=== PATIENT | female | born 1960 | race Caucasian/White ===

== ENCOUNTER 2023-12-07 11:38 | Inpatient (IN) | payer OTHER ==
--- NOTE | 2023-12-07 12:53 | ED ---
General Adult HPI - General Chief complaint: Extremity Problem,Nontraumatic Stated complaint: L leg swelling Time Seen by Provider: 12/07/23 12:05 Source: patient, RN notes reviewed Mode of arrival: ambulatory Limitations: no limitations - History of Present Illness Initial comments: 63-year-old female presents to the emergency department for evaluation of left lower extremity swelling. Patient states that she woke up this morning with significant swelling to her left lower extremity. She states that it is not painful. She reports that she has been massaging her leg which is soothing. She does note discoloration to her left leg. Patient states that she has had fevers on and off for the last couple of months. She was recently started on outpatient antibiotics for pneumonia. She also was told recently that she has masses in the right lung with fluid on her lung. She is scheduled to see pulmonology tomorrow. - Related Data Allergies Allergy/AdvReac Type Severity Reaction Status Date / Time Penicillins Allergy Rash/Hives Verified 12/07/23 11:43 Review of Systems ROS Statement: Those systems with pertinent positive or pertinent negative responses have been documented in the HPI. ROS Other: All systems not noted in ROS Statement are negative. Past Medical History Past Medical History: Cancer, COPD Additional Past Medical History / Comment(s): lung mass Past Surgical History: Adenoidectomy, Appendectomy, Tonsillectomy, Tubal Ligation Smoking Status: Current every day smoker General Exam Limitations: no limitations General appearance: alert, in no apparent distress Head exam: Present: atraumatic, normocephalic, normal inspection Eye exam: Present: normal appearance, PERRL, EOMI. Absent: scleral icterus, conjunctival injection, periorbital swelling ENT exam: Present: normal exam, mucous membranes moist Neck exam: Present: normal inspection. Absent: tenderness, meningismus, lymphadenopathy Respiratory exam: Present: rales. Absent: respiratory distress, wheezes, rhonchi, stridor Cardiovascular Exam: Present: normal rhythm, tachycardia, normal heart sounds. Absent: systolic murmur, diastolic murmur, rubs, gallop, clicks Extremities exam: Present: pedal edema, other (Significant left lower extremity edema with pallor, DP and PT pulses intact and equal bilaterally) Back exam: Present: normal inspection Neurological exam: Present: alert, oriented X3 Psychiatric exam: Present: normal affect, normal mood Skin exam: Present: warm, dry, intact. Absent: normal color, rash Course Vital Signs 12/07/23 12/07/23 12/07/23 11:39 16:10 17:34 Temperature 97.9 F 98.0 F Pulse Rate 105 H 104 H Respiratory 20 18 Rate Blood Pressure 145/80 125/76 O2 Sat by Pulse 96 93 L Oximetry 12/07/23 12/07/23 12/07/23 19:32 20:44 21:55 Temperature Pulse Rate 103 H 103 H 98 Respiratory 23 22 18 Rate Blood Pressure 127/81 139/81 136/74 O2 Sat by Pulse 95 95 92 L Oximetry Medical Decision Making - Medical Decision Making Was pt. sent in by a medical professional or institution (, PA, SHOTBLAST EQUIPMENT OPERATOR, urgent care, hospital, or [place] health care facility...) When possible be specific @ -No Did you speak to anyone other than the patient for history (EMS, parent, family, police, friend...)? What history was obtained from this source @ -No Did you review nursing and triage notes (agree or disagree)? Why? @ -I reviewed and agree with nursing and triage notes Were old charts reviewed (outside hosp., previous admission, EMS record, old EKG, old radiological studies, urgent care reports/EKG's, [place] health care facility records)? Report findings @ -Records from [facility] reviewed her last visit Differential Diagnosis (chest pain, altered mental status, abdominal pain women, abdominal pain men, vaginal bleeding, weakness, fever, dyspnea, syncope, headache, dizziness, GI bleed, back pain, seizure, CVA, palpatations, mental health, musculoskeletal)? @ -Differential Musculoskeletal Muscular strain, contusion, ligament sprain, fracture, arthritis, septic arthritis, bursitis, cellulitis, muscle spasm, nerve compression, DVT, arterial occlusion, herpes zoster, electrolyte abnormality, tumor.... This is not meant to be in all inclusive list EKG interpreted by me (3pts min.). @ -EKG at 1650 shows sinus rhythm rate 95, IL 123, QRS 81, QTQTc 3 [id number] X-rays interpreted by me (1pt min.). @ -None done CT interpreted by me (1pt min.). @ -CT chest for PE shows no evidence of PE, moderate pleural effusion, mediast inal and right hilar adenopathy with associated multiple spiculated nodules in the right upper lung U/S interpreted by me (1pt. min.). @ -Ultrasound of the left lower extremity shows extensive DVT from the distal leg left external iliac to the proximal calf veins What testing was considered but not performed or refused? (CT, X-rays, U/S, labs)? Why? @ -None What meds were considered but not given or refused? Why? @ -None Did you discuss the management of the patient with other professionals ( professionals i.e. , PA, SHOTBLAST EQUIPMENT OPERATOR, lab, RT, psych nurse, social service assistant, cosmetic counselor, teacher, chief environmental commitment officer, child support case officer)? Give summary @ -Case discussed with sound physician, Dr. Mota who is accepting of the admission Was smoking cessation discussed for >3mins.? @ -No Was critical care preformed (if so, how long)? @ -No Were there social determinants of health that impacted care today? How? (Homeles sness, low income, unemployed, alcoholism, drug addiction, transportation, low edu. Level, literacy, decrease access to med. care, longterm, rehab)? @ -No Was there de-escalation of care discussed even if they declined (Discuss DNR or withdrawal of care, Hospice)? DNR status @ -No What co-morbidities impacted this encounter? (DM, HTN, Smoking, COPD, CAD, Cancer, CVA, ARF, Chemo, Hep., AIDS, mental health diagnosis, sleep apnea, morbid obesity)? @ -Smoking, undiagnosed lung cancer Was patient admitted / discharged? Hospital course, mention meds given and route, prescriptions, significant lab abnormalities, going to OR and other pertinent info. @ -Admitted. Patient presented to the emergency department for evaluation of left lower extremity swelling x 1 day. Patient is found to have extensive DVT from external iliac to proximal calf veins. Distal pulses intact. Laboratory studies were obtained and patient was started on high-dose heparin. CT chest for PE was obtained which shows no evidence of PE but there is a moderate pleural effusion with mediastinal and right hilar adenopathy this is affecting the vasculature and airway there is associated multiple spiculated nodules in the right upper lung likely malignancy. Laboratory studies obtained. Patient does have significant leukocytosis at 28.7 with a left shift. She was also found to have normocytic anemia; transaminitis; UA shows moderate blood, greater than 182 RBCs, no evidence of infectious process including negative nitrite, negative leukocyte esterase. Because of the patient's leukocytosis with left shift, patient treated with antibiotics with unknown source of infection, suspected pneumonia. Patient be admitted for extensive DVT, heparinized; moderate pleural effusion with pulmonology consult, leukocytosis. Case was discussed with Dr. Nakul sousa who is accepting of the admission. Patient stable at time of admission. Case discussed with Dr. Patel Undiagnosed new problem with uncertain prognosis? @ -No Drug Therapy requiring intensive monitoring for toxicity (Heparin, Nitro, Insulin, Cardizem)? @ -No Were any procedures done? @ -No Diagnosis/symptom? @ -DVT, pleural effusion, hilar adenopathy, transaminitis, leukocytosis Acute, or Chronic, or Acute on Chronic? @ -Acute Uncomplicated (without systemic symptoms) or Complicated (systemic symptoms)? @ -Complicated Side effects of treatment? @ -No Exacerbation, Progression, or Severe Exacerbation? @ -Progression Poses a threat to life or bodily function? How? (Chest pain, [place], [place], pneumonia, PE, COPD, DKA, ARF, appy, cholecystitis, CVA, Diverticulitis, Homicidal, Suicidal, threat to staff... and all critical care pts) @ -Yes, DVT, pleural effusion - Lab Data Result diagrams: 12/07/23 13:36 12/07/23 13:36 Lab Results 12/07/23 12/07/23 12/07/23 Range/Units 13:36 13:36 13:36 WBC 28.7 H (3.8-10.6) k/uL RBC 3.60 L (3.80-5.40) m/uL Hgb 9.5 L (11.4-16.0) gm/dL Hct 30.1 L (34.0-46.0) % MCV 83.5 (80.0-100.0) fL MCH 26.4 (25.0-35.0) pg MCHC 31.6 (31.0-37.0) g/dL RDW 15.5 (11.5-15.5) % Plt Count 475 H (150-450) k/uL MPV 7.1 Neutrophils % (Manual) 96 % Lymphocytes % (Manual) 2 % Monocytes % (Manual) 2 % Neutrophils # (Manual) 27.55 H (1.3-7.7) k/uL Lymphocytes # (Manual) 0.57 L (1.0-4.8) k/uL Monocytes # (Manual) 0.57 (0-1.0) k/uL Nucleated RBCs 0 (0-0) /100 WBC Manual Slide Review Performed RBC Morphology Normal Hypochromasia Slight PT (10.0-12.5) sec INR (<1.2) APTT (22.0-30.0) sec Sodium 134 L (137-145) mmol/L Potassium 4.6 (3.5-5.1) mmol/L Chloride 103 (98-107) mmol/L Carbon Dioxide 23 (22-30) mmol/L Anion Gap 8 mmol/L BUN 20 H (7-17) mg/dL Creatinine 0.43 L (0.52-1.04) mg/dL Est GFR (CKD-EPI)AfAm >90 (>60 ml/min/1.73 sqM) Est GFR (CKD-EPI)NonAf >90 (>60 ml/min/1.73 sqM) Glucose 108 H (74-99) mg/dL Plasma Lactic Acid Ramsey 1.1 (0.7-2.0) mmol/L Calcium 8.8 (8.4-10.2) mg/dL Total Bilirubin 0.5 (0.2-1.3) mg/dL AST 43 H (14-36) U/L ALT 68 H (4-34) U/L Alkaline Phosphatase 204 H (38-126) U/L Total Protein 5.9 L (6.3-8.2) g/dL Albumin 3.0 L (3.5-5.0) g/dL 12/06/ Range/Units 13:36 WBC (3.8-10.6) k/uL RBC (3.80-5.40) m/uL Hgb (11.4-16.0) gm/dL Hct (34.0-46.0) % MCV (80.0-100.0) fL MCH (25.0-35.0) pg MCHC (31.0-37.0) g/dL RDW (11.5-15.5) % Plt Count (150-450) k/uL MPV Neutrophils % (Manual) % Lymphocytes % (Manual) % Monocytes % (Manual) % Neutrophils # (Manual) (1.3-7.7) k/uL Lymphocytes # (Manual) (1.0-4.8) k/uL Monocytes # (Manual) (0-1.0) k/uL Nucleated RBCs (0-0) /100 WBC Manual Slide Review RBC Morphology Hypochromasia PT 13.5 H (10.0-12.5) sec INR 1.3 H (<1.2) APTT 27.9 (22.0-30.0) sec Sodium (137-145) mmol/L Potassium (3.5-5.1) mmol/L Chloride (98-107) mmol/L Carbon Dioxide (22-30) mmol/L Anion Gap mmol/L BUN (7-17) mg/dL Creatinine (0.52-1.04) mg/dL Est GFR (CKD-EPI)AfAm (>60 ml/min/1.73 sqM) Est GFR (CKD-EPI)NonAf (>60 ml/min/1.73 sqM) Glucose (74-99) mg/dL Plasma Lactic Acid Ramsey (0.7-2.0) mmol/L Calcium (8.4-10.2) mg/dL Total Bilirubin (0.2-1.3) mg/dL AST (14-36) U/L ALT (4-34) U/L Alkaline Phosphatase (38-126) U/L Total Protein (6.3-8.2) g/dL Albumin (3.5-5.0) g/dL Disposition Clinical Impression: Deep vein thrombosis (DVT) of lower extremity, Leukocytosis Disposition: ADMITTED IP TO THIS HOSP Condition: Stable Is patient prescribed a controlled substance at d/c from ED?: No
--- NOTE | 2023-12-07 13:03 | US ---
EXAMINATION TYPE: US venous doppler duplex LE LT DATE OF EXAM: 12/07/2023 12:34 PM COMPARISON: NONE CLINICAL INDICATION: Female, 63 years old with history of swelling to left leg; lt leg began swelling 3 hours ago, now discolored: pale, purple SIDE PERFORMED: Left TECHNIQUE: The lower extremity deep venous system is examined utilizing real time linear array sonog rafat with graded compression, doppler sonography and color-flow sonography. VESSELS IMAGED: Common Femoral Vein Deep Femoral Vein Greater Saphenous Vein * Femoral Vein Popliteal Vein Small Saphenous Vein * Proximal Calf Veins (* superficial vessels) The left lower extremity deep venous system from the distal external iliac vein through the proximal calf veins is noncompressible with no evidence of augmentable flow or normal venous waveforms. Hetero geneous echogenic clot is identified throughout. There is acute DVT from the distal external iliac vein through the PTVs and peroneal veins. Attempt t o visualize the proximal iliac veins was made but poorly visualized due to bowel gas. During this inv estigation it was noted that the liver has been displaced to the infraumbilical region, may be due to pleural effusion also noted. Pt. states she has a newly discovered lung mass adjacent to the trachea and has an appointment with a labeling specialist tomorrow IMPRESSION: Extensive DVT from the left distal external iliac veins to the proximal left calf veins
[2023-12-07 14:03] LABS: HCT 30.1 % (34.0-46.0); HGB 9.5 gm/dL (11.4-16.0); Hypochromasia Slight; MCH 26.4 pg (25.0-35.0); MCHC 31.6 g/dL (31.0-37.0); MCV 83.5 fL (80.0-100.0); Mean Platelet Volume 7.1; Platelet Count 475 k/uL (150-450); RDW 15.5 % (11.5-15.5)
[2023-12-07 14:09] LABS: WBC 28.7 k/uL (3.8-10.6)
[2023-12-07 14:20] LABS: INR 1.3 (<1.2); Partial Thromboplastin Time 27.9 sec (22.0-30.0); Prothrombin Time 13.5 sec (10.0-12.5)
[2023-12-07 14:28] LABS: ALT 68 U/L (4-34); African American GFR (CKD) >90 (>60 ml/min/1.73 sqM); Anion Gap 8 mmol/L; Blood Urea Nitrogen 20 mg/dL (7-17); Calcium 8.8 mg/dL (8.4-10.2); Carbon Dioxide 23 mmol/L (22-30); Chloride 103 mmol/L (98-107); Glucose 108 mg/dL (74-99); Non-African American GFR(CKD) >90 (>60 ml/min/1.73 sqM); Sodium 134 mmol/L (137-145); Total Bilirubin 0.5 mg/dL (0.2-1.3); Total Protein 5.9 g/dL (6.3-8.2)
[2023-12-07 14:31] LABS: AST 43 U/L (14-36); Alkaline Phosphatase 204 U/L (38-126); Potassium 4.6 mmol/L (3.5-5.1)
[2023-12-07] MEDS ORDERED: VANCOMYCIN IV PER PHARMACY 1 EACH MISC MISCELLANE PRN (15:10)
[2023-12-07 15:22] LABS: Lymphocytes # (M) 0.57 k/uL (1.0-4.8); Monocytes # (M) 0.57 k/uL (0-1.0); Neutrophils # (M) 27.55 k/uL (1.3-7.7); Neutrophils % (M) 96 %; Nucleated Red Blood Cells 0 /100 WBC (0-0); RBC Morphology Normal; Total Cells Counted 100
--- NOTE | 2023-12-07 15:56 | CT ---
EXAMINATION TYPE: CT chest angio for PE CT DLP: 209.7 mGycm, Automated exposure control for dose reduction was used. DATE OF EXAM: 12/07/2023 3:18 PM COMPARISON: None CLINICAL INDICATION:Female, 63 years old with history of pain, extensive dvt; Left thigh DVT, rule ou t PE TECHNIQUE/CONTRAST: CTA scan of the thorax is performed with IV Contrast, patient injected with 100 ml mL of Isovue 370, MIP images are created and reviewed these are created on a separate workstation.. FINDINGS: Pulmonary Artery: There is no evidence for a filling defect within the pulmonary vasculature to sugge st acute pulmonary embolism. The pulmonary artery is of normal size. Lungs/Pleura: Moderate right pleural effusion with associated atelectasis. There is conglomerate christian r adenopathy identified in the right creating mass effect upon the vasculature and airway/bronchi. Mu ltiple spiculated pulmonary nodules are identified extending into the lower aspect of the right upper lung. Airway: Large airways are patent. Heart: Heart is within normal limits for size. Vasculature: No evidence of aortic aneurysm. Mediastinum: Multiple enlarged subcarinal, pretracheal, and right hilar lymph nodes are present. The largest node measures 3.5 cm in the axial plane. Musculoskeletal: Mild degenerative disc disease changes are present throughout the thoracolumbar spin e. Soft Tissues: Unremarkable. Lower neck: No significant findings. Upper Abdomen: No significant findings. IMPRESSION: 1. No evidence of pulmonary embolism. 2. Large conglomerate mediastinal and right hilar adenopathy with associated multiple spiculated nodu les in the right upper lung. Findings are concerning for underlying malignancy. 3. Moderate right pleural effusion, likely sequela of impression #2.
[2023-12-07] MEDS: CEFEPIME 2 GM in SODIUM CHLORIDE 0.9% 100 ML IVPB STA (16:33)
[2023-12-07] MEDS: HEPARIN SODIUM 1,000 UN/ML (10ML VL) IV ONE (17:27)
[2023-12-07] MEDS: HEPARIN SOD,PORK IN 0.45% NACL 25,000 UNIT in 0.45% NACL 1 250ML.BAG IV SCH (17:28)
[2023-12-07] MEDS: VANCOMYCIN 1,000 MG in SODIUM CHLORIDE 0.9% 250 ML IVPB STA (17:33)
[2023-12-07 19:20] LABS: Appearance,Urine Clear (Clear); Bilirubin,Urine Negative (Negative); Blood,Urine Moderate (Negative); Color,Urine Light Yellow; Glucose,Urine (UA) Negative (Negative); Ketones,Urine Negative (Negative); Leukocyte Esterase,Urine Negative (Negative); Mucus,Urine Rare /hpf; Nitrite,Urine Negative (Negative); Protein,Urine Trace (Negative); RBC,Urine >182 /hpf (0-5); Urobilinogen,Urine <2.0 mg/dL (<2.0); WBC,Urine 1 /hpf (0-5)
[2023-12-07 19:58] LABS: Specific Gravity,Urine >1.050 (1.001-1.035)
[2023-12-07] MEDS: SODIUM CHLORIDE 0.9% 1,000 ML IV SCH (20:54)
[2023-12-07] MEDS: MORPHINE SULFATE 2 MG/ML SYRINGE IVP ONE (20:56)
[2023-12-07] MEDS ORDERED: NALOXONE 0.4 MG/ML 1 ML VIAL IV PRN (21:27)
--- NOTE | 2023-12-07 23:59 | P.HPIM ---
History of Present Illness H&P Date: 12/07/23 Patient is a 63-year-old female with a PMH of tobacco abuse who presents to the emergency room with complaints of left lower extremity swelling and shortness of breath. Patient noticed sudden onset of left leg swelling this morning which quickly worsened throughout the day. She denied recent travel, trauma, or any prior history of blood clots. She does report mild pain of the left leg. Reports being started on oral antibiotics 1 week ago for suspected pneumonia by her PCP, and being given a 10-day course for which she has 3 doses left. Does report however that she continues to have an productive cough and exertional dyspnea which has worsened over the past few days. Denies experiencing chest pain, nausea, vomiting, diaphoresis, or dizziness. She was also recently diagnosed with multiple lung nodules a few weeks ago for which she is scheduled to see pulmonary as an outpatient in [place]. Chest CTA in the emergency room revealed large mediastinal and right hilar adenopathy with multiple nodules in the right upper lung field concerning for malignancy as well as a moderate right-sided pleural effusion likely sequela of the malignancy. There was no evidence of pulmonary embolism. Venous Doppler of the lower extremities revealed an extensive DVT extending from the left distal external iliac to the proximal calf veins. Laboratory evaluation revealed leukocytosis of 28.7 with hemoglobin 9.5, lactic acid 1.1, troponin 0.012, AST 43, ALT 68, alk phos 204. The patient's SpO2 in the emergency room was 92% on room air. ED documentation reviewed and case discussed with ED provider. Review of systems: Pertinent positives and negatives as discussed in HPI, a complete review of systems was performed and all other systems are negative. Physical examination: Vital signs reviewed General: non toxic, no distress, appears at stated age, normal weight Derm: no unusual rashes/lesions, warm Head: atraumatic, normocephalic, symmetric Eyes: EOMI, no lid lag, anicteric sclera, pupils equal round reactive to light ENT: Nose and ears atraumatic Neck: No cervical lymphadenopathy, trachea midline, supple Mouth: no lip lesion, mucus membranes moist Cardiovascular: S1S2 reg, no murmur, positive dorsalis pedis pulse bilateral, 1+ left lower extremity edema with tenderness and warmth noted Lungs: Mild diffuse rhonchi's without wheezing, no accessory muscle use Abdominal: soft, nontender to palpation, no guarding Ext: muscle strength 5 out of 5 in all 4 extremities grossly, no gross muscle atrophy, no contractures, Neuro: CN II-XI grossly intact, no gross focal neuro deficits Psych: Alert, oriented, appropriate affect Assessment: Acute unprovoked left lower extremity DVT without PE Multiple pulmonary nodules and adenopathy with suspected malignant pleural effusion Acute hypoxic respiratory failure, secondary to underlying malignancy versus pneumonia Transaminitis Normocytic anemia Imaging: Chest CTA in the emergency room revealed large mediastinal and right hilar adenopathy with multiple nodules in the right upper lung field concerning for malignancy as well as a moderate right-sided pleural effusion likely sequela of the malignancy. There was no evidence of pulmonary embolism. Venous Doppler of the lower extremities revealed an extensive DVT extending from the left distal external iliac to the proximal calf veins. Data Review: Laboratory evaluation revealed leukocytosis of 28.7 with hemoglobin 9.5, lactic acid 1.1, troponin 0.012, AST 43, ALT 68, alk phos 204. The patient's SpO2 in the emergency room was 92% on room air. Plan: Continue patient on heparin infusion with plan to switch to NOAC in am pending insurance authorization Continue empiric antibiotics cefepime and vancomycin for now pending procalcitonin levels Supplemental oxygen Pulmonary consulted for diagnostic thoracentesis Monitor LFTs DVT prophylaxis: Heparin infusion The patient is admitted with an anticipated greater than 2 midnight stay for evaluation of DVT CODE STATUS: Full Code Discussed with: Patient Anticipated discharge place: Home Past Medical History Past Medical History: Cancer, COPD Additional Past Medical History / Comment(s): lung mass Past Surgical History: Adenoidectomy, Appendectomy, Tonsillectomy, Tubal Ligation Smoking Status: Current every day smoker Medications and Allergies Allergies Allergy/AdvReac Type Severity Reaction Status Date / Time Penicillins Allergy Rash/Hives Verified 12/07/23 11:43 Physical Exam Vitals: Vital Signs Temp Pulse Resp BP Pulse Ox 12/07/23 21:55 98 18 136/74 92 L 12/07/23 20:44 103 H 22 139/81 95 12/07/23 19:32 103 H 23 127/81 95 12/07/23 17:34 98.0 F 104 H 18 125/76 93 L 12/07/23 16:10 145/80 12/07/23 11:39 97.9 F 105 H 20 96 Intake and Output 03/24/24 03/24/24 03/25/24 14:59 22:59 06:59 Other: Weight 49.895 kg Results CBC & Chem 7: 12/07/23 13:36 12/07/23 13:36 Labs: Abnormal Lab Results - Last 24 Hours (Table) 12/07/23 12/07/23 12/07/23 Range/Units 13:36 13:36 13:36 WBC 28.7 H (3.8-10.6) k/uL RBC 3.60 L (3.80-5.40) m/uL Hgb 9.5 L (11.4-16.0) gm/dL Hct 30.1 L (34.0-46.0) % Plt Count 475 H (150-450) k/uL Neutrophils # (Manual) 27.55 H (1.3-7.7) k/uL Lymphocytes # (Manual) 0.57 L (1.0-4.8) k/uL PT 13.5 H (10.0-12.5) sec INR 1.3 H (<1.2) Sodium 134 L (137-145) mmol/L BUN 20 H (7-17) mg/dL Creatinine 0.43 L (0.52-1.04) mg/dL Glucose 108 H (74-99) mg/dL AST 43 H (14-36) U/L ALT 68 H (4-34) U/L Alkaline Phosphatase 204 H (38-126) U/L Total Protein 5.9 L (6.3-8.2) g/dL Albumin 3.0 L (3.5-5.0) g/dL Ur Specific [place] (1.001-1.035) Urine Protein (Negative) Urine Blood (Negative) Urine RBC (0-5) /hpf Urine Mucus (None) /hpf 12/07/23 Range/Units 18:51 WBC (3.8-10.6) k/uL RBC (3.80-5.40) m/uL Hgb (11.4-16.0) gm/dL Hct (34.0-46.0) % Plt Count (150-450) k/uL Neutrophils # (Manual) (1.3-7.7) k/uL Lymphocytes # (Manual) (1.0-4.8) k/uL PT (10.0-12.5) sec INR (<1.2) Sodium (137-145) mmol/L BUN (7-17) mg/dL Creatinine (0.52-1.04) mg/dL Glucose (74-99) mg/dL AST (14-36) U/L ALT (4-34) U/L Alkaline Phosphatase (38-126) U/L Total Protein (6.3-8.2) g/dL Albumin (3.5-5.0) g/dL Ur Specific [place] >1.050 H (1.001-1.035) Urine Protein Trace H (Negative) Urine Blood Moderate H (Negative) Urine RBC >182 H (0-5) /hpf Urine Mucus Rare H (None) /hpf
[2023-12-08] MEDS: HYDROmorphone 0.5 MG/0.5 ML SYRINGE IVP PRN (00:36)
[2023-12-08] MEDS: CEFEPIME 2 GM in SODIUM CHLORIDE 0.9% 100 ML IVPB SCH (01:18)
[2023-12-08] MEDS: HEPARIN SODIUM 1,000 UN/ML (10ML VL) IV PRN (02:42)
[2023-12-08] MEDS: ACETAMINOPHEN TAB 325 MG TAB PO PRN (02:45)
[2023-12-08] MEDS: HYDROmorphone 1 MG/ML 1 ML SYRINGE IVP PRN (03:34)
[2023-12-08] MEDS: VANCOMYCIN 1,000 MG in SODIUM CHLORIDE 0.9% 250 ML IVPB SCH (05:46)
[2023-12-08 08:22] LABS: Basophils % (A) 0 %; Eosinophils # (A) 0.1 k/uL (0-0.7); Eosinophils % (A) 0 %; HCT 24.6 % (34.0-46.0); Hypochromasia Moderate; Lymphocytes % (A) 8 %; MCH 27.3 pg (25.0-35.0); MCHC 32.6 g/dL (31.0-37.0); MCV 83.7 fL (80.0-100.0); Mean Platelet Volume 7.5; Monocytes # (A) 1.3 k/uL (0-1.0); Monocytes % (A) 5 %; Neutrophils # (A) 23.2 k/uL (1.3-7.7); Neutrophils % (A) 86 %; Platelet Count 366 k/uL (150-450); RBC 2.93 m/uL (3.80-5.40); RDW 15.7 % (11.5-15.5)
[2023-12-08 08:39] LABS: ALT 46 U/L (4-34); AST 36 U/L (14-36); African American GFR (CKD) >90 (>60 ml/min/1.73 sqM); Albumin 2.6 g/dL (3.5-5.0); Alkaline Phosphatase 168 U/L (38-126); Anion Gap 6 mmol/L; Blood Urea Nitrogen 32 mg/dL (7-17); Calcium 8.1 mg/dL (8.4-10.2); Carbon Dioxide 27 mmol/L (22-30); Chloride 101 mmol/L (98-107); Globulin 2.5 g/dL; Glucose 104 mg/dL (74-99); Non-African American GFR(CKD) >90 (>60 ml/min/1.73 sqM); Potassium 4.3 mmol/L (3.5-5.1); Sodium 134 mmol/L (137-145); Total Bilirubin 0.3 mg/dL (0.2-1.3); Total Protein 5.1 g/dL (6.3-8.2)
--- NOTE | 2023-12-08 10:53 | US ---
EXAMINATION TYPE: US chest DATE OF EXAM: 12/08/2023 COMPARISON: NONE CLINICAL INDICATION: Female, 63 years old with history of Markings for thoracentesis by pulmonary sta ff; Cough; denies SVETA TECHNIQUE: Targeted ultrasound of the posterior lower bilateral hemithoraces EXAM MEASUREMENTS: Right Pleural Effusion pocket size: 4.2 cm Right skin surface to fluid distance: 1.5 cm Left Pleural Effusion pocket size: 0 cm Left skin surface to fluid distance: 0 cm Right side marked for possible thoracentesis outside the dept. Pulmonologists are able to review the images in the patient?s EMR. IMPRESSIONS: Right pleural effusion
[2023-12-08] MEDS: IPRATROPIUM-ALBUTEROL 3 ML NEB INHALATION SCH (11:55)
--- NOTE | 2023-12-08 15:00 | P.CNPUL ---
History of Present Illness Consult date: 12/08/23 Requesting physician: Beth Mota Reason for consult: abnormal CXR/CT Chief complaint: Left lower extremity edema, pain History of present illness: This is a very pleasant 63-year-old female patient with a known history of chronic and ongoing tobacco dependence. For approximately 3 to 4 weeks she had been having increasing shortness of breath, cough and congestion. She was treated with albuterol, doxycycline and prednisone in the outpatient setting without much improvement. Chest x-ray had revealed a new right sided lung mass. She was scheduled to be seen in our office today for the same. However yesterday she developed increasing pain and edema of the left lower extremity and presented here to the emergency room. Dopplers revealed an extensive DVT from the left distal external iliac veins to the prominent left calf veins. CT angiogram revealed no evidence of pulmonary embolism however there is a large conglomerate mediastinal and right hilar adenopathy with associated multiple spiculated nodules of the right upper lung. There is also a moderate right pleural effusion. Findings are concerning for malignancy. Ultrasound of the right chest reveals a 4.2 cm pocket. White count 27.0. Hemoglobin 8.0. Platelets 366. Sodium 134. Potassium 4.3. Bicarb 27. BUN 32. Creatinine 0.53. Glucose 104. A ST 36. ALT 46. Procalcitonin 0.20. She is currently on a heparin drip. She is seen today in consultation in the emergency department. She is currently sitting up on a stretcher. Awake and alert in no acute distress. She denies any worsening shortness of breath, cough or congestion. No hemoptysis. Left lower extremity pain is subsiding but still present. She states she has lost approximately 22 pounds over the past year. She does have chronic and ongoing tobacco dependence of greater than 30 years. She remains quite active. Prior to this recent illness within the past month she had been feeling fine and no significant medical history. She has been initiated on vancomycin and cefepime. She is on bronchodilators. Normal saline at 75 MLS per hour. Review of Systems REVIEW OF SYSTEMS: CONSTITUTIONAL: Denies any recent significant weight loss or weight gain. EYES: Denies change in vision. EARS, NOSE, MOUTH, THROAT: Denies headaches, denies sore throat. CARDIOVASCULAR: Denies chest pain, palpitations or syncopal episodes. RESPIRATORY: Denies shortness of breath, cough, congestion or hemoptysis. GASTROINTESTINAL: Denies change in appetite, denies abdominal pain GENITOURINARY: Denies hematuria, denies infections. MUSKULOSKELETAL: Positive for pain and swelling of the left lower extremity. INTEGUMENTARY: Denies rash, denies eczema. NEUROLOGICAL: Denies recent memory loss, no recent seizure activity. PSYCHIATRIC: Denies anxiety, denies depression. HEMATOLOGIC/LYMPHATIC: Denies anemia, denies enlarged lymph nodes. Past Medical History Past Medical History: Cancer, COPD Additional Past Medical History / Comment(s): lung mass Past Surgical History: Adenoidectomy, Appendectomy, Tonsillectomy, Tubal Ligation Smoking Status: Current every day smoker Medications and Allergies Home Medications Medication Instructions Recorded Confirmed Type Albuterol Sulfate [Albuterol 2 puff PO RT-Q4H PRN 12/08/23 12/08/23 History Sulfate Hfa] Doxycycline [Vibramycin] 100 mg PO BID 12/08/23 12/08/23 History Ipratropium-Albuterol Nebulize 3 ml INHALATION RT-Q4H 12/08/23 12/08/23 History [Duoneb 0.5 mg-3 mg/3 ml Soln] predniSONE [Deltasone] 20 mg PO BID 12/08/23 12/08/23 History Allergies Allergy/AdvReac Type Severity Reaction Status Date / Time amoxicillin Allergy Rash/Hives Verified 12/08/23 09:29 Penicillins Allergy see comment Verified 12/08/23 09:29 Physical Exam Vitals: Vital Signs Temp Pulse Resp BP Pulse Ox 12/08/23 14:00 94 16 101/66 96 12/08/23 13:00 92 16 115/65 97 12/08/23 12:04 94 12/08/23 11:57 92 12/08/23 09:51 98 F 86 16 92/60 94 L 12/08/23 05:53 97.8 F 12/08/23 05:00 89 19 101/62 97 12/08/23 04:00 95 16 124/61 97 12/08/23 03:37 100 21 124/61 93 L 12/08/23 03:00 107 H 21 128/75 97 12/08/23 02:46 100.9 F H 12/08/23 02:00 109 H 12 122/71 94 L 12/08/23 01:00 105 H 22 140/86 95 12/08/23 00:00 105 H 22 138/69 90 L 12/07/23 23:00 111 H 20 144/76 91 L 12/07/23 22:00 108 H 18 136/74 93 L 12/07/23 21:55 113 H 19 136/74 92 L 12/07/23 20:44 103 H 22 139/81 95 12/07/23 19:32 103 H 23 127/81 95 12/07/23 17:34 98.0 F 104 H 18 125/76 93 L 12/07/23 16:10 145/80 Intake and Output 12/07/23 12/08/23 12/08/23 22:59 06:59 14:59 Intake Total 83.074 69.853 Balance 83.074 69.853 Intake: Intake, IV Titration 83.074 69.853 Amount Heparin Sod,Pork in 0.45% 83.074 69.853 NaCl 25,000 unit In 0.45 % NaCl 1 250ml.bag @ 18 UNITS/KG/HR 8.981 mls/hr IV .Q24H [facility] Rx#: [id number] GENERAL EXAM: Alert, pleasant 63-year-old female, on room air, comfortable in no apparent distress. HEAD: Normocephalic. EYES: Normal reaction of pupils, equal size. NOSE: Clear with pink turbinates. THROAT: No erythema or exudates. NECK: No masses, no JVD. CHEST: No chest wall deformity. LUNGS: Equal air entry with crackles and dullness of the right lung base. CVS: S1 and S2 normal with no audible murmur, regular rhythm. ABDOMEN: No hepatosplenomegaly, normal bowel sounds, no guarding or rigidity. SPINE: No scoliosis or deformity SKIN: No rashes CENTRAL NERVOUS SYSTEM: No focal deficits, tone is normal in all 4 extremities. EXTREMITIES: There is 1-2+ peripheral edema of the left lower extremity. No clubbing, no cyanosis. Peripheral pulses are intact. Results - Laboratory Findings CBC and BMP: 12/08/23 08:00 12/08/23 08:00 PT/INR, D-dimer PT 13.5 sec (10.0-12.5) H 12/07/23 13:36 INR 1.3 (<1.2) H 12/07/23 13:36 Abnormal lab findings: Abnormal Labs 12/07/23 12/07/23 12/07/23 13:36 13:36 13:36 WBC 28.7 H RBC 3.60 L Hgb 9.5 L Hct 30.1 L RDW Plt Count 475 H Neutrophils # Neutrophils # (Manual) 27.55 H Lymphocytes # (Manual) 0.57 L Monocytes # PT 13.5 H INR 1.3 H APTT Sodium 134 L BUN 20 H Creatinine 0.43 L Glucose 108 H Calcium AST 43 H ALT 68 H Alkaline Phosphatase 204 H Total Protein 5.9 L Albumin 3.0 L Procalcitonin Ur Specific [place] Urine Protein Urine Blood Urine RBC Urine Mucus 12/07/23 12/07/23 12/07/23 18:51 22:18 23:31 WBC RBC Hgb Hct RDW Plt Count Neutrophils # Neutrophils # (Manual) Lymphocytes # (Manual) Monocytes # PT INR APTT 37.0 H Sodium BUN Creatinine Glucose Calcium AST ALT Alkaline Phosphatase Total Protein Albumin Procalcitonin 0.20 H Ur Specific [place] >1.050 H Urine Protein Trace H Urine Blood Moderate H Urine RBC >182 H Urine Mucus Rare H 12/08/23 12/08/23 12/08/23 07:57 08:00 08:00 WBC 27.0 H RBC 2.93 L Hgb 8.0 L D Hct 24.6 L RDW 15.7 H Plt Count Neutrophils # 23.2 H Neutrophils # (Manual) Lymphocytes # (Manual) Monocytes # 1.3 H PT INR APTT 118.8 H* Sodium 134 L BUN 32 H Creatinine Glucose 104 H Calcium 8.1 L AST ALT 46 H Alkaline Phosphatase 168 H Total Protein 5.1 L Albumin 2.6 L Procalcitonin Ur Specific [place] Urine Protein Urine Blood Urine RBC Urine Mucus - Diagnostic Findings Chest x-ray: image reviewed CT scan - chest: image reviewed Assessment and Plan Assessment: Acute left lower extremity pain and swelling in a patient found to have an extensive left lower extremity DVT. Initiated on a heparin drip Recent diagnosis of lung mass with no follow-up thus far. CT angiogram ruled out pulmonary embolism. There is a large conglomerate mediastinal and right hilar adenopathy with associated multiple spiculated nodules in the right upper lung. Concerning for malignancy Moderate right-sided pleural effusion secondary to above Acute hypoxemic respiratory failure secondary to above and suspected p ostobstructive pneumonia, currently on vancomycin and cefepime Leukocytosis secondary to above Weight loss up to 22 pounds in the past year Chronic and ongoing tobacco dependence of greater than 30 years Anemia of unclear etiology, current hemoglobin 8.0 Plan: The patient was seen and evaluated CT angiogram, chest x-ray, venous Doppler, labs and medications reviewed Procalcitonin 0.20 Continue vancomycin and cefepime Continue bronchodilators Obtain an ultrasound of the right chest May require thoracentesis for diagnosis May require bronchoscopy with biopsies, if pleural fluid nondiagnostic Continue with heparin drip for another 24 hours We will continue to follow and make further recommendations based on her clinical status I have personally seen and examined the patient, performed the documentation and the assessment and plan as written. Number of minutes spent on the visit: 20.
--- NOTE | 2023-12-08 15:01 | P.PN ---
Subjective Progress Note Date: 12/08/23 Hospital Course: 63-year-old female with a PMH of tobacco abuse who presents to the emergency r oom with complaints of left lower extremity swelling and shortness of breath. Chest CTA in the emergency room revealed large mediastinal and right hilar adenopathy with multiple nodules in the right upper lung field concerning for malignancy as well as a moderate right-sided pleural effusion likely sequela of the malignancy. There was no evidence of pulmonary embolism. Venous Doppler of the lower extremities revealed an extensive DVT extending from the left distal external iliac to the proximal calf veins. Laboratory evaluation revealed leukocytosis of 28.7 with hemoglobin 9.5, lactic acid 1.1, troponin 0.012, AST 43, ALT 68, alk phos 204. The patient's SpO2 in the emergency room was 92% on room air. Patient started on heparin drip. Pulmonology also consulted. Subjective: Patient seen and examined at bedside. No acute events overnight. Pertinent positives and negatives as discussed above, a complete review of systems was performed and all other systems are negative. Vitals Signs Reviewed. General: Nontoxic, no distress, appears at stated age, chronically ill-appearing Derm: Warm, dry Head: Atraumatic, normocephalic, symmetric Eyes: EOMI, no lid lag, anicteric sclera Mouth: No lip lesion, mucus membranes moist Cardiovascular: S1S2 reg, no murmur Lungs: Right basilar rales, no accessory muscle use Abdominal: Soft, nontender to palpation, no guarding, no appreciable organomegaly Ext: No gross muscle atrophy, no edema, no contractures, 1+ edema on left lower extremity Neuro: CN II-XI grossly intact, no focal neuro deficits Psych: Alert, oriented, appropriate affect Data Reviewed Today: Pertinent Labs: WBC 27, hemoglobin 8, potassium 4.3, creatinine 0.53, AST 36, ALT 46, ALP 168, total bili 0.3, procalcitonin 0.2 Imaging: Chest ultrasound shows right pleural effusion Assessment and Plan: Active: Acute unprovoked left lower extremity DVT without PE Multiple pulmonary nodules and adenopathy with suspected malignant pleural effusion Acute hypoxic respiratory failure, secondary to underlying malignancy versus pneumonia Sepsis Severe leukocytosis Transaminitis Normocytic anemia Former smoker - Continue heparin drip, will transition to Eliquis once she gets her thoracentesis - Pulmonology consulted, pending recommendations - On IV cefepime 2 g every 8 hours, and IV vancomycin 1 g every 12 hours, monitor for renal toxicity - IV fluids discontinued - DuoNebs 4 times daily scheduled and as needed, - Pain control with oral Tylenol as needed, IV Dilaudid as needed, monitor for sedation - Continue to monitor CBC and CMP DVT ppx: Heparin drip Code status: Full code Anticipated discharge place: Pending clinical course Anticipated discharge time: Pending clinical course Objective - Vital Signs Vital signs: Vital Signs Temp 98 F 12/08/23 09:51 Pulse 94 12/08/23 14:00 Resp 16 12/08/23 14:00 BP 101/66 12/08/23 14:00 Pulse Ox 96 12/08/23 14:00 FiO2 Intake & Output 12/07/23 12/08/23 12/08/23 18:59 06:59 18:59 Intake Total 83.074 69.853 Balance 83.074 69.853 Weight 49.895 kg Intake: Intake, IV Titration 83.074 69.853 Amount Heparin Sod,Pork in 0.45% 83.074 69.853 NaCl 25,000 unit In 0.45 % NaCl 1 250ml.bag @ 18 UNITS/KG/HR 8.981 mls/hr IV .Q24H [facility] Rx#: [id number] - Labs CBC & Chem 7: 12/08/23 08:00 12/08/23 08:00 Labs: Abnormal Lab Results - Last 24 Hours (Table) 12/07/23 12/07/23 12/07/23 Range/Units 13:36 18:51 22:18 WBC (3.8-10.6) k/uL RBC (3.80-5.40) m/uL Hgb (11.4-16.0) gm/dL Hct (34.0-46.0) % RDW (11.5-15.5) % Neutrophils # (1.3-7.7) k/uL Neutrophils # (Manual) 27.55 H (1.3-7.7) k/uL Lymphocytes # (Manual) 0.57 L (1.0-4.8) k/uL Monocytes # (0-1.0) k/uL APTT (22.0-30.0) sec Sodium (137-145) mmol/L BUN (7-17) mg/dL Glucose (74-99) mg/dL Calcium (8.4-10.2) mg/dL ALT (4-34) U/L Alkaline Phosphatase (38-126) U/L Total Protein (6.3-8.2) g/dL Albumin (3.5-5.0) g/dL Procalcitonin 0.20 H (0.02-0.09) ng/mL Ur Specific [place] >1.050 H (1.001-1.035) Urine Protein Trace H (Negative) Urine Blood Moderate H (Negative) Urine RBC >182 H (0-5) /hpf Urine Mucus Rare H (None) /hpf 12/07/23 12/08/23 12/08/23 Range/Units 23:31 07:57 08:00 WBC 27.0 H (3.8-10.6) k/uL RBC 2.93 L (3.80-5.40) m/uL Hgb 8.0 L D (11.4-16.0) gm/dL Hct 24.6 L (34.0-46.0) % RDW 15.7 H (11.5-15.5) % Neutrophils # 23.2 H (1.3-7.7) k/uL Neutrophils # (Manual) (1.3-7.7) k/uL Lymphocytes # (Manual) (1.0-4.8) k/uL Monocytes # 1.3 H (0-1.0) k/uL APTT 37.0 H 118.8 H* (22.0-30.0) sec Sodium (137-145) mmol/L BUN (7-17) mg/dL Glucose (74-99) mg/dL Calcium (8.4-10.2) mg/dL ALT (4-34) U/L Alkaline Phosphatase (38-126) U/L Total Protein (6.3-8.2) g/dL Albumin (3.5-5.0) g/dL Procalcitonin (0.02-0.09) ng/mL Ur Specific [place] (1.001-1.035) Urine Protein (Negative) Urine Blood (Negative) Urine RBC (0-5) /hpf Urine Mucus (None) /hpf 03/25/24 Range/Units 08:00 WBC (3.8-10.6) k/uL RBC (3.80-5.40) m/uL Hgb (11.4-16.0) gm/dL Hct (34.0-46.0) % RDW (11.5-15.5) % Neutrophils # (1.3-7.7) k/uL Neutrophils # (Manual) (1.3-7.7) k/uL Lymphocytes # (Manual) (1.0-4.8) k/uL Monocytes # (0-1.0) k/uL APTT (22.0-30.0) sec Sodium 134 L (137-145) mmol/L BUN 32 H (7-17) mg/dL Glucose 104 H (74-99) mg/dL Calcium 8.1 L (8.4-10.2) mg/dL ALT 46 H (4-34) U/L Alkaline Phosphatase 168 H (38-126) U/L Total Protein 5.1 L (6.3-8.2) g/dL Albumin 2.6 L (3.5-5.0) g/dL Procalcitonin (0.02-0.09) ng/mL Ur Specific [place] (1.001-1.035) Urine Protein (Negative) Urine Blood (Negative) Urine RBC (0-5) /hpf Urine Mucus (None) /hpf
[2023-12-09] MEDS: VANCOMYCIN TROUGH DUE 1 EACH MISC MISCELLANE ONE (05:27)
[2023-12-09 07:53] LABS: African American GFR (CKD) >90 (>60 ml/min/1.73 sqM); Non-African American GFR(CKD) >90 (>60 ml/min/1.73 sqM)
[2023-12-09 09:28] LABS: Basophils % (A) 0 %; Eosinophils # (A) 0.1 k/uL (0-0.7); Eosinophils % (A) 1 %; HCT 22.9 % (34.0-46.0); HGB 7.2 gm/dL (11.4-16.0); Hypochromasia Slight; Lymphocytes # (A) 1.3 k/uL (1.0-4.8); Lymphocytes % (A) 8 %; MCHC 31.4 g/dL (31.0-37.0); MCV 82.7 fL (80.0-100.0); Mean Platelet Volume 7.1; Monocytes # (A) 0.7 k/uL (0-1.0); Monocytes % (A) 5 %; Neutrophils # (A) 14.3 k/uL (1.3-7.7); Neutrophils % (A) 86 %; Platelet Count 319 k/uL (150-450); RBC 2.76 m/uL (3.80-5.40); RDW 15.8 % (11.5-15.5); WBC 16.7 k/uL (3.8-10.6)
[2023-12-09 09:32] LABS: African American GFR (CKD) >90 (>60 ml/min/1.73 sqM); Anion Gap 4 mmol/L; Blood Urea Nitrogen 22 mg/dL (7-17); Calcium 7.8 mg/dL (8.4-10.2); Carbon Dioxide 25 mmol/L (22-30); Chloride 102 mmol/L (98-107); Glucose 104 mg/dL (74-99); Non-African American GFR(CKD) >90 (>60 ml/min/1.73 sqM); Potassium 3.8 mmol/L (3.5-5.1); Sodium 131 mmol/L (137-145)
--- NOTE | 2023-12-09 11:11 | XR ---
EXAMINATION TYPE: XR chest 1V portable DATE OF EXAM: 12/09/2023 COMPARISON: CT chest 12/07/2023 INDICATION: Postthoracentesis, pleural effusion TECHNIQUE: Single frontal view of the chest is obtained. FINDINGS: The heart size is normal. The pulmonary vasculature is normal. There is fullness in the right hilar region. There is a small right pleural effusion. No pneumothorax is evident. Left lung appears clear. IMPRESSION: 1. No pneumothorax postthoracentesis.
--- NOTE | 2023-12-09 13:48 | P.PN ---
Subjective Progress Note Date: 12/09/23 This is a very pleasant 63-year-old female patient with a known history of chronic and ongoing tobacco dependence. For approximately 3 to 4 weeks she had been having increasing shortness of breath, cough and congestion. She was treated with albuterol, doxycycline and prednisone in the outpatient setting without much improvement. Chest x-ray had revealed a new right sided lung mass. She was scheduled to be seen in our office today for the same. However yesterday she developed increasing pain and edema of the left lower extremity and presented here to the emergency room. Dopplers revealed an extensive DVT from the left distal external iliac veins to the prominent left calf veins. CT angiogram revealed no evidence of pulmonary embolism however there is a large conglomerate mediastinal and right hilar adenopathy with associated multiple spiculated nodules of the right upper lung. There is also a moderate right pleural effusion. Findings are concerning for malignancy. Ultrasound of the r ight chest reveals a 4.2 cm pocket. White count 27.0. Hemoglobin 8.0. Platelets 366. Sodium 134. Potassium 4.3. Bicarb 27. BUN 32. Creatinine 0.53. Glucose 104. A ST 36. ALT 46. Procalcitonin 0.20. She is currently on a heparin drip. She is seen today in consultation in the emergency department. She is currently sitting up on a stretcher. Awake and alert in no acute distress. She denies any worsening shortness of breath, cough or congestion. No hemoptysis. Left lower extremity pain is subsiding but still present. She states she has lost approximately 22 pounds over the past year. She does have chronic and ongoing tobacco dependence of greater than 30 years. She remains quite active. Prior to this recent illness within the past month she had been feeling fine and no significant medical history. She has been initiated on vancomycin and cefepime. She is on bronchodilators. Normal saline at 75 MLS per hour. The patient is seen today December 09, 2023 in follow-up on the regular medical floor. She is currently sitting up in bed. Awake and alert in no acute distre ss. She is maintaining good O2 saturation in the 90s on 2 L/min per nasal cannula. She has been afebrile. Hemodynamically stable. She did undergo a right-sided thoracentesis today with Dr. Otoole. 1.2 L of cloudy yellow fluid was removed. Fluid analysis and cytology pending. Her heparin had been on hold which has now been resumed. White count 16.7. Hemoglobin 7.2. Platelets 319. Sodium 131. Potassium 3.8. Bicarb 25. BUN 22. Creatinine 0.46. Glucose 104. Vancomycin trough 9.6. Remains on vancomycin and cefepime. Continued on bronchodilators. Follow-up chest x-ray revealed similar fullness in the right hilar region, residual right pleural effusion. No evidence of pneumothorax. Left lung is clear. Objective - Vital Signs Vital signs: Vital Signs Temp 98.3 F 12/09/23 12:33 Pulse 87 12/09/23 12:33 Resp 20 12/09/23 12:33 BP 98/65 12/09/23 12:33 Pulse Ox 97 12/09/23 12:33 FiO2 Intake & Output 12/08/23 12/09/23 12/09/23 18:59 06:59 18:59 Intake Total 120.604 Balance 120.604 Weight 49.895 kg Intake: Intake, IV Titration 120.604 Amount Heparin Sod,Pork in 0.45% 120.604 NaCl 25,000 unit In 0.45 % NaCl 1 250ml.bag @ 18 UNITS/KG/HR 8.981 mls/hr IV .Q24H [facility] Rx#: [id number] Other: Voiding Method Toilet Bedside Commode # Voids 1 1 - Exam GENERAL EXAM: Alert, 63-year-old female, appears older than stated age, on 2 L nasal cannula, comfortable in no apparent distress. HEAD: Normocephalic. EYES: Normal reaction of pupils, equal size. NOSE: Clear with pink turbinates. THROAT: No erythema or exudates. NECK: No masses, no JVD. CHEST: No chest wall deformity. LUNGS: Equal air entry with crackles and dullness of the right lung base. CVS: S1 and S2 normal with no audible murmur, regular rhythm. ABDOMEN: No hepatosplenomegaly, normal bowel sounds, no guarding or rigidity. SPINE: No scoliosis or deformity SKIN: No rashes CENTRAL NERVOUS SYSTEM: No focal deficits, tone is normal in all 4 extremities. EXTREMITIES: There is 1-2+ peripheral edema of the left lower extremity. No clubbing, no cyanosis. Peripheral pulses are intact. - Labs CBC & Chem 7: 12/09/23 08:56 12/09/23 08:56 Labs: Abnormal Lab Results - Last 24 Hours (Table) 12/08/23 12/09/23 12/09/23 Range/Units 16:55 05:27 05:27 WBC (3.8-10.6) k/uL RBC (3.80-5.40) m/uL Hgb (11.4-16.0) gm/dL Hct (34.0-46.0) % RDW (11.5-15.5) % Neutrophils # (1.3-7.7) k/uL APTT 47.2 H 50.6 H (22.0-30.0) sec Sodium (137-145) mmol/L BUN (7-17) mg/dL Creatinine 0.47 L (0.52-1.04) mg/dL Glucose (74-99) mg/dL Calcium (8.4-10.2) mg/dL 12/09/23 12/09/23 Range/Units 08:56 08:56 WBC 16.7 H (3.8-10.6) k/uL RBC 2.76 L (3.80-5.40) m/uL Hgb 7.2 L (11.4-16.0) gm/dL Hct 22.9 L (34.0-46.0) % RDW 15.8 H (11.5-15.5) % Neutrophils # 14.3 H (1.3-7.7) k/uL APTT (22.0-30.0) sec Sodium 131 L (137-145) mmol/L BUN 22 H (7-17) mg/dL Creatinine 0.46 L (0.52-1.04) mg/dL Glucose 104 H (74-99) mg/dL Calcium 7.8 L (8.4-10.2) mg/dL Microbiology - Last 24 Hours (Table) 12/07/23 15:55 Blood Culture - Preliminary Blood 12/07/23 16:10 Blood Culture - Preliminary Blood Assessment and Plan Assessment: Acute left lower extremity pain and swelling in a patient found to have an exten sive left lower extremity DVT. Initiated on a heparin drip Recent diagnosis of lung mass with no follow-up thus far. CT angiogram ruled out pulmonary embolism. There is a large conglomerate mediastinal and right hilar adenopathy with associated multiple spiculated nodules in the right upper lung. Concerning for malignancy Moderate right-sided pleural effusion secondary to above. Status post thoracentesis with 1.2 L of cloudy yellow fluid removed today December 09, 2023 Acute hypoxemic respiratory failure secondary to above and suspected postobstructive pneumonia, currently on vancomycin and cefepime Leukocytosis secondary to above Weight loss up to 22 pounds in the past year Chronic and ongoing tobacco dependence of greater than 30 years Anemia of unclear etiology, current hemoglobin 7.2 Plan: The patient was seen and evaluated Chest x-ray, labs and medications reviewed Continue vancomycin and cefepime Continue bronchodilators Right-sided thoracentesis performed today Fluid analysis and cytology pending May require bronchoscopy with biopsies, if pleural fluid nondiagnostic Continue with heparin drip We will continue to follow I have personally seen and examined the patient, performed the documentation and the assessment and plan as written. Number of minutes spent on the visit: 10.
[2023-12-09] MEDS: VANCOMYCIN 1,000 MG in SODIUM CHLORIDE 0.9% 250 ML IVPB SCH (13:57)
--- NOTE | 2023-12-09 15:43 | P.PN ---
Subjective Progress Note Date: 12/09/23 Hospital Course: 63-year-old female with a PMH of tobacco abuse who presents to the emergency r oom with complaints of left lower extremity swelling and shortness of breath. Chest CTA in the emergency room revealed large mediastinal and right hilar adenopathy with multiple nodules in the right upper lung field concerning for malignancy as well as a moderate right-sided pleural effusion likely sequela of the malignancy. There was no evidence of pulmonary embolism. Venous Doppler of the lower extremities revealed an extensive DVT extending from the left distal external iliac to the proximal calf veins. Laboratory evaluation revealed leukocytosis of 28.7 with hemoglobin 9.5, lactic acid 1.1, troponin 0.012, AST 43, ALT 68, alk phos 204. The patient's SpO2 in the emergency room was 92% on room air. Patient started on heparin drip. Pulmonology also consulted. Pending thoracentesis today. Subjective: Patient seen and examined at bedside. No acute events overnight. Pertinent positives and negatives as discussed above, a complete review of systems was performed and all other systems are negative. Vitals Signs Reviewed. General: Nontoxic, no distress, appears at stated age, chronically ill-appearing Derm: Warm, dry Head: Atraumatic, normocephalic, symmetric Eyes: EOMI, no lid lag, anicteric sclera Mouth: No lip lesion, mucus membranes moist Cardiovascular: S1S2 reg, no murmur Lungs: Right basilar rales, no accessory muscle use Abdominal: Soft, nontender to palpation, no guarding, no appreciable organomegaly Ext: No gross muscle atrophy, no edema, no contractures, 1+ edema on left lower extremity Neuro: CN II-XI grossly intact, no focal neuro deficits Psych: Alert, oriented, appropriate affect Data Reviewed Today: Pertinent Labs: WBC 16.7, hemoglobin 7.2, sodium 131, creatinine 0.46 Imaging: Chest ultrasound shows right pleural effusion Assessment and Plan: Active: Acute unprovoked left lower extremity DVT without PE Multiple pulmonary nodules and adenopathy with suspected malignant pleural effusion Acute hypoxic respiratory failure, secondary to underlying malignancy versus pneumonia Sepsis Severe leukocytosis Transaminitis Normocytic anemia Former smoker Mild hyponatremia - Continue heparin drip, will transition to Eliquis after thoracentesis - Pulmonology note reviewed, continue IV antibiotics Cultures pending - On IV cefepime 2 g every 8 hours, and IV vancomycin 1 g every 12 hours, monitor for renal toxicity -Currently patient appears euvolemic, continue to monitor sodium - DuoNebs 4 times daily scheduled and as needed, - Pain control with oral Tylenol as needed, IV Dilaudid as needed, monitor for sedation - Continue to monitor CBC and CMP DVT ppx: Heparin drip Code status: Full code Anticipated discharge place: Pending clinical course Anticipated discharge time: Pending clinical course Objective - Vital Signs Vital signs: Vital Signs Temp 98.3 F 12/09/23 12:33 Pulse 88 12/09/23 14:46 Resp 20 12/09/23 12:33 BP 98/65 12/09/23 12:33 Pulse Ox 97 12/09/23 12:33 FiO2 Intake & Output 12/08/23 12/09/23 12/09/23 18:59 06:59 18:59 Intake Total 120.604 Balance 120.604 Weight 49.895 kg Intake: Intake, IV Titration 120.604 Amount Heparin Sod,Pork in 0.45% 120.604 NaCl 25,000 unit In 0.45 % NaCl 1 250ml.bag @ 18 UNITS/KG/HR 8.981 mls/hr IV .Q24H [facility] Rx#: [id number] Other: Voiding Method Toilet Bedside Commode # Voids 1 1 - Labs CBC & Chem 7: 12/09/23 08:56 12/09/23 08:56 Labs: Abnormal Lab Results - Last 24 Hours (Table) 12/08/23 12/09/23 12/09/23 Range/Units 16:55 05:27 05:27 WBC (3.8-10.6) k/uL RBC (3.80-5.40) m/uL Hgb (11.4-16.0) gm/dL Hct (34.0-46.0) % RDW (11.5-15.5) % Neutrophils # (1.3-7.7) k/uL APTT 47.2 H 50.6 H (22.0-30.0) sec Sodium (137-145) mmol/L BUN (7-17) mg/dL Creatinine 0.47 L (0.52-1.04) mg/dL Glucose (74-99) mg/dL Calcium (8.4-10.2) mg/dL 12/09/23 12/09/23 Range/Units 08:56 08:56 WBC 16.7 H (3.8-10.6) k/uL RBC 2.76 L (3.80-5.40) m/uL Hgb 7.2 L (11.4-16.0) gm/dL Hct 22.9 L (34.0-46.0) % RDW 15.8 H (11.5-15.5) % Neutrophils # 14.3 H (1.3-7.7) k/uL APTT (22.0-30.0) sec Sodium 131 L (137-145) mmol/L BUN 22 H (7-17) mg/dL Creatinine 0.46 L (0.52-1.04) mg/dL Glucose 104 H (74-99) mg/dL Calcium 7.8 L (8.4-10.2) mg/dL Microbiology - Last 24 Hours (Table) 12/07/23 15:55 Blood Culture - Preliminary Blood 12/07/23 16:10 Blood Culture - Preliminary Blood
[2023-12-09 19:20] LABS: Appearance,BF Cloudy (Clear)
--- NOTE | 2023-12-09 19:21 | OP ---
OPERATIVE REPORT DATE OF SERVICE : PROCEDURE: Right-sided thoracentesis. PREOPERATIVE DIAGNOSIS: Large right pleural effusion. POSTOPERATIVE DIAGNOSIS: Large right pleural effusion. ANESTHESIA USED: 2 mL of 1% lidocaine. PROCEDURE IN DETAIL: The patient was placed in the sitting upright position, the area of the fluid was localized with ultrasound at bedside, and it correlated to the area of the tip of the scapula and 8th intercostal space. Then, the area was prepared in a sterile fashion and drapes were applied. The area was locally anesthetized with lidocaine, and then a standard 26-gauge needle was inserted into the pleural space until the fluid was obtained, and as the fluid was obtained, a small tiny incision was made at the same site. A standard thoracentesis catheter and needle were used, advanced into the same site into the pleural space, and as soon as the fluid was obtained, the catheter was advanced over the needle into the pleural space. Freely flowing fluid was removed, roughly 1200 mL of slightly yellow fluid removed from the right pleural space. Fluid was non-serosanguineous, fluid was free flowing, and the fluid was sent for different diagnostic studies. The procedure was well tolerated, no complications. No evidence of pneumothorax, and significant improvement noted. MMODL / IJN: [id number] /
[2023-12-10] MEDS: BENZONATATE 100 MG CAP PO PRN (02:28)
[2023-12-10] MEDS: IPRATROPIUM-ALBUTEROL 3 ML NEB INHALATION PRN (02:45)
[2023-12-10] MEDS: VANCOMYCIN TROUGH DUE 1 EACH MISC MISCELLANE ONE (06:35)
[2023-12-10 06:42] LABS: African American GFR (CKD) >90 (>60 ml/min/1.73 sqM); Anion Gap 4 mmol/L; Blood Urea Nitrogen 17 mg/dL (7-17); Calcium 7.6 mg/dL (8.4-10.2); Carbon Dioxide 22 mmol/L (22-30); Chloride 101 mmol/L (98-107); Glucose 107 mg/dL (74-99); Non-African American GFR(CKD) >90 (>60 ml/min/1.73 sqM); Potassium 3.6 mmol/L (3.5-5.1); Sodium 127 mmol/L (137-145)
[2023-12-10 09:25] LABS: Basophils # (A) 0.02 X 10*3/uL (0.00-0.10); Basophils % (A) 0.1 %; Eosinophils # (A) 0.09 X 10*3/uL (0.04-0.35); Eosinophils % (A) 0.6 %; HGB 6.3 g/dL (12.0-15.0); Lymphocytes # (A) 1.22 X 10*3/uL (0.90-5.00); Lymphocytes % (A) 7.7 %; MCH 26.3 pg (27.0-32.0); MCHC 31.5 g/dL (32.0-37.0); MCV 83.3 FL (80.0-97.0); Mean Platelet Volume 9.5 FL (9.5-12.2); Monocytes # (A) 1.31 X 10*3/uL (0.20-1.00); Monocytes % (A) 8.2 %; NRBC Per 100 WBC 0 X 10*3/uL (0.00-0.01); Neutrophils # (A) 13.05 X 10*3/uL (1.80-7.70); Neutrophils % (A) 81.8 %; Platelet Count 260 X 10*3/uL (140-440); RBC Morphology Normal (Normal); RDW 15.9 % (11.5-14.5); WBC 15.94 X 10*3/uL (4.50-10.00)
[2023-12-10 10:57] LABS: Total Protein 4.7 g/dL (6.3-8.2)
--- NOTE | 2023-12-10 13:23 | P.PN ---
Subjective Progress Note Date: 12/10/23 This is a very pleasant 63-year-old female patient with a known history of chronic and ongoing tobacco dependence. For approximately 3 to 4 weeks she had been having increasing shortness of breath, cough and congestion. She was treated with albuterol, doxycycline and prednisone in the outpatient setting without much improvement. Chest x-ray had revealed a new right sided lung mass. She was scheduled to be seen in our office today for the same. However yesterday she developed increasing pain and edema of the left lower extremity and presented here to the emergency room. Dopplers revealed an extensive DVT from the left distal external iliac veins to the prominent left calf veins. CT angiogram revealed no evidence of pulmonary embolism however there is a large conglomerate mediastinal and right hilar adenopathy with associated multiple spiculated nodules of the right upper lung. There is also a moderate right pleural effusion. Findings are concerning for malignancy. Ultrasound of the r ight chest reveals a 4.2 cm pocket. White count 27.0. Hemoglobin 8.0. Platelets 366. Sodium 134. Potassium 4.3. Bicarb 27. BUN 32. Creatinine 0.53. Glucose 104. A ST 36. ALT 46. Procalcitonin 0.20. She is currently on a heparin drip. She is seen today in consultation in the emergency department. She is currently sitting up on a stretcher. Awake and alert in no acute distress. She denies any worsening shortness of breath, cough or congestion. No hemoptysis. Left lower extremity pain is subsiding but still present. She states she has lost approximately 22 pounds over the past year. She does have chronic and ongoing tobacco dependence of greater than 30 years. She remains quite active. Prior to this recent illness within the past month she had been feeling fine and no significant medical history. She has been initiated on vancomycin and cefepime. She is on bronchodilators. Normal saline at 75 MLS per hour. The patient is seen today December 09, 2023 in follow-up on the regular medical floor. She is currently sitting up in bed. Awake and alert in no acute distre ss. She is maintaining good O2 saturation in the 90s on 2 L/min per nasal cannula. She has been afebrile. Hemodynamically stable. She did undergo a right-sided thoracentesis today with Dr. Otoole. 1.2 L of cloudy yellow fluid was removed. Fluid analysis and cytology pending. Her heparin had been on hold which has now been resumed. White count 16.7. Hemoglobin 7.2. Platelets 319. Sodium 131. Potassium 3.8. Bicarb 25. BUN 22. Creatinine 0.46. Glucose 104. Vancomycin trough 9.6. Remains on vancomycin and cefepime. Continued on bronchodilators. Follow-up chest x-ray revealed similar fullness in the right hilar region, residual right pleural effusion. No evidence of pneumothorax. Left lung is clear. The patient is seen today December 10, 2023 in follow-up on the regular medical floor. She is currently resting comfortably in bed. Awake and alert in no acute distress. Maintaining good O2 saturations in the 90s on 3 L/min per nasal cannula. Afebrile. Hemodynamically stable. She is receiving 1 unit of packed red blood cells today. Her hemoglobin dropped to 6.3. Platelets 260,000. White count 15.9. Sodium 127. Potassium 3.6. Bicarb 22. BUN 17. Creatinine 0.47. Glucose 107. Pleural fluid analysis exudate with an LDH of 639 and a total protein of 4.7 and cytology pending. She remains on DuoNeb ventilations. Antibiotics in the form of vancomycin and cefepime. She is continued on a heparin drip for her extensive left lower extremity DVT. Objective - Vital Signs Vital signs: Vital Signs Temp 98.3 F 12/10/23 02:00 Pulse 90 12/10/23 09:19 Resp 20 12/10/23 08:30 BP 95/56 12/10/23 02:00 Pulse Ox 100 12/10/23 08:55 FiO2 Intake & Output 12/09/23 12/10/23 12/10/23 18:59 06:59 18:59 Intake Total 230.569 590 Balance 230.569 590 Intake: Intake, IV Titration 230.569 Amount Heparin Sod,Pork in 0.45% 230.569 NaCl 25,000 unit In 0.45 % NaCl 1 250ml.bag @ 18 UNITS/KG/HR 8.981 mls/hr IV .Q24H [facility] Rx#: [id number] Oral 590 Other: Voiding Method Toilet Toilet Bedside Commode Bedside Commode # Voids 2 2 - Exam GENERAL EXAM: Alert, pleasant 63-year-old female, appears older than stated age, on 3 L nasal cannula, comfortable in no apparent distress. HEAD: Normocephalic. EYES: Normal reaction of pupils, equal size. NOSE: Clear with pink turbinates. THROAT: No erythema or exudates. NECK: No masses, no JVD. CHEST: No chest wall deformity. LUNGS: Equal air entry with crackles and dullness of the right lung base. CVS: S1 and S2 normal with no audible murmur, regular rhythm. ABDOMEN: No hepatosplenomegaly, normal bowel sounds, no guarding or rigidity. SPINE: No scoliosis or deformity SKIN: No rashes CENTRAL NERVOUS SYSTEM: No focal deficits, tone is normal in all 4 extremities. EXTREMITIES: There is 1-2+ peripheral edema of the left lower extremity. No clubbing, no cyanosis. Peripheral pulses are intact. - Labs CBC & Chem 7: 12/10/23 05:41 12/10/23 05:40 Labs: Abnormal Lab Results - Last 24 Hours (Table) 12/09/23 12/10/23 12/10/23 Range/Units 10:20 05:40 05:40 WBC (4.50-10.00) X 10*3/uL RBC (4.10-5.20) X 10*6/uL Hgb (12.0-15.0) g/dL Hct (37.2-46.3) % MCH (27.0-32.0) pg MCHC (32.0-37.0) g/dL RDW (11.5-14.5) % Immature Gran # (0.00-0.04) X 10*3/uL Neutrophils # (1.80-7.70) X 10*3/uL Monocytes # (0.20-1.00) X 10*3/uL APTT (22.0-30.0) sec Sodium 127 L (137-145) mmol/L Creatinine 0.47 L (0.52-1.04) mg/dL Glucose 107 H (74-99) mg/dL Calcium 7.6 L (8.4-10.2) mg/dL Lactate Dehydrogenase 639 H (120-246) U/L Total Protein 4.7 L (6.3-8.2) g/dL Fluid Appearance Cloudy A (Clear) Crossmatch 12/10/23 12/10/23 12/10/23 Range/Units 05:41 05:41 10:50 WBC 15.94 H (4.50-10.00) X 10*3/uL RBC 2.40 L (4.10-5.20) X 10*6/uL Hgb 6.3 A* (12.0-15.0) g/dL Hct 20.0 L (37.2-46.3) % MCH 26.3 L (27.0-32.0) pg MCHC 31.5 L (32.0-37.0) g/dL RDW 15.9 H (11.5-14.5) % Immature Gran # 0.25 H (0.00-0.04) X 10*3/uL Neutrophils # 13.05 H (1.80-7.70) X 10*3/uL Monocytes # 1.31 H (0.20-1.00) X 10*3/uL APTT 49.2 H (22.0-30.0) sec Sodium (137-145) mmol/L Creatinine (0.52-1.04) mg/dL Glucose (74-99) mg/dL Calcium (8.4-10.2) mg/dL Lactate Dehydrogenase (120-246) U/L Total Protein (6.3-8.2) g/dL Fluid Appearance (Clear) Crossmatch See Detail Microbiology - Last 24 Hours (Table) 12/09/23 10:20 Gram Stain - Preliminary Thoracic Fluid 12/07/23 15:55 Blood Culture - Preliminary Blood 12/07/23 16:10 Blood Culture - Preliminary Blood Assessment and Plan Assessment: Acute left lower extremity pain and swelling in a patient found to have an extensive left lower extremity DVT. Initiated on a heparin drip Recent diagnosis of lung mass with no follow-up thus far. CT angiogram ruled out pulmonary embolism. There is a large conglomerate mediastinal and right hilar adenopathy with associated multiple spiculated nodules in the right upper lung. Concerning for malignancy, possible small cell lung cancer Moderate right-sided pleural effusion secondary to above. Status post thoracentesis with 1.2 L of cloudy yellow fluid removed December 09, 2023. Cytology pending Acute hypoxemic respiratory failure secondary to above and suspected postobstructive pneumonia, currently on vancomycin and cefepime Leukocytosis secondary to above Weight loss up to 22 pounds in the past year Chronic and ongoing tobacco dependence of greater than 30 years Anemia of unclear etiology, current hemoglobin 6.3, receiving 1 unit of packed red blood cells Plan: The patient was seen and evaluated Labs and medications reviewed Receiving 1 unit of packed red blood cells Surgical services consulted Continue heparin drip for now If no anticoagulants recommended may need IVC filter placed Medical oncology consulted May require bronchoscopy with biopsies, if pleural fluid nondiagnostic We will continue to follow I have personally seen and examined the patient, performed the documentation and the assessment and plan as written. Number of minutes spent on the visit: 10.
--- NOTE | 2023-12-10 14:37 | P.PN ---
Subjective Progress Note Date: 12/10/23 Hospital Course: 63-year-old female with a PMH of tobacco abuse who presents to the emergency r oom with complaints of left lower extremity swelling and shortness of breath. Chest CTA in the emergency room revealed large mediastinal and right hilar adenopathy with multiple nodules in the right upper lung field concerning for malignancy as well as a moderate right-sided pleural effusion likely sequela of the malignancy. There was no evidence of pulmonary embolism. Venous Doppler of the lower extremities revealed an extensive DVT extending from the left distal external iliac to the proximal calf veins. Laboratory evaluation revealed leukocytosis of 28.7 with hemoglobin 9.5, lactic acid 1.1, troponin 0.012, AST 43, ALT 68, alk phos 204. The patient's SpO2 in the emergency room was 92% on room air. Patient started on heparin drip. Pulmonology also consulted. Thoracentesis shows exudative fluid. Cytology pending. General surgery and oncology consulted. Subjective: Patient seen and examined at bedside. No acute events overnight. Pertinent positives and negatives as discussed above, a complete review of systems was performed and all other systems are negative. Vitals Signs Reviewed. General: Nontoxic, no distress, appears at stated age, chronically ill-appearing Derm: Warm, dry Head: Atraumatic, normocephalic, symmetric Eyes: EOMI, no lid lag, anicteric sclera Mouth: No lip lesion, mucus membranes moist Cardiovascular: S1S2 reg, no murmur Lungs: Right basilar rales, no accessory muscle use Abdominal: Soft, nontender to palpation, no guarding, no appreciable o rganomegaly Ext: No gross muscle atrophy, no edema, no contractures, 1+ edema on left lower extremity Neuro: CN II-XI grossly intact, no focal neuro deficits Psych: Alert, oriented, appropriate affect Data Reviewed Today: Pertinent Labs: WBC 15.94, hemoglobin 6.3, platelet 260, sodium 127, creatinine 0.47 Imaging: No new imaging Assessment and Plan: Active: Acute unprovoked left lower extremity DVT without PE Multiple pulmonary nodules and adenopathy with suspected malignant pleural effusion Acute hypoxic respiratory failure, secondary to underlying malignancy versus pneumonia Sepsis Severe leukocytosis Transaminitis Normocytic anemia Former smoker Mild hyponatremia, euvolemic - Continue heparin drip, consider transitioning to Eliquis - Pulmonology note reviewed, continue IV antibiotics, oncology and surgery consulted Cultures pending - On IV cefepime 2 g every 8 hours, and IV vancomycin 1 g every 12 hours, monitor for renal toxicity -Currently patient appears euvolemic, continue to monitor sodium TSH ordered, urine sodium, osmolality, a.m. cortisol ordered - DuoNebs 4 times daily scheduled and as needed, - Pain control with oral Tylenol as needed, IV Dilaudid as needed, monitor for sedation - Continue to monitor CBC and CMP DVT ppx: Heparin drip Code status: Full code Anticipated discharge place: Pending clinical course Anticipated discharge time: Pending clinical course Objective - Vital Signs Vital signs: Vital Signs Temp 98.6 F 12/10/23 13:51 Pulse 84 12/10/23 13:51 Resp 20 12/10/23 13:51 BP 109/58 12/10/23 13:51 Pulse Ox 98 12/10/23 13:51 FiO2 Intake & Output 12/09/23 12/10/23 12/10/23 18:59 06:59 18:59 Intake Total 230.569 590 0 Balance 230.569 590 0 Intake: Intake, IV Titration 230.569 Amount Heparin Sod,Pork in 0.45% 230.569 NaCl 25,000 unit In 0.45 % NaCl 1 250ml.bag @ 18 UNITS/KG/HR 8.981 mls/hr IV .Q24H [facility] Rx#: [id number] Oral 590 Blood Product 0 Unit 0 Other: Voiding Method Toilet Toilet Bedside Commode Bedside Commode # Voids 2 2 - Labs CBC & Chem 7: 12/10/23 05:41 12/10/23 05:40 Labs: Abnormal Lab Results - Last 24 Hours (Table) 12/09/23 12/10/23 12/10/23 Range/Units 10:20 05:40 05:40 WBC (4.50-10.00) X 10*3/uL RBC (4.10-5.20) X 10*6/uL Hgb (12.0-15.0) g/dL Hct (37.2-46.3) % MCH (27.0-32.0) pg MCHC (32.0-37.0) g/dL RDW (11.5-14.5) % Immature Gran # (0.00-0.04) X 10*3/uL Neutrophils # (1.80-7.70) X 10*3/uL Monocytes # (0.20-1.00) X 10*3/uL APTT (22.0-30.0) sec Sodium 127 L (137-145) mmol/L Creatinine 0.47 L (0.52-1.04) mg/dL Glucose 107 H (74-99) mg/dL Calcium 7.6 L (8.4-10.2) mg/dL Lactate Dehydrogenase 639 H (120-246) U/L Total Protein 4.7 L (6.3-8.2) g/dL Fluid Appearance Cloudy A (Clear) Crossmatch 12/10/23 12/10/23 12/10/23 Range/Units 05:41 05:41 10:50 WBC 15.94 H (4.50-10.00) X 10*3/uL RBC 2.40 L (4.10-5.20) X 10*6/uL Hgb 6.3 A* (12.0-15.0) g/dL Hct 20.0 L (37.2-46.3) % MCH 26.3 L (27.0-32.0) pg MCHC 31.5 L (32.0-37.0) g/dL RDW 15.9 H (11.5-14.5) % Immature Gran # 0.25 H (0.00-0.04) X 10*3/uL Neutrophils # 13.05 H (1.80-7.70) X 10*3/uL Monocytes # 1.31 H (0.20-1.00) X 10*3/uL APTT 49.2 H (22.0-30.0) sec Sodium (137-145) mmol/L Creatinine (0.52-1.04) mg/dL Glucose (74-99) mg/dL Calcium (8.4-10.2) mg/dL Lactate Dehydrogenase (120-246) U/L Total Protein (6.3-8.2) g/dL Fluid Appearance (Clear) Crossmatch See Detail Microbiology - Last 24 Hours (Table) 12/09/23 10:20 Gram Stain - Preliminary Thoracic Fluid 12/07/23 15:55 Blood Culture - Preliminary Blood 12/07/23 16:10 Blood Culture - Preliminary Blood
[2023-12-10] MEDS: IOPAMIDOL CONTRAST (ORAL USE) VIAL PO PRN (16:07)
--- NOTE | 2023-12-10 16:32 | P.GSCN ---
History of Present Illness Consult date: 12/10/23 History of present illness: CHIEF COMPLAINT: Swelling of left leg HISTORY OF PRESENT ILLNESS: This is a 63-year-old female who presented with swelling in the left leg and evidence of new left lower extremity DVT. She is on IV heparin. Patient has a recent diagnosis of lung mass with concerns of malignancy. Patient is followed by pulmonary service she did have a th oracentesis for right pleural effusion during this admission as well. Patient's hemoglobin on admission was elevated at 9.5 and has been trending down to 6.3. Patient has had no active bleeding. She denies any blood in her stools or black stools. Has had no hematemesis. She denies any abdominal pain. She has never had a EGD or colonoscopy. She is a smoker. She is receiving 1 unit of blood. Patient is followed by oncology service as well. Patient has had a 22 pound weight loss over the last year. PAST MEDICAL HISTORY: See list. PAST SURGICAL HISTORY: See list. MEDICATIONS: See list. ALLERGIES: See list. SOCIAL HISTORY: No illicit drug use. REVIEW OF SYSTEMS: CONSTITUTIONAL: Denies fever or chills. HEENT: Denies blurred vision, vision changes, or eye pain. Denies hemoptysis ENDOCRINE: Denies heat or cold intolerance. CARDIOVASCULAR: Denies chest pain or pressure. RESPIRATORY: No shortness of breath. GASTROINTESTINAL: Denies abdominal pain. Denies nausea or vomiting. NEURO: Denies history of seizures. PSYCH: No depression or suicidal ideation HEMATOLOGIC: Denies bleeding disorders. LYMPHATIC: The patient denies any lumps and bumps around the neck. GENITOURINARY: Denies any blood in urine or increased urinary frequency. MUSCULOSKELETAL: Denies myalgias. Denies joint swelling. Denies decreased range of motion beyond patients baseline. SKIN: Denies pruitis. Denies rash. PHYSICAL EXAM: VITAL SIGNS: Reviewed GENERAL: Well-developed in no acute distress. HEENT: No sclera icterus. Extraocular movements grossly intact. Moist buccal mucosa. Head is atraumatic, normocephalic. Hears conversational speech. No nasal drainage. NECK: Supple without lymphadenopathy. CHEST: Non-labored respirations and equal bilateral excursions. CARDIOVASCULAR: Palpable 2+ radial pulses. ABDOMEN: Soft. Nondistended. Nontender MUSCULOSKELETAL: No clubbing or cyanosis. NEUROLOGIC: No focal or lateralizing signs. Cranial nerves II through XII grossly intact. PSYCH: Appropriate affect. Alert and oriented to person, place and time. SKIN: Well perfused. Good skin turgor. LABORATORY DATA: WBC is 15 Hgb 9.5 on admission trending down over the last couple days to 6.3 platelets 260 Sodium is 127 potassium 3.6 creatinine 0.47 IMAGING: ASSESSMENT: 1. Microcytic anemia with no active bleeding 2. Recent diagnosis of lung mass 3. Acute left lower extremity DVT 4. Unexplained weight loss 5. Right-sided pleural effusion status postthoracentesis PLAN: -No plans for endoscopy at this time -Okay to continue IV heparin for now -Continue to monitor for any signs or symptoms of bleeding -Check stool for occult blood -Further workup per oncology service -Agree with blood transfusion -Continue to monitor hemoglobin Physician Geoscientist note has been reviewed by physician. Signing provider agrees with the documented findings, assessment, and plan of care. Past Medical History Past Medical History: Cancer, COPD, Deep Vein Thrombosis (DVT), Pneumonia Additional Past Medical History / Comment(s): left lung mass- 11/28/23 diagnosed at [facility] MRI, DDD History of Any Multi-Drug Resistant Organisms: None Reported Past Surgical History: Adenoidectomy, Appendectomy, Tonsillectomy, Tubal Ligation Past Anesthesia/Blood Transfusion Reactions: Unable to Obtain Past Psychological History: No Psychological Hx Reported Smoking Status: Former smoker Past Alcohol Use History: Occasional Past Drug Use History: Marijuana - Past Family History Mother Family Medical History: Osteoarthritis (OA) Additional Family Medical History / Comment(s): alive and healthy at age 88 Father Family Medical History: Cancer Additional Family Medical History / Comment(s): of lung and brain CA at age 78 Sister(s) Family Medical History: Cancer Additional Family Medical History / Comment(s): liver CA Brother(s) Family Medical History: Cancer Additional Family Medical History / Comment(s): leukemia; another brother has lung CA Medications and Allergies Home Medications Medication Instructions Recorded Confirmed Type Albuterol Sulfate [Albuterol 2 puff PO RT-Q4H PRN 12/08/23 12/08/23 History Sulfate Hfa] Doxycycline [Vibramycin] 100 mg PO BID 12/08/23 12/08/23 History Ipratropium-Albuterol Nebulize 3 ml INHALATION RT-Q4H 12/08/23 12/08/23 History [Duoneb 0.5 mg-3 mg/3 ml Soln] predniSONE [Deltasone] 20 mg PO BID 12/08/23 12/08/23 History Allergies Allergy/AdvReac Type Severity Reaction Status Date / Time amoxicillin Allergy Rash/Hives Verified 12/08/23 09:29 Penicillins Allergy see comment Verified 12/08/23 09:29 Surgical - Exam Vital Signs Temp Pulse Resp Pulse Ox 97.9 F 105 H 20 96 12/07/23 11:39 12/07/23 11:39 12/07/23 11:39 12/07/23 11:39 Results - Labs 12/10/23 05:41 12/10/23 05:40 Abnormal Lab Results - Last 24 Hours (Table) 12/09/23 12/10/23 12/10/23 Range/Units 10:20 05:40 05:40 WBC (4.50-10.00) X 10*3/uL RBC (4.10-5.20) X 10*6/uL Hgb (12.0-15.0) g/dL Hct (37.2-46.3) % MCH (27.0-32.0) pg MCHC (32.0-37.0) g/dL RDW (11.5-14.5) % Immature Gran # (0.00-0.04) X 10*3/uL Neutrophils # (1.80-7.70) X 10*3/uL Monocytes # (0.20-1.00) X 10*3/uL APTT (22.0-30.0) sec Sodium 127 L (137-145) mmol/L Creatinine 0.47 L (0.52-1.04) mg/dL Glucose 107 H (74-99) mg/dL Calcium 7.6 L (8.4-10.2) mg/dL Lactate Dehydrogenase 639 H (120-246) U/L Total Protein 4.7 L (6.3-8.2) g/dL Fluid Appearance Cloudy A (Clear) 12/10/23 12/10/23 Range/Units 05:41 05:41 WBC 15.94 H (4.50-10.00) X 10*3/uL RBC 2.40 L (4.10-5.20) X 10*6/uL Hgb 6.3 A* (12.0-15.0) g/dL Hct 20.0 L (37.2-46.3) % MCH 26.3 L (27.0-32.0) pg MCHC 31.5 L (32.0-37.0) g/dL RDW 15.9 H (11.5-14.5) % Immature Gran # 0.25 H (0.00-0.04) X 10*3/uL Neutrophils # 13.05 H (1.80-7.70) X 10*3/uL Monocytes # 1.31 H (0.20-1.00) X 10*3/uL APTT 49.2 H (22.0-30.0) sec Sodium (137-145) mmol/L Creatinine (0.52-1.04) mg/dL Glucose (74-99) mg/dL Calcium (8.4-10.2) mg/dL Lactate Dehydrogenase (120-246) U/L Total Protein (6.3-8.2) g/dL Fluid Appearance (Clear) Microbiology - Last 24 Hours (Table) 12/09/23 10:20 Gram Stain - Preliminary Thoracic Fluid 12/07/23 15:55 Blood Culture - Preliminary Blood 12/07/23 16:10 Blood Culture - Preliminary Blood Diabetes panel 12/10/23 12/10/23 Range/Units 05:40 05:40 Sodium 127 L (137-145) mmol/L Potassium 3.6 (3.5-5.1) mmol/L Chloride 101 (98-107) mmol/L Carbon Dioxide 22 (22-30) mmol/L BUN 17 (7-17) mg/dL Creatinine 0.47 L (0.52-1.04) mg/dL Glucose 107 H (74-99) mg/dL Calcium 7.6 L (8.4-10.2) mg/dL Total Protein 4.7 L (6.3-8.2) g/dL Calcium panel 12/10/23 Range/Units 05:40 Calcium 7.6 L (8.4-10.2) mg/dL Pituitary panel 12/10/23 Range/Units 05:40 Sodium 127 L (137-145) mmol/L Potassium 3.6 (3.5-5.1) mmol/L Chloride 101 (98-107) mmol/L Carbon Dioxide 22 (22-30) mmol/L BUN 17 (7-17) mg/dL Creatinine 0.47 L (0.52-1.04) mg/dL Glucose 107 H (74-99) mg/dL Calcium 7.6 L (8.4-10.2) mg/dL Adrenal panel 12/10/23 12/10/23 Range/Units 05:40 05:40 Sodium 127 L (137-145) mmol/L Potassium 3.6 (3.5-5.1) mmol/L Chloride 101 (98-107) mmol/L Carbon Dioxide 22 (22-30) mmol/L BUN 17 (7-17) mg/dL Creatinine 0.47 L (0.52-1.04) mg/dL Glucose 107 H (74-99) mg/dL Calcium 7.6 L (8.4-10.2) mg/dL Total Protein 4.7 L (6.3-8.2) g/dL
[2023-12-10] MEDS: PANTOPRAZOLE 40 MG TABLET PO SCH (18:29)
[2023-12-10] MEDS: FUROSEMIDE 10 MG/ML 2 ML VIAL IV ONE (19:39)
--- NOTE | 2023-12-10 22:18 | P.CONS ---
History of Present Illness - Reason for Consult Consult date: 12/10/23 malignancy concern Requesting physician: Maira Rowan - Chief Complaint leg swelling, SOB - History of Present Illness Patient is a 63-year-old female with a significant history of COPD and nicotine abuse. Consult was placed for malignancy concern. Patient presented to the emergency room for left lower extremity edema. Patient was seen at [facility] last week and was diagnosed with possible pneumonia and was started on antibiotics, steroids and bronchodilator. She does report improvement in symptoms since, but began to notice left lower extremity edema which caused her to present for further evaluation. Upon presentation venous Doppler of left lower extremity revealed extensive DVT from the distal external iliac veins to the proximal left calf veins. Heparin drip started. CTA chest revealed no evidence of pulmonary embolism. Large conglomerate mediastinal and right hilar adenopathy with associated multi multiple spiculated nodules in the right upper lung. Moderate right pleural effusion. Chest ultrasound was subsequently ordered revealing right pleural effusion pocket size 4.2 cm. S/p right-sided thoracentesis on 12/08 with 1200 mL fluid removed. Pleural fluid has been sent for fluid analysis and cytology. LDH elevated at 639. CBC today revealed WBC 15.9, hemoglobin 6.3, platelets 260,000. 1 unit as PRBCs have been ordered. General surgery consulted. IV abx started. Blood culture and pleural fluid culture negative thus far Patient's reports intermittent low-grade fevers over the last 2 months in the 99-100 degree range as well as persistent night sweats up to 4 times weekly. Denies hemoptysis and any noted abnormal lymphadenopathy. She reports she previously was experiencing diminished appetite and since 2018 had noted weight loss but reports no recent weight loss and that appetite has improved. Denies blood in stool or melena. She states she is approximate [id number] smoker but has recently began to cut down but is still actively smoking. Review of Systems 10 point ROS is negative except as stated in the HPI Past Medical History Past Medical History: Cancer, COPD, Deep Vein Thrombosis (DVT), Pneumonia Additional Past Medical History / Comment(s): left lung mass- 11/28/23 diagnosed at [facility] MRI, DDD History of Any Multi-Drug Resistant Organisms: None Reported Past Surgical History: Adenoidectomy, Appendectomy, Tonsillectomy, Tubal Ligation Past Anesthesia/Blood Transfusion Reactions: Unable to Obtain Past Psychological History: No Psychological Hx Reported Smoking Status: Former smoker Past Alcohol Use History: Occasional Past Drug Use History: Marijuana - Past Family History Mother Family Medical History: Osteoarthritis (OA) Additional Family Medical History / Comment(s): alive and healthy at age 88 Father Family Medical History: Cancer Additional Family Medical History / Comment(s): of lung and brain CA at age 78 Sister(s) Family Medical History: Cancer Additional Family Medical History / Comment(s): liver CA Brother(s) Family Medical History: Cancer Additional Family Medical History / Comment(s): leukemia; another brother has lung CA Medications and Allergies Home Medications Medication Instructions Recorded Confirmed Type Albuterol Sulfate [Albuterol 2 puff PO RT-Q4H PRN 12/08/23 12/08/23 History Sulfate Hfa] Doxycycline [Vibramycin] 100 mg PO BID 12/08/23 12/08/23 History Ipratropium-Albuterol Nebulize 3 ml INHALATION RT-Q4H 12/08/23 12/08/23 History [Duoneb 0.5 mg-3 mg/3 ml Soln] predniSONE [Deltasone] 20 mg PO BID 12/08/23 12/08/23 History Allergies Allergy/AdvReac Type Severity Reaction Status Date / Time amoxicillin Allergy Rash/Hives Verified 12/08/23 09:29 Penicillins Allergy see comment Verified 12/08/23 09:29 Physical Exam Vitals: Vital Signs Temp Pulse Pulse Pulse Resp BP BP 12/10/23 15:14 103 H 12/10/23 14:26 98.2 F 89 18 99/51 12/10/23 13:51 98.6 F 84 20 109/58 12/10/23 13:31 98.7 F 93 20 104/57 12/10/23 13:26 98.7 F 84 20 107/58 12/10/23 13:21 93 14 107/48 12/10/23 09:19 90 12/10/23 09:10 97.7 F 94 22 110/55 12/10/23 08:55 93 12/10/23 08:30 92 87 20 12/10/23 03:03 82 12/10/23 02:47 80 12/10/23 02:00 98.3 F 87 20 95/56 12/09/23 20:47 80 12/09/23 20:36 76 12/09/23 19:43 93 99/61 12/09/23 19:00 98.3 F 63 16 91/55 Pulse Ox 12/10/23 15:14 12/10/23 14:26 100 12/10/23 13:51 98 12/10/23 13:31 12/10/23 13:26 100 12/10/23 13:21 100 12/10/23 09:19 12/10/23 09:10 12/10/23 08:55 100 12/10/23 08:30 12/10/23 03:03 12/10/23 02:47 12/10/23 02:00 98 12/09/23 20:47 12/09/23 20:36 12/09/23 19:43 12/09/23 19:00 98 Intake and Output 12/10/23 12/10/23 12/10/23 06:59 14:59 22:59 Intake Total 590 0 Balance 590 0 Intake: Oral 590 Blood Product 0 Unit 0 Other: Voiding Method Toilet Bedside Commode # Voids 2 - Constitutional General appearance: no acute distress, thin - EENT Eyes: anicteric sclerae, EOMI ENT: hearing grossly normal - Neck Neck: no lymphadenopathy - Respiratory Respiratory: bilateral: CTA - Cardiovascular Rhythm: regular Heart sounds: normal: S1, S2 - Gastrointestinal General gastrointestinal: no distended, no organomegaly, no tenderness - Integumentary Integumentary: no cyanotic, pale - Neurologic Neurologic: CNII-XII intact - Musculoskeletal Musculoskeletal: strength equal bilaterally - Psychiatric Psychiatric: A&O x's 3 Results CBC & Chem 7: 12/10/23 05:41 12/10/23 05:40 Labs: Abnormal Lab Results - Last 24 Hours (Table) 12/09/23 12/10/23 12/10/23 Range/Units 10:20 05:40 05:40 WBC (4.50-10.00) X 10*3/uL RBC (4.10-5.20) X 10*6/uL Hgb (12.0-15.0) g/dL Hct (37.2-46.3) % MCH (27.0-32.0) pg MCHC (32.0-37.0) g/dL RDW (11.5-14.5) % Immature Gran # (0.00-0.04) X 10*3/uL Neutrophils # (1.80-7.70) X 10*3/uL Monocytes # (0.20-1.00) X 10*3/uL APTT (22.0-30.0) sec Sodium 127 L (137-145) mmol/L Creatinine 0.47 L (0.52-1.04) mg/dL Glucose 107 H (74-99) mg/dL Calcium 7.6 L (8.4-10.2) mg/dL Lactate Dehydrogenase 639 H (120-246) U/L Total Protein 4.7 L (6.3-8.2) g/dL Fluid Appearance Cloudy A (Clear) Crossmatch 12/10/23 12/10/23 12/10/23 Range/Units 05:41 05:41 10:50 WBC 15.94 H (4.50-10.00) X 10*3/uL RBC 2.40 L (4.10-5.20) X 10*6/uL Hgb 6.3 A* (12.0-15.0) g/dL Hct 20.0 L (37.2-46.3) % MCH 26.3 L (27.0-32.0) pg MCHC 31.5 L (32.0-37.0) g/dL RDW 15.9 H (11.5-14.5) % Immature Gran # 0.25 H (0.00-0.04) X 10*3/uL Neutrophils # 13.05 H (1.80-7.70) X 10*3/uL Monocytes # 1.31 H (0.20-1.00) X 10*3/uL APTT 49.2 H (22.0-30.0) sec Sodium (137-145) mmol/L Creatinine (0.52-1.04) mg/dL Glucose (74-99) mg/dL Calcium (8.4-10.2) mg/dL Lactate Dehydrogenase (120-246) U/L Total Protein (6.3-8.2) g/dL Fluid Appearance (Clear) Crossmatch See Detail Microbiology - Last 24 Hours (Table) 12/09/23 10:20 Gram Stain - Preliminary Thoracic Fluid 12/07/23 15:55 Blood Culture - Preliminary Blood 12/07/23 16:10 Blood Culture - Preliminary Blood Chest x-ray: report reviewed CT scan - chest: report reviewed Venous US: report reviewed Assessment and Plan (1) Anemia Current Visit: Yes Status: Acute Priority: Medium Code(s): D64.9 - ANEMIA, UNSPECIFIED SNOMED Code(s): 347264572 (2) Deep vein thrombosis (DVT) of lower extremity Current Visit: Yes Status: Acute Priority: High Code(s): I82.409 - ACUTE EMBOLISM AND THOMBOS UNSP DEEP VN UNSP LOWER EXTREMITY SNOMED Code(s): 956488721 (3) Leukocytosis Current Visit: Yes Status: Acute Priority: High Code(s): D72.829 - ELEVATED WHITE BLOOD CELL COUNT, UNSPECIFIED SNOMED Code(s): 788361675 (4) Pleural effusion Current Visit: Yes Status: Acute Priority: High Code(s): J90 - PLEURAL EFFUSION, NOT ELSEWHERE CLASSIFIED SNOMED Code(s): 36980035 (5) Lymphadenopathy Current Visit: Yes Status: Acute Priority: High Code(s): R59.1 - GENERALIZED ENLARGED LYMPH NODES SNOMED Code(s): 18546873 Plan: Abnormal lymphadenopathy, lung nodules, pleural effusion: Significant history of COPD and nicotine abuse. Presented with complaints of left lower extremity edema. Of note Patient was seen at [facility] last week and was diagnosed with possible pneumonia and was started on antibiotics, steroids and bronchodilator. Patient's reports intermittent low-grade fevers over the last 2 months in the 99-100 degree range as well as persistent night sweats up to 4 times weekly. Denies hemoptysis and any noted abnormal lymphadenopathy. She reports she previously was experiencing diminished appetite and since 2019 had noted weight loss but reports no recent weight loss and that appetite has improved. Denies blood in stool or melena. She is a approx [id number] smoker but has recently began to cut down but is still actively smoking -Upon presentation venous Doppler of left lower extremity revealed extensive DVT from the distal external iliac veins to the proximal left calf veins. Heparin drip started. CTA chest revealed no evidence of pulmonary embolism. Large conglomerate mediastinal and right hilar adenopathy with associated multi multiple spiculated nodules in the right upper lung. Moderate right pleural effusion. Chest ultrasound was subsequently ordered revealing right pleural eff usion pocket size 4.2 cm. S/p right-sided thoracentesis on 12/08 with 1200 mL fluid removed. Pleural fluid has been sent for fluid analysis and cytology. Cytology pending -LDH elevated at 639 -Will obtain CT AP and MRI brain for further evaluation/staging -Pending cytology results, if negative will need to obtain tissue biopsy for diagnosis. Will f/u with results and provide further recommendations once resulted -Discussed above results and concerns for malignancy with patient. She verbalized understanding and was agreeable to proceed with further testing DVT: -Venous Doppler of left lower extremity revealed extensive DVT from the distal external iliac veins to the proximal left calf veins. Heparin drip started -Recommend continuing heparin drip, until any procedures and biopsies are c ompleted, at which time she can can be transitioned to DOAC Anemia: -Upon admission WBC 28.7, hemoglobin 9.5, MCV 83.5, platelets 475,000. Today, CBC showed WBC 15.9, hemoglobin 6.3, platelets 260,000. 1 unit as PRBCs have been ordered. -Denies any episodes of acute bleeding and melena. General surgery consulted. Don't feel anemia is r/t to acute GI bleed, anemia likely reactive to underlying malignancy -Anemia workup has been ordered -Will continue to closely monitor counts. Please transfuse for hgb <7 or if symptomatic attests: I have performed H&P and developed impression and plan of care for patient, discussed with dictator. I agree with dictated note, documented as a scribe
[2023-12-11 03:28] LABS: % Iron Saturation 6.45 (12.00-45.00); Iron 8 UG/DL (50-170); Total Iron Binding Capacity 124 UG/DL (228-460)
[2023-12-11 03:41] LABS: Vitamin B12 >3600.0 pg/mL (200.0-944.0)
--- NOTE | 2023-12-11 07:47 | CT ---
EXAMINATION TYPE: CT abdomen pelvis w con CT DLP: 888.8 mGycm, Automated exposure control for dose reduction was used. DATE OF EXAM: 12/10/2023 6:06 PM COMPARISON: CT chest angiogram 12/07/2023, remote CT abdomen and pelvis from 04/04/2012 CLINICAL INDICATION:Female, 63 years old with history of lung mass, abnormal lymphadenopathy, staging ; lymphadenopathy TECHNIQUE: Axial CT of the abdomen and pelvis. Sagittal and coronal reformats were created on a [employer] workstation. Contrast used:100 mL of Isovue 300 with IV Contrast, (none if empty) Oral contrast used: with Oral Contrast (none if empty) FINDINGS: LOWER CHEST: Malignant findings similar to recent CTA chest; please refer to that report for details. ABDOMEN LIVER: No parenchymal mass. Focal fat by the fissure for the ligamentum teres. Tiny hypodensity in th e left lobe likely benign. GALLBLADDER AND BILE DUCTS: The bladder is contracted partially. Biliary tree is mildly prominent. PANCREAS: Slightly heterogeneous without evidence of distinct mass. Pancreatic duct is visible but no t overtly dilated. SPLEEN: Unremarkable. ADRENAL GLANDS: Somewhat bilobed heterogeneous mass of the right adrenal, measures up to 3.9 x 2.2 cm . Left adrenal is generally thickened with small nodularity which might be due to background adenomat oid change. However heterogeneous mass measuring 2.2 x 2.1 cm is also present.. KIDNEYS AND URETERS: Kidneys concentrate and excrete contrast symmetrically. No evidence of renal mas s. No visible calculus or hydronephrosis. PELVIS BLADDER: Almost empty and not well assessed. REPRODUCTIVE: Not well assessed by CT. Uterus appears present and somewhat heterogeneous. Ovaries are not readily identified. ABDOMEN & PELVIS STOMACH AND BOWEL: Stomach and small bowel are nondistended, no evidence of obstruction. The append ix is not seen with certainty but there is no inflammatory process seen in the pericecal region. Makeda endix may be surgically absent. Moderate colonic stool. No clear evidence of a focal abnormality. PERITONEUM/RETROPERITONEUM: Lack of intraperitoneal fat limits assessment. Hazy appearance througho ut the mesentery could reflect mild edema but early metastatic disease is not excluded. VASCULATURE: Moderate atherosclerotic calcifications are present throughout the abdominal aorta and i ts branches. No evidence of aortic aneurysm. Portal vein, splenic vein are enhancing and appear rodriguez nt. SMV is more faintly seen, but this could be from phase of contrast. LYMPH NODES: No enlarged nodes by CT criteria. SOFT TISSUE/ABDOMINAL WALL: Moderate diffuse body wall edema suggesting anasarca. See other section b elow. MUSCULOSKELETAL: Mild/moderate degenerative changes throughout. No acute fracture. There are a few scattered sclerotic lesions, the largest 1.6 x 1 cm in the right iliac wing; nonspeci fic, could represent sclerotic metastases. However clearly destructive bone lesions are found with so me soft tissue extension outside the bone, in the left pubic bone close to the symphysis and involvin g the inferior ramus, measuring approximately 3.6 x 2.4 cm. Lytic lesion in the right pubic bone clos e to the superior pubic ramus and symphysis is 1.9 x 1.3 cm. A small lucency in the right sacrum, is judged more likely to be related to perineural cyst than sacral metastasis. Other: Enhancing nodule just inside the muscular wall of the upper abdomen on the right near the infe rior liver is 1.4 x 1.3 cm. Similar 1.1 x 1 cm nodule posterior to the left kidney just inside the le ft abdominal wall outside the perinephric fascia. A 1 cm nodule in the anterior pericardial fat on th e left. A 1.1 cm nodule in the subcutaneous fat of the upper right thigh posterolaterally. These all likely represent metastases. IMPRESSION: 1. Bilateral adrenal gland metastases. 2. 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 3. A couple of intraperitoneal nodules, adjacent to the liver and posterior to the left kidney. Small nodules in the subcutaneous fat of the right thigh and left anterior pericardial fat. All likel y metastatic. 4. No clear evidence of a primary tumor site. 5. Moderate body wall edema suggesting anasarca.
[2023-12-11 12:14] LABS: Basophils # (A) 0.04 X 10*3/uL (0.00-0.10); Basophils % (A) 0.2 %; Eosinophils # (A) 0.12 X 10*3/uL (0.04-0.35); Eosinophils % (A) 0.7 %; HCT 22.9 % (37.2-46.3); HGB 7.5 g/dL (12.0-15.0); Lymphocytes # (A) 0.69 X 10*3/uL (0.90-5.00); MCH 26.6 pg (27.0-32.0); MCHC 32.8 g/dL (32.0-37.0); MCV 81.2 FL (80.0-97.0); Mean Platelet Volume 9.8 FL (9.5-12.2); Monocytes # (A) 1.43 X 10*3/uL (0.20-1.00); Monocytes % (A) 8.3 %; NRBC Per 100 WBC 0 X 10*3/uL (0.00-0.01); Neutrophils # (A) 14.82 X 10*3/uL (1.80-7.70); Neutrophils % (A) 85.5 %; Platelet Count 305 X 10*3/uL (140-440); RBC 2.82 X 10*6/uL (4.10-5.20); RDW 15.7 % (11.5-14.5); WBC 17.32 X 10*3/uL (4.50-10.00)
[2023-12-11 13:40] LABS: Glucose, BF Source Thoracentesis Fluid; Glucose, Body Fluid 3 mg/dL; LDH, Body Fluid Source Thoracentesis Fluid; T. Protein, Body Fluid Source Thoracentesis Fluid; Total Protein, Body Fluid 2700 mg/dL
--- NOTE | 2023-12-11 14:32 | P.PN ---
Subjective Progress Note Date: 12/11/23 This is a very pleasant 63-year-old female patient with a known history of chronic and ongoing tobacco dependence. For approximately 3 to 4 weeks she had been having increasing shortness of breath, cough and congestion. She was treated with albuterol, doxycycline and prednisone in the outpatient setting without much improvement. Chest x-ray had revealed a new right sided lung mass. She was scheduled to be seen in our office today for the same. However yesterday she developed increasing pain and edema of the left lower extremity and presented here to the emergency room. Dopplers revealed an extensive DVT from the left distal external iliac veins to the prominent left calf veins. CT angiogram revealed no evidence of pulmonary embolism however there is a large conglomerate mediastinal and right hilar adenopathy with associated multiple spiculated nodules of the right upper lung. There is also a moderate right pleural effusion. Findings are concerning for malignancy. Ultrasound of the r ight chest reveals a 4.2 cm pocket. White count 27.0. Hemoglobin 8.0. Platelets 366. Sodium 134. Potassium 4.3. Bicarb 27. BUN 32. Creatinine 0.53. Glucose 104. A ST 36. ALT 46. Procalcitonin 0.20. She is currently on a heparin drip. She is seen today in consultation in the emergency department. She is currently sitting up on a stretcher. Awake and alert in no acute distress. She denies any worsening shortness of breath, cough or congestion. No hemoptysis. Left lower extremity pain is subsiding but still present. She states she has lost approximately 22 pounds over the past year. She does have chronic and ongoing tobacco dependence of greater than 30 years. She remains quite active. Prior to this recent illness within the past month she had been feeling fine and no significant medical history. She has been initiated on vancomycin and cefepime. She is on bronchodilators. Normal saline at 75 MLS per hour. The patient is seen today December 09, 2023 in follow-up on the regular medical floor. She is currently sitting up in bed. Awake and alert in no acute distre ss. She is maintaining good O2 saturation in the 90s on 2 L/min per nasal cannula. She has been afebrile. Hemodynamically stable. She did undergo a right-sided thoracentesis today with Dr. Otoole. 1.2 L of cloudy yellow fluid was removed. Fluid analysis and cytology pending. Her heparin had been on hold which has now been resumed. White count 16.7. Hemoglobin 7.2. Platelets 319. Sodium 131. Potassium 3.8. Bicarb 25. BUN 22. Creatinine 0.46. Glucose 104. Vancomycin trough 9.6. Remains on vancomycin and cefepime. Continued on bronchodilators. Follow-up chest x-ray revealed similar fullness in the right hilar region, residual right pleural effusion. No evidence of pneumothorax. Left lung is clear. The patient is seen today December 10, 2023 in follow-up on the regular medical floor. She is currently resting comfortably in bed. Awake and alert in no acute distress. Maintaining good O2 saturations in the 90s on 3 L/min per nasal cannula. Afebrile. Hemodynamically stable. She is receiving 1 unit of packed red blood cells today. Her hemoglobin dropped to 6.3. Platelets 260,000. White count 15.9. Sodium 127. Potassium 3.6. Bicarb 22. BUN 17. Creatinine 0.47. Glucose 107. Pleural fluid analysis exudate with an LDH of 639 and a total protein of 4.7 and cytology pending. She remains on DuoNeb ventilations. Antibiotics in the form of vancomycin and cefepime. She is continued on a heparin drip for her extensive left lower extremity DVT. The patient is seen today December 11, 2023 in follow-up on the regular medical floor. She is sitting up in bed. Awake and alert in no acute distress. She is maintaining good O2 saturations in the 90s on 2 L/min per nasal cannula. She is afebrile. Blood pressure stable. CT scan of the abdomen and pelvis revealed bilateral adrenal gland metastases. 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 A couple of IntraOp peritoneal nodules, adjacent to the liver and posterior to the left kidney. Small nodules in the subcutaneous fat of the right thigh and left anterior pericardial fat. All likely metastatic. Cytology from pleural fluid still pending. White count 17.3. Hemoglobin 7.5. Platelets 305. Status post 1 unit of packed red blood cells. She is continued on a heparin drip. Stool for occult blood is positive. She remains on bronchodilators. Antibiotics in the form of vancomycin and cefepime. Dilaudid for plane control. Objective - Vital Signs Vital signs: Vital Signs Temp 99.4 F 12/11/23 13:26 Pulse 131 H 12/11/23 13:26 Resp 22 12/11/23 13:26 BP 117/72 12/11/23 13:26 Pulse Ox 98 12/11/23 13:26 FiO2 Intake & Output 12/10/23 12/11/23 12/11/23 18:59 06:59 18:59 Intake Total 550 832.02 94.009 Output Total 600 Balance -50 832.02 94.009 Intake: Intake, IV Titration 242.02 94.009 Amount Heparin Sod,Pork in 0.45% 242.02 94.009 NaCl 25,000 unit In 0.45 % NaCl 1 250ml.bag @ 18 UNITS/KG/HR 8.981 mls/hr IV .Q24H [facility] Rx#: [id number] Oral 240 590 Blood Product 310 Rc As-1 Unit 310 [id number] Output: Urine 600 Other: Voiding Method Toilet Toilet Toilet Bedside Commode Bedside Commode Bedside Commode # Voids 2 1 # Bowel Movements 1 1 1 - Exam GENERAL EXAM: Alert, pale, frail 63-year-old female, appears older than stated age, on 2 L nasal cannula, in no apparent distress. HEAD: Normocephalic. EYES: Normal reaction of pupils, equal size. NOSE: Clear with pink turbinates. THROAT: No erythema or exudates. NECK: No masses, no JVD. CHEST: No chest wall deformity. LUNGS: Equal air entry with crackles and dullness of the right lung base. CVS: S1 and S2 normal with no audible murmur, regular rhythm. ABDOMEN: No hepatosplenomegaly, normal bowel sounds, no guarding or rigidity. SPINE: No scoliosis or deformity SKIN: No rashes CENTRAL NERVOUS SYSTEM: No focal deficits, tone is normal in all 4 extremities. EXTREMITIES: There is 1-2+ peripheral edema of the left lower extremity. No clubbing, no cyanosis. Peripheral pulses are intact. - Labs CBC & Chem 7: 12/11/23 06:51 12/10/23 05:40 Labs: Abnormal Lab Results - Last 24 Hours (Table) 12/10/23 12/10/23 12/10/23 Range/Units 05:40 05:40 10:50 WBC (4.50-10.00) X 10*3/uL RBC (4.10-5.20) X 10*6/uL Hgb (12.0-15.0) g/dL Hct (37.2-46.3) % MCH (27.0-32.0) pg RDW (11.5-14.5) % Immature Gran # (0.00-0.04) X 10*3/uL Neutrophils # (1.80-7.70) X 10*3/uL Lymphocytes # (0.90-5.00) X 10*3/uL Monocytes # (0.20-1.00) X 10*3/uL APTT (22.0-30.0) sec Osmolality 272 L (275-295) mOsm/kg Iron 8 L (50-170) UG/DL TIBC 124 L (228-460) UG/DL % Saturation 6.45 L (12.00-45.00) Transferrin 88.9 L (204.0-354.0) mg/dL Ferritin 1124.0 H (10.0-291.0) ng/mL Vitamin B12 >3600.0 H (200.0-944.0) pg/mL Stool Occult Blood (Negative) Crossmatch See Detail 12/11/23 12/11/23 12/11/23 Range/Units 06:51 06:51 09:36 WBC 17.32 H (4.50-10.00) X 10*3/uL RBC 2.82 L (4.10-5.20) X 10*6/uL Hgb 7.5 L (12.0-15.0) g/dL Hct 22.9 L (37.2-46.3) % MCH 26.6 L (27.0-32.0) pg RDW 15.7 H (11.5-14.5) % Immature Gran # 0.22 H (0.00-0.04) X 10*3/uL Neutrophils # 14.82 H (1.80-7.70) X 10*3/uL Lymphocytes # 0.69 L (0.90-5.00) X 10*3/uL Monocytes # 1.43 H (0.20-1.00) X 10*3/uL APTT 37.6 H (22.0-30.0) sec Osmolality (275-295) mOsm/kg Iron (50-170) UG/DL TIBC (228-460) UG/DL % Saturation (12.00-45.00) Transferrin (204.0-354.0) mg/dL Ferritin (10.0-291.0) ng/mL Vitamin B12 (200.0-944.0) pg/mL Stool Occult Blood Positive H (Negative) Crossmatch Microbiology - Last 24 Hours (Table) 12/07/23 15:55 Blood Culture - Preliminary Blood 12/07/23 16:10 Blood Culture - Preliminary Blood 12/09/23 10:20 Acid Fast Bacilli Smear - Preliminary Thoracentesis Fluid 12/09/23 10:20 Gram Stain - Preliminary Thoracic Fluid Body Fluid Culture - Preliminary Assessment and Plan Assessment: Acute left lower extremity pain and swelling in a patient found to have an extensive left lower extremity DVT. Initiated on a heparin drip Recent diagnosis of lung mass with no follow-up thus far. CT angiogram ruled out pulmonary embolism. There is a large conglomerate mediastinal and right hilar adenopathy with associated multiple spiculated nodules in the right upper lung. Concerning for malignancy, possible small cell lung cancer. CT scan of the abdomen and pelvis revealed bilateral adrenal gland metastases. 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 A couple of IntraOp peritoneal nodules, adjacent to the liver and posterior to the left kidney. Small nodules in the subcutaneous fat of the right thigh and left anterior pericardial fat. All likely metastatic. Moderate right-sided pleural effusion secondary to above. Status post thoracentesis with 1.2 L of cloudy yellow fluid removed December 09, 2023. Cytolo gy pending Acute hypoxemic respiratory failure secondary to above and suspected postobstructive pneumonia, currently on vancomycin and cefepime Leukocytosis secondary to above Weight loss up to 22 pounds in the past year Chronic and ongoing tobacco dependence of greater than 30 years Anemia, current hemoglobin 7.5, received 1 unit of packed red blood cells, stool for occult blood positive Plan: The patient was seen and evaluated CT scan of the abdomen pelvis, Labs and medications reviewed Evidence of metastatic disease Awaiting pleural fluid cytology Continue heparin drip for now Surgical services consulted for anemia If no anticoagulants recommended may need IVC filter placed Patient has requested DNR/DNI CODE STATUS We will continue to follow I have personally seen and examined the patient, performed the documentation and the assessment and plan as written. Number of minutes spent on the visit: 10.
--- NOTE | 2023-12-11 15:44 | P.PN ---
Subjective Progress Note Date: 12/11/23 Hospital Course: 63-year-old female with a PMH of tobacco abuse who presents to the emergency r oom with complaints of left lower extremity swelling and shortness of breath. Chest CTA in the emergency room revealed large mediastinal and right hilar adenopathy with multiple nodules in the right upper lung field concerning for malignancy as well as a moderate right-sided pleural effusion likely sequela of the malignancy. There was no evidence of pulmonary embolism. Venous Doppler of the lower extremities revealed an extensive DVT extending from the left distal external iliac to the proximal calf veins. Laboratory evaluation revealed leukocytosis of 28.7 with hemoglobin 9.5, lactic acid 1.1, troponin 0.012, AST 43, ALT 68, alk phos 204. The patient's SpO2 in the emergency room was 92% on room air. Patient started on heparin drip. Pulmonology also consulted. Thoracentesis shows exudative fluid. Cytology pending. She did drop her hemoglobin, concern for acute GI bleed, general surgery was consulted. Oncology also consulted. Abdomen pelvis CT shows numerous metastatic lesions including adrenal gland, destructive osseous metastasis to the pubic bones, intraperitoneal nodules adjacent to liver and posterior left kidney, metastatic disease to right thigh and left anterior pericardial fat. Subjective: Patient seen and examined at bedside. No acute events overnight. Patient would like to go home as soon as she can Pertinent positives and negatives as discussed above, a complete review of systems was performed and all other systems are negative. Vitals Signs Reviewed. General: Nontoxic, no distress, appears at stated age, chronically ill-appearing Derm: Warm, dry Head: Atraumatic, normocephalic, symmetric Eyes: EOMI, no lid lag, anicteric sclera Mouth: No lip lesion, mucus membranes moist Cardiovascular: S1S2 reg, no murmur Lungs: Right basilar rales, no accessory muscle use Abdominal: Soft, nontender to palpation, no guarding, no appreciable organome saloni Ext: No gross muscle atrophy, no edema, no contractures, 1+ edema on left lower extremity Neuro: CN II-XI grossly intact, no focal neuro deficits Psych: Alert, oriented, appropriate affect Data Reviewed Today: Pertinent Labs: WBC 17.32, hemoglobin 7.5, BMP pending, will be reviewed when available, cortisol within normal limits, TSH within normal limits Imaging: No new imaging Assessment and Plan: Active: Acute unprovoked left lower extremity DVT without PE Multiple pulmonary nodules and adenopathy with suspected malignant pleural effusion Acute hypoxic respiratory failure, secondary to underlying malignancy versus pneumonia Sepsis Severe leukocytosis Transaminitis Normocytic anemia, now stable Former smoker Mild hyponatremia, euvolemic - Continue heparin drip, general surgery did see patient for concern of GI bleed, unlikely, no interventions planned On pantoprazole 40 twice daily - Pulmonology note reviewed, cytology pending - Cultures pending - On IV cefepime 2 g every 8 hours, and IV vancomycin 1 g every 12 hours, monitor for renal toxicity -Currently patient appears euvolemic, continue to monitor sodium Today's BMP is pending - DuoNebs 4 times daily scheduled and as needed, - Pain control with oral Tylenol as needed, IV Dilaudid as needed, monitor for sedation - Continue to monitor CBC and CMP DVT ppx: Heparin drip Code status: Full code Anticipated discharge place: Pending clinical course Anticipated discharge time: Pending clinical course Objective - Vital Signs Vital signs: Vital Signs Temp 99.4 F 12/11/23 13:26 Pulse 131 H 12/11/23 13:26 Resp 22 12/11/23 13:26 BP 117/72 12/11/23 13:26 Pulse Ox 98 12/11/23 13:26 FiO2 Intake & Output 12/10/23 12/11/23 12/11/23 18:59 06:59 18:59 Intake Total 550 832.02 94.009 Output Total 600 Balance -50 832.02 94.009 Intake: Intake, IV Titration 242.02 94.009 Amount Heparin Sod,Pork in 0.45% 242.02 94.009 NaCl 25,000 unit In 0.45 % NaCl 1 250ml.bag @ 18 UNITS/KG/HR 8.981 mls/hr IV .Q24H [facility] Rx#: [id number] Oral 240 590 Blood Product 310 Rc As-1 Unit 310 [id number] Output: Urine 600 Other: Voiding Method Toilet Toilet Toilet Bedside Commode Bedside Commode Bedside Commode # Voids 2 1 # Bowel Movements 1 1 1 - Labs CBC & Chem 7: 12/11/23 06:51 12/10/23 05:40 Labs: Abnormal Lab Results - Last 24 Hours (Table) 12/10/23 12/10/2324 Range/Units 05:40 05:40 10:50 WBC (4.50-10.00) X 10*3/uL RBC (4.10-5.20) X 10*6/uL Hgb (12.0-15.0) g/dL Hct (37.2-46.3) % MCH (27.0-32.0) pg RDW (11.5-14.5) % Immature Gran # (0.00-0.04) X 10*3/uL Neutrophils # (1.80-7.70) X 10*3/uL Lymphocytes # (0.90-5.00) X 10*3/uL Monocytes # (0.20-1.00) X 10*3/uL APTT (22.0-30.0) sec Osmolality 272 L (275-295) mOsm/kg Iron 8 L (50-170) UG/DL TIBC 124 L (228-460) UG/DL % Saturation 6.45 L (12.00-45.00) Transferrin 88.9 L (204.0-354.0) mg/dL Ferritin 1124.0 H (10.0-291.0) ng/mL Vitamin B12 >3600.0 H (200.0-944.0) pg/mL Stool Occult Blood (Negative) Crossmatch See Detail 12/11/23 12/11/23 12/11/23 Range/Units 06:51 06:51 09:36 WBC 17.32 H (4.50-10.00) X 10*3/uL RBC 2.82 L (4.10-5.20) X 10*6/uL Hgb 7.5 L (12.0-15.0) g/dL Hct 22.9 L (37.2-46.3) % MCH 26.6 L (27.0-32.0) pg RDW 15.7 H (11.5-14.5) % Immature Gran # 0.22 H (0.00-0.04) X 10*3/uL Neutrophils # 14.82 H (1.80-7.70) X 10*3/uL Lymphocytes # 0.69 L (0.90-5.00) X 10*3/uL Monocytes # 1.43 H (0.20-1.00) X 10*3/uL APTT 37.6 H (22.0-30.0) sec Osmolality (275-295) mOsm/kg Iron (50-170) UG/DL TIBC (228-460) UG/DL % Saturation (12.00-45.00) Transferrin (204.0-354.0) mg/dL Ferritin (10.0-291.0) ng/mL Vitamin B12 (200.0-944.0) pg/mL Stool Occult Blood Positive H (Negative) Crossmatch Microbiology - Last 24 Hours (Table) 12/07/23 15:55 Blood Culture - Preliminary Blood 12/07/23 16:10 Blood Culture - Preliminary Blood 12/09/23 10:20 Acid Fast Bacilli Smear - Preliminary Thoracentesis Fluid 12/09/23 10:20 Gram Stain - Preliminary Thoracic Fluid Body Fluid Culture - Preliminary
[2023-12-11 16:49] LABS: African American GFR (CKD) >90 (>60 ml/min/1.73 sqM); Anion Gap 3 mmol/L; Blood Urea Nitrogen 14 mg/dL (7-17); Calcium 7.4 mg/dL (8.4-10.2); Carbon Dioxide 26 mmol/L (22-30); Chloride 100 mmol/L (98-107); Glucose 143 mg/dL (74-99); Non-African American GFR(CKD) >90 (>60 ml/min/1.73 sqM); Potassium 3.4 mmol/L (3.5-5.1); Sodium 129 mmol/L (137-145)
[2023-12-11] MEDS: POTASSIUM CHLORIDE ER 20 MEQ TAB.ER PO STA (18:06)
--- NOTE | 2023-12-11 20:29 | MR ---
EXAMINATION TYPE: MR brain wo/w con DATE OF EXAM: 12/11/2023 COMPARISON: None HISTORY: Lung mass, abnormal lymphadenopathy, staging CONTRAST: Performed utilizing 5 mL intravenous Gadavist gadolinium contrast. TECHNIQUE: Multiplanar, multiecho imaging on a 3.0 Ana magnet is performed through the brain. Stud y is performed within 24 hours of arrival to the hospital. The craniovertebral junction is normal. The pituitary is normal. Diffusion-weighted imaging is performed. No abnormal hyperintensity is present to suggest an acute i ntracranial infarct or acute ischemic change. There are scattered punctate areas of hyperintensity on T2 and Inversion Recovery weighted sequences which are non-specific but can be related to microvascular ischemic changes. There is a 0.4 cm ring lesion with surrounding edema in the right cerebellum. Series 901 image 23 rig ht A 0.4 cm focus of enhancement within the leptomeningeal vertex may be present, series 801 image 27r Ventricles and sulci are appropriate for the patient age. There is a slightly hyperintense subcortical area within the occipital region near the posterior dura l sinus. Finding is suspicious for a osseous metastasis. IMPRESSION: 1. There appear to be metastatic lesions within the right cerebellum, sulcus of the left vertex, and within the posterior occipital calvarium.
[2023-12-12 00:23] LABS: Blood Urea Nitrogen 10.6 mg/dL (9.0-27.0); Calcium 7.7 mg/dL (8.7-10.3); Carbon Dioxide 23.1 mmol/L (21.6-31.8); Chloride 98 mmol/L (96-109); Glucose 94 mg/dL (70-110); Potassium 3.8 mmol/L (3.5-5.5); Sodium 133 mmol/L (135-145)
[2023-12-12 04:27] LABS: Methylmalonic Acid 0.22 umol/L (<0.40)
[2023-12-12] MEDS: VANCOMYCIN TROUGH DUE 1 EACH MISC MISCELLANE ONE (07:04)
[2023-12-12 08:27] VITALS: BMI 20.1
[2023-12-12 08:54] LABS: African American GFR (CKD) >90 (>60 ml/min/1.73 sqM); Anion Gap 6 mmol/L; Blood Urea Nitrogen 12 mg/dL (7-17); Calcium 7.9 mg/dL (8.4-10.2); Carbon Dioxide 25 mmol/L (22-30); Chloride 100 mmol/L (98-107); Glucose 95 mg/dL (74-99); Magnesium 1.9 mg/dL (1.6-2.3); Non-African American GFR(CKD) >90 (>60 ml/min/1.73 sqM); Potassium 4.4 mmol/L (3.5-5.1); Sodium 131 mmol/L (137-145)
--- NOTE | 2023-12-12 08:59 | P.PN ---
Subjective Progress Note Date: 12/11/23 CHIEF COMPLAINT: Anemia HISTORY OF PRESENT ILLNESS: The patient is a 63-year-old female admitted with acute anemia, new neoplasm of the lung, DVT. Patient previously reported having possible blood in stools and urine yesterday however none today. She reports improvement of her bilateral lower abdominal pain. She did receive 1 unit of blood for hemoglobin 6.3 now 7.5. ROS: No reports of nausea and vomiting. No fevers or chills. PHYSICAL EXAM: VITAL SIGNS: Reviewed CONSTITUTIONAL: Well developed and in no acute distress. EYES: Conjuctivae without sclera icterus. Extraocular movements grossly intact. HEAD, EARS, NOSE, THROAT: Moist buccal mucosa. Head is atraumatic, normocephalic. Hears conversational speech. No nasal drainage. RESPIRATORY: Non-labored respirations and equal bilateral excursions. CARDIOVASCULAR: Palpable 2+ radial pulses. ABDOMEN: Peritonitis. Minimal lower abdominal pain. MUSCULOSKELETAL: No gross deformity of the lower extremities noted. No clubbing. No cyanosis. SKIN: Good skin turgor. Well perfused. NEUROLOGIC: Cranial nerves II through XII grossly intact. No focal or lateralizing signs. PSYCH: Appropriate affect. Alert and oriented to person, place and time. CLINICAL LABS: Reviewed. WBC improved from 27,000-17,000, leukocytosis. Anemia hemoglobin up 6.3-7.5 after 1 unit blood transfusion. STUDIES: CT of the abdomen and pelvis independently reviewed demonstrates large compressive pleural effusion of the right lung, no free air, no bowel obstruction, no acute bleed. This is my independent interpretation. REPORTS: Brain MRI demonstrates metastatic lesions involving the right cerebellum, posterior occipital calvarium, left vertex ASSESSMENT: 1. Anemia due to malignancy 2. 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 Deep venous thrombosis 4. Leukocytosis PLAN: 1. Given clinical course including metastatic disease, may benefit from hospice assessment 2. No acute surgical intervention at this time as patient denies active bleeding Objective - Vital Signs Vital signs: Vital Signs Temp 98.1 F 12/12/23 07:28 Pulse 100 12/12/23 08:32 Resp 18 12/12/23 07:28 BP 105/67 12/12/23 07:28 Pulse Ox 98 12/12/23 07:28 FiO2 Intake & Output 12/11/23 12/12/23 12/12/23 18:59 06:59 18:59 Intake Total 454.009 732.042 Output Total 1 Balance 454.009 731.042 Weight 49.895 kg Intake: Intake, IV Titration 94.009 142.042 Amount Heparin Sod,Pork in 0.45% 94.009 142.042 NaCl 25,000 unit In 0.45 % NaCl 1 250ml.bag @ 18 UNITS/KG/HR 8.981 mls/hr IV .Q24H [facility] Rx#: [id number] Oral 360 590 Output: Stool 1 Other: Voiding Method Toilet Toilet Bedside Commode Bedside Commode # Voids 3 2 # Bowel Movements 1 0 - Labs CBC & Chem 7: 12/11/23 06:51 12/11/23 16:05 Labs: Abnormal Lab Results - Last 24 Hours (Table) 12/11/23 12/11/23 12/11/23 Range/Units 06:51 06:51 09:36 WBC 17.32 H (4.50-10.00) X 10*3/uL RBC 2.82 L (4.10-5.20) X 10*6/uL Hgb 7.5 L (12.0-15.0) g/dL Hct 22.9 L (37.2-46.3) % MCH 26.6 L (27.0-32.0) pg RDW 15.7 H (11.5-14.5) % Immature Gran # 0.22 H (0.00-0.04) X 10*3/uL Neutrophils # 14.82 H (1.80-7.70) X 10*3/uL Lymphocytes # 0.69 L (0.90-5.00) X 10*3/uL Monocytes # 1.43 H (0.20-1.00) X 10*3/uL APTT (22.0-30.0) sec Sodium 133 L (135-145) mmol/L Potassium (3.5-5.1) mmol/L Creatinine 0.5 L (0.6-1.5) mg/dL BUN/Creatinine Ratio 21.20 H (12.00-20.00) Ratio Glucose (74-99) mg/dL Calcium 7.7 L (8.7-10.3) mg/dL Stool Occult Blood Positive H (Negative) 12/11/23 12/11/23 12/12/23 Range/Units 16:05 20:57 06:59 WBC (4.50-10.00) X 10*3/uL RBC (4.10-5.20) X 10*6/uL Hgb (12.0-15.0) g/dL Hct (37.2-46.3) % MCH (27.0-32.0) pg RDW (11.5-14.5) % Immature Gran # (0.00-0.04) X 10*3/uL Neutrophils # (1.80-7.70) X 10*3/uL Lymphocytes # (0.90-5.00) X 10*3/uL Monocytes # (0.20-1.00) X 10*3/uL APTT 55.3 H 82.5 H (22.0-30.0) sec Sodium 129 L (135-145) mmol/L Potassium 3.4 L (3.5-5.1) mmol/L Creatinine 0.50 L (0.6-1.5) mg/dL BUN/Creatinine Ratio (12.00-20.00) Ratio Glucose 143 H (74-99) mg/dL Calcium 7.4 L (8.7-10.3) mg/dL Stool Occult Blood (Negative)
[2023-12-12 11:08] LABS: Basophils # (A) 0.04 X 10*3/uL (0.00-0.10); Basophils % (A) 0.3 %; Eosinophils # (A) 0.24 X 10*3/uL (0.04-0.35); Eosinophils % (A) 1.8 %; HCT 24.4 % (37.2-46.3); HGB 7.8 g/dL (12.0-15.0); Lymphocytes # (A) 0.79 X 10*3/uL (0.90-5.00); Lymphocytes % (A) 6.1 %; MCH 26.3 pg (27.0-32.0); MCV 82.2 FL (80.0-97.0); Monocytes # (A) 1.38 X 10*3/uL (0.20-1.00); Monocytes % (A) 10.6 %; NRBC Per 100 WBC 0 X 10*3/uL (0.00-0.01); Neutrophils # (A) 10.43 X 10*3/uL (1.80-7.70); Platelet Count 371 X 10*3/uL (140-440); RBC 2.97 X 10*6/uL (4.10-5.20); RDW 16.1 % (11.5-14.5); WBC 13.04 X 10*3/uL (4.50-10.00)
--- NOTE | 2023-12-12 13:47 | P.PN ---
Subjective Progress Note Date: 12/12/23 CHIEF COMPLAINT: Anemia HISTORY OF PRESENT ILLNESS: The patient is a 63-year-old female admitted with acute anemia, new neoplasm of the lung, DVT. She reports feeling well. She is sitting up in chair. No reports of abdominal pain. No reports or signs of bleeding. She is status post thoracocentesis of right pleural effusion. ROS: No reports of nausea and vomiting. No fevers or chills. PHYSICAL EXAM: VITAL SIGNS: Reviewed CONSTITUTIONAL: Well developed and in no acute distress. EYES: Conjuctivae without sclera icterus. Extraocular movements grossly intact. HEAD, EARS, NOSE, THROAT: Moist buccal mucosa. Head is atraumatic, normocephalic. Hears conversational speech. No nasal drainage. RESPIRATORY: Non-labored respirations and equal bilateral excursions. CARDIOVASCULAR: Palpable 2+ radial pulses. ABDOMEN: Peritonitis. Minimal lower abdominal pain. MUSCULOSKELETAL: No gross deformity of the lower extremities noted. No clubbing. No cyanosis. SKIN: Good skin turgor. Well perfused. NEUROLOGIC: Cranial nerves II through XII grossly intact. No focal or lateralizing signs. PSYCH: Appropriate affect. Alert and oriented to person, place and time. CLINICAL LABS: Reviewed. Leukocytosis 13.0 but trending downward. Hemoglobin trending upward 7.5-7.9, anemia ASSESSMENT: 1. Anemia due to malignancy 2. 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 Deep venous thrombosis 4. Leukocytosis 5. Right pleural effusion PLAN: 1. Patient had many questions regarding results of her studies. She is advised to sign up for my [employer] for results. 2. Should she consider treatment options and/or chemotherapy, Mediport placement may be needed. Objective - Vital Signs Vital signs: Vital Signs Temp 97.6 F 12/12/23 12:32 Pulse 91 12/12/23 12:32 Resp 17 12/12/23 12:32 BP 110/69 12/12/23 12:32 Pulse Ox 96 12/12/23 12:32 FiO2 Intake & Output 12/11/23 12/12/23 12/12/23 18:59 06:59 18:59 Intake Total 454.009 732.042 Output Total 1 1 Balance 454.009 731.042 -1 Weight 49.895 kg Intake: Intake, IV Titration 94.009 142.042 Amount Heparin Sod,Pork in 0.45% 94.009 142.042 NaCl 25,000 unit In 0.45 % NaCl 1 250ml.bag @ 18 UNITS/KG/HR 8.981 mls/hr IV .Q24H [facility] Rx#: [id number] Oral 360 590 Output: Stool 1 1 Other: Voiding Method Toilet Toilet Toilet Bedside Commode Bedside Commode Bedside Commode # Voids 3 2 2 # Bowel Movements 1 0 2 - Labs CBC & Chem 7: 12/12/23 06:59 12/12/23 06:59 Labs: Abnormal Lab Results - Last 24 Hours (Table) 12/10/23 12/11/23 12/11/23 Range/Units 17:15 06:51 16:05 WBC (4.50-10.00) X 10*3/uL RBC (4.10-5.20) X 10*6/uL Hgb (12.0-15.0) g/dL Hct (37.2-46.3) % MCH (27.0-32.0) pg RDW (11.5-14.5) % Immature Gran # (0.00-0.04) X 10*3/uL Neutrophils # (1.80-7.70) X 10*3/uL Lymphocytes # (0.90-5.00) X 10*3/uL Monocytes # (0.20-1.00) X 10*3/uL APTT (22.0-30.0) sec Sodium 133 L 129 L (135-145) mmol/L Potassium 3.4 L (3.5-5.1) mmol/L Creatinine 0.5 L 0.50 L (0.6-1.5) mg/dL BUN/Creatinine Ratio 21.20 H (12.00-20.00) Ratio Glucose 143 H (74-99) mg/dL Calcium 7.7 L 7.4 L (8.7-10.3) mg/dL RBC Folate 1,008 H (280 - 791) ng/mL 12/11/23 12/12/23 12/12/23 Range/Units 20:57 06:59 06:59 WBC 13.04 H (4.50-10.00) X 10*3/uL RBC 2.97 L (4.10-5.20) X 10*6/uL Hgb 7.8 L (12.0-15.0) g/dL Hct 24.4 L (37.2-46.3) % MCH 26.3 L (27.0-32.0) pg RDW 16.1 H (11.5-14.5) % Immature Gran # 0.16 H (0.00-0.04) X 10*3/uL Neutrophils # 10.43 H (1.80-7.70) X 10*3/uL Lymphocytes # 0.79 L (0.90-5.00) X 10*3/uL Monocytes # 1.38 H (0.20-1.00) X 10*3/uL APTT 55.3 H (22.0-30.0) sec Sodium 131 L (135-145) mmol/L Potassium (3.5-5.1) mmol/L Creatinine (0.6-1.5) mg/dL BUN/Creatinine Ratio (12.00-20.00) Ratio Glucose (74-99) mg/dL Calcium 7.9 L (8.7-10.3) mg/dL RBC Folate (280 - 791) ng/mL 12/12/23 Range/Units 06:59 WBC (4.50-10.00) X 10*3/uL RBC (4.10-5.20) X 10*6/uL Hgb (12.0-15.0) g/dL Hct (37.2-46.3) % MCH (27.0-32.0) pg RDW (11.5-14.5) % Immature Gran # (0.00-0.04) X 10*3/uL Neutrophils # (1.80-7.70) X 10*3/uL Lymphocytes # (0.90-5.00) X 10*3/uL Monocytes # (0.20-1.00) X 10*3/uL APTT 82.5 H (22.0-30.0) sec Sodium (135-145) mmol/L Potassium (3.5-5.1) mmol/L Creatinine (0.6-1.5) mg/dL BUN/Creatinine Ratio (12.00-20.00) Ratio Glucose (74-99) mg/dL Calcium (8.7-10.3) mg/dL RBC Folate (280 - 791) ng/mL
--- NOTE | 2023-12-12 14:28 | P.PN ---
Subjective Progress Note Date: 12/12/23 This is a very pleasant 63-year-old female patient with a known history of chronic and ongoing tobacco dependence. For approximately 3 to 4 weeks she had been having increasing shortness of breath, cough and congestion. She was treated with albuterol, doxycycline and prednisone in the outpatient setting without much improvement. Chest x-ray had revealed a new right sided lung mass. She was scheduled to be seen in our office today for the same. However yesterday she developed increasing pain and edema of the left lower extremity and presented here to the emergency room. Dopplers revealed an extensive DVT from the left distal external iliac veins to the prominent left calf veins. CT angiogram revealed no evidence of pulmonary embolism however there is a large conglomerate mediastinal and right hilar adenopathy with associated multiple spiculated nodules of the right upper lung. There is also a moderate right pleural effusion. Findings are concerning for malignancy. Ultrasound of the r ight chest reveals a 4.2 cm pocket. White count 27.0. Hemoglobin 8.0. Platelets 366. Sodium 134. Potassium 4.3. Bicarb 27. BUN 32. Creatinine 0.53. Glucose 104. A ST 36. ALT 46. Procalcitonin 0.20. She is currently on a heparin drip. She is seen today in consultation in the emergency department. She is currently sitting up on a stretcher. Awake and alert in no acute distress. She denies any worsening shortness of breath, cough or congestion. No hemoptysis. Left lower extremity pain is subsiding but still present. She states she has lost approximately 22 pounds over the past year. She does have chronic and ongoing tobacco dependence of greater than 30 years. She remains quite active. Prior to this recent illness within the past month she had been feeling fine and no significant medical history. She has been initiated on vancomycin and cefepime. She is on bronchodilators. Normal saline at 75 MLS per hour. The patient is seen today December 09, 2023 in follow-up on the regular medical floor. She is currently sitting up in bed. Awake and alert in no acute distre ss. She is maintaining good O2 saturation in the 90s on 2 L/min per nasal cannula. She has been afebrile. Hemodynamically stable. She did undergo a right-sided thoracentesis today with Dr. Otoole. 1.2 L of cloudy yellow fluid was removed. Fluid analysis and cytology pending. Her heparin had been on hold which has now been resumed. White count 16.7. Hemoglobin 7.2. Platelets 319. Sodium 131. Potassium 3.8. Bicarb 25. BUN 22. Creatinine 0.46. Glucose 104. Vancomycin trough 9.6. Remains on vancomycin and cefepime. Continued on bronchodilators. Follow-up chest x-ray revealed similar fullness in the right hilar region, residual right pleural effusion. No evidence of pneumothorax. Left lung is clear. The patient is seen today December 10, 2023 in follow-up on the regular medical floor. She is currently resting comfortably in bed. Awake and alert in no acute distress. Maintaining good O2 saturations in the 90s on 3 L/min per nasal cannula. Afebrile. Hemodynamically stable. She is receiving 1 unit of packed red blood cells today. Her hemoglobin dropped to 6.3. Platelets 260,000. White count 15.9. Sodium 127. Potassium 3.6. Bicarb 22. BUN 17. Creatinine 0.47. Glucose 107. Pleural fluid analysis exudate with an LDH of 639 and a total protein of 4.7 and cytology pending. She remains on DuoNeb ventilations. Antibiotics in the form of vancomycin and cefepime. She is continued on a heparin drip for her extensive left lower extremity DVT. The patient is seen today December 11, 2023 in follow-up on the regular medical floor. She is sitting up in bed. Awake and alert in no acute distress. She is maintaining good O2 saturations in the 90s on 2 L/min per nasal cannula. She is afebrile. Blood pressure stable. CT scan of the abdomen and pelvis revealed bilateral adrenal gland metastases. 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 A couple of intraperitoneal nodules, adjacent to the liver and posterior to the left kidney. Small nodules in the subcutaneous fat of the right thigh and left anterior pericardial fat. All likely metastatic. Cytology from pleural fluid still pending. White count 17.3. Hemoglobin 7.5. Platelets 305. Status post 1 unit of packed red blood cells. She is continued on a heparin drip. Stool for occult blood is positive. She remains on bronchodilators. Antibiotics in the form of vancomycin and cefepime. Dilaudid for plane control. The patient is seen today December 12, 2023 in follow-up on the regular medical floor. She remains awake and alert in no acute distress. Sitting up at the bedside. Denies any worsening shortness of breath, cough or congestion. She is continued on bronchodilators and antibiotics in the form of vancomycin and cefepime. Continued on a heparin drip. MRI of the brain reveals metastatic lesions within the right cerebellum, sulcus and left vertex and within the posterior occipital calvarium. She is status post 1 unit of packed red blood cells this admission. Current hemoglobin 7.8. Platelets 371. White count 13.0. Sodium 131. Potassium 4.4. Bicarb 25. BUN 12. Creatinine 0.52. Vancomycin trough 18.4. Objective - Vital Signs Vital signs: Vital Signs Temp 97.6 F 12/12/23 12:32 Pulse 91 12/12/23 12:32 Resp 17 12/12/23 12:32 BP 110/69 12/12/23 12:32 Pulse Ox 96 12/12/23 12:32 FiO2 Intake & Output 12/11/23 12/12/23 12/12/23 18:59 06:59 18:59 Intake Total 454.009 732.042 Output Total 1 1 Balance 454.009 731.042 -1 Weight 49.895 kg Intake: Intake, IV Titration 94.009 142.042 Amount Heparin Sod,Pork in 0.45% 94.009 142.042 NaCl 25,000 unit In 0.45 % NaCl 1 250ml.bag @ 18 UNITS/KG/HR 8.981 mls/hr IV .Q24H [facility] Rx#: [id number] Oral 360 590 Output: Stool 1 1 Other: Voiding Method Toilet Toilet Toilet Bedside Commode Bedside Commode Bedside Commode # Voids 3 2 2 # Bowel Movements 1 0 2 - Exam GENERAL EXAM: Alert, pleasant 63-year-old female, appears older than stated age, on room air, in no apparent distress. HEAD: Normocephalic. EYES: Normal reaction of pupils, equal size. NOSE: Clear with pink turbinates. THROAT: No erythema or exudates. NECK: No masses, no JVD. CHEST: No chest wall deformity. LUNGS: Equal air entry with crackles and dullness of the right lung base. CVS: S1 and S2 normal with no audible murmur, regular rhythm. ABDOMEN: No hepatosplenomegaly, normal bowel sounds, no guarding or rigidity. SPINE: No scoliosis or deformity SKIN: No rashes CENTRAL NERVOUS SYSTEM: No focal deficits, tone is normal in all 4 extremities. EXTREMITIES: There is 1-2+ peripheral edema of the left lower extremity. No clubbing, no cyanosis. Peripheral pulses are intact. - Labs CBC & Chem 7: 12/12/23 06:59 12/12/23 06:59 Labs: Abnormal Lab Results - Last 24 Hours (Table) 12/10/23 12/11/23 12/11/23 Range/Units 17:15 06:51 16:05 WBC (4.50-10.00) X 10*3/uL RBC (4.10-5.20) X 10*6/uL Hgb (12.0-15.0) g/dL Hct (37.2-46.3) % MCH (27.0-32.0) pg RDW (11.5-14.5) % Immature Gran # (0.00-0.04) X 10*3/uL Neutrophils # (1.80-7.70) X 10*3/uL Lymphocytes # (0.90-5.00) X 10*3/uL Monocytes # (0.20-1.00) X 10*3/uL APTT (22.0-30.0) sec Sodium 133 L 129 L (135-145) mmol/L Potassium 3.4 L (3.5-5.1) mmol/L Creatinine 0.5 L 0.50 L (0.6-1.5) mg/dL BUN/Creatinine Ratio 21.20 H (12.00-20.00) Ratio Glucose 143 H (74-99) mg/dL Calcium 7.7 L 7.4 L (8.7-10.3) mg/dL RBC Folate 1,008 H (280 - 791) ng/mL 12/11/23 12/12/23 12/12/23 Range/Units 20:57 06:59 06:59 WBC 13.04 H (4.50-10.00) X 10*3/uL RBC 2.97 L (4.10-5.20) X 10*6/uL Hgb 7.8 L (12.0-15.0) g/dL Hct 24.4 L (37.2-46.3) % MCH 26.3 L (27.0-32.0) pg RDW 16.1 H (11.5-14.5) % Immature Gran # 0.16 H (0.00-0.04) X 10*3/uL Neutrophils # 10.43 H (1.80-7.70) X 10*3/uL Lymphocytes # 0.79 L (0.90-5.00) X 10*3/uL Monocytes # 1.38 H (0.20-1.00) X 10*3/uL APTT 55.3 H (22.0-30.0) sec Sodium 131 L (135-145) mmol/L Potassium (3.5-5.1) mmol/L Creatinine (0.6-1.5) mg/dL BUN/Creatinine Ratio (12.00-20.00) Ratio Glucose (74-99) mg/dL Calcium 7.9 L (8.7-10.3) mg/dL RBC Folate (280 - 791) ng/mL 12/12/23 Range/Units 06:59 WBC (4.50-10.00) X 10*3/uL RBC (4.10-5.20) X 10*6/uL Hgb (12.0-15.0) g/dL Hct (37.2-46.3) % MCH (27.0-32.0) pg RDW (11.5-14.5) % Immature Gran # (0.00-0.04) X 10*3/uL Neutrophils # (1.80-7.70) X 10*3/uL Lymphocytes # (0.90-5.00) X 10*3/uL Monocytes # (0.20-1.00) X 10*3/uL APTT 82.5 H (22.0-30.0) sec Sodium (135-145) mmol/L Potassium (3.5-5.1) mmol/L Creatinine (0.6-1.5) mg/dL BUN/Creatinine Ratio (12.00-20.00) Ratio Glucose (74-99) mg/dL Calcium (8.7-10.3) mg/dL RBC Folate (280 - 791) ng/mL Assessment and Plan Assessment: Acute left lower extremity pain and swelling in a patient found to have an extensive left lower extremity DVT. Initiated on a heparin drip Recent diagnosis of lung mass with no follow-up thus far. CT angiogram ruled out pulmonary embolism. There is a large conglomerate mediastinal and right hilar adenopathy with associated multiple spiculated nodules in the right upper lung. Concerning for malignancy, possible small cell lung cancer. CT scan of the abdomen and pelvis revealed bilateral adrenal gland metastases. 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 A couple of IntraOp peritoneal nodules, adjacent to the liver and posterior to the left kidney. Small nodules in the subcutaneous fat of the right thigh and left anterior pericardial fat. All likely metastatic. MRI of the brain reveals metastatic lesions within the right cerebellum, sulcus and left vertex and within the posterior occipital calvarium. Moderate right-sided pleural effusion secondary to above. Status post thoracentesis with 1.2 L of cloudy yellow fluid removed December 09, 2023. Cytology still pending Acute hypoxemic respiratory failure secondary to above and suspected postobstructive pneumonia, currently on vancomycin and cefepime. Covered and on room air Leukocytosis secondary to above, improved Weight loss up to 22 pounds in the past year Chronic and ongoing tobacco dependence of greater than 30 years Anemia, current hemoglobin 7.8, received 1 unit of packed red blood cells, stool for occult blood positive Plan: The patient was seen and evaluated MRI of the brain, labs and medications reviewed Radiation oncology consulted Medical oncology following Awaiting pleural fluid cytology Transitioned to [place] Overall prognosis is quite guarded DNR/DNI CODE STATUS Probable discharge in a.m. We will continue to follow I have personally seen and examined the patient, performed the documentation and the assessment and plan as written. Number of minutes spent on the visit: 10.
--- NOTE | 2023-12-12 15:01 | P.PN ---
Subjective Progress Note Date: 12/12/23 Hospital Course: 63-year-old female with a PMH of tobacco abuse who presents to the emergency r oom with complaints of left lower extremity swelling and shortness of breath. Chest CTA in the emergency room revealed large mediastinal and right hilar adenopathy with multiple nodules in the right upper lung field concerning for malignancy as well as a moderate right-sided pleural effusion likely sequela of the malignancy. There was no evidence of pulmonary embolism. Venous Doppler of the lower extremities revealed an extensive DVT extending from the left distal external iliac to the proximal calf veins. Laboratory evaluation revealed leukocytosis of 28.7 with hemoglobin 9.5, lactic acid 1.1, troponin 0.012, AST 43, ALT 68, alk phos 204. The patient's SpO2 in the emergency room was 92% on room air. Patient started on heparin drip. Pulmonology also consulted. Thoracentesis shows exudative fluid. Cytology pending. She did drop her hemoglobin, concern for acute GI bleed, general surgery was consulted. Oncology also consulted. Abdomen pelvis CT shows numerous metastatic lesions including adrenal gland, destructive osseous metastasis to the pubic bones, intraperitoneal nodules adjacent to liver and posterior left kidney, metastatic disease to right thigh and left anterior pericardial fat. MRI brain also shows multiple metastatic lesions. Subjective: Patient seen and examined at bedside. No acute events overnight. No bloody bowel movements. Was febrile last night. Pertinent positives and negatives as discussed above, a complete review of systems was performed and all other systems are negative. Vitals Signs Reviewed. General: Nontoxic, no distress, appears at stated age, chronically ill-appearing Derm: Warm, dry Head: Atraumatic, normocephalic, symmetric Eyes: EOMI, no lid lag, anicteric sclera Mouth: No lip lesion, mucus membranes moist Cardiovascular: S1S2 reg, no murmur Lungs: Right basilar rales, no accessory muscle use Abdominal: Soft, nontender to palpation, no guarding, no appreciable organomegaly Ext: No gross muscle atrophy, no edema, no contractures, 1+ edema on left lower extremity Neuro: CN II-XI grossly intact, no focal neuro deficits Psych: Alert, oriented, appropriate affect Data Reviewed Today: Pertinent Labs: WBC 13.04, hemoglobin 7.8, sodium 131, creatinine 0.52, magnesium 1.9 Imaging: MRI brain with multiple metastatic lesions Assessment and Plan: Active: Acute left lower extremity DVT without PE, provoked in the setting of malignancy Metastatic disease, malignant pleural effusion, unclear primary malignancy Acute hypoxic respiratory failure, secondary to pleural effusion, malignancy, or underlying i pneumonia Sepsis Severe leukocytosis, improving Transaminitis Normocytic anemia, now stable Former smoker Mild hyponatremia, euvolemic -Discussed management with pulmonology, transition to [facility] tonight, continue heparin drip till then General surgery note reviewed, no interventions Continue on pantoprazole 40 twice daily -Cytology still pending, likely discharge tomorrow - Cultures pending - On IV cefepime 2 g every 8 hours, and IV vancomycin 1 g every 12 hours, monitor for renal toxicity, will likely need oral antibiotics at time of discharge -Currently patient appears euvolemic, continue sodium improving - DuoNebs 4 times daily scheduled and as needed, - Pain control with oral Tylenol as needed, IV Dilaudid as needed, monitor for sedation - Continue to monitor CBC and CMP Oncology following, awaiting cytology, patient does have metastatic disease to the brain as well as multiple lesions in lungs and also noted on CT abdomen pelvis. DVT ppx: Heparin drip Code status: Full code Anticipated discharge place: Pending clinical course Anticipated discharge time: Pending clinical course Objective - Vital Signs Vital signs: Vital Signs Temp 97.6 F 12/12/23 12:32 Pulse 91 12/12/23 12:32 Resp 17 12/12/23 12:32 BP 110/69 12/12/23 12:32 Pulse Ox 96 12/12/23 12:32 FiO2 Intake & Output 12/11/23 12/12/23 12/12/23 18:59 06:59 18:59 Intake Total 454.009 732.042 Output Total 1 1 Balance 454.009 731.042 -1 Weight 49.895 kg Intake: Intake, IV Titration 94.009 142.042 Amount Heparin Sod,Pork in 0.45% 94.009 142.042 NaCl 25,000 unit In 0.45 % NaCl 1 250ml.bag @ 18 UNITS/KG/HR 8.981 mls/hr IV .Q24H [facility] Rx#: [id number] Oral 360 590 Output: Stool 1 1 Other: Voiding Method Toilet Toilet Toilet Bedside Commode Bedside Commode Bedside Commode # Voids 3 2 2 # Bowel Movements 1 0 2 - Labs CBC & Chem 7: 03/29/24 06:59 12/12/23 06:59 Labs: Abnormal Lab Results - Last 24 Hours (Table) 12/10/23 12/11/23 12/11/23 Range/Units 17:15 06:51 16:05 WBC (4.50-10.00) X 10*3/uL RBC (4.10-5.20) X 10*6/uL Hgb (12.0-15.0) g/dL Hct (37.2-46.3) % MCH (27.0-32.0) pg RDW (11.5-14.5) % Immature Gran # (0.00-0.04) X 10*3/uL Neutrophils # (1.80-7.70) X 10*3/uL Lymphocytes # (0.90-5.00) X 10*3/uL Monocytes # (0.20-1.00) X 10*3/uL APTT (22.0-30.0) sec Sodium 133 L 129 L (135-145) mmol/L Potassium 3.4 L (3.5-5.1) mmol/L Creatinine 0.5 L 0.50 L (0.6-1.5) mg/dL BUN/Creatinine Ratio 21.20 H (12.00-20.00) Ratio Glucose 143 H (74-99) mg/dL Calcium 7.7 L 7.4 L (8.7-10.3) mg/dL RBC Folate 1,008 H (280 - 791) ng/mL 12/11/23 12/12/23 12/12/23 Range/Units 20:57 06:59 06:59 WBC 13.04 H (4.50-10.00) X 10*3/uL RBC 2.97 L (4.10-5.20) X 10*6/uL Hgb 7.8 L (12.0-15.0) g/dL Hct 24.4 L (37.2-46.3) % MCH 26.3 L (27.0-32.0) pg RDW 16.1 H (11.5-14.5) % Immature Gran # 0.16 H (0.00-0.04) X 10*3/uL Neutrophils # 10.43 H (1.80-7.70) X 10*3/uL Lymphocytes # 0.79 L (0.90-5.00) X 10*3/uL Monocytes # 1.38 H (0.20-1.00) X 10*3/uL APTT 55.3 H (22.0-30.0) sec Sodium 131 L (135-145) mmol/L Potassium (3.5-5.1) mmol/L Creatinine (0.6-1.5) mg/dL BUN/Creatinine Ratio (12.00-20.00) Ratio Glucose (74-99) mg/dL Calcium 7.9 L (8.7-10.3) mg/dL RBC Folate (280 - 791) ng/mL 12/12/23 Range/Units 06:59 WBC (4.50-10.00) X 10*3/uL RBC (4.10-5.20) X 10*6/uL Hgb (12.0-15.0) g/dL Hct (37.2-46.3) % MCH (27.0-32.0) pg RDW (11.5-14.5) % Immature Gran # (0.00-0.04) X 10*3/uL Neutrophils # (1.80-7.70) X 10*3/uL Lymphocytes # (0.90-5.00) X 10*3/uL Monocytes # (0.20-1.00) X 10*3/uL APTT 82.5 H (22.0-30.0) sec Sodium (135-145) mmol/L Potassium (3.5-5.1) mmol/L Creatinine (0.6-1.5) mg/dL BUN/Creatinine Ratio (12.00-20.00) Ratio Glucose (74-99) mg/dL Calcium (8.7-10.3) mg/dL RBC Folate (280 - 791) ng/mL
--- NOTE | 2023-12-12 16:29 | P.CONS ---
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 She presented to the hospital secondary to left lower extremity swelling and was found to have DVT. The patient presented to the ER on December 06 secondary to an acute onset of left lower extremity swelling and pain. She was found to have an extensive left lower extremity DVT on ultrasound. A CTA of the chest on December 06 revealed no PE, but there was a moderate right pleural effusion, as well as conglomerate right hilar and mediastinal adenopathy. There are also several spiculated nodules in the right upper lung noted. The patient had a thoracentesis on December 08 and 1200 mL of fluid was drained. Although the pathology report is not been finalized, preliminary report shows malignant cells consistent with adenocarcinoma. The patient went on to have a computed tomography scan of the abdomen and pelvis on December 10. This revealed bilateral adrenal metastases, osseous metastasis involving the pubic bones, as well as a few abdominal nodules. She underwent MRI of the brain on December 10. This revealed 2 subcentimeter lesions with mild surrounding vasogenic edema. One was in the right cerebellum, and the other was in the left posterior superior frontal lobe. At this time, the patient has no complaints of headaches or nausea. She states that her left leg swelling has improved markedly since her admission. She has however been having increased dyspnea over the past few days. She does feel some chest tightness as well. Review of Systems Constitutional: Reports night sweats, Denies fever Cardiovascular: Reports dyspnea on exertion Respiratory: Reports cough, Reports dyspnea, Denies hemoptysis Gastrointestinal: Denies change in bowel habits Musculoskeletal: Denies gait dysfunction Integumentary: Denies rash Neurological: Denies aphasia, Denies ataxia, Denies confusion, Denies convulsions, Denies headaches, Denies numbness Psychiatric: Denies anxiety Past Medical History Past Medical History: Cancer, COPD, Deep Vein Thrombosis (DVT), Pneumonia Additional Past Medical History / Comment(s): right lung mass- 11/28/23 diagnosed at [facility], DDD History of Any Multi-Drug Resistant Organisms: None Reported Past Surgical History: Adenoidectomy, Appendectomy, Tonsillectomy, Tubal Ligation Past Anesthesia/Blood Transfusion Reactions: Unable to Obtain Past Psychological History: No Psychological Hx Reported Smoking Status: Former smoker Past Alcohol Use History: Occasional Past Drug Use History: Marijuana - Past Family History Mother Family Medical History: Osteoarthritis (OA) Additional Family Medical History / Comment(s): alive and healthy at age 88 Father Family Medical History: Cancer Additional Family Medical History / Comment(s): of lung and brain CA at age 78 Sister(s) Family Medical History: Cancer Additional Family Medical History / Comment(s): liver CA Brother(s) Family Medical History: Cancer Additional Family Medical History / Comment(s): leukemia; another brother has lung CA Medications and Allergies Home Medications Medication Instructions Recorded Confirmed Type Albuterol Sulfate [Albuterol 2 puff PO RT-Q4H PRN 12/08/23 12/08/23 History Sulfate Hfa] Doxycycline [Vibramycin] 100 mg PO BID 12/08/23 12/08/23 History Ipratropium-Albuterol Nebulize 3 ml INHALATION RT-Q4H 12/08/23 12/08/23 History [Duoneb 0.5 mg-3 mg/3 ml Soln] predniSONE [Deltasone] 20 mg PO BID 12/08/23 12/08/23 History Allergies Allergy/AdvReac Type Severity Reaction Status Date / Time amoxicillin Allergy Rash/Hives Verified 12/08/23 09:29 Penicillins Allergy see comment Verified 12/08/23 09:29 Physical Exam Vitals: Vital Signs Temp Pulse Pulse Pulse Resp BP Pulse Ox 12/12/23 15:34 92 12/12/23 15:17 91 12/12/23 12:32 97.6 F 91 17 110/69 96 12/12/23 11:44 96 12/12/23 11:30 88 12/12/23 08:32 100 12/12/23 08:18 96 12/12/23 08:00 92 91 17 12/12/23 07:28 98.1 F 88 18 105/67 98 12/12/23 02:00 98.0 F 83 16 108/63 12/11/23 21:26 108 H 03/28/24 21:19 104 H 12/11/23 20:00 20 12/11/23 19:08 100.9 F H 104 H 20 118/54 94 L Intake and Output 12/12/23 12/12/23 12/12/23 06:59 14:59 22:59 Intake Total 626.34 Output Total 1 1 Balance 625.34 -1 Intake: Intake, IV Titration 36.34 Amount Heparin Sod,Pork in 0.45% 36.34 NaCl 25,000 unit In 0.45 % NaCl 1 250ml.bag @ 18 UNITS/KG/HR 8.981 mls/hr IV .Q24H [facility] Rx#: [id number] Oral 590 Output: Stool 1 1 Other: Voiding Method Toilet Bedside Commode # Voids 2 2 # Bowel Movements 2 Weight 49.895 kg - Constitutional General appearance: no acute distress - EENT Eyes: EOMI, PERRLA ENT: hearing grossly normal - Neck Neck: no lymphadenopathy - Respiratory Respiratory: right: diminished (right lower lung diminshed breath sounds), left: wheezing - Cardiovascular Rhythm: regular - Gastrointestinal General gastrointestinal: no distended, no tenderness - Integumentary Integumentary: no cellulitis - Neurologic Neurologic: CNII-XII intact - Musculoskeletal Musculoskeletal: strength equal bilaterally - Psychiatric Psychiatric: A&O x's 3, appropriate affect Results CBC & Chem 7: 12/12/23 06:59 12/12/23 06:59 Labs: Abnormal Lab Results - Last 24 Hours (Table) 12/10/23 12/11/23 12/11/23 Range/Units 17:15 06:51 16:05 WBC (4.50-10.00) X 10*3/uL RBC (4.10-5.20) X 10*6/uL Hgb (12.0-15.0) g/dL Hct (37.2-46.3) % MCH (27.0-32.0) pg RDW (11.5-14.5) % Immature Gran # (0.00-0.04) X 10*3/uL Neutrophils # (1.80-7.70) X 10*3/uL Lymphocytes # (0.90-5.00) X 10*3/uL Monocytes # (0.20-1.00) X 10*3/uL APTT (22.0-30.0) sec Sodium 133 L 129 L (135-145) mmol/L Potassium 3.4 L (3.5-5.1) mmol/L Creatinine 0.5 L 0.50 L (0.6-1.5) mg/dL BUN/Creatinine Ratio 21.20 H (12.00-20.00) Ratio Glucose 143 H (74-99) mg/dL Calcium 7.7 L 7.4 L (8.7-10.3) mg/dL RBC Folate 1,008 H (280 - 791) ng/mL 12/11/23 12/12/23 12/12/23 Range/Units 20:57 06:59 06:59 WBC 13.04 H (4.50-10.00) X 10*3/uL RBC 2.97 L (4.10-5.20) X 10*6/uL Hgb 7.8 L (12.0-15.0) g/dL Hct 24.4 L (37.2-46.3) % MCH 26.3 L (27.0-32.0) pg RDW 16.1 H (11.5-14.5) % Immature Gran # 0.16 H (0.00-0.04) X 10*3/uL Neutrophils # 10.43 H (1.80-7.70) X 10*3/uL Lymphocytes # 0.79 L (0.90-5.00) X 10*3/uL Monocytes # 1.38 H (0.20-1.00) X 10*3/uL APTT 55.3 H (22.0-30.0) sec Sodium 131 L (135-145) mmol/L Potassium (3.5-5.1) mmol/L Creatinine (0.6-1.5) mg/dL BUN/Creatinine Ratio (12.00-20.00) Ratio Glucose (74-99) mg/dL Calcium 7.9 L (8.7-10.3) mg/dL RBC Folate (280 - 791) ng/mL 12/12/23 Range/Units 06:59 WBC (4.50-10.00) X 10*3/uL RBC (4.10-5.20) X 10*6/uL Hgb (12.0-15.0) g/dL Hct (37.2-46.3) % MCH (27.0-32.0) pg RDW (11.5-14.5) % Immature Gran # (0.00-0.04) X 10*3/uL Neutrophils # (1.80-7.70) X 10*3/uL Lymphocytes # (0.90-5.00) X 10*3/uL Monocytes # (0.20-1.00) X 10*3/uL APTT 82.5 H (22.0-30.0) sec Sodium (135-145) mmol/L Potassium (3.5-5.1) mmol/L Creatinine (0.6-1.5) mg/dL BUN/Creatinine Ratio (12.00-20.00) Ratio Glucose (74-99) mg/dL Calcium (8.7-10.3) mg/dL RBC Folate (280 - 791) ng/mL CT scan - abdomen: report reviewed, image reviewed CT scan - chest: report reviewed, image reviewed CT scan - pelvis: report reviewed, image reviewed MRI - head: report reviewed, image reviewed Assessment and Plan Assessment: The patient is a 63-year-old female with a history of a recently diagnosed cl inical stage IVB adenocarcinoma of the right upper lung with a malignant pleural effusion, and 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 She presented to the hospital secondary to left lower extremity swelling and was found to have DVT. Plan: 1. Brain metastases: As detailed above, the patient appears to have 2 small brain metastases with surrounding vasogenic edema. She is currently asymptomatic. I discussed with the patient that I felt these could be managed with radiosurgery on an outpatient basis. I did not feel the patient would require steroids at this time. We will look to schedule the patient for a follow-up this coming week to coordinate this treatment as well as her care. 2. Metastatic adenocarcinoma of the lung: As detailed above, the patient appears to have a malignant effusion, as well as elsewhere metastases involving the adrenal glands, bones and abdomen. I discussed with the patient that the mainstay of her treatment would be systemic therapy, and that she would require NGS testing. She has met with Dr. Rivera to discuss this. The patient states that she also has issues with insurance coverage, and we will set her up with outpatient social group worker consultation. Time with Patient: Greater than 30
--- NOTE | 2023-12-12 19:51 | XR ---
EXAM: XR chest 1V portable CLINICAL INDICATION:Female, 63 years old with history of SOB; [facility] COMPARISON: 12/09/2023 TECHNIQUE: Chest single view. FINDINGS: Lines/tubes/devices: None. Cardiomediastinum: Cardiac size is indeterminate. Increased obscuration of the right mediastinal margin. Trachea appears patent. There appears to be so me luminal tapering/narrowing of bronchi within the right hilar and left hilar regions, due to the ma sses/adenopathy better demonstrated on prior CT. Vasculature: No increased pulmonary vasculature. Lungs/pleura: Increased size and conspicuity of right hilar region mass/adenopathy, increasing opacity suggesting a telectasis or airspace disease in the right mid to lower lung zones. Enlarging moderate right pleural effusion. No visualized pneumothorax. The left lung appears stable, essentially clear. Bones/soft tissues: Bony thorax appears grossly intact as seen. Regional soft tissues appear unremarkable. IMPRESSION: 1. Increased opacities in the right chest, likely combination of right hilar region mass/adenopathy, and atelectasis or airspace disease in the mid to lower lung zones. 2. Moderate right pleural effusion, appears slightly increased.
[2023-12-12] MEDS: Apixaban Initiation Dose--VTE 5 MG TAB PO SCH (21:50)
[2023-12-13 02:41] LABS: Glucose,Whole Blood 180 mg/dL (70-110)
[2023-12-13] MEDS: methylPREDNISolone SOD SUCCI 125 MG/2 ML VIAL IV STA (02:48)
[2023-12-13] MEDS: MAGNESIUM SULFATE-D5W PMX 1 GM in DEXTROSE/WATER 1 100ML.BAG IVPB SCH (02:51)
[2023-12-13] MEDS: IPRATROPIUM-ALBUTEROL 3 ML NEB INHALATION STA (03:16)
[2023-12-13 03:19] LABS: ABG Base Excess -0.2 mmol/L; ABG HCO3 24 mmol/L (21-25); ABG PCO2 37 mmHg (35-45); ABG PH 7.43 (7.35-7.45); ABG PO2 83 mmHg (83-108); ABG TCO2 25 mmol/L (19-24); Allen Test Performed? Yes
--- NOTE | 2023-12-13 03:34 | XR ---
EXAM: XR Chest, 1 View CLINICAL HISTORY: ITS.REASON XR Reason: SOB TECHNIQUE: Frontal view of the chest. COMPARISON: No relevant prior studies available. IMPRESSION: Cardiomegaly. Increased opacity in the right lung. Likely right-sided pleural effusion.
--- NOTE | 2023-12-13 03:59 | P.EN ---
A- team: Indication: Shortness of breath Arrived on Scene to find: Patient in respiratory distress with audible wheezing, diaphoretic Vital signs reviewed: SpO2 93% on 5 L nasal cannula oxygen, BP 172/94, pulse 115, respiratory rate 30 Patient seen and examined at bedside. Patient reports that she had been feeling somewhat short of breath throughout the day and gotten out of bed to use the bedside commode and suddenly developed severe shortness of breath and wheezing. Denied experiencing chest discomfort or cough. Also denied nausea or dizziness. General: Patient diaphoretic and in respiratory distress, [appears at stated age] Derm: [warm], [dry] Head: [atraumatic], [normocephalic], [symmetric] Eyes: [EOMI], [no lid lag], [anicteric sclera] Mouth: [no lip lesion], [mucus membranes moist] Cardiovascular: [S1S2 reg], tachycardic, [no murmur], [positive posterior tibial pulse bilateral], Lungs: Diffuse wheezing with some coarse breath sounds, accessory muscle use no sharon Abdominal: [soft], [ nontender to palpation], [no guarding], [no appreciable organomegaly] Ext: [no gross muscle atrophy], [no edema], [no contractures] Neuro: [ CN II-XI grossly intact], [no focal neuro deficits] Psych: [Alert], [oriented], [appropriate affect] Assessment: Shortness of breath, suspect severe bronchospasm with underlying COPD Plan: CXR obtained showing increased R lung opacity. ABG unremarkable Duonebs and Solumedrol 125 mg ordered Patient's improved significantly following Solumedrol and Duonebs Continue with Prednisone 40 mg po qd for now with Duonebs A Total of 40 minutes of critical care time was spent on the complex care of this patient.
[2023-12-13 06:54] LABS: Anisocytosis Slight; Basophils % (A) 0 %; Eosinophils # (A) 0.1 k/uL (0-0.7); Eosinophils % (A) 0 %; HGB 8.2 gm/dL (11.4-16.0); Hypochromasia Moderate; Lymphocytes # (A) 0.4 k/uL (1.0-4.8); Lymphocytes % (A) 2 %; MCHC 32.7 g/dL (31.0-37.0); MCV 85.5 fL (80.0-100.0); Monocytes # (A) 0.2 k/uL (0-1.0); Monocytes % (A) 1 %; Neutrophils # (A) 16.7 k/uL (1.3-7.7); Neutrophils % (A) 96 %; Platelet Count 383 k/uL (150-450); RBC 2.93 m/uL (3.80-5.40); WBC 17.5 k/uL (3.8-10.6)
[2023-12-13 07:31] LABS: African American GFR (CKD) >90 (>60 ml/min/1.73 sqM); Anion Gap 6 mmol/L; Blood Urea Nitrogen 12 mg/dL (7-17); Calcium 7.9 mg/dL (8.4-10.2); Carbon Dioxide 22 mmol/L (22-30); Chloride 103 mmol/L (98-107); Glucose 135 mg/dL (74-99); Non-African American GFR(CKD) >90 (>60 ml/min/1.73 sqM); Potassium 3.6 mmol/L (3.5-5.1); Sodium 131 mmol/L (137-145)
--- NOTE | 2023-12-13 10:45 | P.PN ---
Subjective Progress Note Date: 12/12/23 At today's visit patient is resting comfortably in bed. No acute events. Patient's breathing is mildly labored but she does report improvement in shortness of breath since admission. CBC shows WBC 13.0, hemoglobin 7.8, platelets 371,000. Objective - Vital Signs Vital signs: Vital Signs Temp 97.6 F 12/12/23 12:32 Pulse 92 12/12/23 15:34 Resp 17 12/12/23 12:32 BP 110/69 12/12/23 12:32 Pulse Ox 96 12/12/23 12:32 FiO2 Intake & Output 12/11/23 12/12/23 12/12/23 18:59 06:59 18:59 Intake Total 454.009 732.042 Output Total 1 1 Balance 454.009 731.042 -1 Weight 49.895 kg Intake: Intake, IV Titration 94.009 142.042 Amount Heparin Sod,Pork in 0.45% 94.009 142.042 NaCl 25,000 unit In 0.45 % NaCl 1 250ml.bag @ 18 UNITS/KG/HR 8.981 mls/hr IV .Q24H [facility] Rx#: [id number] Oral 360 590 Output: Stool 1 1 Other: Voiding Method Toilet Toilet Toilet Bedside Commode Bedside Commode Bedside Commode # Voids 3 2 2 # Bowel Movements 1 0 2 - Constitutional General appearance: Present: no acute distress, thin - EENT Eyes: Present: anicteric sclerae, EOMI ENT: Present: hearing grossly normal - Respiratory Respiratory: bilateral: diminished, wheezing - Cardiovascular Rhythm: regular Heart sounds: normal: S1, S2 - Integumentary Integumentary: Absent: cyanotic - Neurologic Neurologic Comment(s): no focal deficits - Psychiatric Psychiatric: Present: A&O x's 3 - Labs CBC & Chem 7: 12/13/23 06:37 12/13/23 06:37 Labs: Abnormal Lab Results - Last 24 Hours (Table) 12/10/23 12/11/23 12/11/23 Range/Units 17:15 06:51 16:05 WBC (4.50-10.00) X 10*3/uL RBC (4.10-5.20) X 10*6/uL Hgb (12.0-15.0) g/dL Hct (37.2-46.3) % MCH (27.0-32.0) pg RDW (11.5-14.5) % Immature Gran # (0.00-0.04) X 10*3/uL Neutrophils # (1.80-7.70) X 10*3/uL Lymphocytes # (0.90-5.00) X 10*3/uL Monocytes # (0.20-1.00) X 10*3/uL APTT (22.0-30.0) sec Sodium 133 L 129 L (135-145) mmol/L Potassium 3.4 L (3.5-5.1) mmol/L Creatinine 0.5 L 0.50 L (0.6-1.5) mg/dL BUN/Creatinine Ratio 21.20 H (12.00-20.00) Ratio Glucose 143 H (74-99) mg/dL Calcium 7.7 L 7.4 L (8.7-10.3) mg/dL RBC Folate 1,008 H (280 - 791) ng/mL 12/11/23 12/12/23 12/12/23 Range/Units 20:57 06:59 06:59 WBC 13.04 H (4.50-10.00) X 10*3/uL RBC 2.97 L (4.10-5.20) X 10*6/uL Hgb 7.8 L (12.0-15.0) g/dL Hct 24.4 L (37.2-46.3) % MCH 26.3 L (27.0-32.0) pg RDW 16.1 H (11.5-14.5) % Immature Gran # 0.16 H (0.00-0.04) X 10*3/uL Neutrophils # 10.43 H (1.80-7.70) X 10*3/uL Lymphocytes # 0.79 L (0.90-5.00) X 10*3/uL Monocytes # 1.38 H (0.20-1.00) X 10*3/uL APTT 55.3 H (22.0-30.0) sec Sodium 131 L (135-145) mmol/L Potassium (3.5-5.1) mmol/L Creatinine (0.6-1.5) mg/dL BUN/Creatinine Ratio (12.00-20.00) Ratio Glucose (74-99) mg/dL Calcium 7.9 L (8.7-10.3) mg/dL RBC Folate (280 - 791) ng/mL 12/12/23 Range/Units 06:59 WBC (4.50-10.00) X 10*3/uL RBC (4.10-5.20) X 10*6/uL Hgb (12.0-15.0) g/dL Hct (37.2-46.3) % MCH (27.0-32.0) pg RDW (11.5-14.5) % Immature Gran # (0.00-0.04) X 10*3/uL Neutrophils # (1.80-7.70) X 10*3/uL Lymphocytes # (0.90-5.00) X 10*3/uL Monocytes # (0.20-1.00) X 10*3/uL APTT 82.5 H (22.0-30.0) sec Sodium (135-145) mmol/L Potassium (3.5-5.1) mmol/L Creatinine (0.6-1.5) mg/dL BUN/Creatinine Ratio (12.00-20.00) Ratio Glucose (74-99) mg/dL Calcium (8.7-10.3) mg/dL RBC Folate (280 - 791) ng/mL - Imaging and Cardiology CT scan - abdomen: report reviewed CT scan - pelvis: report reviewed MRI - head: report reviewed Assessment and Plan (1) Anemia Current Visit: Yes Status: Acute Priority: Medium Code(s): D64.9 - ANEMIA, UNSPECIFIED SNOMED Code(s): 440600286 (2) Deep vein thrombosis (DVT) of lower extremity Current Visit: Yes Status: Acute Priority: High Code(s): I82.409 - ACUTE EMBOLISM AND THOMBOS UNSP DEEP VN UNSP LOWER EXTREMITY SNOMED Code(s): 567183620 (3) Leukocytosis Current Visit: Yes Status: Acute Priority: High Code(s): D72.829 - ELEVATED WHITE BLOOD CELL COUNT, UNSPECIFIED SNOMED Code(s): 124277249 (4) Pleural effusion Current Visit: Yes Status: Acute Priority: High Code(s): J90 - PLEURAL E FFUSION, NOT ELSEWHERE CLASSIFIED SNOMED Code(s): 16151952 (5) Lymphadenopathy Current Visit: Yes Status: Acute Priority: High Code(s): R59.1 - GENER ALIZED ENLARGED LYMPH NODES SNOMED Code(s): 80178248 (6) Adenocarcinoma, lung Current Visit: Yes Status: Acute Priority: High Code(s): C34.90 - MALIG NANT NEOPLASM OF UNSP PART OF UNSP BRONCHUS OR LUNG SNOMED Code(s): 506236515 Plan: Metastatic adenocarcinoma of lung: Significant history of COPD and nicotine abuse. Presented with complaints of left lower extremity edema. Of note Patient was seen at [facility] last week and was diagnosed with possible pneumonia and was started on antibiotics, steroids and bronchodilator. Patient's reports intermittent low-grade fevers over the last 2 months in the 99-100 degree range as well as persistent night sweats up to 4 times weekly. Denies hemoptysis and any noted abnormal lymphadenopathy. She reports she previously was experiencing diminished appetite and since 2018 had noted weight loss but reports no recent weight loss and that appetite has improved. Denies blood in stool or melena. She is a approx 40-[id number] smoker but has recently began to cut down but is still actively smoking -CTA chest revealed no evidence of pulmonary embolism. Large conglomerate mediastinal and right hilar adenopathy with associated multi multiple spiculated nodules in the right upper lung. Moderate right pleural effusion. Chest ultrasound was subsequently ordered revealing right pleural effusion pocket size 4.2 cm. S/p right-sided thoracentesis on 12/08 with 1200 mL fluid removed. Pleural fluid has been sent for fluid analysis and cytology -LDH elevated at 639 -Pleural fluid cytology positive for metastatic adenocarcinoma consistent with primary lung origin -CT AP and MRI brain obtained for staging. CT abdomen pelvis showing bilateral adrenal gland metastases. 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 Intraperitoneal nodules, adjacent to the liver and posterior to the left kidney. Small nodules in the subcutaneous fat of the right thigh and left anterior pericardial fat and moderate body wall edema suggestive of anasarca. MRI brain revealing 0.4 cm renal lesion with surrounding edema in the right cerebellum, 0.4 cm focus of enhancement within the leptomeningeal vertex, and osseous lesion within the posterior occipital calvarium -Rad onc consulted. No neuro deficits noted. Spoke with Dr. Anguiano, will plan for simulation and RT next week -NGS and PDL1 will be requested on pathology and will plan for patient to have Guardant testing in clinic -Discussed above results and plan of care with patient in detail. All questions were answered. Clinic f/u will be scheduled upon discharge DVT: -Venous Doppler of left lower extremity revealed extensive DVT from the distal external iliac veins to the proximal left calf veins. Heparin drip started -Recommend continuing heparin drip, until any planned procedures or biopsies are completed, at which time she can can be transitioned to DOAC Anemia: -Upon admission WBC 28.7, hemoglobin 9.5, MCV 83.5, platelets 475,000. Today, CBC showed WBC 13.0, hemoglobin 7.8, platelets 371,000. S/p 1 unit PRBCs. -Denies any episodes of acute bleeding and melena. General surgery consulted. Don't feel anemia is r/t to acute GI bleed, anemia likely reactive to underlying malignancy -Anemia workup has been ordered. No Vit B12 or folate deficiency noted. Iron sat uration 6.4%, ferritin 1124. MCV 82.2, more consistent with anemia of inflammation. Will hold parenteral iron for now, and further evaluate/manage in the outpt setting -Continue to closely monitor counts. Please transfuse for hgb <7 or if symptomatic attests: I have performed H&P and developed impression and plan of care for patient, discussed with dictator. I agree with dictated note, documented as a scribe
--- NOTE | 2023-12-13 13:16 | P.PN ---
Subjective Progress Note Date: 12/13/23 This is a very pleasant 63-year-old female patient with a known history of chronic and ongoing tobacco dependence. For approximately 3 to 4 weeks she had been having increasing shortness of breath, cough and congestion. She was treated with albuterol, doxycycline and prednisone in the outpatient setting without much improvement. Chest x-ray had revealed a new right sided lung mass. She was scheduled to be seen in our office today for the same. However yesterday she developed increasing pain and edema of the left lower extremity and presented here to the emergency room. Dopplers revealed an extensive DVT from the left distal external iliac veins to the prominent left calf veins. CT angiogram revealed no evidence of pulmonary embolism however there is a large conglomerate mediastinal and right hilar adenopathy with associated multiple spiculated nodules of the right upper lung. There is also a moderate right pleural effusion. Findings are concerning for malignancy. Ultrasound of the r ight chest reveals a 4.2 cm pocket. White count 27.0. Hemoglobin 8.0. Platelets 366. Sodium 134. Potassium 4.3. Bicarb 27. BUN 32. Creatinine 0.53. Glucose 104. A ST 36. ALT 46. Procalcitonin 0.20. She is currently on a heparin drip. She is seen today in consultation in the emergency department. She is currently sitting up on a stretcher. Awake and alert in no acute distress. She denies any worsening shortness of breath, cough or congestion. No hemoptysis. Left lower extremity pain is subsiding but still present. She states she has lost approximately 22 pounds over the past year. She does have chronic and ongoing tobacco dependence of greater than 30 years. She remains quite active. Prior to this recent illness within the past month she had been feeling fine and no significant medical history. She has been initiated on vancomycin and cefepime. She is on bronchodilators. Normal saline at 75 MLS per hour. The patient is seen today December 09, 2023 in follow-up on the regular medical floor. She is currently sitting up in bed. Awake and alert in no acute distre ss. She is maintaining good O2 saturation in the 90s on 2 L/min per nasal cannula. She has been afebrile. Hemodynamically stable. She did undergo a right-sided thoracentesis today with Dr. Otoole. 1.2 L of cloudy yellow fluid was removed. Fluid analysis and cytology pending. Her heparin had been on hold which has now been resumed. White count 16.7. Hemoglobin 7.2. Platelets 319. Sodium 131. Potassium 3.8. Bicarb 25. BUN 22. Creatinine 0.46. Glucose 104. Vancomycin trough 9.6. Remains on vancomycin and cefepime. Continued on bronchodilators. Follow-up chest x-ray revealed similar fullness in the right hilar region, residual right pleural effusion. No evidence of pneumothorax. Left lung is clear. The patient is seen today December 10, 2023 in follow-up on the regular medical floor. She is currently resting comfortably in bed. Awake and alert in no acute distress. Maintaining good O2 saturations in the 90s on 3 L/min per nasal cannula. Afebrile. Hemodynamically stable. She is receiving 1 unit of packed red blood cells today. Her hemoglobin dropped to 6.3. Platelets 260,000. White count 15.9. Sodium 127. Potassium 3.6. Bicarb 22. BUN 17. Creatinine 0.47. Glucose 107. Pleural fluid analysis exudate with an LDH of 639 and a total protein of 4.7 and cytology pending. She remains on DuoNeb ventilations. Antibiotics in the form of vancomycin and cefepime. She is continued on a heparin drip for her extensive left lower extremity DVT. The patient is seen today December 11, 2023 in follow-up on the regular medical floor. She is sitting up in bed. Awake and alert in no acute distress. She is maintaining good O2 saturations in the 90s on 2 L/min per nasal cannula. She is afebrile. Blood pressure stable. CT scan of the abdomen and pelvis revealed bilateral adrenal gland metastases. 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 A couple of intraperitoneal nodules, adjacent to the liver and posterior to the left kidney. Small nodules in the subcutaneous fat of the right thigh and left anterior pericardial fat. All likely metastatic. Cytology from pleural fluid still pending. White count 17.3. Hemoglobin 7.5. Platelets 305. Status post 1 unit of packed red blood cells. She is continued on a heparin drip. Stool for occult blood is positive. She remains on bronchodilators. Antibiotics in the form of vancomycin and cefepime. Dilaudid for plane control. The patient is seen today December 12, 2023 in follow-up on the regular medical floor. She remains awake and alert in no acute distress. Sitting up at the bedside. Denies any worsening shortness of breath, cough or congestion. She is continued on bronchodilators and antibiotics in the form of vancomycin and cefepime. Continued on a heparin drip. MRI of the brain reveals metastatic lesions within the right cerebellum, sulcus and left vertex and within the posterior occipital calvarium. She is status post 1 unit of packed red blood cells this admission. Current hemoglobin 7.8. Platelets 371. White count 13.0. Sodium 131. Potassium 4.4. Bicarb 25. BUN 12. Creatinine 0.52. Vancomycin trough 18.4. The patient is seen today December 13, 2023 in follow-up on the regular medical floor. She is currently sitting up in bed. Family at the bedside. She is awake and alert in no acute distress. Maintaining good O2 saturations in the 90s on 2 L/min per nasal cannula. She did have a incident of acute shortness of breath and anxiety early this morning and treated with bronchodilators and steroids and recovered. X-ray is showing increasing opacity in the right lung recurrent pleural effusion. Arterial blood gases revealed a pO2 of 83, pCO2 of 37 and a pH of 7.43 on 50% FiO2. White count 17.5. Hemoglobin 8.2. Platelets 383. Sodium 131. Potassium 3.6. Bicarb 22. BUN 12. Creatinine 0.44. Glucose 155. She remains on vancomycin and cefepime. Continued on bronchodilators. Anticoagulated with Eliquis. Objective - Vital Signs Vital signs: Vital Signs Temp 98.4 F 12/13/23 07:50 Pulse 91 12/13/23 13:02 Resp 22 12/13/23 07:50 BP 139/76 12/13/23 07:50 Pulse Ox 93 L 12/13/23 07:50 FiO2 Intake & Output 12/12/23 12/13/23 12/13/23 18:59 06:59 18:59 Intake Total 143.78 42.66 Output Total 1 Balance 142.78 42.66 Weight 49.895 kg Intake: Intake, IV Titration 143.78 42.66 Amount Heparin Sod,Pork in 0.45% 143.78 42.66 NaCl 25,000 unit In 0.45 % NaCl 1 250ml.bag @ 18 UNITS/KG/HR 8.981 mls/hr IV .Q24H [facility] Rx#: [id number] Output: Stool 1 Other: Voiding Method Toilet Bedside Commode Bedside Commode External Catheter # Voids 2 1 1 # Bowel Movements 2 1 1 - Exam GENERAL EXAM: Alert, pleasant 63-year-old female, on 2 L nasal cannula, in no apparent distress. HEAD: Normocephalic. EYES: Normal reaction of pupils, equal size. NOSE: Clear with pink turbinates. THROAT: No erythema or exudates. NECK: No masses, no JVD. CHEST: No chest wall deformity. LUNGS: Equal air entry with crackles and dullness of the right lung base. CVS: S1 and S2 normal with no audible murmur, regular rhythm. ABDOMEN: No hepatosplenomegaly, normal bowel sounds, no guarding or rigidity. SPINE: No scoliosis or deformity SKIN: No rashes CENTRAL NERVOUS SYSTEM: No focal deficits, tone is normal in all 4 extremities. EXTREMITIES: There is 1+ peripheral edema of the left lower extremity. No clubbing, no cyanosis. Peripheral pulses are intact. - Labs CBC & Chem 7: 12/13/23 06:37 12/13/23 06:37 Labs: Abnormal Lab Results - Last 24 Hours (Table) 12/13/23 12/13/23 12/13/23 Range/Units 02:39 03:16 06:37 WBC 17.5 H (3.8-10.6) k/uL RBC 2.93 L (3.80-5.40) m/uL Hgb 8.2 L (11.4-16.0) gm/dL Hct 25.0 L (34.0-46.0) % RDW 16.0 H (11.5-15.5) % Neutrophils # 16.7 H (1.3-7.7) k/uL Lymphocytes # 0.4 L (1.0-4.8) k/uL ABG Total CO2 25 H (19-24) mmol/L Sodium (137-145) mmol/L Creatinine (0.52-1.04) mg/dL Glucose (74-99) mg/dL POC Glucose (mg/dL) 180 H (70-110) mg/dL Calcium (8.4-10.2) mg/dL 12/13/23 Range/Units 06:37 WBC (3.8-10.6) k/uL RBC (3.80-5.40) m/uL Hgb (11.4-16.0) gm/dL Hct (34.0-46.0) % RDW (11.5-15.5) % Neutrophils # (1.3-7.7) k/uL Lymphocytes # (1.0-4.8) k/uL ABG Total CO2 (19-24) mmol/L Sodium 131 L (137-145) mmol/L Creatinine 0.44 L (0.52-1.04) mg/dL Glucose 135 H (74-99) mg/dL POC Glucose (mg/dL) (70-110) mg/dL Calcium 7.9 L (8.4-10.2) mg/dL Microbiology - Last 24 Hours (Table) 12/07/23 15:55 Blood Culture - Final Blood 12/07/23 16:10 Blood Culture - Final Blood 12/09/23 10:20 Gram Stain - Preliminary Thoracic Fluid Body Fluid Culture - Preliminary Assessment and Plan Assessment: Acute left lower extremity pain and swelling in a patient found to have an extensive left lower extremity DVT. Initiated on a heparin drip and transitioned to Eliquis Recent diagnosis of lung mass with no follow-up thus far. CT angiogram ruled out pulmonary embolism. There is a large conglomerate mediastinal and right hilar adenopathy with associated multiple spiculated nodules in the right upper lung. Concerning for malignancy, possible small cell lung cancer. CT scan of the abdomen and pelvis revealed bilateral adrenal gland metastases. 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 A couple of IntraOp peritoneal nodules, adjacent to the liver and posterior to the left kidney. Small nodules in the subcutaneous fat of the right thigh and left anterior pericardial fat. All likely metastatic. MRI of the brain reveals metastatic lesions within the right cerebellum, sulcus and left vertex and within the posterior occipital calvarium. Moderate right-sided pleural effusion secondary to above. Status post thoracentesis with 1.2 L of cloudy yellow fluid removed December 09, 2023. 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 Leukocytosis secondary to above, improved Weight loss up to 22 pounds in the past year Chronic and ongoing tobacco dependence of greater than 30 years Anemia, current hemoglobin 8.2, received 1 unit of packed red blood cells, stool for occult blood positive Plan: The patient was seen and evaluated Chest x-ray, labs and medications reviewed Right pleural effusion recurring May need Pleurx catheter placement Patient considering radiation/chemotherapy versus home with hospice I have personally seen and examined the patient, performed the documentation and the assessment and plan as written. Number of minutes spent on the visit: 10.
--- NOTE | 2023-12-13 14:36 | P.PN ---
Subjective Progress Note Date: 12/13/23 Hospital Course: 63-year-old female with a PMH of tobacco abuse who presents to the emergency r oom with complaints of left lower extremity swelling and shortness of breath. Chest CTA in the emergency room revealed large mediastinal and right hilar adenopathy with multiple nodules in the right upper lung field concerning for malignancy as well as a moderate right-sided pleural effusion likely sequela of the malignancy. There was no evidence of pulmonary embolism. Venous Doppler of the lower extremities revealed an extensive DVT extending from the left distal external iliac to the proximal calf veins. Laboratory evaluation revealed leukocytosis of 28.7 with hemoglobin 9.5, lactic acid 1.1, troponin 0.012, AST 43, ALT 68, alk phos 204. The patient's SpO2 in the emergency room was 92% on room air. Patient started on heparin drip. Pulmonology also consulted. Thoracentesis shows exudative fluid. Cytology pending. She did drop her hemoglobin, concern for acute GI bleed, general surgery was consulted. Oncology also consulted. Abdomen pelvis CT shows numerous metastatic lesions including adrenal gland, destructive osseous metastasis to the pubic bones, intraperitoneal nodules adjacent to liver and posterior left kidney, metastatic disease to right thigh and left anterior pericardial fat. MRI brain also shows multiple metastatic lesions. Cytology positive for primary lung adenocarcinoma. Subjective: Patient seen and examined at bedside. Was having increased shortness of breath overnight, chest x-ray revealed worsening right-sided pleural effusion. No more bloody bowel movements. Pertinent positives and negatives as discussed above, a complete review of syste ms was performed and all other systems are negative. Vitals Signs Reviewed. General: Nontoxic, no distress, appears at stated age, chronically ill-appearing Derm: Warm, dry Head: Atraumatic, normocephalic, symmetric Eyes: EOMI, no lid lag, anicteric sclera Mouth: No lip lesion, mucus membranes moist Cardiovascular: S1S2 reg, no murmur Lungs: Right basilar rales, no accessory muscle use Abdominal: Soft, nontender to palpation, no guarding, no appreciable organomegaly Ext: No gross muscle atrophy, no edema, no contractures, 1+ edema on left lower extremity Neuro: CN II-XI grossly intact, no focal neuro deficits Psych: Alert, oriented, appropriate affect Data Reviewed Today: Pertinent Labs: WBC 17.5, hemoglobin 8.2, pH 7.43, pCO2 37, sodium 131, creatinine 0.44 Imaging: Chest x-ray independently interpreted, shows worsening right pleural effusion Assessment and Plan: Active: Acute left lower extremity DVT without PE, provoked in the setting of malignancy Primary lung adenocarcinoma Acute hypoxic respiratory failure, secondary to pleural effusion, malignancy Sepsis secondary to likely bacterial pneumonia Severe leukocytosis Transaminitis Normocytic anemia, now stable Former smoker Mild hyponatremia, euvolemic -Pulmonology note reviewed, may need a Pleurx catheter Patient is on Eliquis Patient not ready for hospice, wants to pursue further treatment options outpatient, if no definitive treatment available, patient will consider hospice General surgery recommended no interventions Continue on pantoprazole 40 twice daily - Cultures pending - On IV cefepime 2 g every 8 hours, IV vancomycin discontinued -Currently patient appears euvolemic, continue sodium improving - DuoNebs 4 times daily scheduled and as needed, - Pain control with oral Tylenol as needed, IV Dilaudid as needed, monitor for sedation - Continue to monitor CBC and CMP Oncology and radiation oncology also following DVT ppx: eliquis Code status: Full code Anticipated discharge place: Pending clinical course Anticipated discharge time: Pending clinical course Objective - Vital Signs Vital signs: Vital Signs Temp 98.7 F 12/13/23 13:30 Pulse 97 12/13/23 13:30 Resp 18 12/13/23 13:30 BP 126/68 12/13/23 13:30 Pulse Ox 97 12/13/23 13:30 FiO2 Intake & Output 12/12/23 12/13/23 12/13/23 18:59 06:59 18:59 Intake Total 143.78 42.66 Output Total 1 Balance 142.78 42.66 Weight 49.895 kg Intake: Intake, IV Titration 143.78 42.66 Amount Heparin Sod,Pork in 0.45% 143.78 42.66 NaCl 25,000 unit In 0.45 % NaCl 1 250ml.bag @ 18 UNITS/KG/HR 8.981 mls/hr IV .Q24H [facility] Rx#: [id number] Output: Stool 1 Other: Voiding Method Toilet Bedside Commode Bedside Commode Bedside Commode External Catheter External Catheter # Voids 2 1 1 # Bowel Movements 2 1 1 - Labs CBC & Chem 7: 12/13/23 06:37 12/13/23 06:37 Labs: Abnormal Lab Results - Last 24 Hours (Table) 12/13/23 12/13/23 12/13/23 Range/Units 02:39 03:16 06:37 WBC 17.5 H (3.8-10.6) k/uL RBC 2.93 L (3.80-5.40) m/uL Hgb 8.2 L (11.4-16.0) gm/dL Hct 25.0 L (34.0-46.0) % RDW 16.0 H (11.5-15.5) % Neutrophils # 16.7 H (1.3-7.7) k/uL Lymphocytes # 0.4 L (1.0-4.8) k/uL ABG Total CO2 25 H (19-24) mmol/L Sodium (137-145) mmol/L Creatinine (0.52-1.04) mg/dL Glucose (74-99) mg/dL POC Glucose (mg/dL) 180 H (70-110) mg/dL Calcium (8.4-10.2) mg/dL 12/13/23 Range/Units 06:37 WBC (3.8-10.6) k/uL RBC (3.80-5.40) m/uL Hgb (11.4-16.0) gm/dL Hct (34.0-46.0) % RDW (11.5-15.5) % Neutrophils # (1.3-7.7) k/uL Lymphocytes # (1.0-4.8) k/uL ABG Total CO2 (19-24) mmol/L Sodium 131 L (137-145) mmol/L Creatinine 0.44 L (0.52-1.04) mg/dL Glucose 135 H (74-99) mg/dL POC Glucose (mg/dL) (70-110) mg/dL Calcium 7.9 L (8.4-10.2) mg/dL Microbiology - Last 24 Hours (Table) 12/07/23 15:55 Blood Culture - Final Blood 12/07/23 16:10 Blood Culture - Final Blood 12/09/23 10:20 Gram Stain - Preliminary Thoracic Fluid Body Fluid Culture - Preliminary
[2023-12-13] MEDS: ALPRAZolam 0.5 MG TAB PO PRN (15:51)
[2023-12-14] MEDS: ZINC OXIDE PASTE (Z-GUARD) 1 APPLIC TOPICAL PRN (03:13)
[2023-12-14 06:39] LABS: African American GFR (CKD) >90 (>60 ml/min/1.73 sqM); Anion Gap 4 mmol/L; Blood Urea Nitrogen 16 mg/dL (7-17); Calcium 8.3 mg/dL (8.4-10.2); Carbon Dioxide 25 mmol/L (22-30); Chloride 103 mmol/L (98-107); Glucose 121 mg/dL (74-99); Non-African American GFR(CKD) >90 (>60 ml/min/1.73 sqM); Potassium 3.9 mmol/L (3.5-5.1); Sodium 132 mmol/L (137-145)
[2023-12-14 06:49] LABS: Anisocytosis Slight; Basophils % (A) 0 %; Eosinophils % (A) 0 %; HCT 26.3 % (34.0-46.0); HGB 8.2 gm/dL (11.4-16.0); Hypochromasia Marked; Lymphocytes # (A) 0.8 k/uL (1.0-4.8); Lymphocytes % (A) 3 %; MCHC 31.1 g/dL (31.0-37.0); Mean Platelet Volume 7.5; Monocytes # (A) 1.2 k/uL (0-1.0); Monocytes % (A) 4 %; Neutrophils # (A) 26.6 k/uL (1.3-7.7); Neutrophils % (A) 92 %; Platelet Count 510 k/uL (150-450); RBC 3.02 m/uL (3.80-5.40); RDW 16.2 % (11.5-15.5); WBC 28.9 k/uL (3.8-10.6)
[2023-12-14 07:20] LABS: Hypersegmented Neutrophils Present; Poikilocytosis (M) Present
--- NOTE | 2023-12-14 09:39 | P.GSCN ---
History of Present Illness Consult date: 12/14/23 Reason for Consult: Pleurx catheter placement Requesting physician: Umberto Norton History of present illness: This is a 63-year-old female who follows outpatient with Dr. Rosas for primary care. She has a previous medical history of recently diagnosed metastatic adenocarcinoma of the lung, current tobacco dependence, COPD, DVT on Eliquis for anticoagulation, marijuana use, and significant family history of lung and liver cancer. She presented to [facility] emergency room on December 06 with complaints of left lower extremity swelling, shortness of breath, and productive cough. At that time she also admitted to on and off low-grade fevers as well as unintentional weight loss. In the emergency room she was found to have extensive left lower extremity DVT. CT of the chest demonstrated no pulmonary embolism but there was a moderate right-sided pleural effusion. She underwent a thoracentesis by Dr. Otoole with removal of 1.2 L fluid which was sent for cytology and culture. The pleural fluid was positive for metastatic adenocarcinoma primary lung. She also had a MRI of the brain. 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 Oncology was consulted. Unfortunately her right-sided pleural effusion has reaccumulated quickly and consultation was placed to cardiothoracic surgery for placement of Pleurx catheter. Review of Systems Review of systems was completed and was negative except as noted - Constitutional Reports fatigue, Reports fever, Reports sweats, Reports weight loss - Cardiovascular Reports leg edema - Respiratory Reports cough with sputum, Reports dyspnea Past Medical History Past Medical History: Cancer, COPD, Deep Vein Thrombosis (DVT), Pneumonia Additional Past Medical History / Comment(s): right lung mass- 11/28/23 diagnosed at [facility], [facility] History of Any Multi-Drug Resistant Organisms: None Reported Past Surgical History: Adenoidectomy, Appendectomy, Tonsillectomy, Tubal Ligation Past Anesthesia/Blood Transfusion Reactions: Unable to Obtain Past Psychological History: No Psychological Hx Reported Smoking Status: Former smoker Past Alcohol Use History: Occasional Past Drug Use History: Marijuana - Past Family History Mother Family Medical History: Osteoarthritis (OA) Additional Family Medical History / Comment(s): alive and healthy at age 88 Father Family Medical History: Cancer Additional Family Medical History / Comment(s): of lung and brain CA at age 78 Sister(s) Family Medical History: Cancer Additional Family Medical History / Comment(s): liver CA Brother(s) Family Medical History: Cancer Additional Family Medical History / Comment(s): leukemia; another brother has l [place] CA Medications and Allergies Home Medications Medication Instructions Recorded Confirmed Type Albuterol Sulfate [Albuterol 2 puff PO RT-Q4H PRN 12/08/23 12/08/23 History Sulfate Hfa] Doxycycline [Vibramycin] 100 mg PO BID 12/08/23 12/08/23 History Ipratropium-Albuterol Nebulize 3 ml INHALATION RT-Q4H 12/08/23 12/08/23 History [Duoneb 0.5 mg-3 mg/3 ml Soln] predniSONE [Deltasone] 20 mg PO BID 12/08/23 12/08/23 History Allergies Allergy/AdvReac Type Severity Reaction Status Date / Time amoxicillin Allergy Rash/Hives Verified 12/08/23 09:29 Penicillins Allergy see comment Verified 12/08/23 09:29 Surgical - Exam Vital Signs Temp Pulse Resp Pulse Ox 97.9 F 105 H 20 96 12/07/23 11:39 12/07/23 11:39 12/07/23 11:39 12/07/23 11:39 CONSTITUTIONAL: Awake and alert, appears short of breath, cooperative, no pain EYES: Pupils equal, round, reactive to light, normal ocular movement ENT: Moist mucous membranes without oral lesions present NECK: No masses, no bruits, trachea midline RESPIRATORY: Lungs sounds diminished bilaterally, right greater than left, faint expiratory wheeze heard in the bases. Respirations even, slightly tachypneic. Currently on 3 L with oxygen saturation 96%. Strong cough CARDIOVASCULAR: S1, S2 present. Regular rate and rhythm. Palpable peripheral pulses bilaterally. Left lower extremity edema present. No calf pain or tenderness noted GASTROINTESTINAL: Abdomen soft, nontender, nondistended without masses or organomegaly noted. There is no rebound or guarding present. Active bowel sounds present 4 quadrants. GENITOURINARY: Deferred INTEGUMENTARY: Skin is warm and dry NEUROLOGIC: Cranial nerves II through XII intact, normal coordination, no obvious motor or sensory deficits, speech is normal MUSKULOSKELETAL: Able to move all extremities, strength equal bilaterally, normal posture PSYCHIATRIC: Alert and oriented to person place and time, appropriate affect, intact judgment and insight Results - Labs 12/14/23 06:07 12/14/23 06:07 Abnormal Lab Results - Last 24 Hours (Table) 12/14/23 12/14/23 Range/Units 06:07 06:07 WBC 28.9 H (3.8-10.6) k/uL RBC 3.02 L (3.80-5.40) m/uL Hgb 8.2 L (11.4-16.0) gm/dL Hct 26.3 L (34.0-46.0) % RDW 16.2 H (11.5-15.5) % Plt Count 510 H (150-450) k/uL Neutrophils # 26.6 H (1.3-7.7) k/uL Lymphocytes # 0.8 L (1.0-4.8) k/uL Monocytes # 1.2 H (0-1.0) k/uL Sodium 132 L (137-145) mmol/L Glucose 121 H (74-99) mg/dL Calcium 8.3 L (8.4-10.2) mg/dL Microbiology - Last 24 Hours (Table) 12/09/23 10:20 Gram Stain - Final Thoracic Fluid Body Fluid Culture - Final Diabetes panel 12/14/23 Range/Units 06:07 Sodium 132 L (137-145) mmol/L Potassium 3.9 (3.5-5.1) mmol/L Chloride 103 (98-107) mmol/L Carbon Dioxide 25 (22-30) mmol/L BUN 16 (7-17) mg/dL Creatinine 0.57 (0.52-1.04) mg/dL Glucose 121 H (74-99) mg/dL Calcium 8.3 L (8.4-10.2) mg/dL Calcium panel 12/14/23 Range/Units 06:07 Calcium 8.3 L (8.4-10.2) mg/dL Pituitary panel 12/14/23 Range/Units 06:07 Sodium 132 L (137-145) mmol/L Potassium 3.9 (3.5-5.1) mmol/L Chloride 103 (98-107) mmol/L Carbon Dioxide 25 (22-30) mmol/L BUN 16 (7-17) mg/dL Creatinine 0.57 (0.52-1.04) mg/dL Glucose 121 H (74-99) mg/dL Calcium 8.3 L (8.4-10.2) mg/dL Adrenal panel 12/14/23 Range/Units 06:07 Sodium 132 L (137-145) mmol/L Potassium 3.9 (3.5-5.1) mmol/L Chloride 103 (98-107) mmol/L Carbon Dioxide 25 (22-30) mmol/L BUN 16 (7-17) mg/dL Creatinine 0.57 (0.52-1.04) mg/dL Glucose 121 H (74-99) mg/dL Calcium 8.3 L (8.4-10.2) mg/dL - Imaging Chest x-ray: report reviewed, image reviewed Assessment and Plan Assessment: Rapidly reaccumulating malignant right-sided pleural effusion Shortness of breath secondary to above DVT on Eliquis for anticoagulation Recently diagnosed metastatic adenocarcinoma of the lung Current tobacco dependence COPD Marijuana use Significant family history of lung and liver cancer Plan: The patient was seen and examined with Dr. Ervin sitting up in bed feeling somewhat short of breath, waiting for a breathing treatment. Chart/diagnostics reviewed. We discussed with the patient placement of right-sided Pleurx catheter, she is agreeable to this plan. We will plan for right-sided Pleurx catheter placement by Dr. Ervin on December 15 at noon. From our standpoint she can be discharged to home after Pleurx catheter is placed. Will put Pleurx discharge instructions on her discharge plan. Home care will be ordered for Pleurx teaching and drainage. Cancer management per oncology versus palliative/hospice care. Medical management of other comorbidities per internal medicine, pulmonology. Thank you Dr. Otoole for this consult. Please call us with any further questions. I have personally seen and examined the patient, performed the documentation and the assessment and plan as written. Number of minutes spent on the visit: 30. Dannielle Cobb NP-C The patient was seen and examined, agree with [employer] assessment and plan. This is a 63 year old female with recently diagnosed metastatic lung adenocarcinoma with recurrent malignant pleural effusion. We will plan to place pleurx catheter 12/16/23. 35 min spent reviewing the case and seeing the patient. Reece Ervin MD
--- NOTE | 2023-12-14 12:32 | P.PN ---
Subjective Progress Note Date: 12/14/23 This is a very pleasant 63-year-old female patient with a known history of chronic and ongoing tobacco dependence. For approximately 3 to 4 weeks she had been having increasing shortness of breath, cough and congestion. She was treated with albuterol, doxycycline and prednisone in the outpatient setting without much improvement. Chest x-ray had revealed a new right sided lung mass. She was scheduled to be seen in our office today for the same. However yesterday she developed increasing pain and edema of the left lower extremity and presented here to the emergency room. Dopplers revealed an extensive DVT from the left distal external iliac veins to the prominent left calf veins. CT angiogram revealed no evidence of pulmonary embolism however there is a large conglomerate mediastinal and right hilar adenopathy with associated multiple spiculated nodules of the right upper lung. There is also a moderate right pleural effusion. Findings are concerning for malignancy. Ultrasound of the r ight chest reveals a 4.2 cm pocket. White count 27.0. Hemoglobin 8.0. Platelets 366. Sodium 134. Potassium 4.3. Bicarb 27. BUN 32. Creatinine 0.53. Glucose 104. A ST 36. ALT 46. Procalcitonin 0.20. She is currently on a heparin drip. She is seen today in consultation in the emergency department. She is currently sitting up on a stretcher. Awake and alert in no acute distress. She denies any worsening shortness of breath, cough or congestion. No hemoptysis. Left lower extremity pain is subsiding but still present. She states she has lost approximately 22 pounds over the past year. She does have chronic and ongoing tobacco dependence of greater than 30 years. She remains quite active. Prior to this recent illness within the past month she had been feeling fine and no significant medical history. She has been initiated on vancomycin and cefepime. She is on bronchodilators. Normal saline at 75 MLS per hour. The patient is seen today December 09, 2023 in follow-up on the regular medical floor. She is currently sitting up in bed. Awake and alert in no acute distre ss. She is maintaining good O2 saturation in the 90s on 2 L/min per nasal cannula. She has been afebrile. Hemodynamically stable. She did undergo a right-sided thoracentesis today with Dr. Otoole. 1.2 L of cloudy yellow fluid was removed. Fluid analysis and cytology pending. Her heparin had been on hold which has now been resumed. White count 16.7. Hemoglobin 7.2. Platelets 319. Sodium 131. Potassium 3.8. Bicarb 25. BUN 22. Creatinine 0.46. Glucose 104. Vancomycin trough 9.6. Remains on vancomycin and cefepime. Continued on bronchodilators. Follow-up chest x-ray revealed similar fullness in the right hilar region, residual right pleural effusion. No evidence of pneumothorax. Left lung is clear. The patient is seen today December 10, 2023 in follow-up on the regular medical floor. She is currently resting comfortably in bed. Awake and alert in no acute distress. Maintaining good O2 saturations in the 90s on 3 L/min per nasal cannula. Afebrile. Hemodynamically stable. She is receiving 1 unit of packed red blood cells today. Her hemoglobin dropped to 6.3. Platelets 260,000. White count 15.9. Sodium 127. Potassium 3.6. Bicarb 22. BUN 17. Creatinine 0.47. Glucose 107. Pleural fluid analysis exudate with an LDH of 639 and a total protein of 4.7 and cytology pending. She remains on DuoNeb ventilations. Antibiotics in the form of vancomycin and cefepime. She is continued on a heparin drip for her extensive left lower extremity DVT. The patient is seen today December 11, 2023 in follow-up on the regular medical floor. She is sitting up in bed. Awake and alert in no acute distress. She is maintaining good O2 saturations in the 90s on 2 L/min per nasal cannula. She is afebrile. Blood pressure stable. CT scan of the abdomen and pelvis revealed bilateral adrenal gland metastases. 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 A couple of intraperitoneal nodules, adjacent to the liver and posterior to the left kidney. Small nodules in the subcutaneous fat of the right thigh and left anterior pericardial fat. All likely metastatic. Cytology from pleural fluid still pending. White count 17.3. Hemoglobin 7.5. Platelets 305. Status post 1 unit of packed red blood cells. She is continued on a heparin drip. Stool for occult blood is positive. She remains on bronchodilators. Antibiotics in the form of vancomycin and cefepime. Dilaudid for plane control. The patient is seen today December 12, 2023 in follow-up on the regular medical floor. She remains awake and alert in no acute distress. Sitting up at the bedside. Denies any worsening shortness of breath, cough or congestion. She is continued on bronchodilators and antibiotics in the form of vancomycin and cefepime. Continued on a heparin drip. MRI of the brain reveals metastatic lesions within the right cerebellum, sulcus and left vertex and within the posterior occipital calvarium. She is status post 1 unit of packed red blood cells this admission. Current hemoglobin 7.8. Platelets 371. White count 13.0. Sodium 131. Potassium 4.4. Bicarb 25. BUN 12. Creatinine 0.52. Vancomycin trough 18.4. The patient is seen today December 13, 2023 in follow-up on the regular medical floor. She is currently sitting up in bed. Family at the bedside. She is awake and alert in no acute distress. Maintaining good O2 saturations in the 90s on 2 L/min per nasal cannula. She did have a incident of acute shortness of breath and anxiety early this morning and treated with bronchodilators and steroids and recovered. X-ray is showing increasing opacity in the right lung recurrent pleural effusion. Arterial blood gases revealed a pO2 of 83, pCO2 of 37 and a pH of 7.43 on 50% FiO2. White count 17.5. Hemoglobin 8.2. Platelets 383. Sodium 131. Potassium 3.6. Bicarb 22. BUN 12. Creatinine 0.44. Glucose 155. She remains on vancomycin and cefepime. Continued on bronchodilators. Anticoagulated with Eliquis. The patient is seen today December 14, 2023 in follow-up on the regular medical floor. She is resting comfortably in bed. Awake and alert in no acute distress. She is maintaining O2 saturations in the mid 90s on 3 L/min per nasal cannula. Blood cultures revealed no growth. Pleural fluid cultures revealed no growth. White count 28.9. Hemoglobin 8.2. Platelets 510. Sodium 132. Potassium 3.9. Bicarb 24. BUN 16. Creatinine 0.57. Glucose 121. She continues on bronchodilators, cefepime. Xanax for anxiety. Remains anticoagulated with Eliquis. Objective - Vital Signs Vital signs: Vital Signs Temp 98.1 F 12/14/23 07:10 Pulse 100 12/14/23 11:49 Resp 18 12/14/23 11:49 BP 103/47 12/14/23 07:10 Pulse Ox 95 12/14/23 09:10 FiO2 Intake & Output 12/13/23 12/14/23 12/14/23 18:59 06:59 18:59 Intake Total 118 Output Total 1 Balance 118 -1 Intake: Oral 118 Output: Stool 1 Other: Voiding Method Bedside Commode Bedpan Bedpan External Catheter Diaper Diaper External Catheter External Catheter # Voids 1 2 # Bowel Movements 1 - Exam GENERAL EXAM: Alert, pleasant, cachectic 63-year-old female, on 3 L nasal cannula, in no apparent distress. HEAD: Normocephalic. EYES: Normal reaction of pupils, equal size. NOSE: Clear with pink turbinates. THROAT: No erythema or exudates. NECK: No masses, no JVD. CHEST: No chest wall deformity. LUNGS: Equal air entry with crackles and dullness of the right lung base. CVS: S1 and S2 normal with no audible murmur, regular rhythm. ABDOMEN: No hepatosplenomegaly, normal bowel sounds, no guarding or rigidity. SPINE: No scoliosis or deformity SKIN: No rashes CENTRAL NERVOUS SYSTEM: No focal deficits, tone is normal in all 4 extremities. EXTREMITIES: There is 1+ peripheral edema of the left lower extremity. No clubbing, no cyanosis. Peripheral pulses are intact. - Labs CBC & Chem 7: 12/14/23 06:07 12/14/23 06:07 Labs: Abnormal Lab Results - Last 24 Hours (Table) 12/14/23 12/14/23 Range/Units 06:07 06:07 WBC 28.9 H (3.8-10.6) k/uL RBC 3.02 L (3.80-5.40) m/uL Hgb 8.2 L (11.4-16.0) gm/dL Hct 26.3 L (34.0-46.0) % RDW 16.2 H (11.5-15.5) % Plt Count 510 H (150-450) k/uL Neutrophils # 26.6 H (1.3-7.7) k/uL Lymphocytes # 0.8 L (1.0-4.8) k/uL Monocytes # 1.2 H (0-1.0) k/uL Sodium 132 L (137-145) mmol/L Glucose 121 H (74-99) mg/dL Calcium 8.3 L (8.4-10.2) mg/dL Microbiology - Last 24 Hours (Table) 12/09/23 10:20 Gram Stain - Final Thoracic Fluid Body Fluid Culture - Final Assessment and Plan Assessment: Acute left lower extremity pain and swelling in a patient found to have an extensive left lower extremity DVT. Initiated on a heparin drip and transitioned to Eliquis Recent diagnosis of lung mass with no follow-up thus far. CT angiogram ruled out pulmonary embolism. There is a large conglomerate mediastinal and right hilar adenopathy with associated multiple spiculated nodules in the right upper lung. Concerning for malignancy, possible small cell lung cancer. CT scan of the abdomen and pelvis revealed bilateral adrenal gland metastases. 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 A couple of IntraOp peritoneal nodules, adjacent to the liver and posterior to the left kidney. Small nodules in the subcutaneous fat of the right thigh and left anterior pericardial fat. All likely metastatic. MRI of the brain reveals metastatic lesions within the right cerebellum, sulcus and left vertex and within the poste rior occipital calvarium. Moderate right-sided pleural effusion secondary to above. Status post t horacentesis with 1.2 L of cloudy yellow fluid removed December 09, 2023. 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 Leukocytosis secondary to above, improved Weight loss up to 22 pounds in the past year Chronic and ongoing tobacco dependence of greater than 30 years Anemia, current hemoglobin 8.2, received 1 unit of packed red blood cells, stool for occult blood positive Plan: The patient was seen and evaluated Labs and medications reviewed Plan is for Pleurx catheter placement on 12/16/2023 Titrate the FiO2 as tolerated We will continue to follow I have personally seen and examined the patient, performed the documentation and the assessment and plan as written. Number of minutes spent on the visit: 10.
--- NOTE | 2023-12-14 12:53 | P.PN ---
Subjective Progress Note Date: 12/14/23 Hospital Course: 63-year-old female with a PMH of tobacco abuse who presents to the emergency r oom with complaints of left lower extremity swelling and shortness of breath. Chest CTA in the emergency room revealed large mediastinal and right hilar adenopathy with multiple nodules in the right upper lung field concerning for malignancy as well as a moderate right-sided pleural effusion likely sequela of the malignancy. There was no evidence of pulmonary embolism. Venous Doppler of the lower extremities revealed an extensive DVT extending from the left distal external iliac to the proximal calf veins. Laboratory evaluation revealed leukocytosis of 28.7 with hemoglobin 9.5, lactic acid 1.1, troponin 0.012, AST 43, ALT 68, alk phos 204. The patient's SpO2 in the emergency room was 92% on room air. Patient started on heparin drip. Pulmonology also consulted. Thoracentesis shows exudative fluid. Cytology pending. She did drop her hemoglobin, concern for acute GI bleed, general surgery was consulted. Oncology also consulted. Abdomen pelvis CT shows numerous metastatic lesions including adrenal gland, destructive osseous metastasis to the pubic bones, intraperitoneal nodules adjacent to liver and posterior left kidney, metastatic disease to right thigh and left anterior pericardial fat. MRI brain also shows multiple metastatic lesions. Cytology positive for primary lung adenocarcinoma. Has worsening right pleural effusion again, needs Pleurx catheter. CT surgery consulted. Subjective: Patient seen and examined at bedside. Continues to have shortness of breath. Pertinent positives and negatives as discussed above, a complete review of systems was performed and all other systems are negative. Vitals Signs Reviewed. General: Nontoxic, no distress, appears at stated age, chronically ill-appearing Derm: Warm, dry Head: Atraumatic, normocephalic, symmetric Eyes: EOMI, no lid lag, anicteric sclera Mouth: No lip lesion, mucus membranes moist Cardiovascular: S1S2 reg, no murmur Lungs: Right basilar rales, no accessory muscle use Abdominal: Soft, nontender to palpation, no guarding, no appreciable organomegaly Ext: No gross muscle atrophy, no edema, no contractures, 1+ edema on left lower extremity Neuro: CN II-XI grossly intact, no focal neuro deficits Psych: Alert, oriented, appropriate affect Data Reviewed Today: Pertinent Labs: WBC 28.9, hemoglobin 8.2, sodium 132, creatinine 0.57 Imaging: Chest x-ray independently interpreted, shows worsening right pleural effusion Assessment and Plan: Active: Acute left lower extremity DVT without PE, provoked in the setting of malignancy Primary lung adenocarcinoma Acute hypoxic respiratory failure, secondary to pleural effusion, malignancy Sepsis secondary to likely bacterial pneumonia Severe leukocytosis Transaminitis Normocytic anemia, now stable Former smoker Mild hyponatremia, euvolemic -Pulmonology note reviewed, Pleurx catheter - Discussed management with CT surgery, likely PleurX catheter placement on Friday - Patient is on Eliquis - Patient not ready for hospice, wants to pursue further treatment options outpatient, if no definitive treatment available, patient will consider hospice -General surgery recommended no interventions -Continue on pantoprazole 40 twice daily - Cultures pending - On IV cefepime 2 g every 8 hours - White count did worsen, possibly component of reactive and steroid use 2 days ago. If continues to worsen, will consider vancomycin again -Currently patient appears euvolemic, continue sodium improving - DuoNebs 4 times daily scheduled and as needed, - Pain control with oral Tylenol as needed, IV Dilaudid as needed, monitor for sedation - Continue to monitor CBC and CMP - Oncology and radiation oncology also following DVT ppx: eliquis Code status: Full code Anticipated discharge place: Pending clinical course Anticipated discharge time: Pending clinical course Objective - Vital Signs Vital signs: Vital Signs Temp 98.7 F 12/14/23 12:01 Pulse 97 12/14/23 12:01 Resp 16 12/14/23 12:01 BP 137/74 12/14/23 12:01 Pulse Ox 95 12/14/23 12:01 FiO2 Intake & Output 12/13/23 12/14/23 12/14/23 18:59 06:59 18:59 Intake Total 118 Output Total 1 Balance 118 -1 Intake: Oral 118 Output: Stool 1 Other: Voiding Method Bedside Commode Bedpan Bedpan External Catheter Diaper Diaper External Catheter External Catheter # Voids 1 2 # Bowel Movements 1 - Labs CBC & Chem 7: 12/14/23 06:07 12/14/23 06:07 Labs: Abnormal Lab Results - Last 24 Hours (Table) 12/14/23 12/14/23 Range/Units 06:07 06:07 WBC 28.9 H (3.8-10.6) k/uL RBC 3.02 L (3.80-5.40) m/uL Hgb 8.2 L (11.4-16.0) gm/dL Hct 26.3 L (34.0-46.0) % RDW 16.2 H (11.5-15.5) % Plt Count 510 H (150-450) k/uL Neutrophils # 26.6 H (1.3-7.7) k/uL Lymphocytes # 0.8 L (1.0-4.8) k/uL Monocytes # 1.2 H (0-1.0) k/uL Sodium 132 L (137-145) mmol/L Glucose 121 H (74-99) mg/dL Calcium 8.3 L (8.4-10.2) mg/dL Microbiology - Last 24 Hours (Table) 12/09/23 10:20 Gram Stain - Final Thoracic Fluid Body Fluid Culture - Final
[2023-12-14 15:51] LABS: Anisocytosis Slight; Basophils % (A) 0 %; Eosinophils # (A) 0.2 k/uL (0-0.7); Eosinophils % (A) 1 %; HCT 25.5 % (34.0-46.0); Hypochromasia Marked; Lymphocytes % (A) 4 %; MCH 27.3 pg (25.0-35.0); MCHC 31.5 g/dL (31.0-37.0); MCV 86.7 fL (80.0-100.0); Mean Platelet Volume 7.5; Monocytes # (A) 1.1 k/uL (0-1.0); Monocytes % (A) 4 %; Neutrophils # (A) 24.2 k/uL (1.3-7.7); Neutrophils % (A) 91 %; Platelet Count 496 k/uL (150-450); RBC 2.94 m/uL (3.80-5.40); RDW 16.4 % (11.5-15.5); WBC 26.7 k/uL (3.8-10.6)
[2023-12-14] MEDS: CEFEPIME 2 GM in SODIUM CHLORIDE 0.9% 100 ML IVPB SCH (16:58)
[2023-12-14 17:30] LABS: Appearance,Urine Turbid (Clear); Bacteria,Urine Few /hpf; Bilirubin,Urine Negative (Negative); Blood,Urine Large (Negative); Color,Urine Red; Glucose,Urine (UA) Negative (Negative); Ketones,Urine Negative (Negative); Leukocyte Esterase,Urine Small (Negative); Nitrite,Urine Negative (Negative); PH, Urine 5.5 (5.0-8.0); Protein,Urine 1+ (Negative); RBC,Urine >182 /hpf (0-5); Squamous Epithelial Cell,Urine 2 /hpf (0-4); Urobilinogen,Urine <2.0 mg/dL (<2.0); WBC,Urine 58 /hpf (0-5)
[2023-12-14] MEDS: methylPREDNISolone SOD SUCCI 125 MG/2 ML VIAL IV STA (21:16)
--- NOTE | 2023-12-14 22:00 | XR ---
EXAMINATION TYPE: XR chest 1V portable DATE OF EXAM: 12/14/2023 COMPARISON: 12/13/2023 INDICATION: Wheezing and hypoxia difficulty breathing TECHNIQUE: Single frontal view of the chest is obtained. FINDINGS: The heart size is normal. The pulmonary vasculature is normal. There is a moderate right pleural effusion. Some right perihilar infiltrate is present. Minimal left pleural fluid is present. IMPRESSION: 1. Increasing moderate right pleural effusion with right perihilar infiltrate 2. Developing minimal left pleural effusion
[2023-12-15] MEDS: methylPREDNISolone SOD SUCCI 125 MG/2 ML VIAL IV SCH (01:14)
[2023-12-15 03:26] LABS: Anisocytosis Slight; Basophils % (A) 0 %; Eosinophils % (A) 0 %; HCT 26.2 % (34.0-46.0); HGB 8.3 gm/dL (11.4-16.0); Hypochromasia Moderate; Lymphocytes # (A) 0.4 k/uL (1.0-4.8); Lymphocytes % (A) 2 %; MCH 27.4 pg (25.0-35.0); MCHC 31.8 g/dL (31.0-37.0); Mean Platelet Volume 7.6; Monocytes # (A) 0.2 k/uL (0-1.0); Monocytes % (A) 1 %; Neutrophils # (A) 18.4 k/uL (1.3-7.7); Neutrophils % (A) 96 %; Platelet Count 457 k/uL (150-450); RBC 3.04 m/uL (3.80-5.40); RDW 16.4 % (11.5-15.5); WBC 19.1 k/uL (3.8-10.6)
[2023-12-15 03:43] LABS: ALT 104 U/L (4-34); AST 87 U/L (14-36); African American GFR (CKD) >90 (>60 ml/min/1.73 sqM); Albumin 2.7 g/dL (3.5-5.0); Alkaline Phosphatase 310 U/L (38-126); Anion Gap 6 mmol/L; Blood Urea Nitrogen 16 mg/dL (7-17); Calcium 8.3 mg/dL (8.4-10.2); Carbon Dioxide 24 mmol/L (22-30); Chloride 101 mmol/L (98-107); Globulin 2.7 g/dL; Glucose 167 mg/dL (74-99); Non-African American GFR(CKD) >90 (>60 ml/min/1.73 sqM); Potassium 4.1 mmol/L (3.5-5.1); Sodium 131 mmol/L (137-145); Total Bilirubin 0.5 mg/dL (0.2-1.3); Total Protein 5.4 g/dL (6.3-8.2)
--- NOTE | 2023-12-15 12:40 | P.PN ---
Subjective Progress Note Date: 12/15/23 This is a very pleasant 63-year-old female patient with a known history of chronic and ongoing tobacco dependence. For approximately 3 to 4 weeks she had been having increasing shortness of breath, cough and congestion. She was treated with albuterol, doxycycline and prednisone in the outpatient setting without much improvement. Chest x-ray had revealed a new right sided lung mass. She was scheduled to be seen in our office today for the same. However yesterday she developed increasing pain and edema of the left lower extremity and presented here to the emergency room. Dopplers revealed an extensive DVT from the left distal external iliac veins to the prominent left calf veins. CT angiogram revealed no evidence of pulmonary embolism however there is a large conglomerate mediastinal and right hilar adenopathy with associated multiple spiculated nodules of the right upper lung. There is also a moderate right pleural effusion. Findings are concerning for malignancy. Ultrasound of the r ight chest reveals a 4.2 cm pocket. White count 27.0. Hemoglobin 8.0. Platelets 366. Sodium 134. Potassium 4.3. Bicarb 27. BUN 32. Creatinine 0.53. Glucose 104. A ST 36. ALT 46. Procalcitonin 0.20. She is currently on a heparin drip. She is seen today in consultation in the emergency department. She is currently sitting up on a stretcher. Awake and alert in no acute distress. She denies any worsening shortness of breath, cough or congestion. No hemoptysis. Left lower extremity pain is subsiding but still present. She states she has lost approximately 22 pounds over the past year. She does have chronic and ongoing tobacco dependence of greater than 30 years. She remains quite active. Prior to this recent illness within the past month she had been feeling fine and no significant medical history. She has been initiated on vancomycin and cefepime. She is on bronchodilators. Normal saline at 75 MLS per hour. The patient is seen today December 09, 2023 in follow-up on the regular medical floor. She is currently sitting up in bed. Awake and alert in no acute distre ss. She is maintaining good O2 saturation in the 90s on 2 L/min per nasal cannula. She has been afebrile. Hemodynamically stable. She did undergo a right-sided thoracentesis today with Dr. Otoole. 1.2 L of cloudy yellow fluid was removed. Fluid analysis and cytology pending. Her heparin had been on hold which has now been resumed. White count 16.7. Hemoglobin 7.2. Platelets 319. Sodium 131. Potassium 3.8. Bicarb 25. BUN 22. Creatinine 0.46. Glucose 104. Vancomycin trough 9.6. Remains on vancomycin and cefepime. Continued on bronchodilators. Follow-up chest x-ray revealed similar fullness in the right hilar region, residual right pleural effusion. No evidence of pneumothorax. Left lung is clear. The patient is seen today December 10, 2023 in follow-up on the regular medical floor. She is currently resting comfortably in bed. Awake and alert in no acute distress. Maintaining good O2 saturations in the 90s on 3 L/min per nasal cannula. Afebrile. Hemodynamically stable. She is receiving 1 unit of packed red blood cells today. Her hemoglobin dropped to 6.3. Platelets 260,000. White count 15.9. Sodium 127. Potassium 3.6. Bicarb 22. BUN 17. Creatinine 0.47. Glucose 107. Pleural fluid analysis exudate with an LDH of 639 and a total protein of 4.7 and cytology pending. She remains on DuoNeb ventilations. Antibiotics in the form of vancomycin and cefepime. She is continued on a heparin drip for her extensive left lower extremity DVT. The patient is seen today December 11, 2023 in follow-up on the regular medical floor. She is sitting up in bed. Awake and alert in no acute distress. She is maintaining good O2 saturations in the 90s on 2 L/min per nasal cannula. She is afebrile. Blood pressure stable. CT scan of the abdomen and pelvis revealed bilateral adrenal gland metastases. 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 A couple of intraperitoneal nodules, adjacent to the liver and posterior to the left kidney. Small nodules in the subcutaneous fat of the right thigh and left anterior pericardial fat. All likely metastatic. Cytology from pleural fluid still pending. White count 17.3. Hemoglobin 7.5. Platelets 305. Status post 1 unit of packed red blood cells. She is continued on a heparin drip. Stool for occult blood is positive. She remains on bronchodilators. Antibiotics in the form of vancomycin and cefepime. Dilaudid for plane control. The patient is seen today December 12, 2023 in follow-up on the regular medical floor. She remains awake and alert in no acute distress. Sitting up at the bedside. Denies any worsening shortness of breath, cough or congestion. She is continued on bronchodilators and antibiotics in the form of vancomycin and cefepime. Continued on a heparin drip. MRI of the brain reveals metastatic lesions within the right cerebellum, sulcus and left vertex and within the posterior occipital calvarium. She is status post 1 unit of packed red blood cells this admission. Current hemoglobin 7.8. Platelets 371. White count 13.0. Sodium 131. Potassium 4.4. Bicarb 25. BUN 12. Creatinine 0.52. Vancomycin trough 18.4. The patient is seen today December 13, 2023 in follow-up on the regular medical floor. She is currently sitting up in bed. Family at the bedside. She is awake and alert in no acute distress. Maintaining good O2 saturations in the 90s on 2 L/min per nasal cannula. She did have a incident of acute shortness of breath and anxiety early this morning and treated with bronchodilators and steroids and recovered. X-ray is showing increasing opacity in the right lung recurrent pleural effusion. Arterial blood gases revealed a pO2 of 83, pCO2 of 37 and a pH of 7.43 on 50% FiO2. White count 17.5. Hemoglobin 8.2. Platelets 383. Sodium 131. Potassium 3.6. Bicarb 22. BUN 12. Creatinine 0.44. Glucose 155. She remains on vancomycin and cefepime. Continued on bronchodilators. Anticoagulated with Eliquis. The patient is seen today December 14, 2023 in follow-up on the regular medical floor. She is resting comfortably in bed. Awake and alert in no acute distress. She is maintaining O2 saturations in the mid 90s on 3 L/min per nasal cannula. Blood cultures revealed no growth. Pleural fluid cultures revealed no growth. White count 28.9. Hemoglobin 8.2. Platelets 510. Sodium 132. Potassium 3.9. Bicarb 24. BUN 16. Creatinine 0.57. Glucose 121. She continues on bronchodilators, cefepime. Xanax for anxiety. Remains anticoagulated with Eliquis. The patient is seen today December 15, 2023 in follow-up on the regular medical floor. She is currently resting in bed. Continue O2 saturations in the mid 90s on 4 L/min per nasal cannula. She is afebrile. Hemodynamically stable. Rest x-ray continues to show increasing moderate right pleural effusion with right perihilar infiltrate. Developing minimal left pleural effusion. Plan is for right-sided Pleurx catheter to be placed tomorrow per CT services. She is status post 1 unit of packed red blood cells this admission. Current hemoglobin 8.3. Platelets 457. White count 19.1. Sodium 131. Potassium 4.1. Bicarb 24. BUN 16. Creatinine 0.48. Glucose 167. Pleural fluid cultures revealed no growth. She remains on DuoNeb inhalations, cefepime. Objective - Vital Signs Vital signs: Vital Signs Temp 97.9 F 12/15/23 11:55 Pulse 92 12/15/23 11:55 Resp 18 12/15/23 11:55 BP 123/67 12/15/23 11:55 Pulse Ox 95 12/15/23 11:55 FiO2 Intake & Output 12/14/23 12/15/23 12/15/23 18:59 06:59 18:59 Intake Total 360 Output Total 1 Balance 359 Intake: Oral 360 Output: Stool 1 Other: Voiding Method Bedpan Bedpan Diaper Diaper External Catheter External Catheter # Voids 3 2 # Bowel Movements 1 - Exam GENERAL EXAM: Alert, cachectic 63-year-old female, resting comfortably in bed, on 4 L nasal cannula, in no apparent distress. HEAD: Normocephalic. EYES: Normal reaction of pupils, equal size. NOSE: Clear with pink turbinates. THROAT: No erythema or exudates. NECK: No masses, no JVD. CHEST: No chest wall deformity. LUNGS: Equal air entry with crackles and dullness of the right lung base. CVS: S1 and S2 normal with no audible murmur, regular rhythm. ABDOMEN: No hepatosplenomegaly, normal bowel sounds, no guarding or rigidity. SPINE: No scoliosis or deformity SKIN: No rashes CENTRAL NERVOUS SYSTEM: No focal deficits, tone is normal in all 4 extremities. EXTREMITIES: There is 1+ peripheral edema of the left lower extremity. No clubbing, no cyanosis. Peripheral pulses are intact. - Labs CBC & Chem 7: 12/15/23 03:03 12/15/23 03:03 Labs: Abnormal Lab Results - Last 24 Hours (Table) 12/14/23 12/14/23 12/15/23 Range/Units 15:12 17:00 03:03 WBC 26.7 H 19.1 H (3.8-10.6) k/uL RBC 2.94 L 3.04 L (3.80-5.40) m/uL Hgb 8.0 L 8.3 L (11.4-16.0) gm/dL Hct 25.5 L 26.2 L (34.0-46.0) % RDW 16.4 H 16.4 H (11.5-15.5) % Plt Count 496 H 457 H (150-450) k/uL Neutrophils # 24.2 H 18.4 H (1.3-7.7) k/uL Lymphocytes # 0.4 L (1.0-4.8) k/uL Monocytes # 1.1 H (0-1.0) k/uL Sodium (137-145) mmol/L Creatinine (0.52-1.04) mg/dL Glucose (74-99) mg/dL Calcium (8.4-10.2) mg/dL AST (14-36) U/L ALT (4-34) U/L Alkaline Phosphatase (38-126) U/L Total Protein (6.3-8.2) g/dL Albumin (3.5-5.0) g/dL Urine Appearance Turbid H (Clear) Urine Protein 1+ H (Negative) Urine Blood Large H (Negative) Ur Leukocyte Esterase Small H (Negative) Urine RBC >182 H (0-5) /hpf Urine WBC 58 H (0-5) /hpf Urine Bacteria Few H (None) /hpf 12/15/23 Range/Units 03:03 WBC (3.8-10.6) k/uL RBC (3.80-5.40) m/uL Hgb (11.4-16.0) gm/dL Hct (34.0-46.0) % RDW (11.5-15.5) % Plt Count (150-450) k/uL Neutrophils # (1.3-7.7) k/uL Lymphocytes # (1.0-4.8) k/uL Monocytes # (0-1.0) k/uL Sodium 131 L (137-145) mmol/L Creatinine 0.48 L (0.52-1.04) mg/dL Glucose 167 H (74-99) mg/dL Calcium 8.3 L (8.4-10.2) mg/dL AST 87 H (14-36) U/L ALT 104 H (4-34) U/L Alkaline Phosphatase 310 H (38-126) U/L Total Protein 5.4 L (6.3-8.2) g/dL Albumin 2.7 L (3.5-5.0) g/dL Urine Appearance (Clear) Urine Protein (Negative) Urine Blood (Negative) Ur Leukocyte Esterase (Negative) Urine RBC (0-5) /hpf Urine WBC (0-5) /hpf Urine Bacteria (None) /hpf Assessment and Plan Assessment: Acute left lower extremity pain and swelling in a patient found to have an extensive left lower extremity DVT. Initiated on a heparin drip and transitioned to Eliquis Recent diagnosis of lung mass with no follow-up thus far. CT angiogram ruled out pulmonary embolism. There is a large conglomerate mediastinal and right hilar adenopathy with associated multiple spiculated nodules in the right upper lung. Concerning for malignancy, possible small cell lung cancer. CT scan of the abdomen and pelvis revealed bilateral adrenal gland metastases. 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 A couple of IntraOp peritoneal nodules, adjacent to the liver and posterior to the left kidney. Small nodules in the subcutaneous fat of the right thigh and left anterior pericardial fat. All likely metastatic. MRI of the brain reveals metastatic lesions within the right cerebellum, sulcus and left vertex and within the posterior occipital calvarium. Moderate right-sided pleural effusion secondary to above. Status post thoracentesis with 1.2 L of cloudy yellow fluid removed December 09, 2023. 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 Leukocytosis secondary to above, improved Weight loss up to 22 pounds in the past year Chronic and ongoing tobacco dependence of greater than 30 years Anemia, current hemoglobin 8.2, received 1 unit of packed red blood cells, stool for occult blood positive Plan: The patient was seen and evaluated Chest x-ray, labs and medications reviewed Continue the current treatment plan Plan is for Pleurx catheter placement on 12/16/2023 Titrate the FiO2 as tolerated We will continue to follow This patient was seen independently by the pulmonary nurse practitioner addressing pulmonary issues I have personally seen and examined the patient, performed the documentation and the assessment and plan as written. Number of minutes spent on the visit: 24.
--- NOTE | 2023-12-15 14:28 | P.PN ---
Subjective Progress Note Date: 12/15/23 Hospital Course: 63-year-old female with a PMH of tobacco abuse who presents to the emergency r oom with complaints of left lower extremity swelling and shortness of breath. Chest CTA in the emergency room revealed large mediastinal and right hilar adenopathy with multiple nodules in the right upper lung field concerning for malignancy as well as a moderate right-sided pleural effusion likely sequela of the malignancy. There was no evidence of pulmonary embolism. Venous Doppler of the lower extremities revealed an extensive DVT extending from the left distal external iliac to the proximal calf veins. Laboratory evaluation revealed leukocytosis of 28.7 with hemoglobin 9.5, lactic acid 1.1, troponin 0.012, AST 43, ALT 68, alk phos 204. The patient's SpO2 in the emergency room was 92% on room air. Patient started on heparin drip. Pulmonology also consulted. Thoracentesis shows exudative fluid. Cytology pending. She did drop her hemoglobin, concern for acute GI bleed, general surgery was consulted. Oncology also consulted. Abdomen pelvis CT shows numerous metastatic lesions including adrenal gland, destructive osseous metastasis to the pubic bones, intraperitoneal nodules adjacent to liver and posterior left kidney, metastatic disease to right thigh and left anterior pericardial fat. MRI brain also shows multiple metastatic lesions. Cytology positive for primary lung adenocarcinoma. Has worsening right pleural effusion again, needs Pleurx catheter. CT surgery consulted. Subjective: Patient seen and examined at bedside. Continues to have shortness of breath. Pertinent positives and negatives as discussed above, a complete review of systems was performed and all other systems are negative. Vitals Signs Reviewed. General: Nontoxic, no distress, appears at stated age, chronically ill-appearing Derm: Warm, dry Head: Atraumatic, normocephalic, symmetric Eyes: EOMI, no lid lag, anicteric sclera Mouth: No lip lesion, mucus membranes moist Cardiovascular: S1S2 reg, no murmur Lungs: Right basilar rales, no accessory muscle use Abdominal: Soft, nontender to palpation, no guarding, no appreciable organomegaly Ext: No gross muscle atrophy, no edema, no contractures, 1+ edema on left lower extremity Neuro: CN II-XI grossly intact, no focal neuro deficits Psych: Alert, oriented, appropriate affect Data Reviewed Today: Pertinent Labs: WBC 19.1, hemoglobin 8.3, platelet 457, sodium 131, creatinine 0.48, total bili 0.5, AST 87, ALT 104, ALP 310 Imaging: Chest x-ray independently interpreted, shows worsening right pleural effusion Assessment and Plan: Active: Acute left lower extremity DVT without PE, provoked in the setting of malignancy Primary lung adenocarcinoma Acute hypoxic respiratory failure, secondary to ligament pleural effusion Sepsis secondary to likely bacterial pneumonia Severe leukocytosis Transaminitis Normocytic anemia, now stable Hematuria Epistaxis Former smoker Mild hyponatremia, euvolemic Patient developed epistaxis as well as hematuria yesterday. Eliquis currently on hold. Once she gets her Pleurx catheter tomorrow, consider restarting Eliquis and monitoring her hemoglobin as well as bleeding. If unable to start on Eliquis, patient may benefit from IVC filter. -Pulmonology note reviewed, pending Pleurx catheter - Discussed management with CT surgery, likely PleurX catheter placement tomorrow - Patient not ready for hospice, wants to pursue further treatment options outpatient, if no definitive treatment available, patient will consider hospice -General surgery recommended no interventions -Continue on pantoprazole 40 twice daily - Cultures negative growth to date - On IV cefepime 2 g every 8 hours - White count now improving, possibly component of reactive and steroid use 2 days ago -Currently patient appears euvolemic, sodium improving and stable - DuoNebs 4 times daily scheduled and as needed, - Pain control with oral Tylenol as needed, IV Dilaudid as needed, monitor for sedation - Continue to monitor CBC and CMP - Oncology and radiation oncology also following DVT ppx: Eliquis on hold Code status: Full code Anticipated discharge place: Pending clinical course Anticipated discharge time: Pending clinical course Objective - Vital Signs Vital signs: Vital Signs Temp 97.9 F 12/15/23 11:55 Pulse 92 12/15/23 11:55 Resp 18 12/15/23 11:55 BP 123/67 12/15/23 11:55 Pulse Ox 95 12/15/23 11:55 FiO2 Intake & Output 12/14/23 12/15/23 12/15/23 18:59 06:59 18:59 Intake Total 360 Output Total 1 Balance 359 Intake: Oral 360 Output: Stool 1 Other: Voiding Method Bedpan Bedpan Diaper Diaper External Catheter External Catheter # Voids 3 2 # Bowel Movements 1 - Labs CBC & Chem 7: 12/15/23 03:03 12/15/23 03:03 Labs: Abnormal Lab Results - Last 24 Hours (Table) 12/14/23 12/14/23 12/15/23 Range/Units 15:12 17:00 03:03 WBC 26.7 H 19.1 H (3.8-10.6) k/uL RBC 2.94 L 3.04 L (3.80-5.40) m/uL Hgb 8.0 L 8.3 L (11.4-16.0) gm/dL Hct 25.5 L 26.2 L (34.0-46.0) % RDW 16.4 H 16.4 H (11.5-15.5) % Plt Count 496 H 457 H (150-450) k/uL Neutrophils # 24.2 H 18.4 H (1.3-7.7) k/uL Lymphocytes # 0.4 L (1.0-4.8) k/uL Monocytes # 1.1 H (0-1.0) k/uL Sodium (137-145) mmol/L Creatinine (0.52-1.04) mg/dL Glucose (74-99) mg/dL Calcium (8.4-10.2) mg/dL AST (14-36) U/L ALT (4-34) U/L Alkaline Phosphatase (38-126) U/L Total Protein (6.3-8.2) g/dL Albumin (3.5-5.0) g/dL Urine Appearance Turbid H (Clear) Urine Protein 1+ H (Negative) Urine Blood Large H (Negative) Ur Leukocyte Esterase Small H (Negative) Urine RBC >182 H (0-5) /hpf Urine WBC 58 H (0-5) /hpf Urine Bacteria Few H (None) /hpf 12/15/23 Range/Units 03:03 WBC (3.8-10.6) k/uL RBC (3.80-5.40) m/uL Hgb (11.4-16.0) gm/dL Hct (34.0-46.0) % RDW (11.5-15.5) % Plt Count (150-450) k/uL Neutrophils # (1.3-7.7) k/uL Lymphocytes # (1.0-4.8) k/uL Monocytes # (0-1.0) k/uL Sodium 131 L (137-145) mmol/L Creatinine 0.48 L (0.52-1.04) mg/dL Glucose 167 H (74-99) mg/dL Calcium 8.3 L (8.4-10.2) mg/dL AST 87 H (14-36) U/L ALT 104 H (4-34) U/L Alkaline Phosphatase 310 H (38-126) U/L Total Protein 5.4 L (6.3-8.2) g/dL Albumin 2.7 L (3.5-5.0) g/dL Urine Appearance (Clear) Urine Protein (Negative) Urine Blood (Negative) Ur Leukocyte Esterase (Negative) Urine RBC (0-5) /hpf Urine WBC (0-5) /hpf Urine Bacteria (None) /hpf
--- NOTE | 2023-12-15 16:48 | P.PN ---
Subjective Progress Note Date: 12/15/23 At today's visit patient is resting comfortably in bed. Patient's breathing is mildly labored, reporting SOB. SPO2 95% on 4L. Plan for placement of pleurx drain tomorrow. Continues on IV antibiotics, bronchodilators and steroids Objective - Vital Signs Vital signs: Vital Signs Temp 97.9 F 12/15/23 11:55 Pulse 92 12/15/23 11:55 Resp 18 12/15/23 11:55 BP 123/67 12/15/23 11:55 Pulse Ox 95 12/15/23 11:55 FiO2 Intake & Output 12/14/23 12/15/23 12/15/23 18:59 06:59 18:59 Intake Total 360 Output Total 1 Balance 359 Intake: Oral 360 Output: Stool 1 Other: Voiding Method Bedpan Bedpan Diaper Diaper External Catheter External Catheter # Voids 3 2 # Bowel Movements 1 - Constitutional General appearance: Present: no acute distress, thin - EENT Eyes: Present: anicteric sclerae, EOMI ENT: Present: hearing grossly normal - Respiratory Details: Breathing mildly labored Respiratory: right: diminished - Cardiovascular Details: Skin warm and dry - Gastrointestinal General gastrointestinal: Present: soft. Absent: tenderness - Integumentary Integumentary: Absent: cyanotic - Neurologic Neurologic Comment(s): No focal deficit - Musculoskeletal Musculoskeletal: Present: generalized weakness - Psychiatric Psychiatric: Present: A&O x's 3 - Labs CBC & Chem 7: 12/15/23 03:03 12/15/23 03:03 Labs: Abnormal Lab Results - Last 24 Hours (Table) 12/14/23 12/14/23 12/15/23 Range/Units 15:12 17:00 03:03 WBC 26.7 H 19.1 H (3.8-10.6) k/uL RBC 2.94 L 3.04 L (3.80-5.40) m/uL Hgb 8.0 L 8.3 L (11.4-16.0) gm/dL Hct 25.5 L 26.2 L (34.0-46.0) % RDW 16.4 H 16.4 H (11.5-15.5) % Plt Count 496 H 457 H (150-450) k/uL Neutrophils # 24.2 H 18.4 H (1.3-7.7) k/uL Lymphocytes # 0.4 L (1.0-4.8) k/uL Monocytes # 1.1 H (0-1.0) k/uL Sodium (137-145) mmol/L Creatinine (0.52-1.04) mg/dL Glucose (74-99) mg/dL Calcium (8.4-10.2) mg/dL AST (14-36) U/L ALT (4-34) U/L Alkaline Phosphatase (38-126) U/L Total Protein (6.3-8.2) g/dL Albumin (3.5-5.0) g/dL Urine Appearance Turbid H (Clear) Urine Protein 1+ H (Negative) Urine Blood Large H (Negative) Ur Leukocyte Esterase Small H (Negative) Urine RBC >182 H (0-5) /hpf Urine WBC 58 H (0-5) /hpf Urine Bacteria Few H (None) /hpf 12/15/23 Range/Units 03:03 WBC (3.8-10.6) k/uL RBC (3.80-5.40) m/uL Hgb (11.4-16.0) gm/dL Hct (34.0-46.0) % RDW (11.5-15.5) % Plt Count (150-450) k/uL Neutrophils # (1.3-7.7) k/uL Lymphocytes # (1.0-4.8) k/uL Monocytes # (0-1.0) k/uL Sodium 131 L (137-145) mmol/L Creatinine 0.48 L (0.52-1.04) mg/dL Glucose 167 H (74-99) mg/dL Calcium 8.3 L (8.4-10.2) mg/dL AST 87 H (14-36) U/L ALT 104 H (4-34) U/L Alkaline Phosphatase 310 H (38-126) U/L Total Protein 5.4 L (6.3-8.2) g/dL Albumin 2.7 L (3.5-5.0) g/dL Urine Appearance (Clear) Urine Protein (Negative) Urine Blood (Negative) Ur Leukocyte Esterase (Negative) Urine RBC (0-5) /hpf Urine WBC (0-5) /hpf Urine Bacteria (None) /hpf - Imaging and Cardiology Chest x-ray: report reviewed Assessment and Plan (1) Anemia Current Visit: Yes Status: Acute Priority: Medium Code(s): D64.9 - ANEMIA, UNSPECIFIED SNOMED Code(s): 346612016 (2) Deep vein thrombosis (DVT) of lower extremity Current Visit: Yes Status: Acute Priority: High Code(s): I82.409 - ACUTE EMBOLISM AND THOMBOS UNSP DEEP VN UNSP LOWER EXTREMITY SNOMED Code(s): 569682210 (3) Leukocytosis Current Visit: Yes Status: Acute Priority: High Code(s): D72.829 - ELEVATED WHITE BLOOD CELL COUNT, UNSPECIFIED SNOMED Code(s): 200671855 (4) Pleural effusion Current Visit: Yes Status: Acute Priority: High Code(s): J90 - PLEURAL EFFUSION, NOT ELSEWHERE CLASSIFIED SNOMED Code(s): 88379987 (5) Lymphadenopathy Current Visit: Yes Status: Acute Priority: High Code(s): R59.1 - GENERALIZED ENLARGED LYMPH NODES SNOMED Code(s): 75877788 (6) Adenocarcinoma, lung Current Visit: Yes Status: Acute Priority: High Code(s): C34.90 - MALIGNANT NEOPLASM OF UNSP PART OF UNSP BRONCHUS OR LUNG SNOMED Code(s): 472205679 Plan: Metastatic adenocarcinoma of lung: Significant history of COPD and nicotine abuse. Presented with complaints of left lower extremity edema. Of note Patient was seen at [facility] last week and was diagnosed with possible pneumonia and was started on antibiotics, steroids and bronchodilator. Patient's reports intermittent low-grade fevers over the last 2 months in the 99-100 degree range as well as persistent night sweats up to 4 times weekly. Denies hemoptysis and any noted abnormal lymphadenopathy. She reports she previously was experiencing diminished appetite and since 2019 had noted weight loss but reports no recent weight loss and that appetite has improved. Denies blood in stool or melena. She is a approx [id number] smoker but has recently began to cut down but is still actively smoking -CTA chest revealed no evidence of pulmonary embolism. Large conglomerate mediastinal and right hilar adenopathy with associated multi multiple spiculated nodules in the right upper lung. Moderate right pleural effusion. Chest ultrasound was subsequently ordered revealing right pleural effusion pocket size 4.2 cm. S/p right-sided thoracentesis on 3/26 with 1200 mL fluid removed. Pleural fluid sent for fluid analysis and cytology -Pleural fluid cytology positive for metastatic adenocarcinoma consistent with primary lung origin -CT AP and MRI brain obtained for staging. CT abdomen pelvis showing bilateral adrenal gland metastases. 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 Intraperitoneal nodules, adjacent to the liver and posterior to the left kidney. Small nodules in the subcutaneous fat of the right thigh and left anterior pericardial fat and moderate body wall edema suggestive of anasarca. MRI brain revealing 0.4 cm renal lesion with surrounding edema in the right cerebellum, 0.4 cm focus of enhancement within the leptomeningeal vertex, and osseous lesion within the posterior occipital calvarium. -No neuro deficits noted. Rad onc consulted. Spoke with Dr. Anguiano, will plan for simulation and RT this week -CXR showing increasing moderate right pleural effusion with right perihilar infiltrate. Continues on IV antibiotic and supportive medications. Cardiothoracic surgery consulted with plans for Pleurx placement tomorrow -NGS and PDL1 will be requested on pathology and will plan for patient to have Guardant testing in clinic -Discussed above results and plan of care with patient in detail. All questions were answered. Clinic f/u will be scheduled upon discharge DVT: -Venous Doppler of left lower extremity revealed extensive DVT from the distal external iliac veins to the proximal left calf veins. Heparin drip started -Has been transitioned to Eliquis -Patient had developed epistaxis and hematuria, eliquis has been held. Hgb stable at 8.3, plts 457,000. Once Pleurx catheter placed, and no reported episodes of acute bleeding, should reconsider restarting Eliquis, with close monitoring of hemoglobin and monitoring for acute bleeding. If unable to restart Eliquis, agree with placement of IVC filter Anemia: -Upon admission WBC 28.7, hemoglobin 9.5, MCV 83.5, platelets 475,000. Today, CBC showed WBC 13.0, hemoglobin 7.8, platelets 371,000. S/p 1 unit PRBCs. -Denied any episodes of acute bleeding and melena upon admission. General surgery consulted. No plan for endoscopic eval at this time, agree that anemia is r/t malignancy -Anemia workup has been ordered. No Vit B12 or folate deficiency noted. Iron saturation 6.4%, ferritin 1124. MCV 82.2, more consistent with anemia of inflammation. Will hold parenteral iron for now, and further evaluate/manage in the outpt setting -Had acute episode of epistaxis and hematuria, hgb stable at 8.3, plts 457,000. Eliquis has been held. No reported episodes of acute bleeding today. -Continue to closely monitor counts. Please transfuse for hgb <7 or if symptomatic
[2023-12-16] MEDS: predniSONE 10 MG TAB PO SCH (08:17)
--- NOTE | 2023-12-16 08:28 | P.PN ---
Subjective Progress Note Date: 12/15/23 CHIEF COMPLAINT: Anemia HISTORY OF PRESENT ILLNESS: The patient is a 63-year-old female admitted with acute anemia, new neoplasm of the lung, DVT. She has increased shortness of breath. Patient is pending placement of pleural vacs for the right lung. Patient understands she has metastatic stage IV non-small cell lung carcinoma. No signs of bleeding. ROS: No reports of nausea and vomiting. No fevers or chills. PHYSICAL EXAM: VITAL SIGNS: Reviewed CONSTITUTIONAL: Well developed and in no acute distress. EYES: Conjuctivae without sclera icterus. Extraocular movements grossly intact. HEAD, EARS, NOSE, THROAT: Moist buccal mucosa. Head is atraumatic, normocephalic. Hears conversational speech. No nasal drainage. RESPIRATORY: Labored breathing with tachypnea. CARDIOVASCULAR: Palpable 2+ radial pulses. ABDOMEN: Peritonitis. Minimal lower abdominal pain. MUSCULOSKELETAL: No gross deformity of the lower extremities noted. No clubbing. No cyanosis. SKIN: Good skin turgor. Well perfused. NEUROLOGIC: Cranial nerves II through XII grossly intact. No focal or lateralizing signs. PSYCH: Appropriate affect. Alert and oriented to person, place and time. CLINICAL LABS: Reviewed. Hemoglobin up 6.3-8.3. WBC elevated over 26,000. ASSESSMENT: 1. Anemia due to malignancy 2. Lung malignancy with metastases to the brain due to non-small cell carcinoma 3. Deep venous thrombosis 4. Leukocytosis 5. Right pleural effusion PLAN: 1. Patient's hemoglobin is improving. At this time, no further endoscopy needed. 2. Management per oncology. 3. General surgery will sign off at this time. Please reconsult if needed including for possible Port-A-Cath placement if needed Objective - Vital Signs Vital signs: Vital Signs Temp 97.5 F L 12/16/23 01:13 Pulse 88 12/16/23 08:07 Resp 19 12/16/23 01:13 BP 118/64 12/16/23 01:13 Pulse Ox 94 L 12/16/23 01:13 FiO2 Intake & Output 12/15/23 12/16/23 12/16/23 18:59 06:59 18:59 Intake Total 100 Balance 100 Intake: Oral 100 Other: Voiding Method Bedpan Diaper # Voids 1 2 # Bowel Movements 1 - Labs CBC & Chem 7: 12/15/23 03:03 12/15/23 03:03 Labs: Microbiology - Last 24 Hours (Table) 12/14/23 17:00 Urine Culture - Final Urine,Voided
[2023-12-16 09:04] LABS: Anisocytosis Slight; Basophils % (A) 0 %; Eosinophils % (A) 0 %; HCT 28.1 % (34.0-46.0); HGB 8.6 gm/dL (11.4-16.0); Hypochromasia Marked; Lymphocytes # (A) 0.7 k/uL (1.0-4.8); Lymphocytes % (A) 2 %; MCH 26.6 pg (25.0-35.0); MCHC 30.6 g/dL (31.0-37.0); MCV 86.9 fL (80.0-100.0); Mean Platelet Volume 7.7; Monocytes # (A) 0.7 k/uL (0-1.0); Monocytes % (A) 2 %; Neutrophils # (A) 31.3 k/uL (1.3-7.7); Neutrophils % (A) 95 %; Platelet Count 403 k/uL (150-450); RBC 3.23 m/uL (3.80-5.40); RDW 16.8 % (11.5-15.5); WBC 32.9 k/uL (3.8-10.6)
[2023-12-16 09:23] LABS: ALT 90 U/L (4-34); AST 37 U/L (14-36); African American GFR (CKD) >90 (>60 ml/min/1.73 sqM); Albumin 2.9 g/dL (3.5-5.0); Albumin/Globulin Ratio 1.1; Alkaline Phosphatase 260 U/L (38-126); Anion Gap 8 mmol/L; Blood Urea Nitrogen 24 mg/dL (7-17); Calcium 8.7 mg/dL (8.4-10.2); Carbon Dioxide 25 mmol/L (22-30); Chloride 103 mmol/L (98-107); Globulin 2.7 g/dL; Glucose 136 mg/dL (74-99); Magnesium 2.1 mg/dL (1.6-2.3); Non-African American GFR(CKD) >90 (>60 ml/min/1.73 sqM); Potassium 4.4 mmol/L (3.5-5.1); Sodium 136 mmol/L (137-145); Total Bilirubin 0.4 mg/dL (0.2-1.3); Total Protein 5.6 g/dL (6.3-8.2)
[2023-12-16 09:38] LABS: INR 1.2 (<1.2); Partial Thromboplastin Time 24.4 sec (22.0-30.0); Prothrombin Time 12.5 sec (10.0-12.5)
[2023-12-16 10:06] LABS: Poikilocytosis (M) Present
--- NOTE | 2023-12-16 12:30 | P.PN ---
Subjective Progress Note Date: 12/16/23 This is a very pleasant 63-year-old female patient with a known history of chronic and ongoing tobacco dependence. For approximately 3 to 4 weeks she had been having increasing shortness of breath, cough and congestion. She was treated with albuterol, doxycycline and prednisone in the outpatient setting without much improvement. Chest x-ray had revealed a new right sided lung mass. She was scheduled to be seen in our office today for the same. However yesterday she developed increasing pain and edema of the left lower extremity and presented here to the emergency room. Dopplers revealed an extensive DVT from the left distal external iliac veins to the prominent left calf veins. CT angiogram revealed no evidence of pulmonary embolism however there is a large conglomerate mediastinal and right hilar adenopathy with associated multiple spiculated nodules of the right upper lung. There is also a moderate right pleural effusion. Findings are concerning for malignancy. Ultrasound of the r ight chest reveals a 4.2 cm pocket. White count 27.0. Hemoglobin 8.0. Platelets 366. Sodium 134. Potassium 4.3. Bicarb 27. BUN 32. Creatinine 0.53. Glucose 104. A ST 36. ALT 46. Procalcitonin 0.20. She is currently on a heparin drip. She is seen today in consultation in the emergency department. She is currently sitting up on a stretcher. Awake and alert in no acute distress. She denies any worsening shortness of breath, cough or congestion. No hemoptysis. Left lower extremity pain is subsiding but still present. She states she has lost approximately 22 pounds over the past year. She does have chronic and ongoing tobacco dependence of greater than 30 years. She remains quite active. Prior to this recent illness within the past month she had been feeling fine and no significant medical history. She has been initiated on vancomycin and cefepime. She is on bronchodilators. Normal saline at 75 MLS per hour. The patient is seen today December 09, 2023 in follow-up on the regular medical floor. She is currently sitting up in bed. Awake and alert in no acute distre ss. She is maintaining good O2 saturation in the 90s on 2 L/min per nasal cannula. She has been afebrile. Hemodynamically stable. She did undergo a right-sided thoracentesis today with Dr. Otoole. 1.2 L of cloudy yellow fluid was removed. Fluid analysis and cytology pending. Her heparin had been on hold which has now been resumed. White count 16.7. Hemoglobin 7.2. Platelets 319. Sodium 131. Potassium 3.8. Bicarb 25. BUN 22. Creatinine 0.46. Glucose 104. Vancomycin trough 9.6. Remains on vancomycin and cefepime. Continued on bronchodilators. Follow-up chest x-ray revealed similar fullness in the right hilar region, residual right pleural effusion. No evidence of pneumothorax. Left lung is clear. The patient is seen today December 10, 2023 in follow-up on the regular medical floor. She is currently resting comfortably in bed. Awake and alert in no acute distress. Maintaining good O2 saturations in the 90s on 3 L/min per nasal cannula. Afebrile. Hemodynamically stable. She is receiving 1 unit of packed red blood cells today. Her hemoglobin dropped to 6.3. Platelets 260,000. White count 15.9. Sodium 127. Potassium 3.6. Bicarb 22. BUN 17. Creatinine 0.47. Glucose 107. Pleural fluid analysis exudate with an LDH of 639 and a total protein of 4.7 and cytology pending. She remains on DuoNeb ventilations. Antibiotics in the form of vancomycin and cefepime. She is continued on a heparin drip for her extensive left lower extremity DVT. The patient is seen today December 11, 2023 in follow-up on the regular medical floor. She is sitting up in bed. Awake and alert in no acute distress. She is maintaining good O2 saturations in the 90s on 2 L/min per nasal cannula. She is afebrile. Blood pressure stable. CT scan of the abdomen and pelvis revealed bilateral adrenal gland metastases. 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 A couple of intraperitoneal nodules, adjacent to the liver and posterior to the left kidney. Small nodules in the subcutaneous fat of the right thigh and left anterior pericardial fat. All likely metastatic. Cytology from pleural fluid still pending. White count 17.3. Hemoglobin 7.5. Platelets 305. Status post 1 unit of packed red blood cells. She is continued on a heparin drip. Stool for occult blood is positive. She remains on bronchodilators. Antibiotics in the form of vancomycin and cefepime. Dilaudid for plane control. The patient is seen today December 12, 2023 in follow-up on the regular medical floor. She remains awake and alert in no acute distress. Sitting up at the bedside. Denies any worsening shortness of breath, cough or congestion. She is continued on bronchodilators and antibiotics in the form of vancomycin and cefepime. Continued on a heparin drip. MRI of the brain reveals metastatic lesions within the right cerebellum, sulcus and left vertex and within the posterior occipital calvarium. She is status post 1 unit of packed red blood cells this admission. Current hemoglobin 7.8. Platelets 371. White count 13.0. Sodium 131. Potassium 4.4. Bicarb 25. BUN 12. Creatinine 0.52. Vancomycin trough 18.4. The patient is seen today December 13, 2023 in follow-up on the regular medical floor. She is currently sitting up in bed. Family at the bedside. She is awake and alert in no acute distress. Maintaining good O2 saturations in the 90s on 2 L/min per nasal cannula. She did have a incident of acute shortness of breath and anxiety early this morning and treated with bronchodilators and steroids and recovered. X-ray is showing increasing opacity in the right lung recurrent pleural effusion. Arterial blood gases revealed a pO2 of 83, pCO2 of 37 and a pH of 7.43 on 50% FiO2. White count 17.5. Hemoglobin 8.2. Platelets 383. Sodium 131. Potassium 3.6. Bicarb 22. BUN 12. Creatinine 0.44. Glucose 155. She remains on vancomycin and cefepime. Continued on bronchodilators. Anticoagulated with Eliquis. The patient is seen today December 14, 2023 in follow-up on the regular medical floor. She is resting comfortably in bed. Awake and alert in no acute distress. She is maintaining O2 saturations in the mid 90s on 3 L/min per nasal cannula. Blood cultures revealed no growth. Pleural fluid cultures revealed no growth. White count 28.9. Hemoglobin 8.2. Platelets 510. Sodium 132. Potassium 3.9. Bicarb 24. BUN 16. Creatinine 0.57. Glucose 121. She continues on bronchodilators, cefepime. Xanax for anxiety. Remains anticoagulated with Eliquis. The patient is seen today December 15, 2023 in follow-up on the regular medical floor. She is currently resting in bed. Continue O2 saturations in the mid 90s on 4 L/min per nasal cannula. She is afebrile. Hemodynamically stable. Rest x-ray continues to show increasing moderate right pleural effusion with right perihilar infiltrate. Developing minimal left pleural effusion. Plan is for right-sided Pleurx catheter to be placed tomorrow per CT services. She is status post 1 unit of packed red blood cells this admission. Current hemoglobin 8.3. Platelets 457. White count 19.1. Sodium 131. Potassium 4.1. Bicarb 24. BUN 16. Creatinine 0.48. Glucose 167. Pleural fluid cultures revealed no growth. She remains on DuoNeb inhalations, cefepime. The patient is seen today December 16, 2023 in follow-up on the regular medical floor. She is currently sitting up at the bedside. Awake and alert in no acute distress. Maintaining good O2 saturations in the 90s on 4 L/min per nasal cannula. She has been afebrile. Hemodynamically stable. Plan is for Pleurx catheter placement today to the right chest where there has been recurrent and increasing pleural effusion. She is status post 1 unit of packed red blood cells this admission. Current hemoglobin 8.6. Platelets 403. White count 32.9. Sodium 136. Potassium 4.4. Bicarb 24. BUN 24. Creatinine 0.54. Glucose 136. She completed a course of cefepime. She remains on bronchodilators and steroids. Objective - Vital Signs Vital signs: Vital Signs Temp 98.4 F 12/16/23 08:25 Pulse 90 12/16/23 11:38 Resp 18 12/16/23 08:25 BP 159/81 12/16/23 08:25 Pulse Ox 94 L 12/16/23 08:25 FiO2 Intake & Output 12/15/23 12/16/23 12/16/23 18:59 06:59 18:59 Intake Total 100 Balance 100 Intake: Oral 100 Other: Voiding Method Bedpan Toilet Diaper Diaper # Voids 1 2 # Bowel Movements 1 - Exam GENERAL EXAM: Alert, cachectic 63-year-old female, on 4 L nasal cannula, in no apparent distress. HEAD: Normocephalic. EYES: Normal reaction of pupils, equal size. NOSE: Clear with pink turbinates. THROAT: No erythema or exudates. NECK: No masses, no JVD. CHEST: No chest wall deformity. LUNGS: Equal air entry with crackles and dullness of the right lung base. CVS: S1 and S2 normal with no audible murmur, regular rhythm. ABDOMEN: No hepatosplenomegaly, normal bowel sounds, no guarding or rigidity. SPINE: No scoliosis or deformity SKIN: No rashes CENTRAL NERVOUS SYSTEM: No focal deficits, tone is normal in all 4 extremities. EXTREMITIES: There is 1+ peripheral edema of the left lower extremity. No clubbing, no cyanosis. Peripheral pulses are intact. - Labs CBC & Chem 7: 12/16/23 08:00 12/16/23 08:00 Labs: Abnormal Lab Results - Last 24 Hours (Table) 12/16/23 12/16/23 12/16/23 Range/Units 08:00 08:00 09:10 WBC 32.9 H (3.8-10.6) k/uL RBC 3.23 L (3.80-5.40) m/uL Hgb 8.6 L (11.4-16.0) gm/dL Hct 28.1 L (34.0-46.0) % MCHC 30.6 L (31.0-37.0) g/dL RDW 16.8 H (11.5-15.5) % Neutrophils # 31.3 H (1.3-7.7) k/uL Lymphocytes # 0.7 L (1.0-4.8) k/uL INR 1.2 H (<1.2) Sodium 136 L (137-145) mmol/L BUN 24 H (7-17) mg/dL Glucose 136 H (74-99) mg/dL AST 37 H (14-36) U/L ALT 90 H (4-34) U/L Alkaline Phosphatase 260 H (38-126) U/L Total Protein 5.6 L (6.3-8.2) g/dL Albumin 2.9 L (3.5-5.0) g/dL Microbiology - Last 24 Hours (Table) 12/14/23 17:00 Urine Culture - Final Urine,Voided Assessment and Plan Assessment: Acute left lower extremity pain and swelling in a patient found to have an extensive left lower extremity DVT. Initiated on a heparin drip and transitioned to Eliquis Recent diagnosis of lung mass with no follow-up thus far. CT angiogram ruled out pulmonary embolism. There is a large conglomerate mediastinal and right hilar adenopathy with associated multiple spiculated nodules in the right upper lung. Concerning for malignancy, possible small cell lung cancer. CT scan of the abdomen and pelvis revealed bilateral adrenal gland metastases. 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 A couple of IntraOp perito arlyn nodules, adjacent to the liver and posterior to the left kidney. Small nodules in the subcutaneous fat of the right thigh and left anterior pericardial fat. All likely metastatic. MRI of the brain reveals metastatic lesions within the right cerebellum, sulcus and left vertex and within the posterior occipital calvarium. Moderate right-sided pleural effusion secondary to above. Status post thoracentesis with 1.2 L of cloudy yellow fluid removed December 09, 2023. Cytology positive for metastatic adenocarcinoma consistent with lung primary Recurrent right-sided pleural effusion, plan is for Pleurx catheter placement today 12/16/2023 Acute hypoxemic respiratory failure secondary to above and suspected postobstructive pneumonia, currently on cefepime. Leukocytosis secondary to above, improved Weight loss up to 22 pounds in the past year Chronic and ongoing tobacco dependence of greater than 30 years Anemia, current hemoglobin 8.6, received 1 unit of packed red blood cells, stool for occult blood positive Plan: The patient was seen and evaluated Labs and medications reviewed Continue bronchodilators, steroids Completed a course of antibiotics Plan is for Pleurx catheter placement today This patient was seen independently by the pulmonary nurse practitioner addressing pulmonary issues I have personally seen and examined the patient, performed the documentation and the assessment and plan as written. Number of minutes spent on the visit: 23.
[2023-12-16] MEDS: LACTATED RINGERS 1,000 ML IV ONE (12:40)
[2023-12-16] MEDS ORDERED: ALBUTEROL HFA INHALER INHALATION ONE (13:41)
[2023-12-16] MEDS ORDERED: ceFAZolin 1 GM/50 ML BAG (PMX) ONE (13:41)
[2023-12-16] MEDS ORDERED: MIDAZOLAM 2 MG/2 ML VIAL ONE (13:41)
[2023-12-16] MEDS ORDERED: KETAMINE HCL IN 0.9 % NACL 50 MG/5 ML SYRINGE ONE (13:41)
[2023-12-16] MEDS: SODIUM CHLORIDE 0.9% 50 ML with ceFAZolin 1 GM IV ONE (13:45)
[2023-12-16] MEDS: LIDOCAINE 1% INJ 10MG/ML (20 ML MDV) SQ ONE (14:03)
--- NOTE | 2023-12-16 14:11 | P.OP ---
Date of Procedure: 12/16/23 Preoperative Diagnosis: Metastatic lung cancer Recurrent pleura effusion - right DVT Postoperative Diagnosis: Same Procedure(s) Performed: Insertion of R sided pleurX catheter using flouroscopy Implants: R PleurX Anesthesia: local Surgeon: Reece Ervin Estimated Blood Loss (ml): 5 Pathology: other (right pleural fluid for cytology) Condition: stable Disposition: PACU Indications for Procedure: This patient is a 63 year F who presented with DVT. Imaging revealed metastatic lung cancer and right sided effusion. She underwent thoracentesis and imaging revealed re-accumulation of the fluid. She now requires pleurx. Operative Findings: 2500cc of serous fluid drianed Description of Procedure: The patient was brought back to the operating room and sedated. Her right chest was bumped and her right chest was prepped and draped in the usual sterile fashion. Needle was inserted over the rib with good return of pleural fluid. Two areas were anesthetized in the skin anteriorly and posteriorly. Incision was made in both areas and the catheter was tunneled from anterior to posterior. Introducer needle was inserted and guidewire inserted into pleural cavity which was confirmed with flourosocpy. The peel away sheath was inserted over wire under vision and catheter inserted into chest. Posterior incision was closed with suture and glue. Sterile dressing was applied.
--- NOTE | 2023-12-16 14:18 | FL ---
EXAMINATION TYPE: FL fluoroscopy <1hr DATE OF EXAM: 12/16/2023 CLINICAL HISTORY: PLEUREX CATH INSERT RIGHT SIDE TECHNIQUE: Fluoroscopy. COMPARISON: None. FINDINGS: Pleurx catheter with Ervin. 10.5 sec fluoro time. .06210 DAP. 1 image saved. LC IMPRESSION: As Above.
--- NOTE | 2023-12-16 16:33 | P.PN ---
Subjective Progress Note Date: 12/16/23 At today's visit patient is resting comfortably in bed. Patient's breathing unlabored, reporting some improvement in breathing today. Pt is scheduled for pleurx drain today. No reported episodes of acute bleeding. Continues on IV antibiotics, bronchodilators and steroids Objective - Vital Signs Vital signs: Vital Signs Temp 98 F 12/16/23 14:14 Pulse 93 12/16/23 14:46 Resp 16 12/16/23 14:46 BP 141/79 12/16/23 14:46 Pulse Ox 94 L 12/16/23 14:46 FiO2 Intake & Output 12/15/23 12/16/23 12/16/23 18:59 06:59 18:59 Intake Total 100 350 Balance 100 350 Intake: IV 350 Oral 100 Other: Voiding Method Bedpan Toilet Diaper Diaper # Voids 1 2 # Bowel Movements 1 - Constitutional General appearance: Present: no acute distress, thin - EENT Eyes: Present: anicteric sclerae, EOMI ENT: Present: hearing grossly normal - Respiratory Details: Breathing even and unlabored - Cardiovascular Details: Skin warm and dry - Integumentary Integumentary: Absent: cyanotic, jaundiced - Neurologic Neurologic Comment(s): No focal deficit - Musculoskeletal Musculoskeletal: Present: strength equal bilaterally - Psychiatric Psychiatric: Present: A&O x's 3 - Labs CBC & Chem 7: 12/16/23 08:00 12/16/23 08:00 Labs: Abnormal Lab Results - Last 24 Hours (Table) 12/16/23 12/16/23 12/16/23 Range/Units 08:00 08:00 09:10 WBC 32.9 H (3.8-10.6) k/uL RBC 3.23 L (3.80-5.40) m/uL Hgb 8.6 L (11.4-16.0) gm/dL Hct 28.1 L (34.0-46.0) % MCHC 30.6 L (31.0-37.0) g/dL RDW 16.8 H (11.5-15.5) % Neutrophils # 31.3 H (1.3-7.7) k/uL Lymphocytes # 0.7 L (1.0-4.8) k/uL INR 1.2 H (<1.2) Sodium 136 L (137-145) mmol/L BUN 24 H (7-17) mg/dL Glucose 136 H (74-99) mg/dL AST 37 H (14-36) U/L ALT 90 H (4-34) U/L Alkaline Phosphatase 260 H (38-126) U/L Total Protein 5.6 L (6.3-8.2) g/dL Albumin 2.9 L (3.5-5.0) g/dL Microbiology - Last 24 Hours (Table) 12/14/23 17:00 Urine Culture - Final Urine,Voided Assessment and Plan (1) Anemia Current Visit: Yes Status: Acute Priority: Medium Code(s): D64.9 - ANEMIA, UNSPECIFIED SNOMED Code(s): 965830824 (2) Deep vein thrombosis (DVT) of lower extremity Current Visit: Yes Status: Acute Priority: High Code(s): I82.409 - ACUTE EMBOLISM AND THOMBOS UNSP DEEP VN UNSP LOWER EXTREMITY SNOMED Code(s): 581661934 (3) Leukocytosis Current Visit: Yes Status: Acute Priority: High Code(s): D72.829 - ELEVATED WHITE BLOOD CELL COUNT, UNSPECIFIED SNOMED Code(s): 178424856 (4) Pleural effusion Current Visit: Yes Status: Acute Priority: High Code(s): J90 - PLEURAL EFFUSION, NOT ELSEWHERE CLASSIFIED SNOMED Code(s): 36063123 (5) Lymphadenopathy Current Visit: Yes Status: Acute Priority: High Code(s): R59.1 - GENERALIZED ENLARGED LYMPH NODES SNOMED Code(s): 10513032 (6) Adenocarcinoma, lung Current Visit: Yes Status: Acute Priority: High Code(s): C34.90 - MALIGNANT NEOPLASM OF UNSP PART OF UNSP BRONCHUS OR LUNG SNOMED Code(s): 761472193 Plan: Metastatic adenocarcinoma of lung: -CTA chest revealed no evidence of pulmonary embolism. Large conglomerate mediastinal and right hilar adenopathy with associated multi multiple spiculated nodules in the right upper lung. Moderate right pleural effusion. Chest ultrasound was subsequently ordered revealing right pleural effusion pocket size 4.2 cm. S/p right-sided thoracentesis on 12/08 with 1200 mL fluid removed. Pleural fluid sent for fluid analysis and cytology -Pleural fluid cytology positive for metastatic adenocarcinoma consistent with primary lung origin -CT AP and MRI brain obtained for staging. CT abdomen pelvis showing bilateral adrenal gland metastases. 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 Intraperitoneal nodules, adjacent to the liver and posterior to the left kidney. Small nodules in the subcutaneous fat of the right thigh and left anterior pericardial fat and moderate body wall edema suggestive of anasarca. MRI brain revealing 0.4 cm renal lesion with surrounding edema in the right cerebellum, 0.4 cm focus of enhancement within the leptomeningeal vertex, and osseous lesion within the posterior occipital calvarium. -No neuro deficits noted. Rad onc consulted. Spoke with Dr. Anguiano, will plan for SRS -CXR showing increasing moderate right pleural effusion with right perihilar infiltrate. Continues on IV antibiotic and supportive medications. -Cardiothoracic surgery consulted with plans for Pleurx placement -NGS and PDL1 will be requested on pathology and will plan for patient to have Guardant testing in clinic -Discussed above results and plan of care with patient in detail. All questions were answered. Clinic f/u will be scheduled upon discharge DVT: -Venous Doppler of left lower extremity revealed extensive DVT from the distal external iliac veins to the proximal left calf veins. Heparin drip started -Has been transitioned to Eliquis -Patient had developed epistaxis and hematuria, eliquis has been held. Hgb stable at 8.6, platelets 403,000. No reported episodes of acute bleeding today. Have spoke with IM team, once Pleurx drain placed, will recheck UA for hematuria, and if stable/no bleeding issues s/p procedure, will plan to restart pt on heparin drip and monitor CBC and for acute bleeding. If tolerates well will transition back to Eliquis. If unable to continue anticoagulation will have to consider IVC filter -Also, there is concern for untreated brain mets, with use of anticoagulation. Spoke with patient about potential risks involved with and without anticoagulation. Discussed case further with rad onc today, and plan is for SRS of brain lesions, but this is typically not a covered procedure while inpt, and will need to be scheduled outpt. MRI was reviewed, and they feel that there is low concern for bleeding from noted brain lesions. Pending discharge, will plan to start SRS later this week. Anemia: -Upon admission WBC 28.7, hemoglobin 9.5, MCV 83.5, platelets 475,000. Today, CBC showed WBC 13.0, hemoglobin 7.8, platelets 371,000. S/p 1 unit PRBCs. -Denied any episodes of acute bleeding and melena upon admission. General surgery consulted. No plan for endoscopic eval at this time, agree that anemia is r/t malignancy -Anemia workup has been ordered. No Vit B12 or folate deficiency noted. Iron saturation 6.4%, ferritin 1124. MCV 82.2, more consistent with anemia of inflammation. Will hold parenteral iron for now, and further evaluate/manage in the outpt setting -Had acute episode of epistaxis and hematuria, sx have since resolved. Eliquis has been held. Hgb stable at 8.6, plts 403,000 -Continue to closely monitor counts. Please transfuse for hgb <7 or if symptomatic attests: I have performed H&P and developed impression and plan of care for patient, discussed with dictator. I agree with dictated note, documented as a scribe
[2023-12-16] MEDS ORDERED: HEPARIN SODIUM 1,000 UN/ML (10ML VL) IV PRN (17:23)
--- NOTE | 2023-12-16 17:43 | P.PN ---
Subjective Progress Note Date: 12/16/23 (delayed charting seen at 0830) Patient is a 63-year-old female with no prior known medical conditions and nicotine dependency who presented to the emergency room with complaints of left lower extremity swelling and shortness of breath. In the emergency department she undewent an extensive evaluation. Lower extremity venous Doppler showed extensive DVT in the left distal iliac veins to the proximal left calf veins. Unfortunately, Chest CTA in the emergency room revealed large mediastinal and right hilar adenopathy with multiple nodules in the right upper lung concerning for malignancy and moderate right-sided pleural effusion likely sequela of the malignancy, but was negative for pulmonary embolism. Laboratory evaluation was remarkable for leukocytosis of 28.7 and hemoglobin 9.5. He was subsequently started on heparin drip and arrangements were made for admission. Pulmonary was consulted and patient underwent thoracentesis which demonstrated exudative pleural effusion. Cytology came back with metastatic adenocarcinoma consistent with lung primary. Oncology was consulted. Additional malignancy workup included CT abdomen and pelvis which demonstrated bilateral adrenal gland metastasis, destructive metastasis in the pubic bone, intraperitoneal nodules adjacent to the liver and left kidneys, small nodules in the subcutaneous fat of the right thigh all likely metastatic, moderate body wall edema suggesting anasarca. MRI of the brain demonstrated metastatic lesions within the right cerebellum, sulcus of the left vertex, and posterior occipital calvarium. Radiation oncology was consulted and they felt that stereotactic radiosurgery was most appropriate and could be completed on outpatient basis. They did not feel steroids were required at this time. Patient developed worsening anemia and possible acute GI bleed. General Surgery was consulted who felt this was more consistent with malignancy than acute GI bleed. Patient's pleural effusion recurred quickly and CT surgery was consulted and patient underwent Pleurx catheter placement on 12/16/2023. Patient seen and examined at bedside. She is hopeful to go home. She denies any recurrent nasal bleeding or blood in her urine. She denies any significant GI bleeding. She denies any chest pain. She did get up and attempt to move around today and got lightheaded and very short of breath, but she is recovering with sitting down. Vital signs reviewed General: Nontoxic, no distress, appears at stated age Cardiovascular: S1S2 reg, no murmur Lungs: Coarse breath sounds bilateral, no rhonchi, no rales, no accessory muscle use Abdominal: Soft, nontender to palpation, no guarding Ext: No gross muscle atrophy, no edema b/l lower extremities, no contractures Neuro: CN II-XI grossly intact, no focal neuro deficits Psych: Alert, oriented, appropriate affect Assessment/Plan: Newly discovered adenocarcinoma of the lung with metastasis to the bone, adrenal land, brain, and multiple pelvic areas Recurrent right-sided malignant pleural effusion status post Pleurx catheter Left lower extremity extensive DVT, in the setting of malignancy Acute hypoxic respiratory failure secondary to malignant pleural effusion Probable postobstructive bacterial pneumonia with resultant sepsis-- completed treatment with cefepime and vanco Transaminitis Epistaxis, hematuria, and normocytic anemia -Case discussed with CT surgery. Cleared to restart heparin drip. -Continue with DuoNebs 4 times daily and as needed, prednisone 30 mg daily. -Oncology recommendations: Genetic testing pending. Outpatient follow-up. -Radiation oncology note reviewed: Radiosurgery on outpatient basis, no steroids indicated at this time. -Pulmonary note reviewed: Wean steroids -Surgery note reviewed: Hemoglobin improving, no further endoscopy needed, will sign off. Mild hyponatremia. resolved Social stressor: No insurance Imaging: None new Data Review: Labs reviewed from today include CBC and CMP which are remarkable for white blood cell count 32.9, hemoglobin 8.6, sodium 136, AST 37, ALT 90, alkaline phosphatase 260. DVT prophylaxis: Heparin gtt Anticipated discharge date: in 24-[address]: home This dictation was prepared using [employer] voice recognition software. Though every attempt is made to correct errors during dictation some may still exist. Objective - Vital Signs Vital signs: Vital Signs Temp 98 F 12/16/23 14:14 Pulse 93 12/16/23 14:46 Resp 16 12/16/23 14:46 BP 141/79 12/16/23 14:46 Pulse Ox 94 L 12/16/23 14:46 FiO2 Intake & Output 12/15/23 12/16/23 12/16/23 18:59 06:59 18:59 Intake Total 100 350 Balance 100 350 Intake: IV 350 Oral 100 Other: Voiding Method Bedpan Toilet Diaper Diaper # Voids 1 2 1 # Bowel Movements 1 - Labs CBC & Chem 7: 12/16/23 08:00 12/16/23 08:00 Labs: Abnormal Lab Results - Last 24 Hours (Table) 12/16/23 12/16/23 12/16/23 Range/Units 08:00 08:00 09:10 WBC 32.9 H (3.8-10.6) k/uL RBC 3.23 L (3.80-5.40) m/uL Hgb 8.6 L (11.4-16.0) gm/dL Hct 28.1 L (34.0-46.0) % MCHC 30.6 L (31.0-37.0) g/dL RDW 16.8 H (11.5-15.5) % Neutrophils # 31.3 H (1.3-7.7) k/uL Lymphocytes # 0.7 L (1.0-4.8) k/uL INR 1.2 H (<1.2) Sodium 136 L (137-145) mmol/L BUN 24 H (7-17) mg/dL Glucose 136 H (74-99) mg/dL AST 37 H (14-36) U/L ALT 90 H (4-34) U/L Alkaline Phosphatase 260 H (38-126) U/L Total Protein 5.6 L (6.3-8.2) g/dL Albumin 2.9 L (3.5-5.0) g/dL Microbiology - Last 24 Hours (Table) 12/14/23 17:00 Urine Culture - Final Urine,Voided
[2023-12-16] MEDS: HEPARIN SODIUM 1,000 UN/ML (10ML VL) IV ONE (17:59)
[2023-12-16] MEDS: HEPARIN SOD,PORK IN 0.45% NACL 25,000 UNIT in 0.45% NACL 1 250ML.BAG IV SCH (17:59)
[2023-12-16 18:04] LABS: INR 1.2 (<1.2); Partial Thromboplastin Time 24.2 sec (22.0-30.0); Prothrombin Time 12.8 sec (10.0-12.5)
[2023-12-17 07:23] LABS: Anisocytosis Slight; HCT 24.9 % (34.0-46.0); HGB 7.7 gm/dL (11.4-16.0); Hypochromasia Moderate; MCH 26.6 pg (25.0-35.0); MCHC 30.8 g/dL (31.0-37.0); MCV 86.3 fL (80.0-100.0); Mean Platelet Volume 7.1; Platelet Count 352 k/uL (150-450); RBC 2.89 m/uL (3.80-5.40); RDW 17.1 % (11.5-15.5)
[2023-12-17 08:06] LABS: ALT 74 U/L (4-34); AST 31 U/L (14-36); African American GFR (CKD) >90 (>60 ml/min/1.73 sqM); Albumin 2.3 g/dL (3.5-5.0); Albumin/Globulin Ratio 0.9; Alkaline Phosphatase 205 U/L (38-126); Anion Gap 2 mmol/L; Blood Urea Nitrogen 26 mg/dL (7-17); Calcium 8.1 mg/dL (8.4-10.2); Carbon Dioxide 28 mmol/L (22-30); Chloride 103 mmol/L (98-107); Globulin 2.5 g/dL; Glucose 90 mg/dL (74-99); Non-African American GFR(CKD) >90 (>60 ml/min/1.73 sqM); Potassium 3.8 mmol/L (3.5-5.1); Sodium 133 mmol/L (137-145); Total Bilirubin 0.2 mg/dL (0.2-1.3); Total Protein 4.8 g/dL (6.3-8.2)
[2023-12-17] MEDS ORDERED: Apixaban Initiation Dose--VTE 5 MG TAB PO SCH (09:00)
[2023-12-17] MEDS ORDERED: HEPARIN SODIUM 1,000 UN/ML (10ML VL) IV PRN (09:01)
[2023-12-17] MEDS: HEPARIN SOD,PORK IN 0.45% NACL 25,000 UNIT in 0.45% NACL 1 250ML.BAG IV SCH (09:31)
--- NOTE | 2023-12-17 11:08 | P.GSCN ---
History of Present Illness Consult date: 12/17/23 Reason for Consult: IVC filter placement Requesting physician: Ileana Quijano History of present illness: This is a pleasant 63-year-old female with metastatic lung cancer admitted for DVT and recurrent pleural effusion. Patient has a left lower extremity DVT, CT angiogram chest was negative for pulmonary embolism. She was started on anticoagulation and her hemoglobin has subsequently dropped with concerns of po ssible GI bleed. Patient is currently on a heparin drip hemoglobin 7.7 platelet count 352,000 INR 1.2. Due to not tolerating anticoagulation vascular surgery was consulted for IVC filter placement. Patient also underwent insertion of right-sided Pleurx catheter yesterday for recurrent right pleural effusion. She had 2500 cc of serous fluid drained. Patient states she does have some discomfort on the left lower extremity, she denies any shortness of breath or chest pain at this time. She is following with oncology Review of Systems A 14 point review systems was completed all pertinent positives and negatives as stated in the HPI. Past Medical History Past Medical History: Cancer, COPD, Deep Vein Thrombosis (DVT), Pneumonia Additional Past Medical History / Comment(s): right lung mass- 11/28/23 diagnosed at [facility], DDD History of Any Multi-Drug Resistant Organisms: None Reported Past Surgical History: Adenoidectomy, Appendectomy, Tonsillectomy, Tubal Ligation Past Anesthesia/Blood Transfusion Reactions: Unable to Obtain Past Psychological History: No Psychological Hx Reported Smoking Status: Former smoker Past Alcohol Use History: Occasional Past Drug Use History: Marijuana - Past Family History Mother Family Medical History: Osteoarthritis (OA) Additional Family Medical History / Comment(s): alive and healthy at age 88 Father Family Medical History: Cancer Additional Family Medical History / Comment(s): of lung and brain CA at age 78 Sister(s) Family Medical History: Cancer Additional Family Medical History / Comment(s): liver CA Brother(s) Family Medical History: Cancer Additional Family Medical History / Comment(s): leukemia; another brother has lung CA Medications and Allergies Home Medications Medication Instructions Recorded Confirmed Type Albuterol Sulfate [Albuterol 2 puff PO RT-Q4H PRN 12/08/23 12/08/23 History Sulfate Hfa] Doxycycline [Vibramycin] 100 mg PO BID 12/08/23 12/08/23 History Ipratropium-Albuterol Nebulize 3 ml INHALATION RT-Q4H 12/08/23 12/08/23 History [Duoneb 0.5 mg-3 mg/3 ml Soln] predniSONE [Deltasone] 20 mg PO BID 12/08/23 12/08/23 History Allergies Allergy/AdvReac Type Severity Reaction Status Date / Time amoxicillin Allergy Rash/Hives Verified 12/16/23 12:34 Penicillins Allergy see comment Verified 12/16/23 12:34 Surgical - Exam Vital Signs Temp Pulse Resp Pulse Ox 97.9 F 105 H 20 96 12/07/23 11:39 12/07/23 11:39 12/07/23 11:39 12/07/23 11:39 General appearance: The patient is alert, oriented, appears in no acute distress. HET: Head is normocephalic and atraumatic. Pupils are equal and reactive. Neck: Supple. Heart: Regular. Lungs: Equal expansion, normal respiratory effort. Abdomen: Soft, nontender, nondistended. Extremities: Normal skin color and turgor. Left lower extremity swelling. Bilateral DP pulses. Neurological: No focal deficits. Strength and sensation are grossly intact. Results - Labs 12/17/23 06:55 12/17/23 06:55 Abnormal Lab Results - Last 24 Hours (Table) 12/16/23 12/16/23 12/16/23 Range/Units 08:00 17:41 23:53 WBC (3.8-10.6) k/uL RBC (3.80-5.40) m/uL Hgb (11.4-16.0) gm/dL Hct (34.0-46.0) % MCHC (31.0-37.0) g/dL RDW (11.5-15.5) % Neutrophils # 31.3 H (1.3-7.7) k/uL Lymphocytes # 0.7 L (1.0-4.8) k/uL PT 12.8 H (10.0-12.5) sec INR 1.2 H (<1.2) APTT 60.0 H (22.0-30.0) sec Sodium (137-145) mmol/L BUN (7-17) mg/dL Calcium (8.4-10.2) mg/dL ALT (4-34) U/L Alkaline Phosphatase (38-126) U/L Total Protein (6.3-8.2) g/dL Albumin (3.5-5.0) g/dL 12/17/23 12/17/23 12/17/23 Range/Units 06:55 06:55 06:55 WBC 22.0 H (3.8-10.6) k/uL RBC 2.89 L (3.80-5.40) m/uL Hgb 7.7 L (11.4-16.0) gm/dL Hct 24.9 L (34.0-46.0) % MCHC 30.8 L (31.0-37.0) g/dL RDW 17.1 H (11.5-15.5) % Neutrophils # (1.3-7.7) k/uL Lymphocytes # (1.0-4.8) k/uL PT (10.0-12.5) sec INR (<1.2) APTT 64.9 H (22.0-30.0) sec Sodium 133 L (137-145) mmol/L BUN 26 H (7-17) mg/dL Calcium 8.1 L (8.4-10.2) mg/dL ALT 74 H (4-34) U/L Alkaline Phosphatase 205 H (38-126) U/L Total Protein 4.8 L (6.3-8.2) g/dL Albumin 2.3 L (3.5-5.0) g/dL Diabetes panel 12/17/23 Range/Units 06:55 Sodium 133 L (137-145) mmol/L Potassium 3.8 (3.5-5.1) mmol/L Chloride 103 (98-107) mmol/L Carbon Dioxide 28 (22-30) mmol/L BUN 26 H (7-17) mg/dL Creatinine 0.63 (0.52-1.04) mg/dL Glucose 90 (74-99) mg/dL Calcium 8.1 L (8.4-10.2) mg/dL AST 31 (14-36) U/L ALT 74 H (4-34) U/L Alkaline Phosphatase 205 H (38-126) U/L Total Protein 4.8 L (6.3-8.2) g/dL Albumin 2.3 L (3.5-5.0) g/dL Calcium panel 12/17/23 Range/Units 06:55 Calcium 8.1 L (8.4-10.2) mg/dL Albumin 2.3 L (3.5-5.0) g/dL Pituitary panel 12/17/23 Range/Units 06:55 Sodium 133 L (137-145) mmol/L Potassium 3.8 (3.5-5.1) mmol/L Chloride 103 (98-107) mmol/L Carbon Dioxide 28 (22-30) mmol/L BUN 26 H (7-17) mg/dL Creatinine 0.63 (0.52-1.04) mg/dL Glucose 90 (74-99) mg/dL Calcium 8.1 L (8.4-10.2) mg/dL Adrenal panel 12/17/23 Range/Units 06:55 Sodium 133 L (137-145) mmol/L Potassium 3.8 (3.5-5.1) mmol/L Chloride 103 (98-107) mmol/L Carbon Dioxide 28 (22-30) mmol/L BUN 26 H (7-17) mg/dL Creatinine 0.63 (0.52-1.04) mg/dL Glucose 90 (74-99) mg/dL Calcium 8.1 L (8.4-10.2) mg/dL Total Bilirubin 0.2 (0.2-1.3) mg/dL AST 31 (14-36) U/L ALT 74 H (4-34) U/L Alkaline Phosphatase 205 H (38-126) U/L Total Protein 4.8 L (6.3-8.2) g/dL Albumin 2.3 L (3.5-5.0) g/dL - Imaging Comments: Venous duplex: Extensive DVT from left distal external iliac veins to the proximal left calf veins Chest CT angiogram no evidence of pulmonary embolism. Large conglomerate mediastinal and right hilar adenopathy with associated multiple spiculated nodules in the right upper lung. Findings are concerning for underlying malignancy. Moderate right pleural effusion, likely sequela of impression #2 Assessment and Plan Assessment: 1. Left lower extremity DVT 2. Anemia, unable to tolerate anticoagulation 3. Metastatic lung cancer 4. Right pleural effusion status post right-sided Pleurx catheter insertion Plan: 1. Keep patient n.p.o. 2. Stop heparin drip at 12:00 today 3. Plan for IVC filter placement this afternoon. Procedure discussed with patient and she is agreeable to proceed 4. Continue with further recommendations from oncology and primary medical team Thank you for this consultation, we will continue to follow. The impression and plan of care has been dictated as directed. Dr. House I performed a history and examination of this patient, discussed the same with the dictator. I agree with the dictator's note ,documented as a scribe. Any additional findings or plans will be noted.
--- NOTE | 2023-12-17 11:41 | P.PN ---
Subjective Progress Note Date: 12/17/23 This is a very pleasant 63-year-old female patient with a known history of chronic and ongoing tobacco dependence. For approximately 3 to 4 weeks she had been having increasing shortness of breath, cough and congestion. She was treated with albuterol, doxycycline and prednisone in the outpatient setting without much improvement. Chest x-ray had revealed a new right sided lung mass. She was scheduled to be seen in our office today for the same. However yesterday she developed increasing pain and edema of the left lower extremity and presented here to the emergency room. Dopplers revealed an extensive DVT from the left distal external iliac veins to the prominent left calf veins. CT angiogram revealed no evidence of pulmonary embolism however there is a large conglomerate mediastinal and right hilar adenopathy with associated multiple spiculated nodules of the right upper lung. There is also a moderate right pleural effusion. Findings are concerning for malignancy. Ultrasound of the r ight chest reveals a 4.2 cm pocket. White count 27.0. Hemoglobin 8.0. Platelets 366. Sodium 134. Potassium 4.3. Bicarb 27. BUN 32. Creatinine 0.53. Glucose 104. A ST 36. ALT 46. Procalcitonin 0.20. She is currently on a heparin drip. She is seen today in consultation in the emergency department. She is currently sitting up on a stretcher. Awake and alert in no acute distress. She denies any worsening shortness of breath, cough or congestion. No hemoptysis. Left lower extremity pain is subsiding but still present. She states she has lost approximately 22 pounds over the past year. She does have chronic and ongoing tobacco dependence of greater than 30 years. She remains quite active. Prior to this recent illness within the past month she had been feeling fine and no significant medical history. She has been initiated on vancomycin and cefepime. She is on bronchodilators. Normal saline at 75 MLS per hour. The patient is seen today December 09, 2023 in follow-up on the regular medical floor. She is currently sitting up in bed. Awake and alert in no acute distre ss. She is maintaining good O2 saturation in the 90s on 2 L/min per nasal cannula. She has been afebrile. Hemodynamically stable. She did undergo a right-sided thoracentesis today with Dr. Otoole. 1.2 L of cloudy yellow fluid was removed. Fluid analysis and cytology pending. Her heparin had been on hold which has now been resumed. White count 16.7. Hemoglobin 7.2. Platelets 319. Sodium 131. Potassium 3.8. Bicarb 25. BUN 22. Creatinine 0.46. Glucose 104. Vancomycin trough 9.6. Remains on vancomycin and cefepime. Continued on bronchodilators. Follow-up chest x-ray revealed similar fullness in the right hilar region, residual right pleural effusion. No evidence of pneumothorax. Left lung is clear. The patient is seen today December 10, 2023 in follow-up on the regular medical floor. She is currently resting comfortably in bed. Awake and alert in no acute distress. Maintaining good O2 saturations in the 90s on 3 L/min per nasal cannula. Afebrile. Hemodynamically stable. She is receiving 1 unit of packed red blood cells today. Her hemoglobin dropped to 6.3. Platelets 260,000. White count 15.9. Sodium 127. Potassium 3.6. Bicarb 22. BUN 17. Creatinine 0.47. Glucose 107. Pleural fluid analysis exudate with an LDH of 639 and a total protein of 4.7 and cytology pending. She remains on DuoNeb ventilations. Antibiotics in the form of vancomycin and cefepime. She is continued on a heparin drip for her extensive left lower extremity DVT. The patient is seen today December 11, 2023 in follow-up on the regular medical floor. She is sitting up in bed. Awake and alert in no acute distress. She is maintaining good O2 saturations in the 90s on 2 L/min per nasal cannula. She is afebrile. Blood pressure stable. CT scan of the abdomen and pelvis revealed bilateral adrenal gland metastases. 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 A couple of intraperitoneal nodules, adjacent to the liver and posterior to the left kidney. Small nodules in the subcutaneous fat of the right thigh and left anterior pericardial fat. All likely metastatic. Cytology from pleural fluid still pending. White count 17.3. Hemoglobin 7.5. Platelets 305. Status post 1 unit of packed red blood cells. She is continued on a heparin drip. Stool for occult blood is positive. She remains on bronchodilators. Antibiotics in the form of vancomycin and cefepime. Dilaudid for plane control. The patient is seen today December 12, 2023 in follow-up on the regular medical floor. She remains awake and alert in no acute distress. Sitting up at the bedside. Denies any worsening shortness of breath, cough or congestion. She is continued on bronchodilators and antibiotics in the form of vancomycin and cefepime. Continued on a heparin drip. MRI of the brain reveals metastatic lesions within the right cerebellum, sulcus and left vertex and within the posterior occipital calvarium. She is status post 1 unit of packed red blood cells this admission. Current hemoglobin 7.8. Platelets 371. White count 13.0. Sodium 131. Potassium 4.4. Bicarb 25. BUN 12. Creatinine 0.52. Vancomycin trough 18.4. The patient is seen today December 13, 2023 in follow-up on the regular medical floor. She is currently sitting up in bed. Family at the bedside. She is awake and alert in no acute distress. Maintaining good O2 saturations in the 90s on 2 L/min per nasal cannula. She did have a incident of acute shortness of breath and anxiety early this morning and treated with bronchodilators and steroids and recovered. X-ray is showing increasing opacity in the right lung recurrent pleural effusion. Arterial blood gases revealed a pO2 of 83, pCO2 of 37 and a pH of 7.43 on 50% FiO2. White count 17.5. Hemoglobin 8.2. Platelets 383. Sodium 131. Potassium 3.6. Bicarb 22. BUN 12. Creatinine 0.44. Glucose 155. She remains on vancomycin and cefepime. Continued on bronchodilators. Anticoagulated with Eliquis. The patient is seen today December 14, 2023 in follow-up on the regular medical floor. She is resting comfortably in bed. Awake and alert in no acute distress. She is maintaining O2 saturations in the mid 90s on 3 L/min per nasal cannula. Blood cultures revealed no growth. Pleural fluid cultures revealed no growth. White count 28.9. Hemoglobin 8.2. Platelets 510. Sodium 132. Potassium 3.9. Bicarb 24. BUN 16. Creatinine 0.57. Glucose 121. She continues on bronchodilators, cefepime. Xanax for anxiety. Remains anticoagulated with Eliquis. The patient is seen today December 15, 2023 in follow-up on the regular medical floor. She is currently resting in bed. Continue O2 saturations in the mid 90s on 4 L/min per nasal cannula. She is afebrile. Hemodynamically stable. Rest x-ray continues to show increasing moderate right pleural effusion with right perihilar infiltrate. Developing minimal left pleural effusion. Plan is for right-sided Pleurx catheter to be placed tomorrow per CT services. She is status post 1 unit of packed red blood cells this admission. Current hemoglobin 8.3. Platelets 457. White count 19.1. Sodium 131. Potassium 4.1. Bicarb 24. BUN 16. Creatinine 0.48. Glucose 167. Pleural fluid cultures revealed no growth. She remains on DuoNeb inhalations, cefepime. The patient is seen today December 16, 2023 in follow-up on the regular medical floor. She is currently sitting up at the bedside. Awake and alert in no acute distress. Maintaining good O2 saturations in the 90s on 4 L/min per nasal cannula. She has been afebrile. Hemodynamically stable. Plan is for Pleurx catheter placement today to the right chest where there has been recurrent and increasing pleural effusion. She is status post 1 unit of packed red blood cells this admission. Current hemoglobin 8.6. Platelets 403. White count 32.9. Sodium 136. Potassium 4.4. Bicarb 24. BUN 24. Creatinine 0.54. Glucose 136. She completed a course of cefepime. She remains on bronchodilators and steroids. The patient is seen today December 17, 2023 in follow-up on the regular medical floor. She is awake and alert in no acute distress. Anxious to go home. She is maintaining good O2 saturations in the 90s on 3 L/min per nasal cannula. She states she does have home oxygen. She is currently on a heparin drip that will be transition to Eliquis. She is status post Pleurx catheter placement and is educated how to drain it at home. Blood and urine cultures revealed no growth. Pleural fluid cultures revealed no growth. White count 22.0. Hemoglobin 7.7. Platelets 352. Sodium 133. Potassium 3.8. Bicarb 28. BUN 26. Creatinine 0.63. Glucose 90. She remains on DuoNeb inhalations, prednisone taper. Objective - Vital Signs Vital signs: Vital Signs Temp 98.5 F 12/17/23 07:41 Pulse 83 12/17/23 08:50 Resp 19 12/17/23 08:50 BP 143/60 12/17/23 07:41 Pulse Ox 98 12/17/23 08:32 FiO2 Intake & Output 12/16/23 12/17/23 12/17/23 18:59 06:59 18:59 Intake Total 350 100 Output Total 1 Balance 350 100 -1 Intake: IV 350 Oral 100 Output: Stool 1 Other: Voiding Method Toilet Toilet Toilet Diaper Diaper Diaper # Voids 1 3 - Exam GENERAL EXAM: Alert, cachectic, very pleasant 63-year-old female, on 3 L nasal cannula, in no apparent distress. HEAD: Normocephalic. EYES: Normal reaction of pupils, equal size. NOSE: Clear with pink turbinates. THROAT: No erythema or exudates. NECK: No masses, no JVD. CHEST: No chest wall deformity. LUNGS: Equal air entry with crackles and dullness of the right lung base. CVS: S1 and S2 normal with no audible murmur, regular rhythm. ABDOMEN: No hepatosplenomegaly, normal bowel sounds, no guarding or rigidity. SPINE: No scoliosis or deformity SKIN: No rashes CENTRAL NERVOUS SYSTEM: No focal deficits, tone is normal in all 4 extremities. EXTREMITIES: There is 1+ peripheral edema of the left lower extremity. No clubbing, no cyanosis. Peripheral pulses are intact. - Labs CBC & Chem 7: 12/17/23 06:55 12/17/23 06:55 Labs: Abnormal Lab Results - Last 24 Hours (Table) 12/16/23 12/16/23 12/17/23 Range/Units 17:41 23:53 06:55 WBC 22.0 H (3.8-10.6) k/uL RBC 2.89 L (3.80-5.40) m/uL Hgb 7.7 L (11.4-16.0) gm/dL Hct 24.9 L (34.0-46.0) % MCHC 30.8 L (31.0-37.0) g/dL RDW 17.1 H (11.5-15.5) % PT 12.8 H (10.0-12.5) sec INR 1.2 H (<1.2) APTT 60.0 H (22.0-30.0) sec Sodium (137-145) mmol/L BUN (7-17) mg/dL Calcium (8.4-10.2) mg/dL ALT (4-34) U/L Alkaline Phosphatase (38-126) U/L Total Protein (6.3-8.2) g/dL Albumin (3.5-5.0) g/dL 12/17/23 12/17/23 Range/Units 06:55 06:55 WBC (3.8-10.6) k/uL RBC (3.80-5.40) m/uL Hgb (11.4-16.0) gm/dL Hct (34.0-46.0) % MCHC (31.0-37.0) g/dL RDW (11.5-15.5) % PT (10.0-12.5) sec INR (<1.2) APTT 64.9 H (22.0-30.0) sec Sodium 133 L (137-145) mmol/L BUN 26 H (7-17) mg/dL Calcium 8.1 L (8.4-10.2) mg/dL ALT 74 H (4-34) U/L Alkaline Phosphatase 205 H (38-126) U/L Total Protein 4.8 L (6.3-8.2) g/dL Albumin 2.3 L (3.5-5.0) g/dL Assessment and Plan Assessment: Acute left lower extremity pain and swelling in a patient found to have an extensive left lower extremity DVT. Initiated on a heparin drip and transitioned to Eliquis Recent diagnosis of lung mass with no follow-up thus far. CT angiogram ruled out pulmonary embolism. There is a large conglomerate mediastinal and right hilar adenopathy with associated multiple spiculated nodules in the right upper lung. Concerning for malignancy, possible small cell lung cancer. CT scan of the abdomen and pelvis revealed bilateral adrenal gland metastases. 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 A couple of IntraOp p eritoneal nodules, adjacent to the liver and posterior to the left kidney. Small nodules in the subcutaneous fat of the right thigh and left anterior pericardial fat. All likely metastatic. MRI of the brain reveals metastatic lesions within the right cerebellum, sulcus and left vertex and within the posterior occipital calvarium. Moderate right-sided pleural effusion secondary to above. Status post thoracentesis with 1.2 L of cloudy yellow fluid removed December 09, 2023. Cytology positive for metastatic adenocarcinoma consistent with lung primary Recurrent right-sided pleural effusion, Pleurx catheter placed12/16/2023 Acute hypoxemic respiratory failure secondary to above and suspected p ostobstructive pneumonia, currently on cefepime. Leukocytosis secondary to above, improved Weight loss up to 22 pounds in the past year Chronic and ongoing tobacco dependence of greater than 30 years Anemia, current hemoglobin 8.6, received 1 unit of packed red blood cells, stool for occult blood positive Plan: The patient was seen and evaluated Labs and medications reviewed Heparin discontinued Initiated on Eliquis Continued on bronchodilators, prednisone Completed antibiotics States she has home oxygen Cleared for discharge from the pulmonary standpoint Follow-up in our office in 1 week This patient was seen independently by the pulmonary nurse practitioner addressing pulmonary issues I have personally seen and examined the patient, performed the documentation and the assessment and plan as written. Number of minutes spent on the visit: 22.
[2023-12-17 13:12] LABS: Appearance,Urine Cloudy (Clear); Bacteria,Urine Occasional /hpf; Bilirubin,Urine Negative (Negative); Blood,Urine Moderate (Negative); Color,Urine Light Red; Glucose,Urine (UA) Negative (Negative); Hyaline Casts,Urine 18 /lpf (0-2); Ketones,Urine Negative (Negative); Leukocyte Esterase,Urine Small (Negative); Mucus,Urine Rare /hpf; Nitrite,Urine Negative (Negative); PH, Urine 5.5 (5.0-8.0); Protein,Urine 1+ (Negative); RBC,Urine >182 /hpf (0-5); Specific Gravity,Urine 1.019 (1.001-1.035); Urobilinogen,Urine <2.0 mg/dL (<2.0); WBC,Urine 27 /hpf (0-5)
[2023-12-17] MEDS ORDERED: LIDOCAINE 1% INJ 10MG/ML (20 ML MDV) ONE (13:53)
[2023-12-17] MEDS ORDERED: fentaNYL (PF) 50 MCG/ML 2 ML AMP ONE (13:53)
[2023-12-17] MEDS: fentaNYL (PF) 50 MCG/1 ML VIAL IVP ONE (14:18)
[2023-12-17] MEDS: MIDAZOLAM 2 MG/2 ML VIAL IVP ONE (14:18)
[2023-12-17] MEDS: LIDOCAINE 1% INJ 10MG/ML (20 ML MDV) SQ ONE (14:18)
[2023-12-17] MEDS: IOPAMIDOL-370 100ML BTL INTRATHECA ONE (14:30)
[2023-12-17] MEDS: SODIUM CHLORIDE 0.9% 500 ML 500 ML IV ONE (14:31)
--- NOTE | 2023-12-17 14:39 | P.OP ---
Date of Procedure: 12/17/23 Description of Procedure: Preoperative diagnosis: Left lower extremity DVT, inability to tolerate anticoagulation Postoperative diagnosis: Same Procedure: #1 ultrasound-guided right common femoral vein access 2. Right iliofemoral venogram 3. Venacavogram 4. Placement of IVC filter, Sheeba 5. Moderate conscious sedation x 9 minutes with personal monitoring of certified RN administration and hemodynamic monitoring Surgeon: Luz House D.O. EBL: Less than 5 cc IV fluids: See records Urine output: Not measured Drains: None Complications: None immediately apparent Condition: Stable to recovery Operative indication and findings: Patient is a 63-year-old female long metastatic adenocarcinoma of her lung as well as evidence of a DVT of the left lower extremity. She has been having significant issues with epistaxis and hematuria and inability to tolerate anticoagulation therefore recommendations were made for placement of IVC filter. Risks and benefits were discussed. He seems understand willing to proceed. Procedure in detail: Patient was taken to the special suite and placed in supine position. The bilateral groins were prepped and draped in usual sterile fashion. A preprocedural timeout was performed, all parties were in agreement. Using ultrasound, the right common femoral vein was identified. It was found to be patent and compressible without any visualized thrombus. A permanent image was stored. Using the ultrasound, the vein was accessed and Seldinger technique was used to place a 6 English sheath. An iliofemoral venous gram was performed. Catheters and wires were then used to access the inferior vena cava. The sheath was then exchanged out for a standard IVC filter placement sheath. A venacavogram was performed to identify the renal vessels. The vena cava filter was deployed in standard fashion. A repeat venogram was performed showing adequate positioning. Catheters and wires were then removed. The sheath was removed and manual pressure was held until hemostasis was adequate. The patient tolerated the procedure well was sent back to her room.
--- NOTE | 2023-12-17 15:57 | IR ---
Fluoroscopy INDICATION: Placement of an IVC filter FINDINGS: Fluoroscopy time: 36 seconds. Total dose area product (DAP) in uGy*m?, mGy*cm? (or similar): 9.36 Images obtained: 139. IMPRESSION: 1. Documentation of fluoroscopy.
--- NOTE | 2023-12-17 16:00 | US ---
EXAMINATION TYPE: US kidneys/renal and bladder DATE OF EXAM: 12/17/2023 COMPARISON: CT 11/20/23 CLINICAL INDICATION: Female, 63 years old with history of hematuria; EXAM MEASUREMENTS: Right Kidney: 10.8 x 5.5 x 4.7 cm Left Kidney: 11.1 x 4.9 x 4.9 cm *Patient voided just prior to exam Right Kidney: No hydronephrosis or masses seen Left Kidney: No hydronephrosis or masses seen Bladder: Non-distended Bilateral Jets seen: No There is no evidence for hydronephrosis at this point in time. No nephrolithiasis is seen. No balaji s are identified. The urinary bladder is anechoic. Bilateral ureteral jets are seen. INCIDENTAL FIND: bilateral plueral effusion noted. Patient just had port placed yesterday to drain plueral space fluid. IMPRESSION: 1. No suspicious ultrasound changes of the kidneys. 2. Bilateral pleural effusions
--- NOTE | 2023-12-17 16:35 | P.PN ---
Subjective Progress Note Date: 12/17/23 (delayed charting seen at 0830) Patient is a 63-year-old female with no prior known medical conditions and nicotine dependency who presented to the emergency room with complaints of left lower extremity swelling and shortness of breath. In the emergency department she undewent an extensive evaluation. Lower extremity venous Doppler showed extensive DVT in the left distal iliac veins to the proximal left calf veins. Unfortunately, Chest CTA in the emergency room revealed large mediastinal and right hilar adenopathy with multiple nodules in the right upper lung concerning for malignancy and moderate right-sided pleural effusion likely sequela of the malignancy, but was negative for pulmonary embolism. Laboratory evaluation was remarkable for leukocytosis of 28.7 and hemoglobin 9.5. He was subsequently started on heparin drip and arrangements were made for admission. Pulmonary was consulted and patient underwent thoracentesis which demonstrated exudative pleural effusion. Cytology came back with metastatic adenocarcinoma consistent with lung primary. Oncology was consulted. Additional malignancy workup included CT abdomen and pelvis which demonstrated bilateral adrenal gland metastasis, destructive metastasis in the pubic bone, intraperitoneal nodules adjacent to the liver and left kidneys, small nodules in the subcutaneous fat of the right thigh all likely metastatic, moderate body wall edema suggesting anasarca. MRI of the brain demonstrated metastatic lesions within the right cerebellum, sulcus of the left vertex, and posterior occipital calvarium. Radiation oncology was consulted and they felt that stereotactic radiosurgery was most appropriate and could be completed on outpatient basis. They did not feel steroids were required at this time. Patient developed worsening anemia and possible acute GI bleed. General Surgery was consulted who felt this was more consistent with malignancy than acute GI bleed. Patient's pleural effusion recurred quickly and CT surgery was consulted and patient underwent Pleurx catheter placement on 12/16/2023. Patient seen and examined at bedside. She reports that she feels slightly short of breath today and anxious. She has lots of questions about her care. She has specific questions about whether or not she should be pursuing treatment. I did extensively explain the difference to her between whole brain radiation and stereotactic radiosurgery. I explained that we often use this in palliation to prevent strokelike symptoms from developing with the patient given the severity of symptoms that can develop with significant brain mass especially with edema and that we would like to prevent these. We did discuss that she could have options for chemo, immunotherapy, or combination of both but that oncology is currently awaiting tumor markers/genetic testing to be able to present these symptoms to her. She is wondering why she would do this if she only has 15 months left. I explained to her that without treatment she likely has significantly less time especially without treatment of brain tumor. 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 Will proceed with IVC filter placement given that the patient is having recurrent blood in her brief as well as some epistaxis. Patient continues to have significant hematuria with greater than 182 white blood cells and moderate blood in the urine -Case discussed with vascular surgery nurse practitioner they will proceed with IVC filter today versus tomorrow. -Will continue Heparin drip as it is easy to turn off but once IVC filter is placed we will discontinue anticoagulation due to recurrent bleeding -Pulmonary consultation reviewed: They initially recommended discontinuing heparin and initiating patient on Eliquis. Follow-up in office in 1 week. -Continue with DuoNebs 4 times daily and as needed, prednisone 30 mg daily. -Awaiting tumor markers. Outpatient follow-up. -Radiation oncology note reviewed: Radiosurgery on outpatient basis, no steroids indicated at this time. -Surgery note reviewed: Hemoglobin improving, no further endoscopy needed, will sign off. -Repeat CBC in a.m. Mild hyponatremia. resolved Social stressor: No insurance Imaging: None new Data Review: Labs reviewed from today include CBC and CMP which are remarkable for white blood cell count 22, hemoglobin 7.7, platelets of 352, sodium 133 DVT prophylaxis: Heparin gtt Anticipated discharge date: in AM Anticipated discharge place: home This dictation was prepared using [employer] voice recognition software. Though every attempt is made to correct errors during dictation some may still exist. Objective - Vital Signs Vital signs: Vital Signs Temp 98.2 F 12/17/23 10:01 Pulse 86 12/17/23 11:59 Resp 20 12/17/23 10:01 BP 138/74 12/17/23 10:01 Pulse Ox 98 12/17/23 08:32 FiO2 Intake & Output 12/16/23 12/17/23 12/17/23 18:59 06:59 18:59 Intake Total 350 100 100 Output Total 1 Balance 350 100 99 Intake: IV 350 100 Oral 100 Output: Stool 1 Other: Voiding Method Toilet Toilet Toilet Diaper Diaper Diaper # Voids 1 3 - Labs CBC & Chem 7: 12/17/23 06:55 12/17/23 06:55 Labs: Abnormal Lab Results - Last 24 Hours (Table) 12/16/23 12/16/23 12/17/23 Range/Units 17:41 23:53 06:55 WBC 22.0 H (3.8-10.6) k/uL RBC 2.89 L (3.80-5.40) m/uL Hgb 7.7 L (11.4-16.0) gm/dL Hct 24.9 L (34.0-46.0) % MCHC 30.8 L (31.0-37.0) g/dL RDW 17.1 H (11.5-15.5) % PT 12.8 H (10.0-12.5) sec INR 1.2 H (<1.2) APTT 60.0 H (22.0-30.0) sec Sodium (137-145) mmol/L BUN (7-17) mg/dL Calcium (8.4-10.2) mg/dL ALT (4-34) U/L Alkaline Phosphatase (38-126) U/L Total Protein (6.3-8.2) g/dL Albumin (3.5-5.0) g/dL Urine Appearance (Clear) Urine Protein (Negative) Urine Blood (Negative) Ur Leukocyte Esterase (Negative) Urine RBC (0-5) /hpf Urine WBC (0-5) /hpf Urine Bacteria (None) /hpf Hyaline Casts (0-2) /lpf Urine Mucus (None) /hpf 12/17/23 12/17/23 12/17/23 Range/Units 06:55 06:55 11:05 WBC (3.8-10.6) k/uL RBC (3.80-5.40) m/uL Hgb (11.4-16.0) gm/dL Hct (34.0-46.0) % MCHC (31.0-37.0) g/dL RDW (11.5-15.5) % PT (10.0-12.5) sec INR (<1.2) APTT 64.9 H (22.0-30.0) sec Sodium 133 L (137-145) mmol/L BUN 26 H (7-17) mg/dL Calcium 8.1 L (8.4-10.2) mg/dL ALT 74 H (4-34) U/L Alkaline Phosphatase 205 H (38-126) U/L Total Protein 4.8 L (6.3-8.2) g/dL Albumin 2.3 L (3.5-5.0) g/dL Urine Appearance Cloudy H (Clear) Urine Protein 1+ H (Negative) Urine Blood Moderate H (Negative) Ur Leukocyte Esterase Small H (Negative) Urine RBC >182 H (0-5) /hpf Urine WBC 27 H (0-5) /hpf Urine Bacteria Occasional H (None) /hpf Hyaline Casts 18 H (0-2) /lpf Urine Mucus Rare H (None) /hpf
[2023-12-18 06:45] LABS: Anisocytosis Slight; HCT 26.5 % (34.0-46.0); Hypochromasia Slight; MCH 26.1 pg (25.0-35.0); MCHC 30.2 g/dL (31.0-37.0); MCV 86.2 fL (80.0-100.0); Mean Platelet Volume 7.2; Platelet Count 276 k/uL (150-450); RBC 3.07 m/uL (3.80-5.40); RDW 17.1 % (11.5-15.5); WBC 18.8 k/uL (3.8-10.6)
[2023-12-18 07:06] LABS: African American GFR (CKD) >90 (>60 ml/min/1.73 sqM); Anion Gap 3 mmol/L; Blood Urea Nitrogen 22 mg/dL (7-17); Calcium 7.9 mg/dL (8.4-10.2); Carbon Dioxide 30 mmol/L (22-30); Chloride 99 mmol/L (98-107); Glucose 95 mg/dL (74-99); Non-African American GFR(CKD) >90 (>60 ml/min/1.73 sqM); Potassium 3.6 mmol/L (3.5-5.1); Sodium 132 mmol/L (137-145)
[2023-12-18 08:17] VITALS: BP 114/67; RESP 19; TEMP 99
--- NOTE | 2023-12-18 11:00 | P.PN ---
Subjective Progress Note Date: 12/18/23 This is a very pleasant 63-year-old female patient with a known history of chronic and ongoing tobacco dependence. For approximately 3 to 4 weeks she had been having increasing shortness of breath, cough and congestion. She was treated with albuterol, doxycycline and prednisone in the outpatient setting without much improvement. Chest x-ray had revealed a new right sided lung mass. She was scheduled to be seen in our office today for the same. However yesterday she developed increasing pain and edema of the left lower extremity and presented here to the emergency room. Dopplers revealed an extensive DVT from the left distal external iliac veins to the prominent left calf veins. CT angiogram revealed no evidence of pulmonary embolism however there is a large conglomerate mediastinal and right hilar adenopathy with associated multiple spiculated nodules of the right upper lung. There is also a moderate right pleural effusion. Findings are concerning for malignancy. Ultrasound of the r ight chest reveals a 4.2 cm pocket. White count 27.0. Hemoglobin 8.0. Platelets 366. Sodium 134. Potassium 4.3. Bicarb 27. BUN 32. Creatinine 0.53. Glucose 104. A ST 36. ALT 46. Procalcitonin 0.20. She is currently on a heparin drip. She is seen today in consultation in the emergency department. She is currently sitting up on a stretcher. Awake and alert in no acute distress. She denies any worsening shortness of breath, cough or congestion. No hemoptysis. Left lower extremity pain is subsiding but still present. She states she has lost approximately 22 pounds over the past year. She does have chronic and ongoing tobacco dependence of greater than 30 years. She remains quite active. Prior to this recent illness within the past month she had been feeling fine and no significant medical history. She has been initiated on vancomycin and cefepime. She is on bronchodilators. Normal saline at 75 MLS per hour. The patient is seen today December 09, 2023 in follow-up on the regular medical floor. She is currently sitting up in bed. Awake and alert in no acute distre ss. She is maintaining good O2 saturation in the 90s on 2 L/min per nasal cannula. She has been afebrile. Hemodynamically stable. She did undergo a right-sided thoracentesis today with Dr. Otoole. 1.2 L of cloudy yellow fluid was removed. Fluid analysis and cytology pending. Her heparin had been on hold which has now been resumed. White count 16.7. Hemoglobin 7.2. Platelets 319. Sodium 131. Potassium 3.8. Bicarb 25. BUN 22. Creatinine 0.46. Glucose 104. Vancomycin trough 9.6. Remains on vancomycin and cefepime. Continued on bronchodilators. Follow-up chest x-ray revealed similar fullness in the right hilar region, residual right pleural effusion. No evidence of pneumothorax. Left lung is clear. The patient is seen today December 10, 2023 in follow-up on the regular medical floor. She is currently resting comfortably in bed. Awake and alert in no acute distress. Maintaining good O2 saturations in the 90s on 3 L/min per nasal cannula. Afebrile. Hemodynamically stable. She is receiving 1 unit of packed red blood cells today. Her hemoglobin dropped to 6.3. Platelets 260,000. White count 15.9. Sodium 127. Potassium 3.6. Bicarb 22. BUN 17. Creatinine 0.47. Glucose 107. Pleural fluid analysis exudate with an LDH of 639 and a total protein of 4.7 and cytology pending. She remains on DuoNeb ventilations. Antibiotics in the form of vancomycin and cefepime. She is continued on a heparin drip for her extensive left lower extremity DVT. The patient is seen today December 11, 2023 in follow-up on the regular medical floor. She is sitting up in bed. Awake and alert in no acute distress. She is maintaining good O2 saturations in the 90s on 2 L/min per nasal cannula. She is afebrile. Blood pressure stable. CT scan of the abdomen and pelvis revealed bilateral adrenal gland metastases. 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 A couple of intraperitoneal nodules, adjacent to the liver and posterior to the left kidney. Small nodules in the subcutaneous fat of the right thigh and left anterior pericardial fat. All likely metastatic. Cytology from pleural fluid still pending. White count 17.3. Hemoglobin 7.5. Platelets 305. Status post 1 unit of packed red blood cells. She is continued on a heparin drip. Stool for occult blood is positive. She remains on bronchodilators. Antibiotics in the form of vancomycin and cefepime. Dilaudid for plane control. The patient is seen today December 12, 2023 in follow-up on the regular medical floor. She remains awake and alert in no acute distress. Sitting up at the bedside. Denies any worsening shortness of breath, cough or congestion. She is continued on bronchodilators and antibiotics in the form of vancomycin and cefepime. Continued on a heparin drip. MRI of the brain reveals metastatic lesions within the right cerebellum, sulcus and left vertex and within the posterior occipital calvarium. She is status post 1 unit of packed red blood cells this admission. Current hemoglobin 7.8. Platelets 371. White count 13.0. Sodium 131. Potassium 4.4. Bicarb 25. BUN 12. Creatinine 0.52. Vancomycin trough 18.4. The patient is seen today December 13, 2023 in follow-up on the regular medical floor. She is currently sitting up in bed. Family at the bedside. She is awake and alert in no acute distress. Maintaining good O2 saturations in the 90s on 2 L/min per nasal cannula. She did have a incident of acute shortness of breath and anxiety early this morning and treated with bronchodilators and steroids and recovered. X-ray is showing increasing opacity in the right lung recurrent pleural effusion. Arterial blood gases revealed a pO2 of 83, pCO2 of 37 and a pH of 7.43 on 50% FiO2. White count 17.5. Hemoglobin 8.2. Platelets 383. Sodium 131. Potassium 3.6. Bicarb 22. BUN 12. Creatinine 0.44. Glucose 155. She remains on vancomycin and cefepime. Continued on bronchodilators. Anticoagulated with Eliquis. The patient is seen today December 14, 2023 in follow-up on the regular medical floor. She is resting comfortably in bed. Awake and alert in no acute distress. She is maintaining O2 saturations in the mid 90s on 3 L/min per nasal cannula. Blood cultures revealed no growth. Pleural fluid cultures revealed no growth. White count 28.9. Hemoglobin 8.2. Platelets 510. Sodium 132. Potassium 3.9. Bicarb 24. BUN 16. Creatinine 0.57. Glucose 121. She continues on bronchodilators, cefepime. Xanax for anxiety. Remains anticoagulated with Eliquis. The patient is seen today December 15, 2023 in follow-up on the regular medical floor. She is currently resting in bed. Continue O2 saturations in the mid 90s on 4 L/min per nasal cannula. She is afebrile. Hemodynamically stable. Rest x-ray continues to show increasing moderate right pleural effusion with right perihilar infiltrate. Developing minimal left pleural effusion. Plan is for right-sided Pleurx catheter to be placed tomorrow per CT services. She is status post 1 unit of packed red blood cells this admission. Current hemoglobin 8.3. Platelets 457. White count 19.1. Sodium 131. Potassium 4.1. Bicarb 24. BUN 16. Creatinine 0.48. Glucose 167. Pleural fluid cultures revealed no growth. She remains on DuoNeb inhalations, cefepime. The patient is seen today December 16, 2023 in follow-up on the regular medical floor. She is currently sitting up at the bedside. Awake and alert in no acute distress. Maintaining good O2 saturations in the 90s on 4 L/min per nasal cannula. She has been afebrile. Hemodynamically stable. Plan is for Pleurx catheter placement today to the right chest where there has been recurrent and increasing pleural effusion. She is status post 1 unit of packed red blood cells this admission. Current hemoglobin 8.6. Platelets 403. White count 32.9. Sodium 136. Potassium 4.4. Bicarb 24. BUN 24. Creatinine 0.54. Glucose 136. She completed a course of cefepime. She remains on bronchodilators and steroids. The patient is seen today December 17, 2023 in follow-up on the regular medical floor. She is awake and alert in no acute distress. Anxious to go home. She is maintaining good O2 saturations in the 90s on 3 L/min per nasal cannula. She states she does have home oxygen. She is currently on a heparin drip that will be transition to Eliquis. She is status post Pleurx catheter placement and is educated how to drain it at home. Blood and urine cultures revealed no growth. Pleural fluid cultures revealed no growth. White count 22.0. Hemoglobin 7.7. Platelets 352. Sodium 133. Potassium 3.8. Bicarb 28. BUN 26. Creatinine 0.63. Glucose 90. She remains on DuoNeb inhalations, prednisone taper. The patient is seen today December 18, 2023 in follow-up on the regular medical floor. She is currently sitting up in bed. Awake and alert in no acute distress. She had been having issues with epistaxis and hematuria and in that regard it was decided for the patient to go for IVC filter placement yesterday versus anticoagulation. She currently denies any worsening shortness of breath, cough or congestion. Her Pleurx catheter remains in position. Blood cultures revealed no growth. Initial urine culture revealed no growth. Pleural fluid revealed no growth. White count 18.8. Hemoglobin 8.0. Platelets 276. Sodium 132. Potassium 3.6. Bicarb 30. BUN 22. Creatinine 0.61. She remains on bronchodilators, Tessalon Perles and prednisone taper. Objective - Vital Signs Vital signs: Vital Signs Temp 99 F 12/18/23 07:43 Pulse 90 12/18/23 08:36 Resp 19 12/18/23 07:43 BP 114/67 12/18/23 07:43 Pulse Ox 97 12/18/23 08:20 FiO2 Intake & Output 12/17/23 12/18/23 12/18/23 18:59 06:59 18:59 Intake Total 340 200 Output Total 1 1 Balance 339 -1 200 Intake: IV 100 Oral 240 200 Output: Stool 1 1 Other: Voiding Method Toilet Toilet Toilet Diaper Diaper Diaper # Voids 3 3 - Exam GENERAL EXAM: Alert, cachectic, 63-year-old female, on 2 L nasal cannula, in no apparent distress. HEAD: Normocephalic. EYES: Normal reaction of pupils, equal size. NOSE: Clear with pink turbinates. THROAT: No erythema or exudates. NECK: No masses, no JVD. CHEST: No chest wall deformity. Right-sided Pleurx catheter in place. LUNGS: Equal air entry with crackles and dullness of the right lung base. CVS: S1 and S2 normal with no audible murmur, regular rhythm. ABDOMEN: No hepatosplenomegaly, normal bowel sounds, no guarding or rigidity. SPINE: No scoliosis or deformity SKIN: No rashes CENTRAL NERVOUS SYSTEM: No focal deficits, tone is normal in all 4 extremities. EXTREMITIES: There is 1+ peripheral edema of the left lower extremity. No clubbing, no cyanosis. Peripheral pulses are intact. - Labs CBC & Chem 7: 12/18/23 06:26 12/18/23 06:26 Labs: Abnormal Lab Results - Last 24 Hours (Table) 04/03/24 04/04/24 04/04/24 Range/Units 11:05 06:26 06:26 WBC 18.8 H (3.8-10.6) k/uL RBC 3.07 L (3.80-5.40) m/uL Hgb 8.0 L (11.4-16.0) gm/dL Hct 26.5 L (34.0-46.0) % MCHC 30.2 L (31.0-37.0) g/dL RDW 17.1 H (11.5-15.5) % Sodium 132 L (137-145) mmol/L BUN 22 H (7-17) mg/dL Calcium 7.9 L (8.4-10.2) mg/dL Urine Appearance Cloudy H (Clear) Urine Protein 1+ H (Negative) Urine Blood Moderate H (Negative) Ur Leukocyte Esterase Small H (Negative) Urine RBC >182 H (0-5) /hpf Urine WBC 27 H (0-5) /hpf Urine Bacteria Occasional H (None) /hpf Hyaline Casts 18 H (0-2) /lpf Urine Mucus Rare H (None) /hpf Assessment and Plan Assessment: Acute left lower extremity pain and swelling in a patient found to have an extensive left lower extremity DVT. Initiated on a heparin drip with subsequent epistaxis and hematuria. IVC filter placed 12/17/2023 Recent diagnosis of lung mass with no follow-up thus far. CT angiogram ruled out pulmonary embolism. There is a large conglomerate mediastinal and right hilar adenopathy with associated multiple spiculated nodules in the right upper lung. Concerning for malignancy, possible small cell lung cancer. CT scan of the abdomen and pelvis revealed bilateral adrenal gland metastases. 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 A couple of IntraOp peritoneal nodules, adjacent to the liver and posterior to the left kidney. Small nodules in the subcutaneous fat of the right thigh and left anterior pe ricardial fat. All likely metastatic. MRI of the brain reveals metastatic lesions within the right cerebellum, sulcus and left vertex and within the posterior occipital calvarium. Moderate right-sided pleural effusion secondary to above. Status post thoracentesis with 1.2 L of cloudy yellow fluid removed December 09, 2023. Cytology positive for metastatic adenocarcinoma consistent with lung primary Recurrent right-sided pleural effusion, Pleurx catheter placed 12/16/2023 Acute hypoxemic respiratory failure secondary to above and suspected postobstructive pneumonia, currently on cefepime. Leukocytosis secondary to above, improved Weight loss up to 22 pounds in the past year Chronic and ongoing tobacco dependence of greater than 30 years Anemia, current hemoglobin 8.6, received 1 unit of packed red blood cells, stool for occult blood positive Plan: The patient was seen and evaluated Labs and medications reviewed IVC filter placed yesterday Pleurx catheter remains in place Education provided by CT services Plan is for home with home care at discharge This patient was seen independently by the pulmonary nurse practitioner addressing pulmonary issues I have personally seen and examined the patient, performed the documentation and the assessment and plan as written. Number of minutes spent on the visit: 24.
[2023-12-18 12:21] VITALS: PULSE 92
--- NOTE | 2023-12-18 12:54 | P.PN ---
Progress Note - Text Progress Note Date: 12/18/23 Pleurx catheter teaching was completed with the patient and her daughter and sister present. The patient was drained for 1 L of pleural fluid which was cloudy jordy color. The patient's daughter completed the drainage of the right Pleurx catheter with bedside instruction. Patient tolerated well, questions answered to the best my ability.
--- NOTE | 2023-12-18 13:02 | P.DS ---
Providers Date of admission: 12/07/23 15:08 Expected date of discharge: 12/18/23 Attending physician: Beth Mota MD Consults: 12/07/23 21:27 Consult Physician Routine Consulting Provider: Betsy Romero Consult Reason/Comments: lung nodules, pleural effusion Do you want consulting provider notified?: Yes, Notify in am 12/10/23 08:31 Consult Physician Routine Consulting Provider: Tyler Rivera Consult Reason/Comments: ? SCLC Do you want consulting provider notified?: Yes 12/12/23 13:41 Consult Physician Routine Consulting Provider: Ariel Anguiano Consult Reason/Comments: brain mets Do you want consulting provider notified?: Already Contacted 12/13/23 11:13 Consult Physician Routine Consulting Provider: Reece Ervin Consult Reason/Comments: Pleurx catheter Do you want consulting provider notified?: Yes 12/17/23 08:59 Consult Physician Routine Consulting Provider: Addy Turcios Consult Reason/Comments: IVC filter Do you want consulting provider notified?: Yes Primary care physician: James Rosas Hospital Course: Discharge Diagnosis: Newly discovered adenocarcinoma of the lung with metastasis to the bone, adrenal land, brain, and multiple pelvic areas Recurrent right-sided malignant pleural effusion status post Pleurx catheter Left lower extremity extensive DVT, in the setting of malignancy Acute hypoxic respiratory failure secondary to malignant pleural effusion Probable postobstructive bacterial pneumonia with resultant sepsis-- completed treatment with cefepime and vanco Transaminitis Epistaxis & hematuria, recurrent with heparin gtt Acute blood loss anemia Mild hyponatremia Hospital Course: Patient is a 63-year-old female with no prior known medical conditions and nicotine dependency who presented to the emergency room with complaints of left lower extremity swelling and shortness of breath. In the emergency department she undewent an extensive evaluation. Lower extremity venous Doppler showed extensive DVT in the left distal iliac veins to the proximal left calf veins. Unfortunately, Chest CTA in the emergency room revealed large mediastinal and right hilar adenopathy with multiple nodules in the right upper lung concerning for malignancy and moderate right-sided pleural effusion likely sequela of the malignancy, but was negative for pulmonary embolism. Laboratory evaluation was remarkable for leukocytosis of 28.7 and hemoglobin 9.5. He was subsequently started on heparin drip and arrangements were made for admission. Pulmonary was consulted and patient underwent thoracentesis which demonstrated exudative pleural effusion. Cytology came back with metastatic adenocarcinoma consistent with lung primary. Oncology was consulted. Additional malignancy workup included CT abdomen and pelvis which demonstrated bilateral adrenal gland metastasis, destructive metastasis in the pubic bone, intraperitoneal nodules adjacent to the liver and left kidneys, small nodules in the subcutaneous fat of the right thigh all likely metastatic, moderate body wall edema suggesting anasarca. MRI of the brain demonstrated metastatic lesions within the right cerebellum, sulcus of the left vertex, and posterior occipital calvarium. Radiation oncology was consulted and they felt that stereotactic radiosurgery was most appropriate and could be completed on outpatient basis. They did not feel steroids were required at this time. Patient developed worsening anemia and possible acute GI bleed. General Surgery was consulted who felt this was more consistent with malignancy than acute GI bleed. Patient's pleural effusion recurred quickly and CT surgery was consulted and patient underwent Pleurx catheter placement on 12/16/2023. Heparin was restarted, patient developed hematuria and epistaxis. Anticoagulation discontinued. IVC filter placed. Patient to follow-up with pulmonology, oncology. Patient seen and examined at bedside. Vital signs reviewed and stable. General: Nontoxic, no distress, appears at stated age, weak appearing Cardiovascular: S1S2 reg, no murmur Lungs: Coarse breath sounds bilateral, no rhonchi, no rales, no accessory muscle use, supplemental oxygen Abdominal: Soft, nontender to palpation, no guarding Ext: No gross muscle atrophy, no edema b/l lower extremities, no contractures Neuro: CN II-XI grossly intact, no focal neuro deficits Psych: Alert, oriented, appropriate affect A total of 33 minutes of time were spent preparing this complex discharge summary. Patient was discharged on 12/18/23 at 1043. Patient Condition at Discharge: Stable Plan - Discharge Summary Discharge Rx Participant: Yes New Discharge Prescriptions: New Benzonatate [Tessalon Perles] 100 mg PO TID PRN #30 cap PRN Reason: Cough predniSONE 30 mg PO DAILY #30 tab Pantoprazole [Protonix] 40 mg PO AC-BID #90 tab Acetaminophen Tab [Tylenol] 650 mg PO Q6HR PRN #60 tab PRN Reason: Mild To Moderate Pain (1 - 6) ALPRAZolam [Xanax] 0.5 mg PO TID PRN #9 tab PRN Reason: Anxiety oxyCODONE HCL/ACETAMINOPHEN [Percocet 10-325 mg] 1 tab PO Q4HR PRN 3 Days #18 tab PRN Reason: Severe Breakthrough Pain Continue Ipratropium-Albuterol Nebulize [Duoneb 0.5 mg-3 mg/3 ml Soln] 3 ml INHALATION RT-Q4H Albuterol Sulfate [Albuterol Sulfate Hfa] 2 puff PO RT-Q4H PRN PRN Reason: Wheezing Discontinued predniSONE [Deltasone] 20 mg PO BID Doxycycline [Vibramycin] 100 mg PO BID Discharge Medication List Albuterol Sulfate [Albuterol Sulfate Hfa] 2 puff PO RT-Q4H PRN 12/08/23 [History] Ipratropium-Albuterol Nebulize [Duoneb 0.5 mg-3 mg/3 ml Soln] 3 ml INHALATION RT-Q4H 12/08/23 [History] ALPRAZolam [Xanax] 0.5 mg PO TID PRN #9 tab 12/18/23 [Rx] Acetaminophen Tab [Tylenol] 650 mg PO Q6HR PRN #60 tab 12/18/23 [Rx] Benzonatate [Tessalon Perles] 100 mg PO TID PRN #30 cap 12/18/23 [Rx] Pantoprazole [Protonix] 40 mg PO AC-BID #90 tab 12/18/23 [Rx] oxyCODONE HCL/ACETAMINOPHEN [Percocet 10-325 mg] 1 tab PO Q4HR PRN 3 Days #18 tab 12/18/23 [Rx] predniSONE 30 mg PO DAILY #30 tab 12/18/23 [Rx] Follow up Appointment(s)/Referral(s): Umberto Norton MD [STAFF PHYSICIAN] - 12/25/23 9:30 am Gerardo Muller [STAFF PHYSICIAN] - 01/07/24 3:30 pm (On Friday 2:15 pm please go to [place] office for a blood draw. Follow up appointment will be in the [place] office. [id number] [place] [address]. ) Luz House DO [STAFF PHYSICIAN] - As Needed (For IVC filter removal when needed) [facility], [NON-STAFF] - As Needed (COUPLE VISITS AT NO COST - $280 A VISIT AFTER EDUCATION ONLY - NO SUPPLIES) James Rosas DO [Primary Care Provider] - 12/24/23 8:20 am Reece Ervin MD [STAFF PHYSICIAN] - As Needed Patient Instructions/Handouts: Lung Cancer (DC), Deep Vein Thrombosis (DC), Pleural Effusion (DC), Inferior Vena Cava (IVC) Filter Placement (DC) Activity/Diet/Wound Care/Special Instructions: PLEURX DISCHARGE INSTRUCTIONS: 1. Home Care is ordered (New Bottles will need to be purchased by patient) 2. May shower after 24 hours, no tub baths/hot tubs. 3. Do not drain more than 1 liter or 1000 mL in 24 hours. 4. New drainage bottle needed with each drainage. 5. Drainage frequency dictated by patient symptoms, may be every day, every other day, weekly, or however often the patient is symptomatic. 6. Please notify [facility] or office if temperature >101F, excessive pain at insertion site, drainage consistency changes to cloudy or smells bad, catheter falls out, or anything else that concerns you. 7. Contact surgery office with weekly drainage amounts. May fax the amounts. 8. Once drainage is less than 50 mL three times in a row, notify the surgery office for possible removal. Surgery office: , fax Discharge/Stand Alone Forms: Who Do I Call?, Community Resources, Help In The Home Discharge Disposition: HOME WITH HOME HEALTH SERVICES
--- NOTE | 2023-12-18 13:39 | P.PN ---
Subjective Progress Note Date: 12/18/23 Principal diagnosis: Lower extremity DVT, anemia Patient is seen and examined today as a follow-up. Yesterday she underwent IVC filter placement. She denies any pain or discomfort. No bleeding from her access site. Patient is planning on discharge home today. Objective - Vital Signs Vital signs: Vital Signs Temp 99 F 12/18/23 07:43 Pulse 92 12/18/23 12:04 Resp 19 12/18/23 07:43 BP 114/67 12/18/23 07:43 Pulse Ox 91 L 12/18/23 11:30 FiO2 Intake & Output 12/17/23 12/18/23 12/18/23 18:59 06:59 18:59 Intake Total 340 200 Output Total 1 1 Balance 339 -1 200 Intake: IV 100 Oral 240 200 Output: Stool 1 1 Other: Voiding Method Toilet Toilet Toilet Diaper Diaper Diaper # Voids 3 3 - Exam General appearance: The patient is alert, oriented, appears in no acute distress. HET: Head is normocephalic and atraumatic. Pupils are equal and reactive. Neck: Supple. Abdomen: Soft, nontender, nondistended. Extremities: Normal skin color and turgor. Right groin access site without any bleeding, no hematoma or ecchymosis. Left lower extremity swelling. Possible DP pulses. Neurological: No focal deficits. Strength and sensation are grossly intact. - Labs CBC & Chem 7: 12/18/23 06:26 12/18/23 06:26 Labs: Abnormal Lab Results - Last 24 Hours (Table) 12/18/23 12/18/23 Range/Units 06:26 06:26 WBC 18.8 H (3.8-10.6) k/uL RBC 3.07 L (3.80-5.40) m/uL Hgb 8.0 L (11.4-16.0) gm/dL Hct 26.5 L (34.0-46.0) % MCHC 30.2 L (31.0-37.0) g/dL RDW 17.1 H (11.5-15.5) % Sodium 132 L (137-145) mmol/L BUN 22 H (7-17) mg/dL Calcium 7.9 L (8.4-10.2) mg/dL Assessment and Plan Assessment: 1. Left lower extremity DVT status post IVC filter placement 2. Anemia, unable to tolerate anticoagulation 3. Metastatic lung cancer 4. Right pleural effusion status post right-sided Pleurx catheter insertion Plan: Patient instructed to monitor right groin site for any active bleeding. Instructed no tub bathing, shower only for the next 3 days. No further restrictions from a vascular surgical standpoint. No further interventions indicated. Patient is cleared from vascular surgery for discharge. Patient instructed to follow-up when needed for filter removal based on recommendations from oncology. The impression and plan of care has been dictated as directed. Dr. Alva I performed a history and examination of this patient, discussed the same with the dictator. I agree with the dictator's note ,documented as a scribe. Any additional findings or plans will be noted.
--- NOTE | 2023-12-18 17:37 | P.PN ---
Subjective Progress Note Date: 12/17/23 At today's visit patient is resting comfortably in bed. S/p pleurx drain placement. Breathing unlabored, reporting some improvement in SOB. Patient has been started heparin drip. Pt has noted hematuria, and epistaxis again today. Hgb 7.7, from 8.6 yesterday. Spoke with IM team, since pt is unable to tolerate anticoagulation will need to placed IVC filter. Consult to vascular surgery placed Objective - Vital Signs Vital signs: Vital Signs Temp 98.2 F 12/17/23 10:01 Pulse 73 12/17/23 16:18 Resp 20 12/17/23 10:01 BP 119/70 12/17/23 16:18 Pulse Ox 96 12/17/23 16:18 FiO2 Intake & Output 12/17/23 12/17/23 12/18/23 06:59 18:59 06:59 Intake Total 100 340 Output Total 1 Balance 100 339 Intake: IV 100 Oral 100 240 Output: Stool 1 Other: Voiding Method Toilet Toilet Diaper Diaper # Voids 3 3 - Constitutional General appearance: Present: average body habitus, no acute distress - EENT EENT Comment(s): dried blood in nostrils - Respiratory Details: breathing is even and unlabored - Cardiovascular Details: skin warm and dry - Integumentary Integumentary: Present: cyanotic - Neurologic Neurologic Comment(s): no focal deficits - Musculoskeletal Musculoskeletal: Present: strength equal bilaterally - Psychiatric Psychiatric: Present: A&O x's 3 - Labs CBC & Chem 7: 12/18/23 06:26 12/18/23 06:26 Labs: Abnormal Lab Results - Last 24 Hours (Table) 12/16/23 12/17/23 12/17/23 Range/Units 23:53 06:55 06:55 WBC 22.0 H (3.8-10.6) k/uL RBC 2.89 L (3.80-5.40) m/uL Hgb 7.7 L (11.4-16.0) gm/dL Hct 24.9 L (34.0-46.0) % MCHC 30.8 L (31.0-37.0) g/dL RDW 17.1 H (11.5-15.5) % APTT 60.0 H (22.0-30.0) sec Sodium 133 L (137-145) mmol/L BUN 26 H (7-17) mg/dL Calcium 8.1 L (8.4-10.2) mg/dL ALT 74 H (4-34) U/L Alkaline Phosphatase 205 H (38-126) U/L Total Protein 4.8 L (6.3-8.2) g/dL Albumin 2.3 L (3.5-5.0) g/dL Urine Appearance (Clear) Urine Protein (Negative) Urine Blood (Negative) Ur Leukocyte Esterase (Negative) Urine RBC (0-5) /hpf Urine WBC (0-5) /hpf Urine Bacteria (None) /hpf Hyaline Casts (0-2) /lpf Urine Mucus (None) /hpf 12/17/23 12/17/23 Range/Units 06:55 11:05 WBC (3.8-10.6) k/uL RBC (3.80-5.40) m/uL Hgb (11.4-16.0) gm/dL Hct (34.0-46.0) % MCHC (31.0-37.0) g/dL RDW (11.5-15.5) % APTT 64.9 H (22.0-30.0) sec Sodium (137-145) mmol/L BUN (7-17) mg/dL Calcium (8.4-10.2) mg/dL ALT (4-34) U/L Alkaline Phosphatase (38-126) U/L Total Protein (6.3-8.2) g/dL Albumin (3.5-5.0) g/dL Urine Appearance Cloudy H (Clear) Urine Protein 1+ H (Negative) Urine Blood Moderate H (Negative) Ur Leukocyte Esterase Small H (Negative) Urine RBC >182 H (0-5) /hpf Urine WBC 27 H (0-5) /hpf Urine Bacteria Occasional H (None) /hpf Hyaline Casts 18 H (0-2) /lpf Urine Mucus Rare H (None) /hpf Assessment and Plan (1) Anemia Status: Acute Priority: Medium Code(s): D64.9 - ANEMIA, UNSPECIFIED SNOMED Code(s): 198957137 (2) Deep vein thrombosis (DVT) of lower extremity Status: Acute Priority: High Code(s): I82.409 - ACUTE EMBOLISM AND THOMBOS UNSP DEEP VN UNSP LOWER EXTREMITY SNOMED Code(s): 369085222 (3) Leukocytosis Status: Acute Priority: High Code(s): D72.829 - ELEVATED WHITE BLOOD CELL COUNT, UNSPECIFIED SNOMED Code(s): 485733274 (4) Pleural effusion Status: Acute Priority: High Code(s): J90 - PLEURAL EFFUSION, NOT ELSEWHERE CLASSIFIED SNOMED Code(s): 98398902 (5) Lymphadenopathy Status: Acute Priority: High Code(s): R59.1 - GENERALIZED ENLARGED LYMPH NODES SNOMED Code(s): 99841117 (6) Adenocarcinoma, lung Status: Acute Priority: High Code(s): C34.90 - MALIGNANT NEOPLASM OF UNSP PART OF UNSP BRONCHUS OR LUNG SNOMED Code(s): 382024283 Plan: Metastatic adenocarcinoma of lung: -CTA chest revealed no evidence of pulmonary embolism. Large conglomerate mediastinal and right hilar adenopathy with associated multi multiple spiculated nodules in the right upper lung. Moderate right pleural effusion. Chest ultrasound was subsequently ordered revealing right pleural effusion pocket size 4.2 cm. S/p right-sided thoracentesis on 12/08 with 1200 mL fluid removed. Pleural fluid sent for fluid analysis and cytology -Pleural fluid cytology positive for metastatic adenocarcinoma consistent with primary lung origin -CT AP and MRI brain obtained for staging. CT abdomen pelvis showing bilateral adrenal gland metastases. 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 Intraperitoneal nodules, adjacent to the liver and posterior to the left kidney. Small nodules in the subcutaneous fat of the right thigh and left anterior pericardial fat and moderate body wall edema suggestive of anasarca. MRI brain revealing 0.4 cm renal lesion with surrounding edema in the right cerebellum, 0.4 cm focus of enhancement within the leptomeningeal vertex, and osseous lesion within the posterior occipital calvarium. -No neuro deficits noted. Rad onc consulted. Spoke with Dr. Anguiano, will plan for SRS -CXR showing increasing moderate right pleural effusion with right perihilar infiltrate. Continues on IV antibiotic and supportive medications. -S/p right sided Pleurx placement -NGS and PDL1 will be requested on pathology and will plan for patient to have Guardant testing in clinic -Discussed above results and plan of care with patient in detail. All questions were answered. Clinic f/u will be scheduled upon discharge DVT: -Venous Doppler of left lower extremity revealed extensive DVT from the distal external iliac veins to the proximal left calf veins. Heparin drip started -Has been transitioned to Eliquis -Patient had developed epistaxis and hematuria, eliquis has been held. Have spoke with IM team, once Pleurx drain placed, will recheck UA for hematuria, and if stable/no bleeding issues s/p procedure, will plan to restart pt on heparin drip and monitor CBC and for acute bleeding. If tolerates well will transition back to Eliquis. If unable to continue anticoagulation will have to consider IVC filter -Also, there is concern for untreated brain mets, with use of anticoagulation. Spoke with patient about potential risks involved with and without anticoagulation. Discussed case further with rad onc, and plan is for SRS of brain lesions, but this is typically not a covered procedure while inpt, and will need to be scheduled outpt. MRI was reviewed, and they feel that there is low concern for bleeding from noted brain lesions. Pending discharge, will plan to start SRS as soon as possible -S/p pleurx drain placement, heparin drip was started. Pt has noted hematuria, and epistaxis again today. Hgb 7.7, from 8.6 yesterday. Spoke with IM team, since pt is unable to tolerate anticoagulation will proceed with IVC filter. Consult to vascular surgery placed Anemia: -Upon admission WBC 28.7, hemoglobin 9.5, MCV 83.5, platelets 475,000. S/p 1 unit PRBCs since admission -Denied any episodes of acute bleeding and melena upon admission. General surgery consulted. No plan for endoscopic eval at this time, agree that anemia is r/t malignancy -Anemia workup has been ordered. No Vit B12 or folate deficiency noted. Iron saturation 6.4%, ferritin 1124. MCV 82.2, more consistent with anemia of inflammation. Will hold parenteral iron for now, and further evaluate/manage in the outpt setting -Continue to closely monitor counts. Please transfuse for hgb <7 or if symptomatic attests: I have performed H&P and developed impression and plan of care for patient, discussed with dictator. I agree with dictated note, documented as a scribe
== END 2023-12-18 14:55 | disposition home health service (06) | DRG 871 ==
LOC: EC 11:38 → 5NMEDONC 15:08
PROVIDERS: ADMIT Internal Medicine; ATTEND Internal Medicine
PROC: 0W993ZZ Drainage of Right Pleural Cavity, Percutaneous Approach (ICD-10-PCS; principal; 2023-12-09)
PROC: 30233N1 Transfusion of Nonautologous Red Blood Cells into Peripheral Vein, Percutaneous Approach (ICD-10-PCS; 2023-12-10)
PROC: 0W9930Z Drainage of Right Pleural Cavity with Drainage Device, Percutaneous Approach (ICD-10-PCS; 2023-12-16)
PROC: 06H03DZ Insertion of Intraluminal Device into Inferior Vena Cava, Percutaneous Approach (ICD-10-PCS; 2023-12-17)
PROC: B5191ZZ Fluoroscopy of Inferior Vena Cava using Low Osmolar Contrast (ICD-10-PCS; 2023-12-17)
PROC: B51F1ZZ Fluoroscopy of Right Pelvic (Iliac) Veins using Low Osmolar Contrast (ICD-10-PCS; 2023-12-17)
PROC: B54BZZA Ultrasonography of Right Lower Extremity Veins, Guidance (ICD-10-PCS; 2023-12-17)
DX: A41.9 Sepsis, unspecified organism (principal); G93.6 Cerebral edema; J15.9 Unspecified bacterial pneumonia; J96.01 Acute respiratory failure with hypoxia; I82.402 Acute embolism and thrombosis of unspecified deep veins of left lower extremity; J44.0 Chronic obstructive pulmonary disease with (acute) lower respiratory infection; C34.90 Malignant neoplasm of unspecified part of unspecified bronchus or lung; C78.00 Secondary malignant neoplasm of unspecified lung; C78.7 Secondary malignant neoplasm of liver and intrahepatic bile duct; C79.31 Secondary malignant neoplasm of brain; C79.51 Secondary malignant neoplasm of bone; C79.71 Secondary malignant neoplasm of right adrenal gland; C79.72 Secondary malignant neoplasm of left adrenal gland; D62 Acute posthemorrhagic anemia; E87.1 Hypo-osmolality and hyponatremia; E22.2 Syndrome of inappropriate secretion of antidiuretic hormone; J91.0 Malignant pleural effusion; K92.1 Melena; I82.422 Acute embolism and thrombosis of left iliac vein; I82.4Z2 Acute embolism and thrombosis of unspecified deep veins of left distal lower extremity; D64.9 Anemia, unspecified; R74.01 Elevation of levels of liver transaminase levels; F17.210 Nicotine dependence, cigarettes, uncomplicated; R61 Generalized hyperhidrosis; R04.0 Epistaxis; R31.9 Hematuria, unspecified; D50.9 Iron deficiency anemia, unspecified; D63.0 Anemia in neoplastic disease; F41.9 Anxiety disorder, unspecified; I10 Essential (primary) hypertension; Z79.01 Long term (current) use of anticoagulants; Z79.899 Other long term (current) drug therapy; Z85.118 Personal history of other malignant neoplasm of bronchus and lung; M19.90 Unspecified osteoarthritis, unspecified site; Z88.1 Allergy status to other antibiotic agents; Z88.0 Allergy status to penicillin; Z98.51 Tubal ligation status
CPT/HCPCS: 36415; 36600; 37191; 70553; 71045; 71275; 74177; 76000; 76604; 76770; 80048; 80053; 80202; 81001; 82272; 82533; 82565; 82607; 82728; 82747; 82805; 82945; 83540; 83550; 83605; 83615; 83735; 83921; 83930; 83935; 84145; 84155; 84157; 84300; 84443; 84484; 85025; 85027; 85610; 85730; 86850; 86900; 86901; 86920; 87040; 87070; 87086; 87102; 87116; 87205; 87206; 87496; 87498; 87502; 87529; 87634; 87635; 87798; 88108; 88305; 88341; 88342; 89050; 93005; 94640; 94760; 96365; 96366; 96367; 96368; 96375; 96376; 99285

== ENCOUNTER 2024-01-07 10:56 | Inpatient (IN) | payer OTHER ==
--- NOTE | 2024-01-07 11:40 | ED ---
General Adult HPI - General Chief complaint: Recheck/Abnormal Lab/Rx Stated complaint: Blood in urine,failure to thrive Time Seen by Provider: 01/07/24 11:38 Source: patient, family, RN notes reviewed Mode of arrival: wheelchair Limitations: no limitations - History of Present Illness Initial comments: 63-year-old female presenting to the ER with a chief complaint of hematuria. Family is aiding in HPI. Patient has stage IV lung cancer and is following up with Dr. Rivera. For the past 2 weeks she has been having increase in peripheral edema. She does report a history of a DVT in the left leg. Patient also has an IVC filter and is on blood thinner. Family state for the past 2 to 3 days she has been having pink urine which they believed to be blood. They stopped Eliquis yesterday as for hematuria. Patient endorsing abdominal pain. Patient is normally on 3 L oxygen at home. She does report she sleeps on 3 pillows and feels more short of breath than normal. Family report they drained fluid off her lungs every other day normally getting about 750-1000ml. Last night family state they got 900 mL of yellow/white frothy fluid. They states she has been coughing more than normal as well. She denies any fevers, chills, chest pain/palpitations, constipation/diarrhea. Family are concerned as she is having difficulty swallowing her prescribed Percocet and difficulty ambulating as she is weak. This is all been exacerbated in the past 2 to 3 days. - Related Data Home Medications Medication Instructions Recorded Confirmed Albuterol Sulfate [Albuterol 2 puff PO RT-Q4H PRN 12/08/23 01/07/24 Sulfate Hfa] Ipratropium-Albuterol Nebulize 3 ml INHALATION RT-Q4H 12/08/23 01/07/24 [Duoneb 0.5 mg-3 mg/3 ml Soln] Acetaminophen Tab [Tylenol] 650 mg INHALATION RT-Q6H PRN 01/07/24 01/07/24 Previous Rx's Medication Instructions Recorded ALPRAZolam [Xanax] 0.5 mg PO TID PRN #9 tab 12/18/23 Benzonatate [Tessalon Perles] 100 mg PO TID PRN #30 cap 12/18/23 Pantoprazole [Protonix] 40 mg PO AC-BID #90 tab 12/18/23 oxyCODONE HCL/ACETAMINOPHEN 1 tab PO Q4HR PRN 3 Days #18 tab 12/18/23 [Percocet 10-325 mg] Allergies Allergy/AdvReac Type Severity Reaction Status Date / Time amoxicillin Allergy Rash/Hives Verified 01/07/24 14:01 Penicillins Allergy see comment Verified 01/07/24 14:01 Review of Systems ROS Statement: Those systems with pertinent positive or pertinent negative responses have been documented in the HPI. ROS Other: All systems not noted in ROS Statement are negative. Past Medical History Past Medical History: Cancer, COPD, Deep Vein Thrombosis (DVT), Pneumonia Additional Past Medical History / Comment(s): left lung mass- 11/28/23 diagnosed at [facility], [facility] History of Any Multi-Drug Resistant Organisms: None Reported Past Surgical History: Adenoidectomy, Appendectomy, Tonsillectomy, Tubal Ligation Past Anesthesia/Blood Transfusion Reactions: Unable to Obtain Past Psychological History: No Psychological Hx Reported Smoking Status: Current some day smoker Past Alcohol Use History: Occasional Past Drug Use History: Marijuana - Past Family History Mother Family Medical History: Osteoarthritis (OA) Additional Family Medical History / Comment(s): alive and healthy at age 88 Father Family Medical History: Cancer Additional Family Medical History / Comment(s): of lung and brain CA at age 78 Sister(s) Family Medical History: Cancer Additional Family Medical History / Comment(s): liver CA Brother(s) Family Medical History: Cancer Additional Family Medical History / Comment(s): leukemia; another brother has lung CA General Exam Limitations: no limitations General appearance: alert (Appears weak) Head exam: Present: atraumatic, normocephalic, normal inspection Eye exam: Present: normal appearance, PERRL, EOMI. Absent: scleral icterus, conjunctival injection, periorbital swelling Respiratory exam: Present: rhonchi (Coarse breath sounds bilaterally. Active cough on exam.) Cardiovascular Exam: Present: regular rate, normal rhythm, normal heart sounds. Absent: systolic murmur, diastolic murmur, rubs, gallop, clicks GI/Abdominal exam: Present: soft, normal bowel sounds. Absent: distended, tenderness, guarding, rebound, rigid Extremities exam: Present: other (2+ pitting edema bilaterally. Proximally spreading edema to the left sevilla.) Neurological exam: Present: alert, oriented X3, CN II-XII intact Skin exam: Present: warm, dry, intact, normal color, other (Red lesion under left axilla tender to touch.). Absent: rash Course Vital Signs 01/07/24 01/07/24 01/07/24 11:02 11:05 12:05 Temperature 98.6 F 97.5 F L Pulse Rate 93 140 H 145 H Respiratory 24 16 20 Rate Blood Pressure 95/61 96/56 O2 Sat by Pulse 96 100 100 Oximetry 01/07/24 01/07/24 01/07/24 12:43 12:50 13:00 Temperature Pulse Rate 156 H 170 H 158 H Respiratory 26 H 24 26 H Rate Blood Pressure 100/68 97/62 89/69 O2 Sat by Pulse 98 100 98 Oximetry 01/07/24 01/07/24 01/07/24 13:10 13:20 13:30 Temperature Pulse Rate 141 H 160 H 137 H Respiratory 22 24 22 Rate Blood Pressure 89/69 95/65 93/64 O2 Sat by Pulse 99 100 100 Oximetry 01/07/24 01/07/24 01/07/24 13:40 13:54 14:00 Temperature Pulse Rate 152 H 165 H 163 H Respiratory 22 22 22 Rate Blood Pressure 103/52 98/56 108/64 O2 Sat by Pulse 99 99 100 Oximetry 01/07/24 01/07/24 01/07/24 15:00 15:57 16:18 Temperature Pulse Rate 154 H 158 H 109 H Respiratory 20 16 16 Rate Blood Pressure 116/68 88/57 96/60 O2 Sat by Pulse 98 98 99 Oximetry - Reevaluation(s) Reevaluation #1: 01/07/24 14:44 Case discussed with Mauricio Palacio, who accepts medical admission. Medical Decision Making - Medical Decision Making Was pt. sent in by a medical professional or institution (, PA, SCHOOL CURRICULUM DEVELOPER, urgent care, hospital, or [place] health care facility...) When possible be specific @ -No Did you speak to anyone other than the patient for history (EMS, parent, family, police, friend...)? What history was obtained from this source @ -Family aiding in HPI. Did you review nursing and triage notes (agree or disagree)? Why? @ -I reviewed and agree with nursing and triage notes Were old charts reviewed (outside hosp., previous admission, EMS record, old EKG, old radiological studies, urgent care reports/EKG's, [place] health care facility records)? Report findings @ -Yes, chart from hospital stay on 12/07/23. Patient admitted for DVT and pneumonia. IVC filter placed. Differential Diagnosis (chest pain, altered mental status, abdominal pain women, abdominal pain men, vaginal bleeding, weakness, fever, dyspnea, syncope, headache, dizziness, GI bleed, back pain, seizure, CVA, palpatations, mental health, musculoskeletal)? @ -Differential Dyspnea:Coronary syndrome, arrhythmia, tamponade, asthma, COPD, pulmonary embolism, pneumonia, pneumothorax, pulmonary effusion, anaphylaxis, diabetic ketoacidosis, flailed chest, pulmonary contusion, diaphragmatic rupture, anemia, neuromuscular, this is not meant to be an all-inclusive list. EKG interpreted by me (3pts min.). @ -As above X-rays interpreted by me (1pt min.). @ -Chest x-ray interpreted by me significant for a right hilar mass infiltrate. Increased density of the left medial lung. CT interpreted by me (1pt min.). @ -None done U/S interpreted by me (1pt. min.). @ -None done What testing was considered but not performed or refused? (CT, X-rays, U/S, labs)? Why? @ -None What meds were considered but not given or refused? Why? @ -None Did you discuss the management of the patient with other professionals (professionals i.e. , PA, SCHOOL CURRICULUM DEVELOPER, lab, RT, psych nurse, social services counselor, entertainment production professional, teacher, community service patrol officer, caseworker intake)? Give summary @ -Yes, Case discussed with Mauricio Palacio, who accepts medical admission. Was smoking cessation discussed for >3mins.? @ -No Was critical care preformed (if so, how long)? @ -No Were there social determinants of health that impacted care today? How? (Homelessness, low income, unemployed, alcoholism, drug addiction, transportation, low edu. Level, literacy, decrease access to med. care, detention, rehab)? @ -No Was there de-escalation of care discussed even if they declined (Discuss DNR or withdrawal of care, Hospice)? DNR status @ -No What co-morbidities impacted this encounter? (DM, HTN, Smoking, COPD, CAD, Cancer, CVA, ARF, Chemo, Hep., AIDS, mental health diagnosis, sleep apnea, morbid obesity)? @ -Lung cancer Was patient admitted / discharged? Hospital course, mention meds given and route, prescriptions, significant lab abnormalities, going to OR and other pertinent info. @ -Admitted. 63 year old female presenting to the ER with a chief complaint of shortness or breath and peripheral edema. History and physical exam completed. Vitals upon arrival significant for blood pressure 95/65, heart rate 160, 100% oxygen saturation on 3 L nasal cannula. Patient no signs of acute distress and ill-appearing. Coarse breath sounds bilaterally. 2+ pitting edema bilaterally. Labs obtained significant for hemoglobin 8.1 (12-18-2023 hemoglobin 8), white blood cell 10.7, troponin 0.217, BNP 660. UA hemorrhagic with moderate blood and more than 182 red blood cells. COVID, influenza, RSV negative. Chest x-ray significant for right hilar masslike infiltrate. Increased density of the left medial lung. Results discussed with patient, all questions answered. Patient started on IV 5mg bolus and 5 mg/hour Cardizem for rate control without improvem ent of heart rate. Cardizem increased to 10 mg per hour with improvement of tachycardia to 108bpm. Admission considered for new onset atrial fibrillation cardiology consult. Case discussed with Mauricio Palacio, who accepts medical admission. Cardiology on consult. Patient agreeable for admission. Case discussed with ED attending, Dr. Patel. Undiagnosed new problem with uncertain prognosis? @ -Yes Drug Therapy requiring intensive monitoring for toxicity (Heparin, Nitro, Insulin, Cardizem)? @ -Yes Were any procedures done? @ -No Diagnosis/symptom? @ -New onset A-fib with RVR/lung cancer Acute, or Chronic, or Acute on Chronic? @ -Acute Uncomplicated (without systemic symptoms) or Complicated (systemic symptoms)? @ -Complicated Side effects of treatment? @ -No Exacerbation, Progression, or Severe Exacerbation? @ -No Poses a threat to life or bodily function? How? (Chest pain, [place], [place], pneumonia, PE, COPD, DKA, ARF, appy, cholecystitis, CVA, Diverticulitis, Homicidal, Suic idal, threat to staff... and all critical care pts) @ -Yes cancer - Lab Data Result diagrams: 01/07/24 12:15 01/07/24 12:15 Lab Results 01/07/24 01/07/24 01/07/24 Range/Units 12:15 12:15 12:15 WBC 10.7 H (3.8-10.6) k/uL RBC 3.05 L (3.80-5.40) m/uL Hgb 8.1 L (11.4-16.0) gm/dL Hct 25.3 L (34.0-46.0) % MCV 82.9 (80.0-100.0) fL MCH 26.4 (25.0-35.0) pg MCHC 31.8 (31.0-37.0) g/dL RDW 15.8 H (11.5-15.5) % Plt Count 532 H (150-450) k/uL MPV 7.5 Neutrophils % 81 % Lymphocytes % 9 % Monocytes % 7 % Eosinophils % 1 % Basophils % 0 % Neutrophils # 8.7 H (1.3-7.7) k/uL Lymphocytes # 1.0 (1.0-4.8) k/uL Monocytes # 0.8 (0-1.0) k/uL Eosinophils # 0.1 (0-0.7) k/uL Basophils # 0.0 (0-0.2) k/uL Hypochromasia Moderate PT 13.1 H (10.0-12.5) sec INR 1.2 H (<1.2) APTT 32.8 H (22.0-30.0) sec Sodium 133 L (137-145) mmol/L Potassium 4.3 (3.5-5.1) mmol/L Chloride 96 L (98-107) mmol/L Carbon Dioxide 32 H (22-30) mmol/L Anion Gap 5 mmol/L BUN 22 H (7-17) mg/dL Creatinine 0.64 (0.52-1.04) mg/dL Est GFR (CKD-EPI)AfAm >90 (>60 ml/min/1.73 sqM) Est GFR (CKD-EPI)NonAf >90 (>60 ml/min/1.73 sqM) Glucose 112 H (74-99) mg/dL Plasma Lactic Acid Ramsey (0.7-2.0) mmol/L Calcium 8.2 L (8.4-10.2) mg/dL Magnesium 1.7 (1.6-2.3) mg/dL Total Bilirubin 0.3 (0.2-1.3) mg/dL AST 21 (14-36) U/L ALT 21 (4-34) U/L Alkaline Phosphatase 189 H (38-126) U/L Troponin I (0.000-0.034) ng/mL NT-Pro-B Natriuret Pep 660 pg/mL Total Protein 5.0 L (6.3-8.2) g/dL Albumin 2.5 L (3.5-5.0) g/dL Urine Color Urine Appearance (Clear) Urine pH (5.0-8.0) Ur Specific [place] (1.001-1.035) Urine Protein (Negative) Urine Glucose (UA) (Negative) Urine Ketones (Negative) Urine Blood (Negative) Urine Nitrite (Negative) Urine Bilirubin (Negative) Urine Urobilinogen (<2.0) mg/dL Ur Leukocyte Esterase (Negative) Urine RBC (0-5) /hpf Urine WBC (0-5) /hpf Ur Squamous Epith Cells (0-4) /hpf Amorphous Sediment (None) /hpf Urine Bacteria (None) /hpf Urine Mucus (None) /hpf Influenza Type A (PCR) (Not Detectd) Influenza Type B (PCR) (Not Detectd) RSV (PCR) (Not Detectd) SARS-CoV-2 (PCR) (Not Detectd) 01/07/24 01/07/24 01/07/24 Range/Units 12:15 12:15 12:48 WBC (3.8-10.6) k/uL RBC (3.80-5.40) m/uL Hgb (11.4-16.0) gm/dL Hct (34.0-46.0) % MCV (80.0-100.0) fL MCH (25.0-35.0) pg MCHC (31.0-37.0) g/dL RDW (11.5-15.5) % Plt Count (150-450) k/uL MPV Neutrophils % % Lymphocytes % % Monocytes % % Eosinophils % % Basophils % % Neutrophils # (1.3-7.7) k/uL Lymphocytes # (1.0-4.8) k/uL Monocytes # (0-1.0) k/uL Eosinophils # (0-0.7) k/uL Basophils # (0-0.2) k/uL Hypochromasia PT (10.0-12.5) sec INR (<1.2) APTT (22.0-30.0) sec Sodium (137-145) mmol/L Potassium (3.5-5.1) mmol/L Chloride (98-107) mmol/L Carbon Dioxide (22-30) mmol/L Anion Gap mmol/L BUN (7-17) mg/dL Creatinine (0.52-1.04) mg/dL Est GFR (CKD-EPI)AfAm (>60 ml/min/1.73 sqM) Est GFR (CKD-EPI)NonAf (>60 ml/min/1.73 sqM) Glucose (74-99) mg/dL Plasma Lactic Acid Ramsey 1.0 (0.7-2.0) mmol/L Calcium (8.4-10.2) mg/dL Magnesium (1.6-2.3) mg/dL Total Bilirubin (0.2-1.3) mg/dL AST (14-36) U/L ALT (4-34) U/L Alkaline Phosphatase (38-126) U/L Troponin I 0.217 H* (0.000-0.034) ng/mL NT-Pro-B Natriuret Pep pg/mL Total Protein (6.3-8.2) g/dL Albumin (3.5-5.0) g/dL Urine Color Yellow Urine Appearance Cloudy H (Clear) Urine pH 5.5 (5.0-8.0) Ur Specific [place] 1.028 (1.001-1.035) Urine Protein 1+ H (Negative) Urine Glucose (UA) Negative (Negative) Urine Ketones Negative (Negative) Urine Blood Moderate H (Negative) Urine Nitrite Negative (Negative) Urine Bilirubin Negative (Negative) Urine Urobilinogen <2.0 (<2.0) mg/dL Ur Leukocyte Esterase Small H (Negative) Urine RBC >182 H (0-5) /hpf Urine WBC 12 H (0-5) /hpf Ur Squamous Epith Cells <1 (0-4) /hpf Amorphous Sediment Rare H (None) /hpf Urine Bacteria Rare H (None) /hpf Urine Mucus Moderate H (None) /hpf Influenza Type A (PCR) (Not Detectd) Influenza Type B (PCR) (Not Detectd) RSV (PCR) (Not Detectd) SARS-CoV-2 (PCR) (Not Detectd) 01/07/24 Range/Units 12:48 WBC (3.8-10.6) k/uL RBC (3.80-5.40) m/uL Hgb (11.4-16.0) gm/dL Hct (34.0-46.0) % MCV (80.0-100.0) fL MCH (25.0-35.0) pg MCHC (31.0-37.0) g/dL RDW (11.5-15.5) % Plt Count (150-450) k/uL MPV Neutrophils % % Lymphocytes % % Monocytes % % Eosinophils % % Basophils % % Neutrophils # (1.3-7.7) k/uL Lymphocytes # (1.0-4.8) k/uL Monocytes # (0-1.0) k/uL Eosinophils # (0-0.7) k/uL Basophils # (0-0.2) k/uL Hypochromasia PT (10.0-12.5) sec INR (<1.2) APTT (22.0-30.0) sec Sodium (137-145) mmol/L Potassium (3.5-5.1) mmol/L Chloride (98-107) mmol/L Carbon Dioxide (22-30) mmol/L Anion Gap mmol/L BUN (7-17) mg/dL Creatinine (0.52-1.04) mg/dL Est GFR (CKD-EPI)AfAm (>60 ml/min/1.73 sqM) Est GFR (CKD-EPI)NonAf (>60 ml/min/1.73 sqM) Glucose (74-99) mg/dL Plasma Lactic Acid Ramsey (0.7-2.0) mmol/L Calcium (8.4-10.2) mg/dL Magnesium (1.6-2.3) mg/dL Total Bilirubin (0.2-1.3) mg/dL AST (14-36) U/L ALT (4-34) U/L Alkaline Phosphatase (38-126) U/L Troponin I (0.000-0.034) ng/mL NT-Pro-B Natriuret Pep pg/mL Total Protein (6.3-8.2) g/dL Albumin (3.5-5.0) g/dL Urine Color Urine Appearance (Clear) Urine pH (5.0-8.0) Ur Specific [place] (1.001-1.035) Urine Protein (Negative) Urine Glucose (UA) (Negative) Urine Ketones (Negative) Urine Blood (Negative) Urine Nitrite (Negative) Urine Bilirubin (Negative) Urine Urobilinogen (<2.0) mg/dL Ur Leukocyte Esterase (Negative) Urine RBC (0-5) /hpf Urine WBC (0-5) /hpf Ur Squamous Epith Cells (0-4) /hpf Amorphous Sediment (None) /hpf Urine Bacteria (None) /hpf Urine Mucus (None) /hpf Influenza Type A (PCR) Not Detected (Not Detectd) Influenza Type B (PCR) Not Detected (Not Detectd) RSV (PCR) Not Detected (Not Detectd) SARS-CoV-2 (PCR) Not Detected (Not Detectd) - EKG Data -: EKG Interpreted by Me EKG Comments: EKG taken 11: 54 showing atrial fibrillation with RVR. Ventricular rate 145, QRS duration 82, QT/QTc 283/367. - Radiology Data Radiology results: report reviewed, image reviewed Disposition Clinical Impression: New onset atrial fibrillation, Lung cancer Disposition: ADMITTED IP TO THIS HOSP Condition: Fair Time of Disposition: 14:27
[2024-01-07 13:04] LABS: Basophils % (A) 0 %; Eosinophils # (A) 0.1 k/uL (0-0.7); Eosinophils % (A) 1 %; HCT 25.3 % (34.0-46.0); HGB 8.1 gm/dL (11.4-16.0); Hypochromasia Moderate; Lymphocytes % (A) 9 %; MCH 26.4 pg (25.0-35.0); MCHC 31.8 g/dL (31.0-37.0); MCV 82.9 fL (80.0-100.0); Mean Platelet Volume 7.5; Monocytes # (A) 0.8 k/uL (0-1.0); Monocytes % (A) 7 %; Neutrophils # (A) 8.7 k/uL (1.3-7.7); Neutrophils % (A) 81 %; Platelet Count 532 k/uL (150-450); RBC 3.05 m/uL (3.80-5.40); RDW 15.8 % (11.5-15.5); WBC 10.7 k/uL (3.8-10.6)
[2024-01-07] MEDS: DILTIAZEM DRIP BOLUS FROM BAG 1 MG SOLN IV ONE ×2 (13:06→18:06)
[2024-01-07] MEDS: DILTIAZEM 125 MG in SODIUM CHLORIDE 0.9% 100 ML IV SCH ×2 (13:07→14:50)
[2024-01-07 13:11] LABS: INR 1.2 (<1.2); Partial Thromboplastin Time 32.8 sec (22.0-30.0); Prothrombin Time 13.1 sec (10.0-12.5)
[2024-01-07 13:14] LABS: ALT 21 U/L (4-34); AST 21 U/L (14-36); African American GFR (CKD) >90 (>60 ml/min/1.73 sqM); Albumin 2.5 g/dL (3.5-5.0); Alkaline Phosphatase 189 U/L (38-126); Anion Gap 5 mmol/L; Blood Urea Nitrogen 22 mg/dL (7-17); Calcium 8.2 mg/dL (8.4-10.2); Carbon Dioxide 32 mmol/L (22-30); Chloride 96 mmol/L (98-107); Glucose 112 mg/dL (74-99); Magnesium 1.7 mg/dL (1.6-2.3); Non-African American GFR(CKD) >90 (>60 ml/min/1.73 sqM); Potassium 4.3 mmol/L (3.5-5.1); Sodium 133 mmol/L (137-145); Total Bilirubin 0.3 mg/dL (0.2-1.3)
[2024-01-07 13:20] LABS: NT-Pro-B-Type Natriuretic Pept 660 pg/mL
[2024-01-07 13:27] LABS: Amorphous Sediment,Urine Rare /hpf; Appearance,Urine Cloudy (Clear); Bacteria,Urine Rare /hpf; Bilirubin,Urine Negative (Negative); Blood,Urine Moderate (Negative); Color,Urine Yellow; Glucose,Urine (UA) Negative (Negative); Ketones,Urine Negative (Negative); Leukocyte Esterase,Urine Small (Negative); Mucus,Urine Moderate /hpf; Nitrite,Urine Negative (Negative); PH, Urine 5.5 (5.0-8.0); Protein,Urine 1+ (Negative); RBC,Urine >182 /hpf (0-5); Specific Gravity,Urine 1.028 (1.001-1.035); Squamous Epithelial Cell,Urine <1 /hpf (0-4); Urobilinogen,Urine <2.0 mg/dL (<2.0); WBC,Urine 12 /hpf (0-5)
[2024-01-07] MEDS: SODIUM CHLORIDE 0.9% 500 ML 500 ML IV ONE ×2 (14:06→16:16)
--- NOTE | 2024-01-07 14:06 | XR ---
EXAMINATION TYPE: XR chest 2V DATE OF EXAM: 01/07/2024 COMPARISON: 12/14/2023 HISTORY: Shortness of breath TECHNIQUE: Frontal and lateral views of the chest are obtained. FINDINGS: Right-sided chest tube is in place with the distal tip near the lung apex medially. Diminution in rig ht-sided pleural effusion. No pneumothorax present. Right hilar mass like infiltrate present. Increas ed density left medial lung base. Heart size is stable. Mediastinal structures are stable and grossly unremarkable. No evidence for hilar prominence. Degenerative changes dorsal spine. IMPRESSION: 1. Right-sided chest tube is in place with the distal tip near the lung apex medially. Diminution in right-sided pleural effusion. No pneumothorax present. Right hilar mass like infiltrate present. Incr eased density left medial lung base.
[2024-01-07] MEDS: HYDROmorphone 0.5 MG/0.5 ML SYRINGE IVP STA (14:22)
[2024-01-07] MEDS ORDERED: ONDANSETRON 4 MG/2 ML VIAL IVP PRN (14:39)
[2024-01-07] MEDS ORDERED: NALOXONE 0.4 MG/ML 1 ML VIAL IV PRN (14:39)
[2024-01-07] MEDS ORDERED: ALBUTEROL NEBULIZED 2.5 MG/3 ML INHALATION PRN (17:15)
[2024-01-07] MEDS ORDERED: oxyCODONE-APAP 10-325MG 1 EACH TAB PO PRN (17:15)
[2024-01-07] MEDS ORDERED: ACETAMINOPHEN TAB 325 MG TAB PO PRN (17:15)
--- NOTE | 2024-01-07 17:37 | P.HPIM ---
History of Present Illness H&P Date: 01/07/24 Patient is a 63-year-old female with recently diagnosed metastatic lung adenocarcinoma, with recurrent right-sided malignant pleural effusion status post Pleurx catheter, left lower extremity extensive DVT, IVC filter placement, presenting with increased shortness of breath and difficulty eating. She claims that over the last few weeks, she has been feeling more SOB. She claims that she saw Oncology, but is unsure if they talked about prognosis. Plan is to get radiation, likely palliative. She denies any CP, palpitations, abdominal pain, N/V, urinary or bowel complaints. In the ED, temperature was 97.5, pulse 140, respiratory rate 16, blood pressure 196/56, saturating at 100% on 3 L. She WBC 10.7, hemoglobin 8.1, at baseline, platelet 532, INR 1.2, APTT 32.8, sodium 133, bicarb 32, BUN 22, creatinine 0.64, magnesium 1.7, troponin 0.217, now down trended to 0.180, urinalysis showed negative nitrites, small leukocyte esterase, greater than 182 RBCs, respiratory viral panel negative. Chest x-ray independently interpreted, shows opacity on the right hilum. EKG independently interpreted, shows atrial fibrillation with RVR. Patient started on IV Cardizem drip. Cardiology consulted. Pertinent positives and negatives as discussed in HPI, a complete review of systems was performed and all other systems are negative. Patient seen and examined at bedside. Vital signs reviewed General: nontoxic, no distress, appears at stated age, cachetic Derm: warm, dry Head: atraumatic, normocephalic, symmetric Eyes: EOMI, no lid lag, anicteric sclera, pupils equal round reactive to light ENT: Nose and ears atraumatic Neck: No thyromegaly, supple Mouth: no lip lesion, mucus membranes moist Cardiovascular: S1S2 reg, systolic murmur, no edema Lungs: clear to auscultation bilateral, no rhonchi, no rales, no wheeze, no accessory muscle use, supplemental oxygen Abdominal: soft, nontender to palpation, no guarding, no appreciable organomegaly Ext: LLE edema Neuro: CN II-XII grossly intact Psych: Alert, oriented, appropriate affect Assessment/Plan: Prognosis is poor. Patient wants to speak with hospice for further information. Active: Atrial fibrillation with RVR, new onset - continue cardizem gtt, monitor on tele - cardiology consulted Chronic: Metastatic lung adenocarcinoma recurrent pleural effusion LLE DVT s/p IVC filter The patient is admitted with an anticipated greater than 2 midnight stay as inpatient status for evaluation of A-fib RVR. Surrogate decision-maker: CODE STATUS: DNR/DNI DVT prophylaxis: IVC filter in place Anticipated discharge date: pending clinical course Anticipated discharge place: pending clinical course A total of 55 minutes was spent on the care of this complex patient more than 50% of the time was spent in counseling and care coordination. Past Medical History Past Medical History: Cancer, COPD, Deep Vein Thrombosis (DVT), Pneumonia Additional Past Medical History / Comment(s): left lung mass- 11/28/23 diagnosed at [facility], [facility] History of Any Multi-Drug Resistant Organisms: None Reported Past Surgical History: Adenoidectomy, Appendectomy, Tonsillectomy, Tubal Ligation Past Anesthesia/Blood Transfusion Reactions: Unable to Obtain Past Psychological History: No Psychological Hx Reported Smoking Status: Current some day smoker Past Alcohol Use History: Occasional Past Drug Use History: Marijuana - Past Family History Mother Family Medical History: Osteoarthritis (OA) Additional Family Medical History / Comment(s): alive and healthy at age 88 Father Family Medical History: Cancer Additional Family Medical History / Comment(s): of lung and brain CA at age 78 Sister(s) Family Medical History: Cancer Additional Family Medical History / Comment(s): liver CA Brother(s) Family Medical History: Cancer Additional Family Medical History / Comment(s): leukemia; another brother has lung CA Medications and Allergies Home Medications Medication Instructions Recorded Confirmed Type Albuterol Sulfate [Albuterol 2 puff PO RT-Q4H PRN 12/08/23 01/07/24 History Sulfate Hfa] Ipratropium-Albuterol Nebulize 3 ml INHALATION RT-Q4H 12/08/23 01/07/24 History [Duoneb 0.5 mg-3 mg/3 ml Soln] ALPRAZolam [Xanax] 0.5 mg PO TID PRN #9 tab 12/18/23 01/07/24 Rx Benzonatate [Tessalon Perles] 100 mg PO TID PRN #30 cap 12/18/23 01/07/24 Rx Pantoprazole [Protonix] 40 mg PO AC-BID #90 tab 12/18/23 01/07/24 Rx oxyCODONE HCL/ACETAMINOPHEN 1 tab PO Q4HR PRN 3 Days #18 tab 12/18/23 01/07/24 Rx [Percocet 10-325 mg] Acetaminophen Tab [Tylenol] 650 mg INHALATION RT-Q6H PRN 01/07/24 01/07/24 History Allergies Allergy/AdvReac Type Severity Reaction Status Date / Time amoxicillin Allergy Rash/Hives Verified 01/07/24 14:01 Penicillins Allergy see comment Verified 01/07/24 14:01 Physical Exam Vitals: Vital Signs Temp Pulse Resp BP Pulse Ox 01/07/24 16:18 109 H 16 96/60 99 01/07/24 15:57 158 H 16 88/57 98 01/07/24 15:00 154 H 20 116/68 98 01/07/24 14:00 163 H 22 108/64 100 01/07/24 13:54 165 H 22 98/56 99 01/07/24 13:40 152 H 22 103/52 99 01/07/24 13:30 137 H 22 93/64 100 01/07/24 13:20 160 H 24 95/65 100 01/07/24 13:10 141 H 22 89/69 99 01/07/24 13:00 158 H 26 H 89/69 98 01/07/24 12:50 170 H 24 97/62 100 01/07/24 12:43 156 H 26 H 100/68 98 01/07/24 12:05 145 H 20 100 01/07/24 11:05 97.5 F L 140 H 16 96/56 100 01/07/24 11:02 98.6 F 93 24 95/61 96 Intake and Output 01/07/24 01/07/24 01/07/24 06:59 14:59 22:59 Other: Weight 54.431 kg Results CBC & Chem 7: 01/07/24 12:15 01/07/24 12:15 Labs: Abnormal Lab Results - Last 24 Hours (Table) 01/07/24 01/07/24 01/07/24 Range/Units 12:15 12:15 12:15 WBC 10.7 H (3.8-10.6) k/uL RBC 3.05 L (3.80-5.40) m/uL Hgb 8.1 L (11.4-16.0) gm/dL Hct 25.3 L (34.0-46.0) % RDW 15.8 H (11.5-15.5) % Plt Count 532 H (150-450) k/uL Neutrophils # 8.7 H (1.3-7.7) k/uL PT 13.1 H (10.0-12.5) sec INR 1.2 H (<1.2) APTT 32.8 H (22.0-30.0) sec Sodium 133 L (137-145) mmol/L Chloride 96 L (98-107) mmol/L Carbon Dioxide 32 H (22-30) mmol/L BUN 22 H (7-17) mg/dL Glucose 112 H (74-99) mg/dL Calcium 8.2 L (8.4-10.2) mg/dL Alkaline Phosphatase 189 H (38-126) U/L Troponin I (0.000-0.034) ng/mL Total Protein 5.0 L (6.3-8.2) g/dL Albumin 2.5 L (3.5-5.0) g/dL Urine Appearance (Clear) Urine Protein (Negative) Urine Blood (Negative) Ur Leukocyte Esterase (Negative) Urine RBC (0-5) /hpf Urine WBC (0-5) /hpf Amorphous Sediment (None) /hpf Urine Bacteria (None) /hpf Urine Mucus (None) /hpf 01/07/24 01/07/24 01/07/24 Range/Units 12:15 12:48 15:41 WBC (3.8-10.6) k/uL RBC (3.80-5.40) m/uL Hgb (11.4-16.0) gm/dL Hct (34.0-46.0) % RDW (11.5-15.5) % Plt Count (150-450) k/uL Neutrophils # (1.3-7.7) k/uL PT (10.0-12.5) sec INR (<1.2) APTT (22.0-30.0) sec Sodium (137-145) mmol/L Chloride (98-107) mmol/L Carbon Dioxide (22-30) mmol/L BUN (7-17) mg/dL Glucose (74-99) mg/dL Calcium (8.4-10.2) mg/dL Alkaline Phosphatase (38-126) U/L Troponin I 0.217 H* 0.180 H* (0.000-0.034) ng/mL Total Protein (6.3-8.2) g/dL Albumin (3.5-5.0) g/dL Urine Appearance Cloudy H (Clear) Urine Protein 1+ H (Negative) Urine Blood Moderate H (Negative) Ur Leukocyte Esterase Small H (Negative) Urine RBC >182 H (0-5) /hpf Urine WBC 12 H (0-5) /hpf Amorphous Sediment Rare H (None) /hpf Urine Bacteria Rare H (None) /hpf Urine Mucus Moderate H (None) /hpf
[2024-01-07] MEDS: PANTOPRAZOLE 40 MG TABLET PO SCH (19:25)
[2024-01-07] MEDS: IPRATROPIUM-ALBUTEROL 3 ML NEB INHALATION SCH (21:31)
[2024-01-07] MEDS: HYDROmorphone 0.5 MG/0.5 ML SYRINGE IVP PRN (22:40)
[2024-01-08 09:25] LABS: Anisocytosis Slight; Basophils % (A) 0 %; Eosinophils # (A) 0.1 k/uL (0-0.7); Eosinophils % (A) 0 %; HCT 24.1 % (34.0-46.0); HGB 7.1 gm/dL (11.4-16.0); Hypochromasia Moderate; Lymphocytes # (A) 1.2 k/uL (1.0-4.8); Lymphocytes % (A) 8 %; MCH 24.8 pg (25.0-35.0); MCHC 29.6 g/dL (31.0-37.0); MCV 83.9 fL (80.0-100.0); Mean Platelet Volume 7.2; Monocytes # (A) 0.8 k/uL (0-1.0); Monocytes % (A) 6 %; Neutrophils # (A) 11.8 k/uL (1.3-7.7); Neutrophils % (A) 84 %; Platelet Count 540 k/uL (150-450); RBC 2.87 m/uL (3.80-5.40); RDW 16.1 % (11.5-15.5)
[2024-01-08 09:40] LABS: ALT 17 U/L (4-34); AST 18 U/L (14-36); African American GFR (CKD) >90 (>60 ml/min/1.73 sqM); Albumin 2.2 g/dL (3.5-5.0); Alkaline Phosphatase 175 U/L (38-126); Anion Gap 6 mmol/L; Blood Urea Nitrogen 20 mg/dL (7-17); Carbon Dioxide 26 mmol/L (22-30); Chloride 100 mmol/L (98-107); Glucose 105 mg/dL (74-99); Magnesium 1.6 mg/dL (1.6-2.3); Non-African American GFR(CKD) >90 (>60 ml/min/1.73 sqM); Potassium 3.9 mmol/L (3.5-5.1); Sodium 132 mmol/L (137-145); Total Bilirubin 0.3 mg/dL (0.2-1.3); Total Protein 4.5 g/dL (6.3-8.2)
--- NOTE | 2024-01-08 10:50 | P.CRDCN ---
History of Present Illness History of present illness: HISTORY OF PRESENTING ILLNESS Patient is a pleasant 63-year-old female with history of metastatic lung adenocarcinoma with right-sided malignant pleural effusion status post Pleurx catheter, DVT with GI bleeding, anemia status post IVC filter placement, chronic shortness breath who presents secondary to worsening shortness breath as well as some problems swallowing and confusion. Patient had prolonged hospitalization with some anemia and DVT and eventually underwent IVC filter placement. She was at home and had not been feeling well and family concerned with her speech and somewhat more confused as well as short of breath and therefore came to emergency department. Patient was found to be in A. fib with RVR and placed on Cardizem drip with conversion to normal sinus rhythm. She denied feeling any actual palpitations however did feel short of breath. She has struggle with s hortness breath for some time and no dramatic changes. She denies any current chest pain however does get atypical chest pain over the last few months not clearly associated with exertion. She was found to have non-STEMI with troponin 0.2, 0.18, 0.2. EKG while in sinus rhythm shows normal sinus rhythm, normal axis, no significant ST-T wave abnormalities. Hemoglobin 8.0, 8.1, 7.1 this morning. Chest x-ray shows right-sided chest tube in place with small right- sided pleural effusion and right hilar mass. REVIEW OF SYSTEMS At the time of my exam: CONSTITUTIONAL: Denies fever or chills. CARDIOVASCULAR: +atypical chest pain, +shortness of breath, no orthopnea, PND or palpitations. RESPIRATORY: +mild cough. GASTROINTESTINAL: Denies abdominal pain, diarrhea, constipation, nausea or vomiting. MUSCULOSKELETAL: Denies myalgias. NEUROLOGIC: Denies numbness, tingling or weakness. ENDOCRINE: Denies fatigue, weight change, polydipsia or polyurina. GENITOURINARY: Denies burning, hematuria or urgency with micturation. HEMATOLOGIC: Denies history of anemia or bleeding. PHYSICAL EXAMINATION Vital signs reviewed. CONSTITUTIONAL: No apparent distress. HEENT: Head is normocephalic. Pupils are equal, round. Sclerae anicteric. Mucous membranes of the mouth are moist. No JVD. No carotid bruit. CHEST EXAMINATION: Lungs are clear to auscultation. No chest wall tenderness is noted on palpation or with deep breathing. HEART EXAMINATION: Regular rate and rhythm. S1, S2 heard. No murmurs, gallops or rub. ABDOMEN: Soft, nontender. Positive bowel sounds. EXTREMITIES: 2+ peripheral pulses, no lower extremity edema and no calf tenderness. NEUROLOGIC EXAMINATION: Patient is awake, alert and oriented x3. ASSESSMENT new-onset atrial fibrillation Non-STEMI likely 2 related to A. fib, anemia, respiratory failure without obvious angina-type symptoms Metastatic lung adenocarcinoma with malignant effusion history of DVT status post IVC filter Anemia worsened on anticoagulation Chronic respiratory failure likely mainly related to effusion, lung cancer Altered mental status Recent issues with difficulty swallowing PLAN patient with new onset A. fib and may be causing some of her shortness breath. Discussed wearing an event monitor home to evaluate if she is having intermittent episodes of A. fib. Continue to monitor on telemetry. Given borderline blood pressures we will not start any new medications at this time. If monitor does show more significant A. fib episodes consider antiarrhythmics. CHADS VASC score of 0 with no diabetes, CAD or PAD or heart failure. She does however have some confusion and if any concern of stroke or TIA that she would warrant anticoagulation. At this point however given significant anemia and inability to tolerate anicteric regulation of the past hold on anticoagulation. Check 2-D echo to evaluate left ventricular function. Monitor for 24 hours and if relatively stable possible discharge home in next 24-48 hours. Past Medical History Past Medical History: Cancer, COPD, Deep Vein Thrombosis (DVT), Pneumonia Additional Past Medical History / Comment(s): left lung mass- 11/28/23 diagnosed at [facility], [facility] History of Any Multi-Drug Resistant Organisms: None Reported Past Surgical History: Adenoidectomy, Appendectomy, Tonsillectomy, Tubal Ligation Past Anesthesia/Blood Transfusion Reactions: Unable to Obtain Past Psychological History: No Psychological Hx Reported Smoking Status: Current some day smoker Past Alcohol Use History: Occasional Past Drug Use History: Marijuana - Past Family History Mother Family Medical History: Osteoarthritis (OA) Additional Family Medical History / Comment(s): alive and healthy at age 88 Father Family Medical History: Cancer Additional Family Medical History / Comment(s): of lung and brain CA at age 78 Sister(s) Family Medical History: Cancer Additional Family Medical History / Comment(s): liver CA Brother(s) Family Medical History: Cancer Additional Family Medical History / Comment(s): leukemia; another brother has lung CA Medications and Allergies Home Medications Medication Instructions Recorded Confirmed Type Albuterol Sulfate [Albuterol 2 puff PO RT-Q4H PRN 12/08/23 01/07/24 History Sulfate Hfa] Ipratropium-Albuterol Nebulize 3 ml INHALATION RT-Q4H 12/08/23 01/07/24 History [Duoneb 0.5 mg-3 mg/3 ml Soln] ALPRAZolam [Xanax] 0.5 mg PO TID PRN #9 tab 12/18/23 01/07/24 Rx Benzonatate [Tessalon Perles] 100 mg PO TID PRN #30 cap 12/18/23 01/07/24 Rx Pantoprazole [Protonix] 40 mg PO AC-BID #90 tab 12/18/23 01/07/24 Rx oxyCODONE HCL/ACETAMINOPHEN 1 tab PO Q4HR PRN 3 Days #18 tab 12/18/23 01/07/24 Rx [Percocet 10-325 mg] Acetaminophen Tab [Tylenol] 650 mg INHALATION RT-Q6H PRN 01/07/24 01/07/24 History Allergies Allergy/AdvReac Type Severity Reaction Status Date / Time amoxicillin Allergy Rash/Hives Verified 01/07/24 14:01 Penicillins Allergy see comment Verified 01/07/24 14:01 Physical Exam Vitals: Vital Signs Temp Pulse Resp BP Pulse Ox 01/08/24 09:41 91 18 96 01/08/24 08:37 97 01/08/24 08:32 93 01/08/24 08:30 94 L 01/08/24 08:20 98.0 F 93 20 107/53 95 01/08/24 06:00 96 101/55 100 01/08/24 05:00 94 104/54 100 01/08/24 04:00 92 100/54 100 01/08/24 03:29 101 H 01/08/24 03:19 93 01/08/24 03:00 91 99/52 100 01/08/24 02:00 92 100/53 99 01/08/24 01:11 89 18 100/53 98 01/08/24 01:00 92 94/64 01/08/24 00:03 93 01/08/24 00:00 91 95/53 100 24 23:54 94 01/07/24 23:00 92 102/55 01/07/24 22:37 98 18 102/55 98 01/07/24 22:00 96 148/72 99 01/07/24 21:39 98 01/07/24 21:34 97 01/07/24 21:33 97 01/07/24 21:00 102 H 132/71 98 01/07/24 20:30 99 132/71 94 L 01/07/24 20:00 104 H 18 119/54 97 01/07/24 19:00 100 22 116/58 100 01/07/24 18:30 96 22 111/57 99 01/07/24 18:00 101 H 20 116/54 99 01/07/24 17:30 103 H 22 107/50 98 01/07/24 17:00 104 H 22 101/55 98 01/07/24 16:30 107 H 20 96/60 98 01/07/24 16:18 109 H 16 96/60 99 01/07/24 16:00 105 H 88/57 99 24 15:57 158 H 16 88/57 98 01/07/24 15:30 161 H 114/69 01/07/24 15:00 160 H 20 103/62 98 01/07/24 14:30 152 H 108/64 99 01/07/24 14:00 172 H 22 108/64 99 01/07/24 13:54 165 H 22 98/56 99 01/07/24 13:40 152 H 22 103/52 99 01/07/24 13:30 137 H 22 93/64 100 01/07/24 13:20 160 H 24 95/65 100 24 13:10 141 H 22 89/69 99 24 13:00 158 H 26 H 89/69 98 01/07/24 12:50 170 H 24 97/62 100 01/07/24 12:43 156 H 26 H 100/68 98 01/07/24 12:05 145 H 20 100 01/07/24 11:05 97.5 F L 140 H 16 96/56 100 01/07/24 11:02 98.6 F 93 24 95/61 96 Intake and Output 01/07/2424 01/08/24 22:59 06:59 14:59 Intake Total 105.084 Balance 105.084 Intake: Intake, IV Titration 105.084 Amount Diltiazem 125 mg In 105.084 Sodium Chloride 0.9% 100 ml @ 10 MG/HR 10 mls/hr IV .[id number] [facility] Rx#: [id number] Results 01/08/24 08:40 01/08/24 08:40 Cardiac Enzymes 01/07/24 01/07/24 01/07/24 Range/Units 12:15 12:15 15:41 AST 21 (14-36) U/L Troponin I 0.217 H* 0.180 H* (0.000-0.034) ng/mL 01/07/24 01/08/24 Range/Units 19:56 08:40 AST 18 (14-36) U/L Troponin I 0.204 H* (0.000-0.034) ng/mL Coagulation 01/07/24 Range/Units 12:15 PT 13.1 H (10.0-12.5) sec APTT 32.8 H (22.0-30.0) sec CBC 01/07/24 01/08/24 Range/Units 12:15 08:40 WBC 10.7 H 14.0 H (3.8-10.6) k/uL RBC 3.05 L 2.87 L (3.80-5.40) m/uL Hgb 8.1 L 7.1 L (11.4-16.0) gm/dL Hct 25.3 L 24.1 L (34.0-46.0) % Plt Count 532 H 540 H (150-450) k/uL Comprehensive Metabolic Panel 01/07/24 01/08/24 Range/Units 12:15 08:40 Sodium 133 L 132 L (137-145) mmol/L Potassium 4.3 3.9 (3.5-5.1) mmol/L Chloride 96 L 100 (98-107) mmol/L Carbon Dioxide 32 H 26 (22-30) mmol/L BUN 22 H 20 H (7-17) mg/dL Creatinine 0.64 0.53 (0.52-1.04) mg/dL Glucose 112 H 105 H (74-99) mg/dL Calcium 8.2 L 8.0 L (8.4-10.2) mg/dL AST 21 18 (14-36) U/L ALT 21 17 (4-34) U/L Alkaline Phosphatase 189 H 175 H (38-126) U/L Total Protein 5.0 L 4.5 L (6.3-8.2) g/dL Albumin 2.5 L 2.2 L (3.5-5.0) g/dL Current Medications Generic Name Dose Route Start Last Admin Trade Name Freq PRN Reason Stop Dose Admin Acetaminophen 650 mg 01/07/24 17:15 Acetaminophen Tab 325 Mg Tab PO Q6H PRN Mild to Moderate Pain (1 - 6) Albuterol Sulfate 2.5 mg 01/07/24 17:15 Albuterol Nebulized 2.5 Mg/3 Ml INHALATION RT-Q4H PRN Wheezing Albuterol/Ipratropium 3 ml 01/07/24 20:00 01/08/24 08:28 Ipratropium-Albuterol 3 Ml Neb INHALATION 3 ml RT-Q4H [facility] Administration Alprazolam 0.5 mg 01/07/24 17:15 Alprazolam 0.5 Mg Tab PO TID PRN Anxiety Hydromorphone HCl 0.5 mg 01/07/24 14:39 01/08/24 08:30 Hydromorphone 0.5 Mg/0.5 Ml Syringe IVP 0.5 mg Q3HR PRN Administration Moderate Pain (Scale 4 to 6) Diltiazem HCl 125 mg/ Sodium 125 mls @ 10 mls/hr 01/07/24 14:45 01/08/24 02:43 Chloride IV Not Given .[id number] [facility]I 10 MG/HR Naloxone HCl 0.2 mg 01/07/24 14:39 Naloxone 0.4 Mg/Ml 1 Ml Vial IV Q2M PRN Opioid Reversal Ondansetron HCl 4 mg 01/07/24 14:39 Ondansetron 4 Mg/2 Ml Vial IVP Q8HR PRN Nausea And Vomiting Oxycodone/Acetaminophen 1 each 01/07/24 17:15 Oxycodone-Apap 10-325mg 1 Each Tab PO Q4HR PRN Severe Breakthrough Pain Pantoprazole Sodium 40 mg 01/07/24 17:30 01/08/24 08:26 Pantoprazole 40 Mg Tablet PO 40 mg AC-BID ARTI Administration Intake and Output 01/07/24 01/08/24 01/08/24 22:59 06:59 14:59 Intake Total 105.084 Balance 105.084 Intake: Intake, IV Titration 105.084 Amount Diltiazem 125 mg In 105.084 Sodium Chloride 0.9% 100 ml @ 10 MG/HR 10 mls/hr IV .[id number] [facility] Rx#: [id number] 01/08/24 08:40 01/08/24 08:40
--- NOTE | 2024-01-08 15:11 | P.PN ---
Subjective Progress Note Date: 01/08/24 Hospital Course: 63-year-old female with recently diagnosed metastatic lung adenocarcinoma, with recurrent right-sided malignant pleural effusion status post Pleurx catheter, left lower extremity extensive DVT, IVC filter placement, presenting with increased shortness of breath and difficulty eating. In the ED, temperature was 97.5, pulse 140, respiratory rate 16, blood pressure 196/56, saturating at 100% on 3 L. She WBC 10.7, hemoglobin 8.1, at baseline, platelet 532, INR 1.2, APTT 32.8, sodium 133, bicarb 32, BUN 22, creatinine 0.64, magnesium 1.7, troponin 0.217, now down trended to 0.180, urinalysis showed negative nitrites, small leukocyte esterase, greater than 182 RBCs, respiratory viral panel negative. Chest x-ray independently interpreted, shows opacity on the right hilum. EKG independently interpreted, shows atrial fibrillation with RVR. Patient started on IV Cardizem drip. Cardiology consulted. Due to significant anemia as well as and inability to tolerate anticoagulation, currently on hold. Echocardiogram pending. Subjective: Patient seen and examined at bedside. No acute events overnight. Pertinent positives and negatives as discussed above, a complete review of systems was performed and all other systems are negative. Vitals Signs Reviewed. General: nontoxic, no distress, appears at stated age, cachetic Derm: warm, dry Head: atraumatic, normocephalic, symmetric Eyes: EOMI, no lid lag, anicteric sclera, pupils equal round reactive to light ENT: Nose and ears atraumatic Neck: No thyromegaly, supple Mouth: no lip lesion, mucus membranes moist Cardiovascular: S1S2 reg, systolic murmur, no edema Lungs: clear to auscultation bilateral, no rhonchi, no rales, no wheeze, no accessory muscle use, supplemental oxygen Abdominal: soft, nontender to palpation, no guarding, no appreciable organomegaly Ext: LLE edema Neuro: CN II-XII grossly intact Psych: Alert, oriented, appropriate affect Data Reviewed Today: Pertinent Labs: WBC 14, hemoglobin 7.1, platelet 540, sodium 132, potassium 3.9, magnesium 1.6, creatinine 0.53 Imaging: EKG independently interpreted from this morning, shows sinus rhythm. Assessment and Plan: Active: Atrial fibrillation with RVR, new onset Elevated troponin, nonischemic -Off of Cardizem drip, continue to monitor on telemetry - Cardiology note reviewed, patient unable to tolerate anticoagulation, and is anemic, continue to hold - Echocardiogram pending - No active chest pain. Chronic: Metastatic lung adenocarcinoma recurrent pleural effusion LLE DVT s/p IVC filter Chronic anemia DVT ppx: IVC filter in place Code status: DNR/DNI Anticipated discharge place: Pending clinical course Anticipated discharge time: Pending clinical course Objective - Vital Signs Vital signs: Vital Signs Temp 98.0 F 01/08/24 08:20 Pulse 94 01/08/24 14:26 Resp 20 01/08/24 14:26 BP 107/59 01/08/24 14:26 Pulse Ox 99 01/08/24 14:26 FiO2 Intake & Output 01/07/24 01/08/24 01/08/24 18:59 06:59 18:59 Intake Total 105.084 Balance 105.084 Weight 54.431 kg Intake: Intake, IV Titration 105.084 Amount Diltiazem 125 mg In 105.084 Sodium Chloride 0.9% 100 ml @ 10 MG/HR 10 mls/hr IV .[id number] [facility] Rx#: [id number] - Labs CBC & Chem 7: 01/08/24 08:40 01/08/24 08:40 Labs: Abnormal Lab Results - Last 24 Hours (Table) 01/07/24 01/07/24 01/08/24 Range/Units 15:41 19:56 08:40 WBC 14.0 H (3.8-10.6) k/uL RBC 2.87 L (3.80-5.40) m/uL Hgb 7.1 L (11.4-16.0) gm/dL Hct 24.1 L (34.0-46.0) % MCH 24.8 L (25.0-35.0) pg MCHC 29.6 L (31.0-37.0) g/dL RDW 16.1 H (11.5-15.5) % Plt Count 540 H (150-450) k/uL Neutrophils # 11.8 H (1.3-7.7) k/uL Sodium (137-145) mmol/L BUN (7-17) mg/dL Glucose (74-99) mg/dL Calcium (8.4-10.2) mg/dL Alkaline Phosphatase (38-126) U/L Troponin I 0.180 H* 0.204 H* (0.000-0.034) ng/mL Total Protein (6.3-8.2) g/dL Albumin (3.5-5.0) g/dL 01/08/24 Range/Units 08:40 WBC (3.8-10.6) k/uL RBC (3.80-5.40) m/uL Hgb (11.4-16.0) gm/dL Hct (34.0-46.0) % MCH (25.0-35.0) pg MCHC (31.0-37.0) g/dL RDW (11.5-15.5) % Plt Count (150-450) k/uL Neutrophils # (1.3-7.7) k/uL Sodium 132 L (137-145) mmol/L BUN 20 H (7-17) mg/dL Glucose 105 H (74-99) mg/dL Calcium 8.0 L (8.4-10.2) mg/dL Alkaline Phosphatase 175 H (38-126) U/L Troponin I (0.000-0.034) ng/mL Total Protein 4.5 L (6.3-8.2) g/dL Albumin 2.2 L (3.5-5.0) g/dL
--- NOTE | 2024-01-08 15:20 | P.PN ---
Progress Note - Text Progress Note Date: 01/08/24 Advanced Care Planning: Diagnoses: Metastatic lung adenocarcinoma Discussion: Person(s) present and participating in discussion: Patient, , daughter Summary: Increased dyspnea and difficulty eating due to debility as well as progressive metastatic lung adenocarcinoma Patient feels extremely weak. Would like to pursue hospice care. Hospice consulted. A total of 20 minutes of face to face time was spent discussing advanced care planning.
[2024-01-08] MEDS: ALPRAZolam 0.5 MG TAB PO PRN (23:42)
[2024-01-09] MEDS: guaiFENesin-DM 100-10MG/5ML 10 ML CUP PO ONE (01:57)
--- NOTE | 2024-01-09 07:25 | CA ---
Transthoracic Echo Report Name: Jesica Banegas Age: 63 Gender: F : 1960 Exam Date: 01/08/2024 13:32 Exam Location: [facility] Ht (in): 61 Wt (lb): 120 Ordering Physician: Soy Levin DO ([email or web address]) Attending/Referring Phys: Mixer Runner Amy Carter RDCS Procedure CPT: Indications: re: NSTEMI Cardiac Hx: Technical Quality: Good Contrast 1: Total Dose (mL): Contrast 2: Total Dose (mL): MEASUREMENTS (Male / Female) Normal Values 2D ECHO LV Diastolic Diameter PLAX 4.1 cm 4.2 - 5.9 / 3.9 - 5.3 cm LV Systolic Diameter PLAX 2.8 cm IVS Diastolic Thickness 1.0 cm 0.6 - 1.0 / 0.6 - 0.9 cm LVPW Diastolic Thickness 1.0 cm 0.6 - 1.0 / 0.6 - 0.9 cm LV Relative Wall Thickness 0.5 RV Internal Dim ED PLAX 3.4 cm LA Systolic Diameter LX 3.4 cm 3.0 - 4.0 / 2.7 - 3.8 cm LA Volume 47.3 cm??? 18 - 58 / 22 - 52 cm??? LA Volume Index 30.8 cm???/m??? 16 - 28 cm???/m??? M-MODE Aortic Root Diameter MM 2.7 cm MV E Point Septal Separation 0.3 cm AV Cusp Separation MM 1.7 cm DOPPLER AV Peak Velocity 181.4 cm/s AV Peak Gradient 13.2 mmHg MV Area PHT 3.9 cm??? Mitral E Point Velocity 116.0 cm/s Mitral A Point Velocity 126.2 cm/s Mitral E to A Ratio 0.9 MV Deceleration Time 194.8 ms TR Peak Velocity 279.4 cm/s TR Peak Gradient 31.2 mmHg Right Ventricular Systolic Press 35.9 mmHg FINDINGS Left Ventricle Left ventricular ejection fraction is estimated at 55-60 %. Left ventricular cavity size normal. Left ventricular wall thickness normal. No obvious regional wall motion abnormalities. Right Ventricle Mild right ventricular dilatation. Mild pulmonary hypertension. Right Atrium Normal right atrial size. Left Atrium Mildly increased left atrial volume. Mildly increased left atrial area. Mitral Valve Structurally normal mitral valve. Aortic Valve Trileaflet aortic valve. Mild aortic regurgitation. Tricuspid Valve Structurally normal tricuspid valve. Mild tricuspid regurgitation. Pulmonic Valve Structurally normal pulmonic valve. No pulmonic regurgitation. Pericardium No pericardial effusion. Aorta Normal size aortic root and proximal ascending aorta. CONCLUSIONS LVH with preserved systolic function Mild RV enlargement Previewed by: Dr. Valeriano Edouard MD (Electronically Signed) Final Date: 09 January 2024 07:24
[2024-01-09] MEDS ORDERED: AMIODARONE 360 MG in DEXTROSE 5% IN WATER 200 ML IV ONE ×2 (09:50→11:45)
[2024-01-09] MEDS ORDERED: DEXTROSE 5% IN WATER 100 ML with AMIODARONE 150 MG IV ONE ×2 (09:50→11:45)
[2024-01-09 09:59] LABS: Glucose,Whole Blood 126 mg/dL (70-110)
[2024-01-09] MEDS ORDERED: AMIODARONE 450 MG in DEXTROSE 5% IN WATER 250 ML IV SCH ×2 (10:00→11:45)
[2024-01-09] MEDS: METOPROLOL TARTRATE 5 MG/5 ML VIAL IVP STA (10:12)
--- NOTE | 2024-01-09 10:57 | P.PN ---
Subjective HISTORY OF PRESENT ILLNESS: Patient is a pleasant 63-year-old female with history of metastatic lung adenocarcinoma with right-sided malignant pleural effusion status post Pleurx catheter, DVT with GI bleeding, anemia status post IVC filter placement, chronic shortness breath who presents secondary to worsening shortness breath as well as some problems swallowing and confusion. Patient had prolonged hospitalization with some anemia and DVT and eventually underwent IVC filter placement. She was at home and had not been feeling well and family concerned with her speech and somewhat more confused as well as short of breath and therefore came to emergency department. Patient was found to be in A. fib with RVR and placed on Cardizem drip with conversion to normal sinus rhythm. She denied feeling any actual palpitations however did feel short of breath. She has struggle with shortness breath for some time and no dramatic changes. She denies any current chest pain however does get atypical chest pain over the last few months not cl early associated with exertion. She was found to have non-STEMI with troponin 0.2, 0.18, 0.2. EKG while in sinus rhythm shows normal sinus rhythm, normal axis, no significant ST-T wave abnormalities. Hemoglobin 8.0, 8.1, 7.1 this morning. Chest x-ray shows right-sided chest tube in place with small right- sided pleural effusion and right hilar mass. 01/09/2024 Patient examined this morning at the bedside. Patient reports mild shortness of breath. She denies chest pain or pressure. At the time of examination, patient is maintaining sinus mechanism with a heart rate around 100. Patient's blood pressures are low with a systolic in the 90s. She is not on any rate controlling medications due to hypotension. After cardiology rounds this morning, cardiology CUSTOMER CARE TEAM COACH was notified that patient is back in A-fib with heart rate in the 160s. PHYSICAL EXAM: VITAL SIGNS: Reviewed. GENERAL: Well-developed in no acute distress. NECK: Supple. No JVD or thyromegaly LUNGS: Respirations even and unlabored. Lungs essentially clear to auscultation bilaterally. HEART: Regular rate and rhythm. S1 and S2 heard. EXTREMITIES: Normal range of motion. No clubbing or cyanosis. Peripheral pulses intact. No lower extremity edema ASSESSMENT: New-onset atrial fibrillation Non-STEMI likely 2 related to A. fib, anemia, respiratory failure without obvious angina-type symptoms Metastatic lung adenocarcinoma with malignant effusion history of DVT status post IVC filter Anemia worsened on anticoagulation Chronic respiratory failure likely mainly related to effusion, lung cancer Altered mental status Recent issues with difficulty swallowing PLAN: After cardiology rounds this morning, cardiology CUSTOMER CARE TEAM COACH was notified that patient is back in A-fib with heart rate in the 160s. Cardiology team recommends IV amiodarone due to hypotension and transfer to 3 S. with continue telemetry monitoring However patient's primary care physician ordered IV metoprolol and oral metoprolol to be given instead of IV amiodarone. Concern of giving metoprolol due to borderline hypotension. However we will defer this to primary medicine. Will defer further management to primary medicine. We will sign off. Please reconsult if needed. Nurse practitioner note has been reviewed by physician. Signing provider agrees with the documented findings, assessment, and plan of care documented by CUSTOMER CARE TEAM COACH as a scribe. Objective - Vital Signs Vital signs: Vital Signs Temp 98.8 F 01/09/24 07:02 Pulse 96 01/09/24 08:47 Resp 17 01/09/24 07:02 BP 96/59 01/09/24 07:02 Pulse Ox 95 01/09/24 08:40 FiO2 Intake & Output 01/08/24 01/09/24 01/09/24 18:59 06:59 18:59 Weight 54.431 kg Other: # Voids 1 - Labs CBC & Chem 7: 01/08/24 08:40 01/08/24 08:40 Labs: Abnormal Lab Results - Last 24 Hours (Table) 01/09/24 Range/Units 09:58 POC Glucose (mg/dL) 126 H (70-110) mg/dL Microbiology - Last 24 Hours (Table) 01/07/24 12:48 Urine Culture - Preliminary Urine,Voided Gram Neg Bacilli
[2024-01-09] MEDS ORDERED: ZINC OXIDE PASTE (Z-GUARD) 1 APPLIC TOPICAL PRN (14:53)
[2024-01-09 14:58] VITALS: BP 96/62; PULSE 61; RESP 18; TEMP 97.5
[2024-01-09 14:59] VITALS: BMI 22.6
--- NOTE | 2024-01-09 15:01 | P.DS ---
Providers Date of admission: 01/07/24 14:01 Expected date of discharge: 01/09/24 Attending physician: Ileana Quijano DO Primary care physician: James Rosas Hospital Course: Discharge Diagnosis: Atrial fibrillation with RVR, new onset Elevated troponin, nonischemic Metastatic lung adenocarcinoma recurrent pleural effusion LLE DVT s/p IVC filter Chronic anemia Hospital Course: 63-year-old female with recently diagnosed metastatic lung adenocarcinoma, with recurrent right-sided malignant pleural effusion status post Pleurx catheter, left lower extremity extensive DVT, IVC filter placement, presenting with increased shortness of breath and difficulty eating. In the ED, temperature was 97.5, pulse 140, respiratory rate 16, blood pressure 196/56, saturating at 100% on 3 L. She WBC 10.7, hemoglobin 8.1, at baseline, platelet 532, INR 1.2, APTT 32.8, sodium 133, bicarb 32, BUN 22, creatinine 0.64, magnesium 1.7, troponin 0.217, now down trended to 0.180, urinalysis showed negative nitrites, small leukocyte esterase, greater than 182 RBCs, respiratory viral panel negative. Chest x-ray independently interpreted, shows opacity on the right hilum. EKG independently interpreted, shows atrial fibrillation with RVR. Patient started on IV Cardizem drip. Cardiology consulted. Due to significant anemia as well as and inability to tolerate anticoagulation, currently on hold. Echocardiogram showed preserved systolic function, mild RV enlargement. Continue to remain in A-fib RVR. Started on metoprolol oral. Cardiology recommended IV amiodarone due to borderline blood pressure, however patient and family has decided for hospice care. Will be discharged home with hospice. Patient seen and examined at bedside. Vital signs reviewed and stable. General: nontoxic, no distress, appears at stated age, cachetic Derm: warm, dry Head: atraumatic, normocephalic, symmetric Eyes: EOMI, no lid lag, anicteric sclera, pupils equal round reactive to light ENT: Nose and ears atraumatic Neck: No thyromegaly, supple Mouth: no lip lesion, mucus membranes moist Cardiovascular: S1S2 irregular, tachycardic, systolic murmur, no edema Lungs: clear to auscultation bilateral, no rhonchi, no rales, no wheeze, no accessory muscle use, supplemental oxygen Abdominal: soft, nontender to palpation, no guarding, no appreciable organomegaly Ext: LLE edema Neuro: CN II-XII grossly intact Psych: Alert, oriented, appropriate affect A total of 33 minutes of time were spent preparing this complex discharge summary. Patient was discharged on 01/09/2024 at 1457. Patient Condition at Discharge: Fair Plan - Discharge Summary Discharge Rx Participant: No New Discharge Prescriptions: New Metoprolol Tartrate [Lopressor] 50 mg PO TID #0 tab Continue Ipratropium-Albuterol Nebulize [Duoneb 0.5 mg-3 mg/3 ml Soln] 3 ml INHALATION RT-Q4H Benzonatate [Tessalon Perles] 100 mg PO TID PRN #30 cap PRN Reason: Cough Albuterol Sulfate [Albuterol Sulfate Hfa] 2 puff PO RT-Q4H PRN PRN Reason: Wheezing Pantoprazole [Protonix] 40 mg PO AC-BID #90 tab ALPRAZolam [Xanax] 0.5 mg PO TID PRN #9 tab PRN Reason: Anxiety oxyCODONE HCL/ACETAMINOPHEN [Percocet 10-325 mg] 1 tab PO Q4HR PRN 3 Days #18 tab PRN Reason: Severe Breakthrough Pain Acetaminophen Tab [Tylenol] 650 mg INHALATION RT-Q6H PRN PRN Reason: Mild To Moderate Pain (1 - 6) Discharge Medication List Albuterol Sulfate [Albuterol Sulfate Hfa] 2 puff PO RT-Q4H PRN 12/08/23 [Hist ory] Ipratropium-Albuterol Nebulize [Duoneb 0.5 mg-3 mg/3 ml Soln] 3 ml INHALATION RT-Q4H 12/08/23 [History] ALPRAZolam [Xanax] 0.5 mg PO TID PRN #9 tab 12/18/23 [Rx] Benzonatate [Tessalon Perles] 100 mg PO TID PRN #30 cap 12/18/23 [Rx] Pantoprazole [Protonix] 40 mg PO AC-BID #90 tab 12/18/23 [Rx] oxyCODONE HCL/ACETAMINOPHEN [Percocet 10-325 mg] 1 tab PO Q4HR PRN 3 Days #18 tab 12/18/23 [Rx] Acetaminophen Tab [Tylenol] 650 mg INHALATION RT-Q6H PRN 01/07/24 [History] Metoprolol Tartrate [Lopressor] 50 mg PO TID #0 tab 01/09/24 [Rx] Follow up Appointment(s)/Referral(s): [facility] [[facility]FF] - As Needed James Rosas DO [Primary Care Provider] - 1-2 days Patient Instructions/Handouts: Lung Cancer (DC) Discharge Disposition: HOME WITH HOSPICE
[2024-01-09] MEDS ORDERED: METOPROLOL TARTRATE 50 MG TAB PO SCH (16:00)
[2024-01-09] MEDS ORDERED: BENZONATATE 100 MG CAP PO SCH (16:00)
== END 2024-01-09 16:38 | disposition hospice, home (50) | DRG 281 ==
LOC: EC 10:56 → 3SCARD 14:01 → 4SSUR 01-08 18:06
PROVIDERS: ADMIT Internal Medicine; ATTEND Internal Medicine
DX: I48.91 Unspecified atrial fibrillation (principal); C34.90 Malignant neoplasm of unspecified part of unspecified bronchus or lung; I21.A1 Myocardial infarction type 2; J96.10 Chronic respiratory failure, unspecified whether with hypoxia or hypercapnia; J91.0 Malignant pleural effusion; I82.402 Acute embolism and thrombosis of unspecified deep veins of left lower extremity; R62.7 Adult failure to thrive; Z66 Do not resuscitate; F17.210 Nicotine dependence, cigarettes, uncomplicated; I27.20 Pulmonary hypertension, unspecified; I08.2 Rheumatic disorders of both aortic and tricuspid valves; R13.10 Dysphagia, unspecified; D64.9 Anemia, unspecified; Z95.828 Presence of other vascular implants and grafts; Z86.718 Personal history of other venous thrombosis and embolism; Z87.01 Personal history of pneumonia (recurrent); Z79.899 Other long term (current) drug therapy; Z85.118 Personal history of other malignant neoplasm of bronchus and lung
CPT/HCPCS: 36415; 71046; 80053; 81001; 83605; 83735; 83880; 84484; 85025; 85610; 85730; 87077; 87086; 87186; 87636; 93005; 93306; 94640; 94760; 96365; 96366; 96375; 99285

== ENCOUNTER 2024-01-28 12:17 | Emergency (ER) | payer OTHER ==
[2024-01-28 12:45] VITALS: TEMP 98.3
[2024-01-28] MEDS: fentaNYL (PF) 50 MCG/ML 2 ML AMP IVP STA (13:24)
[2024-01-28] MEDS: LORazepam 2 MG/ML INJ IV STA (13:27)
[2024-01-28 13:37] VITALS: RESP 22
--- NOTE | 2024-01-28 13:56 | ED ---
Upper Extremity HPI - General Chief Complaint: Extremity Injury, Upper Stated Complaint: R arm injury Time Seen by Provider: 01/28/24 12:19 Source: patient, EMS, RN notes reviewed Mode of arrival: EMS Limitations: physical limitation - History of Present Illness Initial Comments: 63-year-old female presents emergency department complaint of a fall. Patient states she tripped and fell onto her right arm she has obvious deformity to the right mid upper arm. No head injury no loss conscious patient states she is currently on hospice she did receive morphine prior to leaving via EMS - Related Data Home Medications Medication Instructions Recorded Confirmed Albuterol Sulfate [Albuterol 2 puff PO RT-Q4H PRN 12/08/23 01/07/24 Sulfate Hfa] Ipratropium-Albuterol Nebulize 3 ml INHALATION RT-Q4H 12/08/23 01/07/24 [Duoneb 0.5 mg-3 mg/3 ml Soln] Acetaminophen Tab [Tylenol] 650 mg INHALATION RT-Q6H PRN 01/07/24 01/07/24 Previous Rx's Medication Instructions Recorded ALPRAZolam [Xanax] 0.5 mg PO TID PRN #9 tab 12/18/23 Benzonatate [Tessalon Perles] 100 mg PO TID PRN #30 cap 12/18/23 Pantoprazole [Protonix] 40 mg PO AC-BID #90 tab 12/18/23 oxyCODONE HCL/ACETAMINOPHEN 1 tab PO Q4HR PRN 3 Days #18 tab 12/18/23 [Percocet 10-325 mg] Metoprolol Tartrate [Lopressor] 50 mg PO TID #0 tab 01/09/24 Allergies Allergy/AdvReac Type Severity Reaction Status Date / Time amoxicillin Allergy Rash/Hives Verified 01/28/24 12:26 Penicillins Allergy see comment Verified 01/28/24 12:26 Review of Systems ROS Statement: Those systems with pertinent positive or pertinent negative responses have been documented in the HPI. ROS Other: All systems not noted in ROS Statement are negative. Past Medical History Past Medical History: Atrial Fibrillation, Cancer, COPD, Pneumonia Additional Past Medical History / Comment(s): left lung mass- 11/28/23 diagnosed at [facility], DDD History of Any Multi-Drug Resistant Organisms: None Reported Past Surgical History: Adenoidectomy, Appendectomy, Tonsillectomy, Tubal Ligation Past Anesthesia/Blood Transfusion Reactions: No Reported Reaction Past Psychological History: No Psychological Hx Reported Smoking Status: Former smoker Past Alcohol Use History: Occasional Past Drug Use History: Marijuana - Past Family History Mother Family Medical History: Osteoarthritis (OA) Additional Family Medical History / Comment(s): alive and healthy at age 88 Father Family Medical History: Cancer Additional Family Medical History / Comment(s): of lung and brain CA at age 78 Sister(s) Family Medical History: Cancer Additional Family Medical History / Comment(s): liver CA Brother(s) Family Medical History: Cancer Additional Family Medical History / Comment(s): leukemia; another brother has lung CA General Exam General appearance: alert, in no apparent distress Head exam: Present: atraumatic, normocephalic, normal inspection Respiratory exam: Present: normal lung sounds bilaterally. Absent: respiratory distress, wheezes, rales, rhonchi, stridor Cardiovascular Exam: Present: regular rate, normal rhythm, normal heart sounds. Absent: systolic murmur, diastolic murmur, rubs, gallop, clicks Extremities exam: Present: other (Right midfoot humerus obvious deformity with tenting skin there is a radial pulse noted) Course Vital Signs 01/28/24 01/28/24 12:20 13:21 Temperature 98.3 F Pulse Rate 89 88 Respiratory 18 22 Rate Blood Pressure 97/64 97/55 O2 Sat by Pulse 98 94 L Oximetry Procedures - Orthopedic Fracture Reduction Fracture #1 Consent Obtained: verbal consent Side: right Fracture Reduction Location: humerus Technique: traction/counter-traction Post Reduction X-rays Demonstrate: acceptable reduction Post-Reduction Neuro Exam: intact Post-Reduction Vascular Exam: intact Splint Applied: Yes Patient Tolerated Procedure: well, no complications - Orthopedic Splinting/Casting Injury #1 Side: right Upper Extremity Injury Location: long arm Upper Extremity Immobilizer: sling/shoulder immobilizer, sugar tong splint, synthetic pre-padded splint Medical Decision Making - Medical Decision Making Was pt. sent in by a medical professional or institution (, PA, JAVA DESIGNER, urgent care, hospital, or detention...) When possible be specific @ -No Did you speak to anyone other than the patient for history (EMS, parent, family, police, friend...)? What history was obtained from this source @ -No Did you review nursing and triage notes (agree or disagree)? Why? @ -I reviewed and agree with nursing and triage notes Were old charts reviewed (outside hosp., previous admission, EMS record, old EKG, old radiological studies, urgent care reports/EKG's, detention records)? Report findings @ -No old charts were reviewed Differential Diagnosis (chest pain, altered mental status, abdominal pain women, abdominal pain men, vaginal bleeding, weakness, fever, dyspnea, syncope, headache, dizziness, GI bleed, back pain, seizure, CVA, palpatations, mental health, musculoskeletal)? @ -Fall, arm fracture EKG interpreted by me (3pts min.). @ -None X-rays interpreted by me (1pt min.). @ -X-ray of right humerus shows displaced mid shaft fracture X-ray 1 view right humerus shows reduction of fracture CT interpreted by me (1pt min.). @ -None done U/S interpreted by me (1pt. min.). @ -None done What testing was considered but not performed or refused? (CT, X-rays, U/S, labs)? Why? @ -None What meds were considered but not given or refused? Why? @ -None Did you discuss the management of the patient with other professionals (professionals i.e. , PA, JAVA DESIGNER, lab, RT, psych nurse, rn social work, grey iron molder, teacher, principal gifts officer, home health care case manager)? Give summary @ -No Was smoking cessation discussed for >3mins.? @ -No Was critical care preformed (if so, how long)? @ -No Were there social determinants of health that impacted care today? How? (Homelessness, low income, unemployed, alcoholism, drug addiction, transportation, low edu. Level, literacy, decrease access to med. care, [facility], rehab)? @ -No Was there de-escalation of care discussed even if they declined (Discuss DNR or withdrawal of care, Hospice)? DNR status @ -No What co-morbidities impacted this encounter? (DM, HTN, Smoking, COPD, CAD, Cancer, CVA, ARF, Chemo, Hep., AIDS, mental health diagnosis, sleep apnea, morbid obesity)? @ -None Was patient admitted / discharged? Hospital course, mention meds given and route, prescriptions, significant lab abnormalities, going to OR and other pertinent info. @ -[Discharge patient presented for fall right arm injury she has a midshaft humerus fracture she did have traction of the right arm and splinting of the fracture she was placed back in a sling and will follow-up with orthopedics Undiagnosed new problem with uncertain prognosis? @ -No Drug Therapy requiring intensive monitoring for toxicity (Heparin, Nitro, Insulin, Cardizem)? @ -No Were any procedures done? @ -No Diagnosis/symptom? @ -Right midshaft humerus fracture Acute, or Chronic, or Acute on Chronic? @ -Acute Uncomplicated (without systemic symptoms) or Complicated (systemic symptoms)? @ -Uncomplicated Side effects of treatment? @ -No Exacerbation, Progression, or Severe Exacerbation? @ -No Poses a threat to life or bodily function? How? (Chest pain, [place], [place], pneumonia, PE, COPD, DKA, ARF, appy, cholecystitis, CVA, Diverticulitis, Homicidal, Suicidal, threat to staff... and all critical care pts) @ -No Disposition Clinical Impression: Closed right humeral fracture Disposition: HOME SELF-CARE Condition: Stable Instructions (If sedation given, give patient instructions): Arm Fracture in Adults (ED) Additional Instructions: Please return to the Emergency Department if symptoms worsen or any other concerns. Is patient prescribed a controlled substance at d/c from ED?: No Referrals: [facility] C[facility]ares [Primary Care Provider] - 1-2 days Ronnie Ballard DO [Doctor of Osteopathic Medicine] - 1-2 days Time of Disposition: 13:56
--- NOTE | 2024-01-28 14:08 | XR ---
EXAMINATION TYPE: XR humerus RT DATE OF EXAM: 01/28/2024, 1256 hours COMPARISON: NONE HISTORY: 63-year-old female fall, obvious deformity, pain TECHNIQUE: 2 views FINDINGS: There is a frankly angulated (anterior apex) transverse fracture mid humeral shaft with min imal associated comminution. Medial displacement by up to 1 shafts' width. IMPRESSION: Transverse mid humeral shaft fracture with darwin anterior apex angulation and one shaft's width of me dial displacement.
--- NOTE | 2024-01-28 14:10 | XR ---
EXAMINATION TYPE: XR humerus RT DATE OF EXAM: 01/28/2024, 0156 hours COMPARISON: Earlier today and chest x-ray 01/07/2024. HISTORY: 63-year-old female postreduction exam TECHNIQUE: Single AP view FINDINGS: Interval improved alignment of the mid humeral shaft fracture. Minimal associated comminuti on at the fracture site. Assessment for the degree of angulation is limited due to single view. A rig ht-sided pleural catheter is noted with prominent right lower lung opacities. IMPRESSION: 1. Single AP view following reduction. There is a transverse mid humeral shaft fracture with signific antly improved alignment. Angulation not well assessed on this single view. 2. Right-sided pleural catheter in place. Worsening opacities at the right mid and lower lung.
[2024-01-28 15:23] VITALS: BP 101/62; PULSE 86
== END 2024-01-28 14:45 | disposition home or self-care (01) ==
LOC: EC 12:17
DX: S42.301A Unspecified fracture of shaft of humerus, right arm, initial encounter for closed fracture (principal); Z88.0 Allergy status to penicillin; Z87.891 Personal history of nicotine dependence; W01.0XXA Fall on same level from slipping, tripping and stumbling without subsequent striking against object, initial encounter
CPT/HCPCS: 99284; 96374; 96375; 73060; 24505; J2060; J3010